=== PATIENT | male | born 1955 | race Caucasian/White ===

== ENCOUNTER 2017-06-10 16:13 | Inpatient (IN) | payer MEDICARE, SELFPAY ==
[2017-06-10] VITALS (28 sets, daily range): BP systolic 83–162; BP diastolic 38–72; PULSE 86–143; RESP 16–32; TEMP 35.8–37; O2SAT 92–99; BMI 42.7; BMI 39.2
--- NOTE | 2017-06-10 16:15 | EKG12_ITS ---
Test Reason : FULL ARREST Blood Pressure : / mmHG Vent. Rate : 099 BPM Atrial Rate : 099 BPM P-R Int : 192 ms QRS Dur : 162 ms QT Int : 460 ms P-R-T Axes : 084 089 031 degrees QTc Int : 590 ms Normal sinus rhythm Right bundle branch block , possible lateral ischemia Abnormal ECG No previous ECGs available Confirmed by STEFANO GIANG ([id number]), video news editor ROXANNE DOVER ([id number]) on 06/13/2017 1:18:34 PM Referred By: DARRYL Confirmed By:STEFANO GIANG
--- NOTE | 2017-06-10 16:15 | RAD_ITS ---
STUDY: X-RAY CHEST REASON FOR EXAM: Male, 61 years old. Cardiac arrest TECHNIQUE: Single x3 AP portable view of the chest. COMPARISON: None. FINDINGS: There is an endotracheal tube present the tip is approximately 4 cm above the nikole. An NG tube is present the tip is in the stomach. There is a pattern of increased interstitial markings throughout the lungs. There is a faintly visualized nodule in the left lower lobe measuring 1 cm which may represent a nipple shadow versus pulmonary nodule. There is mild cardiac enlargement. Normal mediastinum and christelle. Normal visualized pulmonary arteries. Normal visualized aortic arch and descending thoracic aorta. There are diffuse degenerative changes of the visualized thoracic spine. Normal visualized ribs, clavicles, and shoulders. There is no demonstrated abnormality of the visualized soft tissue structures of the upper abdomen. RAD/Chest 1 View (Portable) IMPRESSION: Mild to moderate cardiomegaly. Interstitial edema. Lines as detailed above. Endotracheal tube is slightly high could be advanced 1 to 2 cm. Question left lower lobe pulmonary nodule versus summation of shadows. Possible nipple shadow. Recommend dedicated single chest x-ray when appropriate. Electronically Signed: Matilda Nguyen MD at 16:51 EST Tel , Service support ,
[2017-06-10 16:31] LABS: Partial Thromboplast Time 53.6 Seconds (24.1-36.2)
--- NOTE | 2017-06-10 16:31 | NURSING ---
NO OLD EKGS
--- NOTE | 2017-06-10 16:31 | NURSING ---
CODE BLUE CALLED [id number]
[2017-06-10 16:34] LABS: International Normalized Ratio 1.5; Prothrombin Time (Protime)PT. 17.5 SECONDS (11.7-14.9)
[2017-06-10 16:39] LABS: Absolute Lymphocyte Count 5.03 X10^3/ul (0.83-4.51); Absolute Neutrophil Count 2.8 X10^3/uL (2.0-7.7); Basophil# 0.01 X10^3/uL; Basophil% 0.1 % (0-1); Eosinophil# 0.01 X10^3/uL; Eosinophils% 0.1 % (0-5); Hematocrit 42.1 % (40-54); Hemoglobin 13.3 g/dl (13.0-16.5); Lymphocyte # 5.03 X10^3/ul (4.0); Lymphocyte % 61.1 % (19-41); Mean Corp Hgb Conc 31.6 g/gl (32-36); Mean Corpuscular Hgb 29.4 pg (27.0-32.0); Mean Corpuscular Volume 93.1 fL (80-94); Mean Platelet Vol. 11.7 fl (6.2-12.0); Monocyte# 0.27 X10^3/uL; Monocyte% 3.3 % (0-10); Neutrophil # 2.79 X10^3/uL (2.7-7.7); Neutrophil % 33.9 % (47-70); Platelet Count 177 K/mm3 (150-450); RBC Distribution Width CV 14.4 % (11.6-14.6); RBC Distribution Width SD 48.6 fl (35.1-43.9); Red Blood Count 4.52 M/mm3 (4.6-6.2); White Blood Count 8.2 K/mm3 (4.4-11.0)
[2017-06-10 16:41] LABS: Differential Indicated SCAN CRITERIA MET; POSITIVE COUNT NO; POSITIVE DIFFERENTIAL YES; POSITIVE MORPHOLOGY NO
[2017-06-10 16:46] LABS: Allen Test POS; Base Excess -26 mmol/L (-2 to +2); Bicarbonate 9.4 mmol/L (22-26); Blood Gas Specimen Type ART; FI02 100; Mode A-C; O2 Delivery Device Vent; PEEP 5; PO2 330 mmHG (75-100); RR 14; SITE R Radial; SO2 99 % (95-99); Time Given 1641; Total Carbon Dioxide 12 mmol/L; Vt 650; pCO2 71.6 mmHg (35-45); pH 6.73 (7.35-7.45)
[2017-06-10 16:48] LABS: AST(SGOT) 46 U/L (15-37); Alanine Aminotransfer ALT/SGPT 38 U/L (16-61); Albumin, Serum 3.3 g/dL (3.2-5.0); Alkaline Phosphatase 138 U/L (45-117); Anion Gap 23 (5-15); BUN 80 mg/dL (7-18); BUN/Creat Ratio 14.4 RATIO (10-20); Bilirubin, Direct 0.11 mg/dL (0.00-0.30); Calcium,Total 8.2 mg/dL (8.5-10.1); Chloride 102 mmol/L (98-107); Creatinine, Serum 5.56 mg/dL (0.70-1.30); EST Glomerular Filtration Rate 11 mL/min (>60); Est Glom Filt Rate - Afr Amer 14 mL/min (>60); Estimated Creatinine Clearance 15.24 ml/min; Globulin 4.3 g/dL (2.2-4.2); Glucose 172 mg/dL (74-106); Potassium 4.9 mmol/L (3.5-5.1); Protein, Total 7.6 g/dL (6.4-8.2); Sodium Level 140 mmol/L (136-145)
[2017-06-10 16:59] LABS: Anisocytosis RARE; Platelet Estimate A (ADEQ); Platelet Morphology LARGE
[2017-06-10] MEDS: Sodium Bicarbonate 8.4% 50 ML Syringe 50 MEQ IV ×2 (16:59→17:59)
[2017-06-10 17:00] LABS: Macrocytosis RARE; Ovalocyte RARE
[2017-06-10 17:20] LABS: Lactic Acid 14.1 mmol/L (0.4-2.0)
--- NOTE | 2017-06-10 17:37 | ED.VISSUMM ---
- ER Visit Summary Date of Service: 06/10/17 Chief Complaint: Respiratory distress History of Present Illness: The patient is a 61 M who has not been feeling well for 1 week. According to he was seen in urgent care and placed on an antibiotic for respiratory infection. She states 2-3 days ago he was not acting appropriate. Examples that she gave were: 1.) He was sitting at the edge of the bed and when asked why he replied I am not sitting at the edge of the bed . 2.) states he was at the doorway and thought he lit a cigarette and thought he smoked it then threw away the cigarette. She gave other examples to illustrate that he is not been acting appropriately for the last 2-3 days. She stated prior to calling the squad he had shaking chills. He is a smoker 1-2 packs per day. He is on oxygen. He also has obstructive sleep apnea and she states he is compliant with his CPAP machine. She does report cough she is uncertain whether was productive or not. Her verbal report since the written report is not available he had a cardiac arrest as well. Monitor revealed asystole. He was bagged and appropriate algorithm for asystole was followed. When he arrived he had palpable pulse. Physical Examination: Initial vital signs 133/39 with a heart rate of 92 respiratory rate of 20 by bag valve mask and saturation of 92% on 15 L. Core temperature 96.5. Pupils were 3 mm and nonreactive. There is no evidence of trauma to the face or head. There is no hemotympanum. There is no CSF otorrhea rhinorrhea. Posterior pharynx was unremarkable with midline uvula. Trachea is midline. Breath sounds were noted when he was bagged. He had palpable carotid, femoral and radial pulses. There was evidence of acrocyanosis. Rhonchi were noted bilaterally after intubation. Abdomen is soft. Test Results: EKG reveals proper position of the endotracheal tube and OG tube. There is a left lower lobe infiltrate and increased interstitial markings on the right side compared to left. EKG sinus rhythm rate of 99 with right bundle branch block. White count is normal with 34 segs no bands 61 lymphs. Electrolyte panel is remarkable for an elevated BUN/creatinine. Creatinine is 5.54. He does have an anion gap acidosis and his lactate is 14.1. Troponins less than 0.02. There is evidence of coagulopathy with INR 1.5 and PTT of 53.6. ABG after ventilation reveals pH to be 6.7, P CO2 71.6, PaO2 333 and bicarb of 9.4 with a base excess of -26 on the following vent settings AC 14, tidal volume 650, PEEP 5 and FiO2 1.0. This indicates a metabolic and respiratory acidosis with an increased AA gradient. Her graft in light of the blood gas results and the fact that this is after successful intubation and on the vent for 1 hour he was administered 2 A of bicarb IV push. Because his blood pressure deteriorated he received 30 cc/kg bolus. He remained hypotensive a Levophed drip was ordered and a right subclavian line was placed by me. Emergency Department Course and Treatment: Rocephin and Zithromax for community acquired pneumonia, septic shock pathway with fluid bolus and Levophed. The right subclavian area was cleansed and patient was draped per hospital protocol. All participants in room or a mask and cap. First attempt resulted in cannulation of the artery on the way end. The needle was removed. Second attempt resulted in successful cannulation of the subclavian vein. Using Seldinger technique a 7.5 Maltese triple-lumen was placed. Blood was aspirated from all 3 ports. All 3 ports were flushed. A chest x-ray to confirm placement was obtained and to rule out pneumothorax. Procedures: 1. Right subclavian line placed per ED physician 2. Placement temperature probe catheter by nursing staff 3. Placement of OG per nursing staff 4. Critical care time 42 minutes 5. Oral tracheal intubation by ED physician Treatment Plan: Admit to intensive care unit Disposition: ICU Impression: 1. Cardiopulmonary arrest 2. Septic shock 3. Left lower lobe infiltrate 4. Acute kidney injury 5. Respiratory failure with hypercapnia and hypoxia and metabolic acidosis 6. History of diabetes 7. History of hypertension 8. History of O2 dependent COPD patient 9. History of coronary disease per 10. Tobacco use, 2 packs per day This note was generated with [employer] software. It may contain incorrect words, spelling, and punctuation that were not noted in review of the chart prior to signing ED Disposition - Plan for ED Patient: Chief Complaint: Unresponsive Referrals: Marlene Herrera MD [Primary Care Provider] -
--- NOTE | 2017-06-10 17:41 | NURSING ---
DR PICKARD IN ER
--- NOTE | 2017-06-10 17:49 | NURSING ---
ICU RESP ARREST, CARDIAC ARREST, SEPTIC SHOCK ASHELFAH
[2017-06-10] MEDS: Ceftriaxone 1 GM/50 ML BAG IV (17:59)
--- NOTE | 2017-06-10 18:05 | RAD_ITS ---
STUDY: X-RAY CHEST REASON FOR EXAM: Male, 61 years old. Central line placement TECHNIQUE: Frontal views of the chest were obtained. COMPARISON: Chest radiographs from the same day FINDINGS: The endotracheal tube terminates about 6.8 cm above the nikole. The gastric tube extends adequately into the upper abdomen. A right subclavian central line is present. The lungs are adequately aerated. There are no focal airspace opacities. There is minimal air in the right pleural margin in the periphery of the right lung base. There is mild enlargement of the cardiac silhouette. The mediastinum and hilar regions are unremarkable. The central vessels are prominent. There is atherosclerotic calcification of the thoracic aorta. There are diffuse degenerative changes of the visualized spine. There are degenerative changes in both shoulders. There is cortical disruption in the anterolateral aspects of the right fifth and sixth ribs. There is no demonstrated abnormality of the visualized upper abdomen. RAD/CXR for Line Placement IMPRESSION: There is a small pneumothorax along the periphery of the right lung base. This is likely due to minimally displaced rib fractures in the anterolateral aspects of the right fifth and sixth ribs rather than from central line placement. Follow-up films can be obtained. The tip of the right subclavian line is in the expected location of the mid to distal SVC. There is mild enlargement of the cardiac silhouette with mild edema. There is no obvious pleural effusion. N.B. : The above information has been verbally conveyed by Ana Laura Brown MD to Papo Taylor, Referring Physician, on 06/10/2017 19:21:19 (ET). Electronically Signed: Ana Laura Brown MD at 19:22 EST Tel Direct: [phone], Service support , N.B. : The above information has been verbally conveyed by Ana Laura Brown MD to Papo Taylor, Referring Physician, on 06/10/2017 19:21:19 (ET).
--- NOTE | 2017-06-10 18:09 | HP.PCM_ITS ---
Problem List (1) Community acquired pneumonia Status: Suspected (2) Acute renal failure Status: Acute (3) Septic shock Status: Acute (4) Lactic acidosis Status: Acute (5) Cardiopulmonary arrest Status: Acute (6) Coronary artery disease Status: Chronic (7) Hyperlipidemia Status: Chronic (8) Depression Status: Chronic (9) Hypertension Status: Chronic (10) Type 2 diabetes mellitus Status: Chronic (11) COPD (chronic obstructive pulmonary disease) Status: Chronic (12) Chronic respiratory failure Status: Chronic History of Present Illness Date of Admission: 06/10/17 Chief Complaint: Respiratory arrest followed by cardiac arrest. The patient is a 61 year old M with past medical history as mentioned above brought to the emergency room by squad because of respiratory arrest and in route to the hospital, he had asystole/cardiac arrest and CPR was initiated. At this time, patient is comatosed, not responsive and he is not sedated. I took the information from his who was sitting in the front of the patient' s room. According to the patient's , the patient has been not feeling well for the past week. He went to urgent care for upper respiratory symptoms and he was given antibiotics for respiratory infection. Couple of days ago, she mentioned that he has not been acting normally, confused at times. 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 Before that, patient had significant shaking chills. She called the squad because he was unresponsive. He had a history of COPD/chronic respiratory failure and he has been on oxygen at 2 L at home. He had a history of type 2 diabetes mellitus, has been on metformin and glipizide and his mentioned that he is not compliant and does not take his medication appropriately. He has a history of CAD in the past without history of cardiac interventions and he does not follow up with either his PCP or cardiology. He has a history of depression and anxiety and his mentioned that takes couple of antidepressants. In route to the hospital, monitor revealed asystole and CPR initiated. Upon arrival to ER, patient was afebrile, blood pressure was 123/39, pulse ox is 97% with intubation and on Ambu bag. Patient was started on mechanical ventilation. Shortly after, his blood pressure dropped. He received 3 L of IV fluid bolus and at this time, he is receiving the fourth liter of fluids. When I examined the patient, his systolic blood pressure was in the 60s. He is unresponsive and he is not on sedation. His CBC was unremarkable. BMP revealed serum bicarb of 15, BUN of 80, creatinine of 5.56. Lactic acid was 14.1. Troponin was negative. EKG revealed normal sinus rhythm with right bundle branch block, no acute ischemic changes. His pro time was 17.5 and his INR was 1.5. ABG revealed pH of 6.73, PCO2 of 71 and PO2 of 330. Chest x-ray which is of poor quality revealed cardiomegaly, diffuse haziness on the right side with fluid in the fissure on the right side, questionable left base consolidation or nodule. He is being admitted for cardiopulmonary arrest, septic shock, lactic acidosis, suspected pneumonia, acute kidney failure. Past Medical History Past Medical History (Chronic Problems): Chronic Problems Coronary artery disease (Chronic) Hyperlipidemia (Chronic) Depression (Chronic) Hypertension (Chronic) Type 2 diabetes mellitus (Chronic) COPD (chronic obstructive pulmonary disease) (Chronic) Chronic respiratory failure (Chronic) Allergies No Known Allergies Allergy (Verified 06/10/17 16:28) Home Medications: Ambulatory Orders Medication Instructions Recorded Albuterol IH (ProAir) [Proair Hfa 1 puff INHALATION Q4H PRN PRN 06/10/17 (SP)Vent Pts] Aspirin [Aspirin, Baby] 81 mg PO DAILY 06/10/17 Bupropion HCl [Wellbutrin Xl] 300 mg PO DAILY 06/10/17 Citalopram Hydrobromide [Celexa] 20 mg PO DAILY 06/10/17 Eszopiclone [Lunesta] 2 mg PO QHS PRN PRN 06/10/17 Fenofibrate 200 mg PO DAILY 06/10/17 Ferrous Sulfate 325 mg PO DAILY@0800 06/10/17 Furosemide [Lasix] 40 mg PO DAILY 06/10/17 GlipiZIDE [Glucotrol] 10 mg PO BID 06/10/17 Lisinopril [Zestril] 40 mg PO DAILY 06/10/17 Magnesium Oxide [Mag-Ox 400] 400 mg PO DAILY 06/10/17 Metformin HCl 1,000 mg PO BID 06/10/17 Nitroglycerin [Nitrostat] 0.4 mg SL PRN PRN 06/10/17 Omeprazole [Prilosec] 20 mg PO DAILY 06/10/17 Simvastatin 20 mg PO QHS 06/10/17 Tamsulosin HCl [Flomax] 0.4 mg PO DAILY 06/10/17 Tizanidine HCl 4 mg PO QHS 06/10/17 Surgical History: - - Back surgery. Psychiatric History: Anxiety, Depression Lives: Spouse/ Significant Other Smoking Status: Current every day smoker Alcohol: None Drugs: None - *Family History Maternal History Items: No pertinent history Paternal History Items: No pertinent history Review of Systems Constitutional: Reports: - - Unobtainable, patient is comatosed. Eyes: Reports: - - Unobtainable, patient is comatosed. HEENT: Reports: - - Unobtainable, patient is comatosed. Cardiovascular: Reports: - - Unobtainable, patient is comatosed. Respiratory: Reports: - - Unobtainable, patient is comatosed. Gastrointestinal: Reports: - - Unobtainable, patient is comatosed. Genitourinary: Reports: - - Unobtainable, patient is comatosed. Musculoskeletal: Reports: - - Unobtainable, patient is comatosed. Neurological: Reports: - - Unobtainable, patient is comatosed. Endocrine: Reports: - - Unobtainable, patient is comatosed. VTE Information - Inpt Only VTE Present on Admission: No VTE Mechan Device Prophylaxis: SCD's VTE Pharm Prophylaxis ordered?: No Patient Problems: Active and Suspected Problems Community acquired pneumonia (Suspected) Acute renal failure (Acute) Septic shock (Acute) Lactic acidosis (Acute) Cardiopulmonary arrest (Acute) - Physical Exam General: - - Patient is intubated, comatosed, [place] Coma Scale of 0. HEENT: Atraumatic, EOMI, Normocephalic Oral: Moist Mucosa, No Gingival or Mucosal Lesions/ Ulcerations Neck: Supple, No JVD, Negative Carotid Bruits, Trachea Midline, Thyroid Normal Size and Texture Lungs: Clear to auscultation, No wheeze, No rales, Diminished, Rhonchi, Short of Breath Cardiovascular: Regular rate, Regular Rhythm, Normal S1, Normal S2, No murmurs, PMI Normal, Tachycardic Abdomen: Bowel Sounds Present, Soft, Non Tender, Non-Distended, No Hepato- splenomegaly, Obese Extremities: No clubbing, No cyanosis, No edema Skin: No rashes, No breakdown Lymphatic: No Cervical, Supraclavicular, or Inguinal Adenopathy Neurological: - - Unable to examine, patient is comatosed. Vital Signs Temp Pulse Resp BP Pulse Ox 98.6 F 98 25 H 89/44 L 96 06/10/17 16:58 06/10/17 16:58 06/10/17 16:58 06/10/17 16:58 06/10/17 16:58 Oxygen Flow Rate 15 Oxygen Delivery Method Mechanical Ventilator Weight: 306 lb 7.08 oz Body Mass Index (BMI) 42.7 Finger Stick Blood Glucose 179 Laboratory Tests Past 24 Hrs 06/10/17 06/10/17 06/10/17 16:14 16:14 16:14 WBC 8.2 RBC 4.52 L Hgb 13.3 Hct 42.1 MCV 93.1 MCH 29.4 MCHC 31.6 L RDW 14.4 RDW Differential 48.6 H Plt Count 177 MPV 11.7 Immature Gran % (Auto) 1.500 H Neut % (Auto) 33.9 L Lymph % (Auto) 61.1 H [place] % (Auto) 3.3 Eos % (Auto) 0.1 Baso % (Auto) 0.1 Absolute Neuts (auto) 2.8 Absolute Lymphs (auto) 5.03 H Total Counted Not Reportable Diff Path Review May foll Platelet Estimate A Plt Morphology Comment LARGE Anisocytosis RARE Macrocytosis RARE Ovalocytes RARE PT 17.5 H INR 1.5 APTT 53.6 H Specimen Type Sample Site pH Bicarbonate Actual POC Total CO2 Base Excess O2 Saturation O2 % ABG pCO2 ABG pO2 Gagan Test Respiration Rate O2 Delivery Device Minute Volume Vent Mode Tidal Volume POC PEEP Blood Gas Notified Whom Blood Gas Notified Time Sodium 140 Potassium 4.9 Chloride 102 Carbon Dioxide 15.0 L Anion Gap 23 H BUN 80 H Creatinine 5.56 H Estim Creat Clear Calc 15.24 Est GFR (MDRD) Af Amer 14 L Est GFR (MDRD) Non-Af 11 L BUN/Creatinine Ratio 14.4 Glucose 172 H Lactic Acid Calcium 8.2 L Total Bilirubin 0.40 Direct Bilirubin 0.11 AST 46 H ALT 38 Alkaline Phosphatase 138 H Troponin I < 0.02 Total Protein 7.6 Albumin 3.3 Globulin 4.3 H 06/10/17 06/10/17 16:28 16:42 WBC RBC Hgb Hct MCV MCH MCHC RDW RDW Differential Plt Count MPV Immature Gran % (Auto) Neut % (Auto) Lymph % (Auto) [place] % (Auto) Eos % (Auto) Baso % (Auto) Absolute Neuts (auto) Absolute Lymphs (auto) Total Counted Diff Path Review Platelet Estimate Plt Morphology Comment Anisocytosis Macrocytosis Ovalocytes PT INR APTT Specimen Type ART Sample Site R Radial pH 6.73 L* Bicarbonate Actual 9.4 L POC Total CO2 12 Base Excess -26 L O2 Saturation 99 O2 % 100 ABG pCO2 71.6 H* ABG pO2 330 H* Gagan Test POS Respiration Rate 14 O2 Delivery Device Vent Minute Volume 12.00 Vent Mode A-C Tidal Volume 650 POC PEEP 5 Blood Gas Notified Whom ED Blood Gas Notified Time 1641 Sodium Potassium Chloride Carbon Dioxide Anion Gap BUN Creatinine Estim Creat Clear Calc Est GFR (MDRD) Af Amer Est GFR (MDRD) Non-Af BUN/Creatinine Ratio Glucose Lactic Acid 14.1 H* Calcium Total Bilirubin Direct Bilirubin AST ALT Alkaline Phosphatase Troponin I Total Protein Albumin Globulin Clinical Impression(s) from Imaging Studies Chest X-Ray 06/10/17 16:15 IMPRESSION: Mild to moderate cardiomegaly. Interstitial edema. Lines as detailed above. Endotracheal tube is slightly high could be advanced 1 to 2 cm. Question left lower lobe pulmonary nodule versus summation of shadows. Possible nipple shadow. Recommend dedicated single chest x-ray when appropriate. Electronically Signed: Matilda Nguyen MD at 16:51 EST Tel , Service support , Assessment/Plan Active and Suspected Problems Community acquired pneumonia (Suspected) Acute renal failure (Acute) Septic shock (Acute) Lactic acidosis (Acute) Cardiopulmonary arrest (Acute) This is a 61 years old male patient brought to the emergency department because of respiratory distress and while in the route to the hospital, he went into acute respiratory failure followed by cardiac arrest, status post CPR, found to have septic shock, lactic acidosis, acute hypercapnic respiratory failure secondary to possible pneumonia as well as acute renal failure. #1 status post cardiopulmonary arrest: Initially, patient had respiratory arrest followed by asystole. Status post CPR. At this time, he has palpable pulse, blood pressure is very low. He received 3 L of bolus IV fluid and he is on the fourth liter. He will be started on IV Levophed drip soon. EKG reviewed , revealed sinus tachycardia with right bundle branch block, no previous EKG to compare. Chest x-ray reviewed as above. Patient received 1 dose of IV Rocephin and Zithromax as well as sodium bicarbonate ?3. Plan: Admit to intensive care unit, critical care monitoring, complete bedrest, nothing by mouth, blood culture, urine culture, start IV vancomycin and Levaquin as patient had a history of recent upper respiratory infection which raised the concern of staphylococcal pneumonia, critical care consult, continue vent settings, ABG in 2 hours, suction of the ETT per protocol, cardiac enzymes, repeat EKG tomorrow morning. #2 acute hypercapnic respiratory failure/respiratory acidosis: Secondary to above in addition to possible pneumonia. Patient has history of COPD as well, has been on oxygen as well as sleep apnea. ABG reviewed pH of 6.73, PCO2 71 and PO2 of 330. Plan to continue mechanical ventilation, repeat ABG in 2 hours , critical care consult. #3 lactic acidosis/septic shock: Secondary to cardiac pulmonary arrest in addition to pneumonia. Lactic acid slightly elevated. Received bolus IV fluids as per protocol. Blood pressure has been low. He will be started on IV Levophed drip. Plan as above, franklin cultures, IV antibiotics, IV fluids, repeat lactic acid in 3 hours. #4 acute renal failure: With unknown baseline kidney function. This is probably acute, admission creatinine is 5.56, BUN is 80. Plan IV fluids, input output chart, repeat BMP tomorrow morning. #5 probable community-acquired pneumonia: Chest x-ray reviewed as above. Plan: IV vancomycin, Levaquin, cultures, continue mechanical ventilation, critical care consult. #6 type 2 diabetes mellitus: Keep on nothing by mouth, IV fluids, Accu-Cheks every 6 hours, insulin sliding scale. #7 hypertension: At this time, blood pressure is low, hold all antihypertensive medications. #8 CAD: Without prior cardiac interventions. EKG reviewed, revealed no acute ischemic changes, revealed RBBB. Plan: Cardiac enzymes, repeat EKG tomorrow morning. #9 COPD/chronic respiratory failure: On mechanical ventilation, plan as above. At home, has been on oxygen at 2 L according to his . #11 DVT prophylaxis: INR is 1.5, SCDs. #12 CODE STATUS: I spoke with the patient's in details about the critical condition of her and she mentioned that he expressed that he does not want to be on the life sustaining measures such as breathing machines but he does not have a DNR status. She mentioned that she cannot take this at this time. I explained to her that at this time, if he went into cardiac arrest again we will try to bring him back with CPR and then we can discuss the CODE STATUS again if things changes. She agreed to keep him full CODE STATUS at this time and will follow. Other chronic medical problems: #1 hyperlipidemia. #2 depression. #3 anxiety. #4 obstructive sleep apnea: Has been on CPAP at home. This note was generated with [employer] dictation software. It may contain incorrect words, spelling, and punctuation that were not noted in checking the note before signing. Code Visit Inpatient E&M: 96605 Init Hosp L3
[2017-06-10 19:11] LABS: Allen Test POS; Base Excess -13 mmol/L (-2 to +2); Bicarbonate 15.1 mmol/L (22-26); Blood Gas Specimen Type ART; FI02 40; Mode A-C; O2 Delivery Device Vent; PEEP 5; PO2 82 mmHG (75-100); RR 16; SITE R Radial; SO2 93 % (95-99); Time Given 655; Total Carbon Dioxide 16 mmol/L; Vt 650; pCO2 38.4 mmHg (35-45)
--- NOTE | 2017-06-10 20:08 | RAD_ITS ---
STUDY: X-RAY CHEST REASON FOR EXAM: Male, 61 years old. Follow-up pneumothorax TECHNIQUE: Frontal views of the chest were obtained. COMPARISON: Chest radiographs from the same day FINDINGS: The endotracheal tube terminates about 5.4 cm above the nikole. The gastric tube extends adequately into the upper abdomen. The right subclavian central line terminates in the expected location of the mid SVC. The lungs are underaerated. There are no focal airspace opacities. Minimal air is again seen in the periphery of the right lung base. There is mild enlargement of the cardiac silhouette. The mediastinum and hilar regions are unremarkable. The central vessels are indistinct. There is atherosclerotic calcification of the thoracic aorta. There are diffuse degenerative changes of the visualized spine. There are degenerative changes in both shoulders. The right rib fractures are not well seen on the current study. A fracture is now seen along the anterolateral left sixth rib, and there may be cortical disruption in the lateral left fifth rib. There is air in the lateral soft tissues of the right lower chest. RAD/Chest 1 View (Portable) IMPRESSION: There is a stable appearance of the small pneumothorax in the periphery of the right lower chest. Adjacent subcutaneous emphysema has increased. There is mild enlargement of the cardiac silhouette with vascular congestion. There is no evidence of pleural effusion. The previously seen right rib fractures are not well seen on the current study. However fractures are now seen in the anterolateral left sixth rib and possibly lateral left fifth rib. Electronically Signed: Ana Laura Brown MD at 21:23 EST Tel Direct: [phone], Service support ,
[2017-06-10 20:28] LABS: Reflex Lactate? Y
[2017-06-10] MEDS: Propofol 10MG/Ml 1,000 MG/100 ML Bottle 4.17 MG CONT INF (20:39)
--- NOTE | 2017-06-10 20:56 | RAD_ITS ---
STUDY: X-RAY CHEST REASON FOR EXAM: Male, 61 years old. Chest tube placement TECHNIQUE: A single frontal view of the chest was obtained. COMPARISON: Chest radiographs from the same day FINDINGS: A chest tube is now present in the right hemithorax. The endotracheal tube terminates about 5.7 cm above the nikole. The gastric tube and right subclavian line are stable. The lungs are underaerated. There are no focal airspace opacities. There is no demonstrated pleural abnormality. There is mild enlargement of the cardiac silhouette. The mediastinum and hilar regions are unremarkable. The central vessels are indistinct. There is atherosclerotic calcification of the thoracic aorta. There are diffuse degenerative changes of the visualized spine. There are degenerative changes in both shoulders. Subcutaneous emphysema is again seen in the lateral lower right chest. RAD/Chest 1 View (Portable) IMPRESSION: There has been resolution of the right pneumothorax after chest tube placement. There are no acute cardiopulmonary changes. Electronically Signed: Ana Laura Brown MD at 22:13 EST Tel Direct: [phone], Service support ,
--- NOTE | 2017-06-10 21:21 | OP.PCM_ITS ---
Problem List (1) Pneumothorax, right Status: Acute Report of Operation Date of Procedure: 06/10/17 Pre-Operative Diagnosis: 1. Right pneumothorax. 2. Need for arterial line Post-Operative Diagnosis: Same Surgery/Procedure Performed:: 1. Placement of 28 [place] right chest tube. 2. Placement of right wrist arterial line with ultrasound guidance Description of Procedure: I was consulted to see the patient after he had chest compressions and was intubated and brought to the ICU and a chest x-ray showed right pneumothorax with subcutaneous emphysema. I discussed the risks of placing a chest tube and arterial line with the patient's . I discussed the risks of bleeding, infection, lung injury. The patient's agreed to proceed. The patient's right chest was prepped and draped in the usual sterile fashion. Next an incision was made lateral to the inframammary crease and lidocaine was injected into the incision. Next Fadumo clamps were used to dissect down to the rib and just over the rib they were inserted into the pleural space and a haji of air was encountered. Next the finger sweep was performed to ensure that there were no adhesions to the lung. Next a 28 [place]ian chest tube was placed into the opening and directed superiorly and anteriorly. Next the tube was anchored to the skin with 0 Nurolon suture. The skin incision was then closed with a vertical mattress 2-0 Mersilene suture. Next the tube was connected to suction. There was about 100 cc of serosanguineous fluid returned with minimal air leak. Next the right radial artery was identified under ultrasound. The right wrist was then prepped and draped in the usual sterile fashion. Under ultrasound guidance the right radial artery was cannulated with an arterial line and then sutured into place with a 3-0 nylon suture. Bandages were then applied and the arterial line was flushed.
[2017-06-10 21:27] LABS: Magnesium 1.5 mg/dL (1.6-2.6)
[2017-06-10 21:27] LABS: Base Excess -15 mmol/L (-2 to +2); Bicarbonate 13.8 mmol/L (22-26); Blood Gas Specimen Type ALINE; FI02 40; Mode A-C; O2 Delivery Device Vent; PEEP 5; PO2 102 mmHG (75-100); RR 16; SITE OTHER; SO2 96 % (95-99); Total Carbon Dioxide 15 mmol/L; Vt 550; pCO2 39.6 mmHg (35-45); pH 7.15 (7.35-7.45)
--- NOTE | 2017-06-10 21:30 | NURSING ---
Patient arrived in ICU-1 at 1930 and ER nurse present. ER charge nurse, Lexii Lyons RN stated he received a call that the patient had a tension pneumothorax on his CXR. Dr. Hogan on the floor and notified. CXR reviewed by Dr. Hogan who stated it was not a tension pneumothorax but wanted a repeat CXR. Repeat CXR showed a pneumothorax on the right side and crepitus present at the level of the right nipple. Dr. Hogan notified of such at 2009. in waiting room and Dr. Hogan updated her on the patient's condition. Consent obtained to place a right sided chest tube and right wrist arterial line. Time out completed at 2035 and CLIENT CARE COORDINATOR and WELL DRILL OPERATOR assisted with placement of chest tube at 2041. Chest tube connected to low continuous wall suction. Right wrist arterial line placed at 2058. Repeat CXR obtained and Dr. Hogan perosnally reviewed it. updated on patient condition and had a brief visit with the patient. Dr. Cotton made aware of chest tube and arterial line placement
[2017-06-10 21:57] LABS: International Normalized Ratio 1.3; Prothrombin Time (Protime)PT. 15.4 SECONDS (11.7-14.9)
[2017-06-10 22:12] LABS: Lactic Acid 1.3 mmol/L (0.4-2.0)
[2017-06-10] MEDS: Chlorhexidine 15 ML PO (22:36)
[2017-06-10 22:51] LABS: Bacteria 0 SEEN /hpf (None Seen); Mucous, Urine 0 SEEN /hpf (<or=2+); Squamous Epithelial Cells - UA 0 SEEN /hpf (0-5); White Blood Cells 0 SEEN /hpf (0-5)
[2017-06-10 23:18] LABS: Color, Urine Yellow (Yellow); Glucose, Dipstick Normal (Normal); Ketone-Dipstick Negative (Negative); Leukocyte Esterase-Dipstick Negative /ul (Negative); Nitrite-Dipstick Negative (Negative); Occult Blood-Urine 25 /ul (Negative); Protein-Dipstick 30 mg/dl (Negative); Specific Gravity, Urine 1.025 (1.002-1.030); Urine Clarity Sl. Cloudy (Clear); Urine Urobilinogen Normal (Normal)
[2017-06-10 23:28] LABS: Urine Bilirubin Dipstick 1 mg/dL (Negative)
[2017-06-10 23:29] LABS: Amorphous Sediment 1+; Red Blood Cells-Urine 0-5 SEEN /hpf (0-5)
[2017-06-10 23:34] LABS: M R Staph aureus DNA By PCR Negative (Negative); Probe Check PASS; Specimen Processing Control PASS; Staph aureus DNA By PCR NEGATIVE (Negative)
[2017-06-10 23:41] LABS: Bedside Glucose 274 mg/dL (70-110)
[2017-06-11] VITALS (44 sets, daily range): BP systolic 124–193; BP diastolic 53–101; PULSE 87–111; RESP 16–32; TEMP 36.2–37.7; O2SAT 94–105
[2017-06-11 00:36] LABS: Bedside Glucose 274 mg/dL (70-110)
[2017-06-11 01:30] LABS: Mucous, Urine 0 SEEN /hpf (<or=2+)
[2017-06-11 01:35] LABS: Color, Urine Yellow (Yellow); Glucose, Dipstick 50 mg/dl (Normal); Ketone-Dipstick 5 mg/dl (Negative); Leukocyte Esterase-Dipstick 25 /ul (Negative); Nitrite-Dipstick Negative (Negative); Occult Blood-Urine 150 /ul (Negative); Protein-Dipstick 100 mg/dl (Negative); Urine Clarity Sl. Cloudy (Clear); Urine Urobilinogen Normal (Normal)
[2017-06-11] MEDS: CHLORHEXIDINE GLUC 2% CLOTH 1 EACH TOWELETTE TOPICAL (01:40)
[2017-06-11] MEDS: 0.9% Normal Saline 1,000 ML 125 ML IV (01:40)
[2017-06-11 01:58] LABS: Urine Bilirubin Dipstick 1 mg/dL (Negative)
[2017-06-11 01:59] LABS: Coarse Granular Cast 0-5 SEEN /lpf (0-5 /lpf)
[2017-06-11 02:00] LABS: Bacteria 2+ /hpf (None Seen); Red Blood Cells-Urine 25-50 SEEN /hpf (0-5); Squamous Epithelial Cells - UA 10-25 SEEN /hpf (0-5); White Blood Cells 25-50 SEEN /hpf (0-5)
[2017-06-11] MEDS: Propofol 10MG/Ml 1,000 MG/100 ML Bottle 4.17 MG CONT INF ×4 (02:32→22:22)
[2017-06-11 03:11] LABS: Base Excess -14 mmol/L (-2 to +2); Bicarbonate 13.4 mmol/L (22-26); Blood Gas Specimen Type ALINE; FI02 40; Mode A-C; O2 Delivery Device Vent; PEEP 5; PO2 86 mmHG (75-100); RR 16; SITE OTHER; SO2 94 % (95-99); Total Carbon Dioxide 14 mmol/L; Vt 550; pCO2 33.2 mmHg (35-45); pH 7.21 (7.35-7.45)
[2017-06-11 05:01] LABS: Absolute Lymphocyte Count 1.09 X10^3/ul (0.83-4.51); Absolute Neutrophil Count 16.7 X10^3/uL (2.0-7.7); Hematocrit 32.9 % (40-54); Hemoglobin 10.8 g/dl (13.0-16.5); Lymphocyte # 1.09 X10^3/ul (4.0); Lymphocyte % 5.9 % (19-41); Mean Corp Hgb Conc 32.8 g/gl (32-36); Mean Corpuscular Hgb 28.6 pg (27.0-32.0); Mean Corpuscular Volume 87.3 fL (80-94); Mean Platelet Vol. 10.9 fl (6.2-12.0); Monocyte# 0.52 X10^3/uL; Monocyte% 2.8 % (0-10); Neutrophil # 16.67 X10^3/uL (2.7-7.7); Neutrophil % 90.9 % (47-70); Platelet Count 139 K/mm3 (150-450); RBC Distribution Width CV 14.4 % (11.6-14.6); RBC Distribution Width SD 45.3 fl (35.1-43.9); Red Blood Count 3.77 M/mm3 (4.6-6.2); White Blood Count 18.4 K/mm3 (4.4-11.0)
[2017-06-11 05:04] LABS: Differential Indicated SCAN CRITERIA MET; POSITIVE COUNT NO; POSITIVE DIFFERENTIAL NO; POSITIVE MORPHOLOGY YES
[2017-06-11 05:58] LABS: ALB/GLOB Ratio 0.7 RATIO (0.9-2.4); AST(SGOT) 109 U/L (15-37); Alanine Aminotransfer ALT/SGPT 52 U/L (16-61); Albumin, Serum 2.6 g/dL (3.2-5.0); Alkaline Phosphatase 86 U/L (45-117); Anion Gap 18 (5-15); BUN 84 mg/dL (7-18); BUN/Creat Ratio 16.5 RATIO (10-20); Calcium,Total 6.1 mg/dL (8.5-10.1); Chloride 108 mmol/L (98-107); Creatinine, Serum 5.08 mg/dL (0.70-1.30); EST Glomerular Filtration Rate 12 mL/min (>60); Est Glom Filt Rate - Afr Amer 15 mL/min (>60); Estimated Creatinine Clearance 16.17 ml/min; Globulin 3.5 g/dL (2.2-4.2); Glucose 257 mg/dL (74-106); Potassium 5.4 mmol/L (3.5-5.1); Protein, Total 6.1 g/dL (6.4-8.2); Sodium Level 142 mmol/L (136-145)
--- NOTE | 2017-06-11 06:25 | RAD_ITS ---
STUDY: X-RAY CHEST REASON FOR EXAM: Male, 61 years old. Shortness of breath TECHNIQUE: Single AP portable view of the chest. COMPARISON: 04/08/2017 9:32 PM FINDINGS: There is an endotracheal tube present above the clavicles 5.7 cm above the nikole. An NG tube is present tip is in the stomach. The right-sided chest tube with the tip overlying the right side perihilar region. There is a right-sided subclavian line in place tip is in the superior vena cava. Lungs are underexpanded interstitial markings are diffusely prominent. There is subcutaneous gas within the right chest. A pneumothorax is not visualized. The external pacer seen overlying the right chest and prior study is no longer visualized. There is mild cardiac enlargement. There is a prominent appearance of the mediastinum. Normal visualized pulmonary arteries. There is atherosclerotic calcification of the aortic arch with tortuosity. Normal visualized thoracic spine. Normal visualized ribs, clavicles, and shoulders. There is no demonstrated abnormality of the visualized soft tissue structures of the upper abdomen. RAD/Chest 1 View (Portable) IMPRESSION: Right-sided chest tube, subcutaneous gas, no definitive visualized pneumothorax. The heart is enlarged. There is a widened appearance of the mediastinum which is likely due to positioning and aortic tortuosity. However, Recommend CT scan of the chest when appropriate to clarify. Lines as detailed above. The endotracheal tube is high 5.7 cm above the nikole and should be advanced 2 to 3 cm. Electronically Signed: Matilda Nguyen MD at 9:15 EST Tel , Service support ,
[2017-06-11 06:31] LABS: Bedside Glucose 238 mg/dL (70-110)
[2017-06-11 06:31] LABS: Base Excess -13 mmol/L (-2 to +2); Bicarbonate 14.5 mmol/L (22-26); Blood Gas Specimen Type ALINE; FI02 40; Mode A-C; O2 Delivery Device Vent; PEEP 5; PO2 86 mmHG (75-100); RR 16; SITE OTHER; SO2 95 % (95-99); Total Carbon Dioxide 15 mmol/L; Vt 550; pCO2 33.7 mmHg (35-45); pH 7.24 (7.35-7.45)
[2017-06-11] MEDS: Sodium Polystyrene Sulfonate 15 GM/60 ML UDC 30 GM PO (07:18)
--- NOTE | 2017-06-11 07:55 | CON.PCM_ITS ---
Problem List (1) Pneumothorax, right Status: Acute (2) Community acquired pneumonia Status: Suspected Qualifiers: Laterality: unspecified laterality Qualified Code(s): J18.9 - Pneumonia, unspecified organism (3) Acute renal failure Status: Acute Qualifiers: Acute renal failure type: with acute tubular necrosis Qualified Code(s): N17.0 - Acute kidney failure with tubular necrosis (4) Septic shock Status: Acute (5) Lactic acidosis Status: Acute (6) Cardiopulmonary arrest Status: Acute (7) Coronary artery disease Status: Chronic (8) Hyperlipidemia Status: Chronic (9) Depression Status: Chronic (10) Hypertension Status: Chronic (11) Type 2 diabetes mellitus Status: Chronic (12) COPD (chronic obstructive pulmonary disease) Status: Chronic (13) Chronic respiratory failure Status: Chronic Reason for Consult Date of Consultation: 06/11/17 Reason for Consultation: Respiratory arrest History of Present Illness: The patient is a 61 year old M, with past medical history listed below, who presented to [facility] on 06/10/2017 secondary to cardiopulmonary arrest. Patient reportedly had not been feeling well for the past week. Patient gone to an urgent care with symptoms of upper respiratory tract infection was given antibiotics. Patient did not comply with antibiotics and reportedly was acting confused for the past couple of days. On the day of presentation, patient was reportedly trying to drive his truck and then fell to the floor. Patient had had shaking chills. On arrival, the squad reported that the patient was unresponsive. Patient does carry a diagnosis of COPD and is on 2 L nasal cannula at home. Patient also has type 2 diabetes mellitus and reportedly is noncompliant with therapy. In route to the hospital, patient developed asystole and CPR was initiated. On arrival to the ER, patient was noted to be 97% on BVM. Patient was placed on mechanical ventilation. Systolic blood pressures were falling and patient was placed on Levophed therapy. Patient did have a right subclavian triple- lumen catheter placed by the ER. Laboratory values showed acute renal failure with a creatinine of 5.56 and a lactate of 14. EKG showed a right bundle branch block with elevated INR 1.5. ABG showed a pH of 6.7 with a PCO2 of 71 and PO2 of 330. Chest x-ray was remarkable for rib fractures, subcutaneous emphysema and basilar pneumothorax. Patient was admitted to the intensive care unit. Subcutaneous emphysema did progress, so general surgery to place a right-sided chest tube. Patient was initiated on a fentanyl drip with some improvements. I was called overnight and tidal volumes were decreased from 650 mL to 550 mL's. Nursing reports improved urine output overnight, but not following commands. Patient was placed on a spontaneous awakening trial this morning, but failed secondary to tachypnea. Past Medical History Past Medical History (Chronic Problems): Chronic Problems Coronary artery disease (Chronic) Hyperlipidemia (Chronic) Depression (Chronic) Hypertension (Chronic) Type 2 diabetes mellitus (Chronic) COPD (chronic obstructive pulmonary disease) (Chronic) Chronic respiratory failure (Chronic) Allergies No Known Allergies Allergy (Verified 06/10/17 16:28) Home Medications: Ambulatory Orders Medication Instructions Recorded Albuterol IH (ProAir) [Proair Hfa 1 puff INHALATION Q4H PRN PRN 06/10/17 (SP)Vent Pts] Aspirin [Aspirin, Baby] 81 mg PO DAILY 06/10/17 Bupropion HCl [Wellbutrin Xl] 300 mg PO DAILY 06/10/17 Citalopram Hydrobromide [Celexa] 20 mg PO DAILY 06/10/17 Eszopiclone [Lunesta] 2 mg PO QHS PRN PRN 06/10/17 Fenofibrate 200 mg PO DAILY 06/10/17 Ferrous Sulfate 325 mg PO DAILY@0800 06/10/17 Furosemide [Lasix] 40 mg PO DAILY 06/10/17 GlipiZIDE [Glucotrol] 10 mg PO BID 06/10/17 Hydrocodone/Acetaminophen 1 each PO Q6H 06/10/17 [Hydrocodon-Acetaminophn 10-325] Ketoconazole [Extina] 50 gm TP DAILY 06/10/17 Lisinopril [Zestril] 40 mg PO DAILY 06/10/17 Magnesium Oxide [Mag-Ox 400] 400 mg PO DAILY 06/10/17 Metformin HCl 1,000 mg PO BID 06/10/17 Morphine Sulfate [Ms Contin] 60 mg PO Q12H 06/10/17 Nitroglycerin [Nitrostat] 0.4 mg SL PRN PRN 06/10/17 Omeprazole [Prilosec] 20 mg PO DAILY 06/10/17 Simvastatin 20 mg PO QHS 06/10/17 Tamsulosin HCl [Flomax] 0.4 mg PO DAILY 06/10/17 Tizanidine HCl 4 mg PO QHS 06/10/17 Triamcinolone 0.1% Cream [Kenalog] 1 applic TOPICAL TID 06/10/17 Surgical History: - - Back surgery. Psychiatric History: Anxiety, Depression Lives: Spouse/ Significant Other Smoking Status: Current every day smoker Alcohol: None Drugs: None - *Family History Maternal History Items: No pertinent history Paternal History Items: No pertinent history Review of Systems Unable to obtain accurate/complete ROS d/t: Intubated and sedated. Patient Problems: Active and Suspected Problems Pneumothorax, right (Acute) Community acquired pneumonia (Suspected) Acute renal failure (Acute) Septic shock (Acute) Lactic acidosis (Acute) Cardiopulmonary arrest (Acute) Objective: All imaging was personally reviewed. Multiple chest x-rays reviewed showing subcutaneous emphysema and proper placement of support devices. No CT head has been obtained. - Physical Exam General: - - Intubated and sedated. Fair vent synchrony noted. Morbidly obese. Appears older than stated age. HEENT: Atraumatic, PERRLA, EOMI, Normocephalic, - - Pleural injection without icterus. Oral: Moist Mucosa, No Gingival or Mucosal Lesions/ Ulcerations Neck: Supple, No JVD, No Nodes, Trachea Midline Lungs: No rales, Diminished, Rhonchi, Wheezes, - - Symmetric expansion. No dullness to percussion. Air leak noted on chest tube. Cardiovascular: Regular rate, Regular Rhythm, Normal S1, Normal S2, No murmurs, No rub noted, No Gallop, - - Crepitus noted over the right chest Abdomen: Bowel Sounds Present, Soft, Non Tender, Distended, Obese Extremities: No clubbing, No cyanosis, Capillary Refill Less than 3 Seconds, Edema - Trace Skin: - - Multiple scars noted of bilateral upper extremities. No sternotomy scar noted. Venous stasis changes of the lower extremities. Musculoskeletal: No Tenderness to Palpation of Joints or Extremities, No Muscle Wasting Lymphatic: No Cervical, Supraclavicular, or Inguinal Adenopathy Neurological: Cranial nerves II-XII grossly intact, Neuro grossly intact, - - Very little spontaneous movement. Patient does have a gag, cough and pupillary reflex. Responds to stimulus peripherally. Psych/Mental Status: Flat Affect Vital Signs Temp Pulse Resp BP Pulse Ox 37.2 C 96 21 H 136/59 H 96 06/11/17 06:00 06/11/17 06:00 06/11/17 06:00 06/11/17 06:00 06/11/17 06:00 Oxygen Delivery Method Mechanical Ventilator Weight: 126 kg Body Mass Index (BMI) 39.2 Intake and Output for Last 24 Hours 06/09/17 06/10/17 06/11/17 23:59 23:59 23:59 Intake Total 1889.3 / 1889.3 1328.4 / 1328.4 Output Total 330 / 330 440 / 440 Balance 1559.3 / 1559.3 888.4 / 888.4 Microbiology Past 72 Hours 06/10/17 20:00 C. difficile DNA Amplification - Final Stool Laboratory Tests Past 24 Hrs 06/10/17 06/10/17 06/10/17 19:01 20:00 20:00 WBC RBC Hgb Hct MCV MCH MCHC RDW RDW Differential Plt Count MPV Immature Gran % (Auto) Neut % (Auto) Lymph % (Auto) [place] % (Auto) Eos % (Auto) Baso % (Auto) Absolute Neuts (auto) Absolute Lymphs (auto) Total Counted Differential Comment PT INR Specimen Type ART Sample Site R Radial pH 7.20 L Bicarbonate Actual 15.1 L POC Total CO2 16 Base Excess -13 L O2 Saturation 93 L O2 % 40 ABG pCO2 38.4 ABG pO2 82 Gagan Test POS Respiration Rate 16 O2 Delivery Device Vent Vent Mode A-C Tidal Volume 650 POC PEEP 5 Blood Gas Notified Whom ICU MD Blood Gas Notified Time 655 Sodium Potassium Chloride Carbon Dioxide Anion Gap BUN Creatinine Estim Creat Clear Calc Est GFR (MDRD) Af Amer Est GFR (MDRD) Non-Af BUN/Creatinine Ratio Glucose Lactic Acid 1.3 Calcium Total Bilirubin AST ALT Alkaline Phosphatase Troponin I Total Protein Albumin Globulin Albumin/Globulin Ratio Urine Color Urine Clarity Urine pH Ur Specific [place] Urine Protein Urine Glucose (UA) Urine Ketones Urine Occult Blood Urine Nitrite Urine Bilirubin Urine Urobilinogen Ur Leukocyte Esterase Urine RBC Urine WBC Ur Squamous Epith Cells Urine Bacteria Coarse Granular Casts Urine Mucus S.aureus Protein A PCR NEGATIVE MRSA (PCR) Negative 06/10/17 06/10/17 06/10/17 21:15 21:15 21:17 WBC RBC Hgb Hct MCV MCH MCHC RDW RDW Differential Plt Count MPV Immature Gran % (Auto) Neut % (Auto) Lymph % (Auto) [place] % (Auto) Eos % (Auto) Baso % (Auto) Absolute Neuts (auto) Absolute Lymphs (auto) Total Counted Differential Comment PT 15.4 H INR 1.3 Specimen Type [place] Sample Site OTHER pH 7.15 L* Bicarbonate Actual 13.8 L POC Total CO2 15 Base Excess -15 L O2 Saturation 96 O2 % 40 ABG pCO2 39.6 ABG pO2 102 H Gagan Test Respiration Rate 16 O2 Delivery Device Vent Vent Mode A-C Tidal Volume 550 POC PEEP 5 Blood Gas Notified Whom ICU Blood Gas Notified Time Sodium Potassium Chloride Carbon Dioxide Anion Gap BUN Creatinine Estim Creat Clear Calc Est GFR (MDRD) Af Amer Est GFR (MDRD) Non-Af BUN/Creatinine Ratio Glucose Lactic Acid Calcium Total Bilirubin AST ALT Alkaline Phosphatase Troponin I 0.22 H Total Protein Albumin Globulin Albumin/Globulin Ratio Urine Color Urine Clarity Urine pH Ur Specific [place] Urine Protein Urine Glucose (UA) Urine Ketones Urine Occult Blood Urine Nitrite Urine Bilirubin Urine Urobilinogen Ur Leukocyte Esterase Urine RBC Urine WBC Ur Squamous Epith Cells Urine Bacteria Coarse Granular Casts Urine Mucus S.aureus Protein A PCR MRSA (PCR) 06/10/17 06/11/17 06/11/17 23:20 01:15 03:05 WBC RBC Hgb Hct MCV MCH MCHC RDW RDW Differential Plt Count MPV Immature Gran % (Auto) Neut % (Auto) Lymph % (Auto) [place] % (Auto) Eos % (Auto) Baso % (Auto) Absolute Neuts (auto) Absolute Lymphs (auto) Total Counted Differential Comment PT INR Specimen Type [place] Sample Site OTHER pH 7.21 L Bicarbonate Actual 13.4 L POC Total CO2 14 Base Excess -14 L O2 Saturation 94 L O2 % 40 ABG pCO2 33.2 L ABG pO2 86 Gagan Test Respiration Rate 16 O2 Delivery Device Vent Vent Mode A-C Tidal Volume 550 POC PEEP 5 Blood Gas Notified Whom HOSP Blood Gas Notified Time Sodium Potassium Chloride Carbon Dioxide Anion Gap BUN Creatinine Estim Creat Clear Calc Est GFR (MDRD) Af Amer Est GFR (MDRD) Non-Af BUN/Creatinine Ratio Glucose Lactic Acid Calcium Total Bilirubin AST ALT Alkaline Phosphatase Troponin I 0.30 H Total Protein Albumin Globulin Albumin/Globulin Ratio Urine Color Yellow Urine Clarity Sl. Cloudy Urine pH 5.0 Ur Specific [place] 1.030 Urine Protein 100 H Urine Glucose (UA) 50 H Urine Ketones 5 H Urine Occult Blood 150 H Urine Nitrite Negative Urine Bilirubin 1 H Urine Urobilinogen Normal Ur Leukocyte Esterase 25 H Urine RBC 25-50 SEEN Urine WBC 25-50 SEEN Ur Squamous Epith Cells 10-25 SEEN Urine Bacteria 2+ Coarse Granular Casts 0-5 SEEN Urine Mucus 0 SEEN S.aureus Protein A PCR MRSA (PCR) 06/11/17 06/11/17 06/11/17 04:40 04:40 06:24 WBC 18.4 H RBC 3.77 L Hgb 10.8 L Hct 32.9 L MCV 87.3 MCH 28.6 MCHC 32.8 RDW 14.4 RDW Differential 45.3 H Plt Count 139 L MPV 10.9 Immature Gran % (Auto) 0.400 Neut % (Auto) 90.9 H Lymph % (Auto) 5.9 L [place] % (Auto) 2.8 Eos % (Auto) 0.0 Baso % (Auto) 0.0 Absolute Neuts (auto) 16.7 H Absolute Lymphs (auto) 1.09 Total Counted Not Reportable Differential Comment PT INR Specimen Type [place] Sample Site OTHER pH 7.24 L Bicarbonate Actual 14.5 L POC Total CO2 15 Base Excess -13 L O2 Saturation 95 O2 % 40 ABG pCO2 33.7 L ABG pO2 86 Gagan Test Respiration Rate 16 O2 Delivery Device Vent Vent Mode A-C Tidal Volume 550 POC PEEP 5 Blood Gas Notified Whom ICU Blood Gas Notified Time Sodium 142 Potassium 5.4 H Chloride 108 H Carbon Dioxide 16.0 L Anion Gap 18 H BUN 84 H Creatinine 5.08 H Estim Creat Clear Calc 16.17 Est GFR (MDRD) Af Amer 15 L Est GFR (MDRD) Non-Af 12 L BUN/Creatinine Ratio 16.5 Glucose 257 H Lactic Acid Calcium 6.1 L* Total Bilirubin 0.30 AST 109 H ALT 52 Alkaline Phosphatase 86 Troponin I Total Protein 6.1 L Albumin 2.6 L Globulin 3.5 Albumin/Globulin Ratio 0.7 L Urine Color Urine Clarity Urine pH Ur Specific [place] Urine Protein Urine Glucose (UA) Urine Ketones Urine Occult Blood Urine Nitrite Urine Bilirubin Urine Urobilinogen Ur Leukocyte Esterase Urine RBC Urine WBC Ur Squamous Epith Cells Urine Bacteria Coarse Granular Casts Urine Mucus S.aureus Protein A PCR MRSA (PCR) 06/11/17 06:25 WBC RBC Hgb Hct MCV MCH MCHC RDW RDW Differential Plt Count MPV Immature Gran % (Auto) Neut % (Auto) Lymph % (Auto) [place] % (Auto) Eos % (Auto) Baso % (Auto) Absolute Neuts (auto) Absolute Lymphs (auto) Total Counted Differential Comment PT INR Specimen Type Sample Site pH Bicarbonate Actual POC Total CO2 Base Excess O2 Saturation O2 % ABG pCO2 ABG pO2 Gagan Test Respiration Rate O2 Delivery Device Vent Mode Tidal Volume POC PEEP Blood Gas Notified Whom Blood Gas Notified Time Sodium Potassium Chloride Carbon Dioxide Anion Gap BUN Creatinine Estim Creat Clear Calc Est GFR (MDRD) Af Amer Est GFR (MDRD) Non-Af BUN/Creatinine Ratio Glucose Lactic Acid Calcium Total Bilirubin AST ALT Alkaline Phosphatase Troponin I 0.34 H Total Protein Albumin Globulin Albumin/Globulin Ratio Urine Color Urine Clarity Urine pH Ur Specific [place] Urine Protein Urine Glucose (UA) Urine Ketones Urine Occult Blood Urine Nitrite Urine Bilirubin Urine Urobilinogen Ur Leukocyte Esterase Urine RBC Urine WBC Ur Squamous Epith Cells Urine Bacteria Coarse Granular Casts Urine Mucus S.aureus Protein A PCR MRSA (PCR) POC Glucose 06/11/17 06/10/17 06/10/17 06:21 23:41 21:32 POC Glucose 238 H 274 H 274 H Clinical Impression(s) from Imaging Studies Chest X-Ray 06/10/17 16:15 IMPRESSION: Mild to moderate cardiomegaly. Interstitial edema. Lines as detailed above. Endotracheal tube is slightly high could be advanced 1 to 2 cm. Question left lower lobe pulmonary nodule versus summation of shadows. Possible nipple shadow. Recommend dedicated single chest x-ray when appropriate. Electronically Signed: Matilda Nguyen MD at 16:51 EST Tel , Service support , Chest X-Ray 06/10/17 18:05 IMPRESSION: There is a small pneumothorax along the periphery of the right lung base. This is likely due to minimally displaced rib fractures in the anterolateral aspects of the right fifth and sixth ribs rather than from central line placement. Follow-up films can be obtained. The tip of the right subclavian line is in the expected location of the mid to distal SVC. There is mild enlargement of the cardiac silhouette with mild edema. There is no obvious pleural effusion. N.B. : The above information has been verbally conveyed by Ana Laura Brown MD to Papo Taylor, Referring Physician, on 06/10/2017 19:21:19 (ET). Electronically Signed: Ana Laura Brown MD at 19:22 EST Tel Direct: [phone], Service support , N.B. : The above information has been verbally conveyed by Ana Laura Brown MD to Papo Taylor, Referring Physician, on 06/10/2017 19:21:19 (ET). Chest X-Ray 06/10/17 20:08 IMPRESSION: There is a stable appearance of the small pneumothorax in the periphery of the right lower chest. Adjacent subcutaneous emphysema has increased. There is mild enlargement of the cardiac silhouette with vascular congestion. There is no evidence of pleural effusion. The previously seen right rib fractures are not well seen on the current study. However fractures are now seen in the anterolateral left sixth rib and possibly lateral left fifth rib. Electronically Signed: Ana Laura Brown MD at 21:23 EST Tel Direct: [phone], Service support , Chest X-Ray 06/10/17 20:56 IMPRESSION: There has been resolution of the right pneumothorax after chest tube placement. There are no acute cardiopulmonary changes. Electronically Signed: Ana Laura Brown MD at 22:13 EST Tel Direct: [phone], Service support , Assessment/Plan Active and Suspected Problems Pneumothorax, right (Acute) Community acquired pneumonia (Suspected) Acute renal failure (Acute) Septic shock (Acute) Lactic acidosis (Acute) Cardiopulmonary arrest (Acute) RECOMMENDATIONS: 1. Administer calcium and aspirin 2. Start bicarbonate drip, give Kayexalate 3. Chest tube management per surgery 4. Wean oxygen as tolerated 5. Obtain CT scan of the head without contrast 6. Initiate Solu-Medrol therapy IMPRESSIONS: 1. Respiratory arrest secondary to probable COPD exacerbation Patient with reported protracted course at home. Patient was noncompliant with therapy. Unclear if patient has an initial viral insult such as influenza. Respiratory panel is currently pending. Patient's lactate is much improved after support of respirations. Continue with spontaneous breathing and awakening trials as tolerated. Patient is on a fentanyl drip to help with splinting issues. Continue with sedation. Chest tube is in place. Will initiate patient on Solu-Medrol therapy for presumed COPD. Patient has received Levaquin and vancomycin. Given renal function, repeat dosing of vancomycin is likely not indicated. Unclear downtime. Patient will have to be evaluated for possible anoxic encephalopathy in the future. Patient does require a CT scan of the head to evaluate for possible intracranial pathology. 2. Traumatic right pneumothorax status post chest tube postop day #1 Right chest tube appears to be in place. Some bloody secretions have been noted and patient did have an air leak today. Subcutaneous emphysema appears to be stable at this time. We will continue to monitor closely. Did discuss with cardiology. We will not initiate a heparin drip or Plavix therapy at this time given risk for bleeding complications. Patient can be given an aspirin. Patient does have multiple rib fractures noted on x-ray. Clinical suspicion for rib fracture secondary to CPR 3. Acute on chronic combined respiratory failure Clinical suspicion for community-acquired pneumonia. May have influenza as an initial trigger. Patient reportedly has a history of 2 L nasal cannula at baseline. Patient's initial tidal volumes were elevated, so this has been decreased. Continue with permissive hypercapnia. Patient does have significant metabolic non-anion gap acidosis from renal failure, which is increasing respiratory demand. Spontaneous breathing and awakening trials per protocol. 4. Possible septic shock secondary to pneumonia Patient initially on Levophed therapy. Patient has improved at this time. Unclear if this is secondary to septic shock versus severe acidosis with distributive shock. Lactic acidosis is normalized at this time. Patient is on appropriate antibiotics. No further dosing of vancomycin would be required given current renal failure 5. Acute renal failure Very little previous history is available for review. Patient did present with a creatinine of 5.56 indicating probable progressive renal failure over the past week. Patient does have casts on urinalysis indicating probable ATN. Patient will be initiated on bicarbonate drip and Kayexalate has been given. Cannot exclude the need for renal replacement therapy in the next 24-48 hours. Patient does have urine output at this time. 6. Type 2 diabetes mellitus Likely initiate tube feeds today. Will need to follow blood sugars closely. High clinical suspicion that basal insulin will be required. Sliding scale insulin for now. 7. Coronary artery disease/hypertension Cardiology is currently following. Hold baseline antihypertensive medications. May treat with as needed short acting medications as patient is likely to have a highly variable course. Renal failure is noted. Will hold on any anticoagulation with Plavix or heparin given high risk for bleeding complications otherwise. Troponins have not been very impressive to this point. Continue to monitor with telemetry. 8. Morbid obesity/anxiety/depression/[place]/history of noncompliance Complicates care, management, recovery and prognosis. Likely initiate tube feeds today. Patient will likely require extubation to BiPAP therapy. TIME: 90 minutes of critical care time has been spent addressing respiratory arrest , pneumothorax, respiratory failure, acute renal failure, review of all data and collaboration with care team (6 AM to 8:15 AM) Code Visit Procedures: 17732 Critial Care Addl 30 Min 9xxxx: [id number] Critical care first hour
--- NOTE | 2017-06-11 07:58 | PN.SURG_ITS ---
Patient Problems: Active and Suspected Problems Pneumothorax, right (Acute) Community acquired pneumonia (Suspected) Acute renal failure (Acute) Septic shock (Acute) Lactic acidosis (Acute) Cardiopulmonary arrest (Acute) - Physical Exam General: - - Intubated and sedated Neck: Supple Lungs: - - Intubated. Right chest tube is in place with about 100 cc of bloody output overnight with no air leak. Cardiovascular: Regular rate, Regular Rhythm Abdomen: Soft, Non Tender, Non-Distended, Obese Vital Signs Temp Pulse Resp BP Pulse Ox 98.9 F 95 20 H 130/67 H 95 06/11/17 06:00 06/11/17 07:00 06/11/17 07:00 06/11/17 07:00 06/11/17 07:00 Oxygen Delivery Method Mechanical Ventilator Weight: 277 lb 12.519 oz Body Mass Index (BMI) 39.2 Intake and Output for Last 24 Hours 06/09/17 06/10/17 06/11/17 23:59 23:59 23:59 Intake Total 1889.3 / 1889.3 1328.4 / 1328.4 Output Total 330 / 330 440 / 440 Balance 1559.3 / 1559.3 888.4 / 888.4 Microbiology Past 72 Hours 06/10/17 20:00 C. difficile DNA Amplification - Final Stool Laboratory Tests Past 24 Hrs 06/10/17 06/10/17 06/10/17 19:01 20:00 20:00 WBC RBC Hgb Hct MCV MCH MCHC RDW RDW Differential Plt Count MPV Immature Gran % (Auto) Neut % (Auto) Lymph % (Auto) [place] % (Auto) Eos % (Auto) Baso % (Auto) Absolute Neuts (auto) Absolute Lymphs (auto) Total Counted Differential Comment PT INR Specimen Type ART Sample Site R Radial pH 7.20 L Bicarbonate Actual 15.1 L POC Total CO2 16 Base Excess -13 L O2 Saturation 93 L O2 % 40 ABG pCO2 38.4 ABG pO2 82 Gagan Test POS Respiration Rate 16 O2 Delivery Device Vent Vent Mode A-C Tidal Volume 650 POC PEEP 5 Blood Gas Notified Whom ICU Blood Gas Notified Time 655 Sodium Potassium Chloride Carbon Dioxide Anion Gap BUN Creatinine Estim Creat Clear Calc Est GFR (MDRD) Af Amer Est GFR (MDRD) Non-Af BUN/Creatinine Ratio Glucose Lactic Acid 1.3 Calcium Total Bilirubin AST ALT Alkaline Phosphatase Troponin I Total Protein Albumin Globulin Albumin/Globulin Ratio Urine Color Urine Clarity Urine pH Ur Specific [place] Urine Protein Urine Glucose (UA) Urine Ketones Urine Occult Blood Urine Nitrite Urine Bilirubin Urine Urobilinogen Ur Leukocyte Esterase Urine RBC Urine WBC Ur Squamous Epith Cells Urine Bacteria Coarse Granular Casts Urine Mucus S.aureus Protein A PCR NEGATIVE MRSA (PCR) Negative 06/10/17 06/10/17 06/10/17 21:15 21:15 21:17 WBC RBC Hgb Hct MCV MCH MCHC RDW RDW Differential Plt Count MPV Immature Gran % (Auto) Neut % (Auto) Lymph % (Auto) [place] % (Auto) Eos % (Auto) Baso % (Auto) Absolute Neuts (auto) Absolute Lymphs (auto) Total Counted Differential Comment PT 15.4 H INR 1.3 Specimen Type AMADEO Sample Site OTHER pH 7.15 L* Bicarbonate Actual 13.8 L POC Total CO2 15 Base Excess -15 L O2 Saturation 96 O2 % 40 ABG pCO2 39.6 ABG pO2 102 H Gagan Test Respiration Rate 16 O2 Delivery Device Vent Vent Mode A-C Tidal Volume 550 POC PEEP 5 Blood Gas Notified Whom ICU MD Blood Gas Notified Time Sodium Potassium Chloride Carbon Dioxide Anion Gap BUN Creatinine Estim Creat Clear Calc Est GFR (MDRD) Af Amer Est GFR (MDRD) Non-Af BUN/Creatinine Ratio Glucose Lactic Acid Calcium Total Bilirubin AST ALT Alkaline Phosphatase Troponin I 0.22 H Total Protein Albumin Globulin Albumin/Globulin Ratio Urine Color Urine Clarity Urine pH Ur Specific [place] Urine Protein Urine Glucose (UA) Urine Ketones Urine Occult Blood Urine Nitrite Urine Bilirubin Urine Urobilinogen Ur Leukocyte Esterase Urine RBC Urine WBC Ur Squamous Epith Cells Urine Bacteria Coarse Granular Casts Urine Mucus S.aureus Protein A PCR MRSA (PCR) 06/10/17 06/11/17 06/11/17 23:20 01:15 03:05 WBC RBC Hgb Hct MCV MCH MCHC RDW RDW Differential Plt Count MPV Immature Gran % (Auto) Neut % (Auto) Lymph % (Auto) [place] % (Auto) Eos % (Auto) Baso % (Auto) Absolute Neuts (auto) Absolute Lymphs (auto) Total Counted Differential Comment PT INR Specimen Type AMADEO Sample Site OTHER pH 7.21 L Bicarbonate Actual 13.4 L POC Total CO2 14 Base Excess -14 L O2 Saturation 94 L O2 % 40 ABG pCO2 33.2 L ABG pO2 86 Gagan Test Respiration Rate 16 O2 Delivery Device Vent Vent Mode A-C Tidal Volume 550 POC PEEP 5 Blood Gas Notified Whom HOSP Blood Gas Notified Time Sodium Potassium Chloride Carbon Dioxide Anion Gap BUN Creatinine Estim Creat Clear Calc Est GFR (MDRD) Af Amer Est GFR (MDRD) Non-Af BUN/Creatinine Ratio Glucose Lactic Acid Calcium Total Bilirubin AST ALT Alkaline Phosphatase Troponin I 0.30 H Total Protein Albumin Globulin Albumin/Globulin Ratio Urine Color Yellow Urine Clarity Sl. Cloudy Urine pH 5.0 Ur Specific [place] 1.030 Urine Protein 100 H Urine Glucose (UA) 50 H Urine Ketones 5 H Urine Occult Blood 150 H Urine Nitrite Negative Urine Bilirubin 1 H Urine Urobilinogen Normal Ur Leukocyte Esterase 25 H Urine RBC 25-50 SEEN Urine WBC 25-50 SEEN Ur Squamous Epith Cells 10-25 SEEN Urine Bacteria 2+ Coarse Granular Casts 0-5 SEEN Urine Mucus 0 SEEN S.aureus Protein A PCR MRSA (PCR) 06/11/17 06/11/17 06/11/17 04:40 04:40 06:24 WBC 18.4 H RBC 3.77 L Hgb 10.8 L Hct 32.9 L MCV 87.3 MCH 28.6 MCHC 32.8 RDW 14.4 RDW Differential 45.3 H Plt Count 139 L MPV 10.9 Immature Gran % (Auto) 0.400 Neut % (Auto) 90.9 H Lymph % (Auto) 5.9 L [place] % (Auto) 2.8 Eos % (Auto) 0.0 Baso % (Auto) 0.0 Absolute Neuts (auto) 16.7 H Absolute Lymphs (auto) 1.09 Total Counted Not Reportable Differential Comment PT INR Specimen Type AMADEO Sample Site OTHER pH 7.24 L Bicarbonate Actual 14.5 L POC Total CO2 15 Base Excess -13 L O2 Saturation 95 O2 % 40 ABG pCO2 33.7 L ABG pO2 86 Gagan Test Respiration Rate 16 O2 Delivery Device Vent Vent Mode A-C Tidal Volume 550 POC PEEP 5 Blood Gas Notified Whom ICU Blood Gas Notified Time Sodium 142 Potassium 5.4 H Chloride 108 H Carbon Dioxide 16.0 L Anion Gap 18 H BUN 84 H Creatinine 5.08 H Estim Creat Clear Calc 16.17 Est GFR (MDRD) Af Amer 15 L Est GFR (MDRD) Non-Af 12 L BUN/Creatinine Ratio 16.5 Glucose 257 H Lactic Acid Calcium 6.1 L* Total Bilirubin 0.30 AST 109 H ALT 52 Alkaline Phosphatase 86 Troponin I Total Protein 6.1 L Albumin 2.6 L Globulin 3.5 Albumin/Globulin Ratio 0.7 L Urine Color Urine Clarity Urine pH Ur Specific [place] Urine Protein Urine Glucose (UA) Urine Ketones Urine Occult Blood Urine Nitrite Urine Bilirubin Urine Urobilinogen Ur Leukocyte Esterase Urine RBC Urine WBC Ur Squamous Epith Cells Urine Bacteria Coarse Granular Casts Urine Mucus S.aureus Protein A PCR MRSA (PCR) 06/11/17 06:25 WBC RBC Hgb Hct MCV MCH MCHC RDW RDW Differential Plt Count MPV Immature Gran % (Auto) Neut % (Auto) Lymph % (Auto) [place] % (Auto) Eos % (Auto) Baso % (Auto) Absolute Neuts (auto) Absolute Lymphs (auto) Total Counted Differential Comment PT INR Specimen Type Sample Site pH Bicarbonate Actual POC Total CO2 Base Excess O2 Saturation O2 % ABG pCO2 ABG pO2 Gagan Test Respiration Rate O2 Delivery Device Vent Mode Tidal Volume POC PEEP Blood Gas Notified Whom Blood Gas Notified Time Sodium Potassium Chloride Carbon Dioxide Anion Gap BUN Creatinine Estim Creat Clear Calc Est GFR (MDRD) Af Amer Est GFR (MDRD) Non-Af BUN/Creatinine Ratio Glucose Lactic Acid Calcium Total Bilirubin AST ALT Alkaline Phosphatase Troponin I 0.34 H Total Protein Albumin Globulin Albumin/Globulin Ratio Urine Color Urine Clarity Urine pH Ur Specific [place] Urine Protein Urine Glucose (UA) Urine Ketones Urine Occult Blood Urine Nitrite Urine Bilirubin Urine Urobilinogen Ur Leukocyte Esterase Urine RBC Urine WBC Ur Squamous Epith Cells Urine Bacteria Coarse Granular Casts Urine Mucus S.aureus Protein A PCR MRSA (PCR) POC Glucose 06/11/17 06/10/17 06/10/17 06:21 23:41 21:32 POC Glucose 238 H 274 H 274 H Assessment/Plan Active and Suspected Problems Pneumothorax, right (Acute) Community acquired pneumonia (Suspected) Acute renal failure (Acute) Septic shock (Acute) Lactic acidosis (Acute) Cardiopulmonary arrest (Acute) 61-year-old male right pneumothorax 1. The patient had a right pneumothorax after chest compressions. Chest tube was placed last night. There was about 160 cc of bloody output upon initial insertion. There has been another 100 cc overnight. There is no air leak this morning. He does have some subcutaneous crepitus but it seems stable as yesterday. Chest x-ray shows no pneumothorax this morning and no fluid. Continue chest tube to suction. If crepitus continues to worsen I will replace with a larger tube. Vladimir Hogan MD Pager: [facility] [address], [address] [place] [address] Office:
[2017-06-11] MEDS: Aspirin 81 MG TAB.CHEW GT (08:14)
--- NOTE | 2017-06-11 08:48 | PCM.PROGNOTE ---
Patient Problems: Active and Suspected Problems Pneumothorax, right (Acute) Community acquired pneumonia (Suspected) Acute renal failure (Acute) Septic shock (Acute) Lactic acidosis (Acute) Cardiopulmonary arrest (Acute) Subjective: Chief complaint: Follow-up after admission for cardiopulmonary arrest, septic shock secondary to possible pneumonia, acute renal failure, traumatic right pneumothorax. Patient seen and examined. Last night after admission, patient had chest x-ray that revealed small right pneumothorax. Chest tube inserted. This morning, patient remained on mechanical ventilation, sedated. He is off vasopressors. Blood pressure improved. He is on propofol and fentanyl for sedation. ABG from today reviewed, revealed pH of 7.24, PCO2 of 33 and PO2 of 86. He is afebrile, heart rate stable. - Physical Exam General: - - Intubated, sedated. HEENT: Atraumatic, PERRLA Oral: Moist Mucosa, No Gingival or Mucosal Lesions/ Ulcerations Neck: Supple, No JVD, Negative Carotid Bruits, Trachea Midline, Thyroid Normal Size and Texture Lungs: No rales, Diminished, Rhonchi, Wheezes, - - Diminished breath sounds bilateral, bilateral rhonchi, occasional wheezes. Cardiovascular: Regular rate, Regular Rhythm, Normal S1, Normal S2, No murmurs, PMI Normal, Tachycardic Abdomen: Bowel Sounds Present, Soft, Non Tender, Non-Distended, No Hepato-splenomegaly, Obese Extremities: No clubbing, No cyanosis, No edema Skin: No rashes, No breakdown Lymphatic: No Cervical, Supraclavicular, or Inguinal Adenopathy Neurological: - - Unable to assess, patient is sedated. Vital Signs Temp Pulse Resp BP Pulse Ox 98.9 F 97 20 H 151/65 H 95 06/11/17 08:00 06/11/17 08:00 06/11/17 08:00 06/11/17 08:00 06/11/17 08:00 Oxygen Delivery Method Mechanical Ventilator Weight: 277 lb 12.519 oz Body Mass Index (BMI) 39.2 Intake and Output for Last 24 Hours 06/09/17 06/10/17 06/11/17 23:59 23:59 23:59 Intake Total 1889.3 / 1889.3 1328.4 / 1328.4 Output Total 330 / 330 440 / 440 Balance 1559.3 / 1559.3 888.4 / 888.4 Microbiology Past 72 Hours 06/10/17 20:00 C. difficile DNA Amplification - Final Stool Laboratory Tests Past 24 Hrs 06/10/17 06/10/17 06/10/17 19:01 20:00 20:00 WBC RBC Hgb Hct MCV MCH MCHC RDW RDW Differential Plt Count MPV Immature Gran % (Auto) Neut % (Auto) Lymph % (Auto) [place] % (Auto) Eos % (Auto) Baso % (Auto) Absolute Neuts (auto) Absolute Lymphs (auto) Total Counted Differential Comment PT INR Specimen Type ART Sample Site R Radial pH 7.20 L Bicarbonate Actual 15.1 L POC Total CO2 16 Base Excess -13 L O2 Saturation 93 L O2 % 40 ABG pCO2 38.4 ABG pO2 82 Gagan Test POS Respiration Rate 16 O2 Delivery Device Vent Vent Mode A-C Tidal Volume 650 POC PEEP 5 Blood Gas Notified Whom ICU MD Blood Gas Notified Time 655 Sodium Potassium Chloride Carbon Dioxide Anion Gap BUN Creatinine Estim Creat Clear Calc Est GFR (MDRD) Af Amer Est GFR (MDRD) Non-Af BUN/Creatinine Ratio Glucose Lactic Acid 1.3 Calcium Total Bilirubin AST ALT Alkaline Phosphatase Troponin I Total Protein Albumin Globulin Albumin/Globulin Ratio Urine Color Urine Clarity Urine pH Ur Specific [place] Urine Protein Urine Glucose (UA) Urine Ketones Urine Occult Blood Urine Nitrite Urine Bilirubin Urine Urobilinogen Ur Leukocyte Esterase Urine RBC Urine WBC Ur Squamous Epith Cells Urine Bacteria Coarse Granular Casts Urine Mucus S.aureus Protein A PCR NEGATIVE MRSA (PCR) Negative 06/10/17 06/10/17 06/10/17 21:15 21:15 21:17 WBC RBC Hgb Hct MCV MCH MCHC RDW RDW Differential Plt Count MPV Immature Gran % (Auto) Neut % (Auto) Lymph % (Auto) [place] % (Auto) Eos % (Auto) Baso % (Auto) Absolute Neuts (auto) Absolute Lymphs (auto) Total Counted Differential Comment PT 15.4 H INR 1.3 Specimen Type AMADEO Sample Site OTHER pH 7.15 L* Bicarbonate Actual 13.8 L POC Total CO2 15 Base Excess -15 L O2 Saturation 96 O2 % 40 ABG pCO2 39.6 ABG pO2 102 H Gagan Test Respiration Rate 16 O2 Delivery Device Vent Vent Mode A-C Tidal Volume 550 POC PEEP 5 Blood Gas Notified Whom ICU MD Blood Gas Notified Time Sodium Potassium Chloride Carbon Dioxide Anion Gap BUN Creatinine Estim Creat Clear Calc Est GFR (MDRD) Af Amer Est GFR (MDRD) Non-Af BUN/Creatinine Ratio Glucose Lactic Acid Calcium Total Bilirubin AST ALT Alkaline Phosphatase Troponin I 0.22 H Total Protein Albumin Globulin Albumin/Globulin Ratio Urine Color Urine Clarity Urine pH Ur Specific [place] Urine Protein Urine Glucose (UA) Urine Ketones Urine Occult Blood Urine Nitrite Urine Bilirubin Urine Urobilinogen Ur Leukocyte Esterase Urine RBC Urine WBC Ur Squamous Epith Cells Urine Bacteria Coarse Granular Casts Urine Mucus S.aureus Protein A PCR MRSA (PCR) 06/10/17 06/11/17 06/11/17 23:20 01:15 03:05 WBC RBC Hgb Hct MCV MCH MCHC RDW RDW Differential Plt Count MPV Immature Gran % (Auto) Neut % (Auto) Lymph % (Auto) [place] % (Auto) Eos % (Auto) Baso % (Auto) Absolute Neuts (auto) Absolute Lymphs (auto) Total Counted Differential Comment PT INR Specimen Type AMADEO Sample Site OTHER pH 7.21 L Bicarbonate Actual 13.4 L POC Total CO2 14 Base Excess -14 L O2 Saturation 94 L O2 % 40 ABG pCO2 33.2 L ABG pO2 86 Gagan Test Respiration Rate 16 O2 Delivery Device Vent Vent Mode A-C Tidal Volume 550 POC PEEP 5 Blood Gas Notified Whom [facility] Blood Gas Notified Time Sodium Potassium Chloride Carbon Dioxide Anion Gap BUN Creatinine Estim Creat Clear Calc Est GFR (MDRD) Af Amer Est GFR (MDRD) Non-Af BUN/Creatinine Ratio Glucose Lactic Acid Calcium Total Bilirubin AST ALT Alkaline Phosphatase Troponin I 0.30 H Total Protein Albumin Globulin Albumin/Globulin Ratio Urine Color Yellow Urine Clarity Sl. Cloudy Urine pH 5.0 Ur Specific [place] 1.030 Urine Protein 100 H Urine Glucose (UA) 50 H Urine Ketones 5 H Urine Occult Blood 150 H Urine Nitrite Negative Urine Bilirubin 1 H Urine Urobilinogen Normal Ur Leukocyte Esterase 25 H Urine RBC 25-50 SEEN Urine WBC 25-50 SEEN Ur Squamous Epith Cells 10-25 SEEN Urine Bacteria 2+ Coarse Granular Casts 0-5 SEEN Urine Mucus 0 SEEN S.aureus Protein A PCR MRSA (PCR) 06/11/17 06/11/17 06/11/17 04:40 04:40 06:24 WBC 18.4 H RBC 3.77 L Hgb 10.8 L Hct 32.9 L MCV 87.3 MCH 28.6 MCHC 32.8 RDW 14.4 RDW Differential 45.3 H Plt Count 139 L MPV 10.9 Immature Gran % (Auto) 0.400 Neut % (Auto) 90.9 H Lymph % (Auto) 5.9 L [place] % (Auto) 2.8 Eos % (Auto) 0.0 Baso % (Auto) 0.0 Absolute Neuts (auto) 16.7 H Absolute Lymphs (auto) 1.09 Total Counted Not Reportable Differential Comment PT INR Specimen Type AMADEO Sample Site OTHER pH 7.24 L Bicarbonate Actual 14.5 L POC Total CO2 15 Base Excess -13 L O2 Saturation 95 O2 % 40 ABG pCO2 33.7 L ABG pO2 86 Gagan Test Respiration Rate 16 O2 Delivery Device Vent Vent Mode A-C Tidal Volume 550 POC PEEP 5 Blood Gas Notified Whom ICU MD Blood Gas Notified Time Sodium 142 Potassium 5.4 H Chloride 108 H Carbon Dioxide 16.0 L Anion Gap 18 H BUN 84 H Creatinine 5.08 H Estim Creat Clear Calc 16.17 Est GFR (MDRD) Af Amer 15 L Est GFR (MDRD) Non-Af 12 L BUN/Creatinine Ratio 16.5 Glucose 257 H Lactic Acid Calcium 6.1 L* Total Bilirubin 0.30 AST 109 H ALT 52 Alkaline Phosphatase 86 Troponin I Total Protein 6.1 L Albumin 2.6 L Globulin 3.5 Albumin/Globulin Ratio 0.7 L Urine Color Urine Clarity Urine pH Ur Specific [place] Urine Protein Urine Glucose (UA) Urine Ketones Urine Occult Blood Urine Nitrite Urine Bilirubin Urine Urobilinogen Ur Leukocyte Esterase Urine RBC Urine WBC Ur Squamous Epith Cells Urine Bacteria Coarse Granular Casts Urine Mucus S.aureus Protein A PCR MRSA (PCR) 06/11/17 06:25 WBC RBC Hgb Hct MCV MCH MCHC RDW RDW Differential Plt Count MPV Immature Gran % (Auto) Neut % (Auto) Lymph % (Auto) [place] % (Auto) Eos % (Auto) Baso % (Auto) Absolute Neuts (auto) Absolute Lymphs (auto) Total Counted Differential Comment PT INR Specimen Type Sample Site pH Bicarbonate Actual POC Total CO2 Base Excess O2 Saturation O2 % ABG pCO2 ABG pO2 Gagan Test Respiration Rate O2 Delivery Device Vent Mode Tidal Volume POC PEEP Blood Gas Notified Whom Blood Gas Notified Time Sodium Potassium Chloride Carbon Dioxide Anion Gap BUN Creatinine Estim Creat Clear Calc Est GFR (MDRD) Af Amer Est GFR (MDRD) Non-Af BUN/Creatinine Ratio Glucose Lactic Acid Calcium Total Bilirubin AST ALT Alkaline Phosphatase Troponin I 0.34 H Total Protein Albumin Globulin Albumin/Globulin Ratio Urine Color Urine Clarity Urine pH Ur Specific [place] Urine Protein Urine Glucose (UA) Urine Ketones Urine Occult Blood Urine Nitrite Urine Bilirubin Urine Urobilinogen Ur Leukocyte Esterase Urine RBC Urine WBC Ur Squamous Epith Cells Urine Bacteria Coarse Granular Casts Urine Mucus S.aureus Protein A PCR MRSA (PCR) POC Glucose 06/11/17 06/10/17 06/10/17 06:21 23:41 21:32 POC Glucose 238 H 274 H 274 H Clinical Impression(s) from Imaging Studies Chest X-Ray 06/10/17 20:08 IMPRESSION: There is a stable appearance of the small pneumothorax in the periphery of the right lower chest. Adjacent subcutaneous emphysema has increased. There is mild enlargement of the cardiac silhouette with vascular congestion. There is no evidence of pleural effusion. The previously seen right rib fractures are not well seen on the current study. However fractures are now seen in the anterolateral left sixth rib and possibly lateral left fifth rib. Electronically Signed: Ana Laura Brown MD at 21:23 EST Tel Direct: [phone], Service support , Chest X-Ray 06/10/17 20:56 IMPRESSION: There has been resolution of the right pneumothorax after chest tube placement. There are no acute cardiopulmonary changes. Electronically Signed: Ana Laura Brown MD at 22:13 EST Tel Direct: [phone], Service support , Assessment/Plan Active and Suspected Problems Pneumothorax, right (Acute) Community acquired pneumonia (Suspected) Acute renal failure (Acute) Septic shock (Acute) Lactic acidosis (Acute) Cardiopulmonary arrest (Acute) This is a 61 years old male patient brought to the emergency department because of respiratory distress and while in the route to the hospital, he went into acute respiratory failure followed by cardiac arrest, status post CPR, found to have septic shock, lactic acidosis, acute hypercapnic respiratory failure secondary to possible pneumonia as well as acute renal failure. Hospital course complicated by traumatic right-sided pneumothorax status post chest tube insertion. #1 status post cardiopulmonary arrest: Status post CPR, remained on mechanical ventilation. He is off vasopressors. Blood pressure stabilized, heart rate has been in 100s. Troponin are elevated, trending up. EKG from today reviewed. Cardiology and critical care on the case. He is on IV antibiotics and IV steroids. The initiating event of the initial respiratory distress/arrest is unclear, could be COPD exacerbation versus possible pneumonia. Plan: Continue same treatment. #2 acute hypercapnic respiratory failure/respiratory acidosis: Secondary to above in addition to possible pneumonia versus acute COPD exacerbation. Patient has history of COPD as well, has been on oxygen as well as sleep apnea. He is on mechanical ventilation as above. ABG from today reviewed, plan as above. #3 lactic acidosis/septic shock: Secondary to cardiac pulmonary arrest in addition to pneumonia. Patient received bolus of IV fluid in the ER yesterday, lactic acid is back to normal. Blood, urine and sputum cultures are pending. Stool for C. difficile was negative. Plan to continue IV antibiotics, vent support. #4 indeterminate troponin: Likely because of demand ischemia secondary to septic shock and cardiopulmonary arrest. EKG revealed no acute ischemic changes. Cardiology consulted. 2D echocardiogram ordered. #5 traumatic right-sided pneumothorax: Status post chest tube insertion, it is secondary to displaced fractures of the right fifth and sixth ribs. Also, patient had subclavian central line inserted. Chest x-ray after the chest tube revealed full expansion of the right lung. Neurosurgery on the case. #6 acute renal failure: With unknown baseline kidney function. This is probably acute, admission creatinine is 5.56, BUN is 80. He is on IV fluids, BUN remained the same, creatinine slightly improved down to 5.08. Plan to continue IV fluids, repeat BMP tomorrow morning. #7 probable community-acquired pneumonia: He is on IV Levaquin. Blood pressure stabilized, off vasopressors. Cultures are pending. He has been afebrile, white blood count is trending up. #8 hyperkalemia: Secondary to acute renal failure. Admission potassium was normal but the potassium went up to 5.4. Patient received 1 dose of Kayexalate, plan to repeat BMP tomorrow morning. #9 hypocalcemia/hypomagnesemia: He is on replacement with IV calcium gluconate and magnesium sulfate. Corrected calcium for albumin is 7.2 mg/dL. #10 type 2 diabetes mellitus: He is on Accu-Cheks every 6 hours, insulin sliding scale. #11 hypertension: Blood pressure improved, he is off vasopressors. #12 CAD: Without prior cardiac interventions. EKG reviewed, revealed no acute ischemic changes, revealed RBBB. Plan as above. #13 COPD/chronic respiratory failure: On mechanical ventilation, plan as above. At home, has been on oxygen at 2 L according to his . #14 DVT prophylaxis: INR is 1.3, SCDs. #15 CODE STATUS: I spoke with the patient's in details about the critical condition of her and she mentioned that he expressed that he does not want to be on the life sustaining measures such as breathing machines but he does not have a DNR status. She mentioned that she cannot take this at this time. I explained to her that at this time, if he went into cardiac arrest again we will try to bring him back with CPR and then we can discuss the CODE STATUS again if things changes. She agreed to keep him full CODE STATUS at this time and will follow. Other chronic medical problems: #1 hyperlipidemia. #2 depression. #3 anxiety. #4 obstructive sleep apnea: Has been on CPAP at home. This note was generated with [employer] dictation software. It may contain incorrect words, spelling, and punctuation that were not noted in checking the note before signing. Code Visit Inpatient E&M: 70430 Subs Hosp L3
--- NOTE | 2017-06-11 08:52 | ECHOCS_ITS ---
Reason For Study: CAD Procedure This was a 2D Doppler, Color Flow transthoracic echocardiogram. The exam was of poor technical quality due to poor acoustic windows.. Difficult imaging due to pt on ventilator. Exam performed portable in ICU/CCU. Left Ventricle Normal size and thickness. The estimated ejection fraction is 65 %. No regional wall motion abnormalities noted. Right Ventricle Moderately dilated right ventricle. Mild to moderate global right ventricular systolic dysfunction. Atria The left atrium is mildly enlarged. The right atrium is mildly enlarged. Normal atrial septum. Mitral Valve Mild diffuse mitral valve thickening. Mild mitral annular calcification extending into the posterior leaflet. Trivial mitral valve insufficiency. Tricuspid Valve Normal tricuspid valve. Mild (1+) tricuspid valve insufficiency. Right ventricular systolic pressure estimated to be 72 mmHg. Severe pulmonary hypertension. Aortic Valve Trisinus/trileaflet aortic valve. Mild diffuse aortic valve thickening. Pulmonic Valve The pulmonic valve is not well visualized. Great Vessels Normal aortic root. Normal arch. Pericardium/Pleural No pericardial effusion. Medication Definity deferrred due to elevated PAP. MMode/2D Measurements & Calculations LVIDd: 4.8 cm IVSd: 1.0 cm Ao root diam: 3.4 cm LVIDs: 3.4 cm LVPWd: 1.2 cm LA dimension: 4.4 cm RVDd: 4.9 cm FS: 28.3 % LAV(MOD-bp): 61.1 ml LVAd ap4: 34.8 cm2 SV(MOD-sp4): 68.8 ml LAV(MOD-bp) Indexed: 25.2 ml/m2 EDV(MOD-sp4): 129.1 ml LAV(MOD-sp2): 63.3 ml EDV(sp4-el): 131.0 ml LAV(MOD-sp4): 59.8 ml LVAs ap4: 21.0 cm2 ESV(MOD-sp4): 60.4 ml ESV(sp4-el): 58.0 ml EF(MOD-sp4): 53.3 % EF(sp4-el): 55.7 % SV(sp4-el): 73.0 ml LA A4 area: 21.0 cm2 RA A4 area: 22.0 cm2 Doppler Measurements & Calculations MV E max shai: 127.9 cm/sec Ao V2 max: 155.5 cm/sec LV V1 max: 112.5 cm/sec MV A max shai: 140.0 cm/sec Ao max P.7 mmHg LV V1 max P.1 mmHg MV E/A: 0.91 PA V2 max: 115.1 cm/sec TR max shai: 406.0 cm/sec TR max P.0 mmHg Interpretation Summary The estimated ejection fraction is 65 %. Moderately dilated right ventricle. Mild (1+) tricuspid valve insufficiency. Right ventricular systolic pressure estimated to be 72 mmHg. Severe pulmonary hypertension. The study was technically difficult. There is no comparison study available. Ordering Physician: Elias Lovell Referring Physician: CESIA POST Performed By: Zonia Flores, NATASHA, RVT
--- NOTE | 2017-06-11 09:04 | CON.PCM_ITS ---
Problem List (1) Non-STEMI (non-ST elevated myocardial infarction) Status: Acute (2) Cardiopulmonary arrest Status: Acute (3) Coronary artery disease Status: Chronic (4) Hyperlipidemia Status: Chronic (5) Type 2 diabetes mellitus Status: Chronic Reason for Consult Date of Consultation: 06/11/17 Reason for Consultation: Cardiopulmonary arrest, non-STEMI, hypertension, diabetes, hypercholesterolemia History of Present Illness: The patient is a 61 year old M, currently intubated and sedated, all the history is per the chart and per the patient's who is at the bedside. Apparently has a long history of heavy smoking, currently smokes, uncontrolled diabetes type 2, hypertension, hypercholesterolemia, previous CVA approximately 2 years ago when he was brought to [facility]. At that time she was told that he had a stroke, he has had weakness in his legs ever since. She reportedly said he had a heart attack at that time but the patient apparently has never had a heart catheterization or an echocardiogram that I can see from the old chart or the computer. He sees Dr. Herrera as his primary care physician. Apparently last evening the patient had duration of his respiratory status requiring EMS to be activated. Apparently while he was in route to the hospital he developed cardiopulmonary arrest and asystole requiring mechanical CPR which apparently induced rib fractures on the right side. Patient was emergently intubated, and emergent subclavian line was placed on the right side. Patient was found to have a pneumothorax possibly as a result of rib fractures and CPR and underwent emergent chest tube placement by Dr. Marcos last evening. Patient has had bloody succus in the Pleur-evac container but this appears to be improved. His initial EKG showed normal sinus rhythm with right bundle branch block, subtle lateral ST segment changes. His initial troponin was negative and then increase to 0 0.22, and now is 0.34. IV heparin drip was not started due to his blood and his chest tube Pleur-evac. Baby aspirin was initiated. The patient is currently intubated, sedated on propofol and fentanyl, and is being treated for pneumonia. In addition he was found to have acute on chronic renal failure with a creatinine of 5.5. Bicarbonate drip has been initiated. Patient seen and apically stable at this time. In addition the patient's states the patient's had significant amount of diarrhea over the last couple of days as well as fevers and chills. Past Medical History Allergies/Adverse Reactions: Allergies No Known Allergies Allergy (Verified 06/10/17 16:28) Home Medications: Ambulatory Orders Medication Instructions Recorded Albuterol IH (ProAir) [Proair Hfa 1 puff INHALATION Q4H PRN PRN 06/10/17 (SP)Vent Pts] Aspirin [Aspirin, Baby] 81 mg PO DAILY 06/10/17 Bupropion HCl [Wellbutrin Xl] 300 mg PO DAILY 06/10/17 Citalopram Hydrobromide [Celexa] 20 mg PO DAILY 06/10/17 Eszopiclone [Lunesta] 2 mg PO QHS PRN PRN 06/10/17 Fenofibrate 200 mg PO DAILY 06/10/17 Ferrous Sulfate 325 mg PO DAILY@0800 06/10/17 Furosemide [Lasix] 40 mg PO DAILY 06/10/17 GlipiZIDE [Glucotrol] 10 mg PO BID 06/10/17 Hydrocodone/Acetaminophen 1 each PO Q6H 06/10/17 [Hydrocodon-Acetaminophn 10-325] Ketoconazole [Extina] 50 gm TP DAILY 06/10/17 Lisinopril [Zestril] 40 mg PO DAILY 06/10/17 Magnesium Oxide [Mag-Ox 400] 400 mg PO DAILY 06/10/17 Metformin HCl 1,000 mg PO BID 06/10/17 Morphine Sulfate [Ms Contin] 60 mg PO Q12H 06/10/17 Nitroglycerin [Nitrostat] 0.4 mg SL PRN PRN 06/10/17 Omeprazole [Prilosec] 20 mg PO DAILY 06/10/17 Simvastatin 20 mg PO QHS 06/10/17 Tamsulosin HCl [Flomax] 0.4 mg PO DAILY 06/10/17 Tizanidine HCl 4 mg PO QHS 06/10/17 Triamcinolone 0.1% Cream [Kenalog] 1 applic TOPICAL TID 06/10/17 Past Medical History (Chronic Problems): Chronic Problems Coronary artery disease (Chronic) Hyperlipidemia (Chronic) Depression (Chronic) Hypertension (Chronic) Type 2 diabetes mellitus (Chronic) COPD (chronic obstructive pulmonary disease) (Chronic) Chronic respiratory failure (Chronic) Surgical History: - - Back surgery. Psychiatric History: Anxiety, Depression - *Family History Maternal History Items: No pertinent history Paternal History Items: No pertinent history Lives: Spouse/ Significant Other Smoking Status: Current every day smoker Alcohol: None Drugs: None Review of Systems - Review of Systems General: Denies: Fever, Night Sweats, Fatigue Cardiovascular: Reports: Shortness of Breath, Shortness of Breath at Rest. Denies: Chest Discomfort, Orthopnea, PND, Peripheral Edema, Palpitations, Lightheadedness, Dizziness, Near Syncope, Syncope Respiratory: Denies: Cough, Sputum Production, Hemoptysis Gastrointestinal: Denies: Hematemesis, Hematochezia, Melena Genitourinary: Denies: Dysuria, Hematuria Skin: Denies: Rash Subjectve: Patient intubated and sedated, right subclavian line is clean/dry/intact, there is mild crepitance over his right upper chest area. Chest tube appears to be well sealed, and draining serosanguineous fluid. There is urine in the Nino bag however it appears to be cloudy and somewhat dark, nonbloody. Heme and apically stable. Objective: Vital Signs Temp Pulse Resp BP Pulse Ox 98.9 F 97 20 H 151/65 H 95 06/11/17 08:00 06/11/17 08:00 06/11/17 08:00 06/11/17 08:00 06/11/17 08:00 Oxygen Delivery Method Mechanical Ventilator Weight: 277 lb 12.519 oz Body Mass Index (BMI) 39.2 Intake and Output for Last 24 Hours 06/09/17 06/10/17 06/11/17 23:59 23:59 23:59 Intake Total 1889.3 / 1889.3 1328.4 / 1328.4 Output Total 330 / 330 440 / 440 Balance 1559.3 / 1559.3 888.4 / 888.4 General: Awake, Alert, Oriented x 3 HEENT: PERRL, EOMI, Sclera Non Icteric Neck: Supple, Good ROM, No Lymph Node Enlargement Lungs: Clear to auscultation, Diminished Right Base, Rales - Right Base Cardiovascular: Regular Rhythm, Normal S1, Normal S2, No Murmurs, No Rubs, No Gallops Vascular: No Carotid Bruits, Normal Femoral Pulses, Normal Radial Pulses, Normal Dorsalis Pedal Pulse, Normal Posterior Tibial Pulses Abdomen: Bowel Sounds Present, Soft, Non Tender, No HSM, No Organomegaly Extremities: No Cyanosis, No Clubbing, No edema Neurological: No Focal Motor or Sensory Deficit 06/10/17 19:01: pH 7.20 L, Bicarbonate Actual 15.1 L, POC Total CO2 16, Base Excess -13 L, O2 Saturation 93 L, ABG pCO2 38.4, ABG pO2 82, Gagan Test POS 06/10/17 20:00: Lactic Acid 1.3 06/10/17 21:15: PT 15.4 H, INR 1.3 06/10/17 21:15: Troponin I 0.22 H 06/10/17 21:17: pH 7.15 L*, Bicarbonate Actual 13.8 L, POC Total CO2 15, Base Excess -15 L, O2 Saturation 96, ABG pCO2 39.6, ABG pO2 102 H 06/10/17 23:20: Urine Color Yellow, Urine Clarity Sl. Cloudy, Urine pH 5.0, Ur Specific [place] 1.030, Urine Protein 100 H, Urine Glucose (UA) 50 H, Urine Ketones 5 H, Urine Occult Blood 150 H, Urine Nitrite Negative, Urine Bilirubin 1 H, Urine Urobilinogen Normal, Ur Leukocyte Esterase 25 H, Urine RBC 25-50 SEEN , Urine WBC 25-50 SEEN 06/11/17 01:15: Troponin I 0.30 H 06/11/17 03:05: pH 7.21 L, Bicarbonate Actual 13.4 L, POC Total CO2 14, Base Excess -14 L, O2 Saturation 94 L, ABG pCO2 33.2 L, ABG pO2 86 06/11/17 04:40: WBC 18.4 H, RBC 3.77 L, Hgb 10.8 L, Hct 32.9 L, MCV 87.3, MCH 28.6, MCHC 32.8, RDW 14.4, RDW Differential 45.3 H, Plt Count 139 L, MPV 10.9, Immature Gran % (Auto) 0.400, Neut % (Auto) 90.9 H, Lymph % (Auto) 5.9 L, [place] % (Auto) 2.8, Eos % (Auto) 0.0, Baso % (Auto) 0.0, Absolute Neuts (auto) 16.7 H , Total Counted Not Reportable 06/11/17 04:40: Sodium 142, Potassium 5.4 H, Chloride 108 H, Carbon Dioxide 16.0 L, Anion Gap 18 H, BUN 84 H, Creatinine 5.08 H, Est GFR (MDRD) Af Amer 15 L , Est GFR (MDRD) Non-Af 12 L, BUN/Creatinine Ratio 16.5, Glucose 257 H, Calcium 6.1 L*, Total Bilirubin 0.30 06/11/17 06:24: pH 7.24 L, Bicarbonate Actual 14.5 L, POC Total CO2 15, Base Excess -13 L, O2 Saturation 95, ABG pCO2 33.7 L, ABG pO2 86 06/11/17 06:25: Troponin I 0.34 H Rhythm: EKG: As above ECHO: Pending Stress Test: Cardiac Cath: PCI: CT Surgery: Holter monitor: EPS: PPM: CXR: Chest CT Scan: Assessment/Plan 1. Cardiopulmonary arrest: It appears the patient had more of a respiratory arrest which segued into a cardiac arrest requiring mechanical chest compressions with the chest compression machine device, possibly inducing rib fractures which then gave way to a right-sided pneumothorax. Patient had an emergent chest tube placed, and his EKG shows normal sinus rhythm with right bundle branch block. I have no old EKGs for comparison. His peak troponin thus far 0.34, and he appears to be heme and apically stable. According to his he has been told he had a small heart attack about 2 years ago at which time he had a stroke but no catheterization was performed. 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 Herrera every 3 months. He is also a longtime smoker, diabetic, with hypertension hypercholesterolemia and most likely has concomitant coronary artery disease. Given the patient's pneumothorax and need for chest tube as well as the blood in the Pleur-evac, very hesitant to place the patient on IV heparin at this time. In addition he is got significant mental status changes even before being placed on propofol and fentanyl. I recommended to Dr. Cotton that we proceed with a head CT scan without contrast to determine if he had an acute stroke or some kind of bleed to explain his mental status changes. Would recommend baby aspirin 81 mg p.o. daily. And at some point the patient will most likely require a left her catheterization prior to discharge. I have also very hesitant to proceed with this until the patient's renal function has declared itself. Patient may require a temporary hemodialysis catheter for either temporary or permanent dialysis, and would recommend placing this either in the left IJ, or in the left femoral vein. This way we can have access to the right femoral artery should he require catheterization. Recommend holding on beta-lizet therapy until after he is recovered from this event. He has had no ectopy at this time. Recommend keeping his potassium above 4.0 and his magnesium of 2.0. Once the patient's chest tube is been removed and his pneumothorax has resolved , and once he has been dialyzed, we may then proceed with left heart catheterization in a controlled manner. 2. Hyperlipidemia: Recommend obtaining a fasting lipid profile. Once the patient's condition is improved he will require lifelong antilipid therapy. 3. Tobacco cessation: I had a long and thorough discussion with the patient's regarding his tobacco use and highly recommended cessation of all tobacco products. Patient's has voiced understanding. 4. Discussed with Dr. Cotton and Dr. Hogan, thank you very much for the opportunity to put dissipate in the cardiac care of your patient. Consultation time took place between 730 and 830 AM. Code Visit Inpatient E&M: 29055 Init Hosp L3
--- NOTE | 2017-06-11 09:04 | PN_ITS ---
Patient Problems: Active and Suspected Problems Pneumothorax, right (Acute) Community acquired pneumonia (Suspected) Acute renal failure (Acute) Septic shock (Acute) Lactic acidosis (Acute) Cardiopulmonary arrest (Acute) Subjective: Chief complaint: Follow-up after admission for cardiopulmonary arrest, septic shock secondary to possible pneumonia, acute renal failure, traumatic right pneumothorax. Patient seen and examined. Last night after admission, patient had chest x-ray that revealed small right pneumothorax. Chest tube inserted. This morning, patient remained on mechanical ventilation, sedated. He is off vasopressors. Blood pressure improved. He is on propofol and fentanyl for sedation. ABG from today reviewed, revealed pH of 7.24, PCO2 of 33 and PO2 of 86. He is afebrile, heart rate stable. - Physical Exam General: - - Intubated, sedated. HEENT: Atraumatic, PERRLA Oral: Moist Mucosa, No Gingival or Mucosal Lesions/ Ulcerations Neck: Supple, No JVD, Negative Carotid Bruits, Trachea Midline, Thyroid Normal Size and Texture Lungs: No rales, Diminished, Rhonchi, Wheezes, - - Diminished breath sounds bilateral, bilateral rhonchi, occasional wheezes. Cardiovascular: Regular rate, Regular Rhythm, Normal S1, Normal S2, No murmurs, PMI Normal, Tachycardic Abdomen: Bowel Sounds Present, Soft, Non Tender, Non-Distended, No Hepato- splenomegaly, Obese Extremities: No clubbing, No cyanosis, No edema Skin: No rashes, No breakdown Lymphatic: No Cervical, Supraclavicular, or Inguinal Adenopathy Neurological: - - Unable to assess, patient is sedated. Vital Signs Temp Pulse Resp BP Pulse Ox 98.9 F 97 20 H 151/65 H 95 06/11/17 08:00 06/11/17 08:00 06/11/17 08:00 06/11/17 08:00 06/11/17 08:00 Oxygen Delivery Method Mechanical Ventilator Weight: 277 lb 12.519 oz Body Mass Index (BMI) 39.2 Intake and Output for Last 24 Hours 06/09/17 06/10/17 06/11/17 23:59 23:59 23:59 Intake Total 1889.3 / 1889.3 1328.4 / 1328.4 Output Total 330 / 330 440 / 440 Balance 1559.3 / 1559.3 888.4 / 888.4 Microbiology Past 72 Hours 06/10/17 20:00 C. difficile DNA Amplification - Final Stool Laboratory Tests Past 24 Hrs 06/10/17 06/10/17 06/10/17 19:01 20:00 20:00 WBC RBC Hgb Hct MCV MCH MCHC RDW RDW Differential Plt Count MPV Immature Gran % (Auto) Neut % (Auto) Lymph % (Auto) Garfield % (Auto) Eos % (Auto) Baso % (Auto) Absolute Neuts (auto) Absolute Lymphs (auto) Total Counted Differential Comment PT INR Specimen Type ART Sample Site R Radial pH 7.20 L Bicarbonate Actual 15.1 L POC Total CO2 16 Base Excess -13 L O2 Saturation 93 L O2 % 40 ABG pCO2 38.4 ABG pO2 82 Gagan Test POS Respiration Rate 16 O2 Delivery Device Vent Vent Mode A-C Tidal Volume 650 POC PEEP 5 Blood Gas Notified Whom ICU MD Blood Gas Notified Time 655 Sodium Potassium Chloride Carbon Dioxide Anion Gap BUN Creatinine Estim Creat Clear Calc Est GFR (MDRD) Af Amer Est GFR (MDRD) Non-Af BUN/Creatinine Ratio Glucose Lactic Acid 1.3 Calcium Total Bilirubin AST ALT Alkaline Phosphatase Troponin I Total Protein Albumin Globulin Albumin/Globulin Ratio Urine Color Urine Clarity Urine pH Ur Specific Mcdermitt Urine Protein Urine Glucose (UA) Urine Ketones Urine Occult Blood Urine Nitrite Urine Bilirubin Urine Urobilinogen Ur Leukocyte Esterase Urine RBC Urine WBC Ur Squamous Epith Cells Urine Bacteria Coarse Granular Casts Urine Mucus S.aureus Protein A PCR NEGATIVE MRSA (PCR) Negative 06/10/17 06/10/17 06/10/17 21:15 21:15 21:17 WBC RBC Hgb Hct MCV MCH MCHC RDW RDW Differential Plt Count MPV Immature Gran % (Auto) Neut % (Auto) Lymph % (Auto) Garfield % (Auto) Eos % (Auto) Baso % (Auto) Absolute Neuts (auto) Absolute Lymphs (auto) Total Counted Differential Comment PT 15.4 H INR 1.3 Specimen Type AMADEO Sample Site OTHER pH 7.15 L* Bicarbonate Actual 13.8 L POC Total CO2 15 Base Excess -15 L O2 Saturation 96 O2 % 40 ABG pCO2 39.6 ABG pO2 102 H Gagan Test Respiration Rate 16 O2 Delivery Device Vent Vent Mode A-C Tidal Volume 550 POC PEEP 5 Blood Gas Notified Whom ICU MD Blood Gas Notified Time Sodium Potassium Chloride Carbon Dioxide Anion Gap BUN Creatinine Estim Creat Clear Calc Est GFR (MDRD) Af Amer Est GFR (MDRD) Non-Af BUN/Creatinine Ratio Glucose Lactic Acid Calcium Total Bilirubin AST ALT Alkaline Phosphatase Troponin I 0.22 H Total Protein Albumin Globulin Albumin/Globulin Ratio Urine Color Urine Clarity Urine pH Ur Specific Mcdermitt Urine Protein Urine Glucose (UA) Urine Ketones Urine Occult Blood Urine Nitrite Urine Bilirubin Urine Urobilinogen Ur Leukocyte Esterase Urine RBC Urine WBC Ur Squamous Epith Cells Urine Bacteria Coarse Granular Casts Urine Mucus S.aureus Protein A PCR MRSA (PCR) 06/10/17 06/11/17 06/11/17 23:20 01:15 03:05 WBC RBC Hgb Hct MCV MCH MCHC RDW RDW Differential Plt Count MPV Immature Gran % (Auto) Neut % (Auto) Lymph % (Auto) Garfield % (Auto) Eos % (Auto) Baso % (Auto) Absolute Neuts (auto) Absolute Lymphs (auto) Total Counted Differential Comment PT INR Specimen Type AMADEO Sample Site OTHER pH 7.21 L Bicarbonate Actual 13.4 L POC Total CO2 14 Base Excess -14 L O2 Saturation 94 L O2 % 40 ABG pCO2 33.2 L ABG pO2 86 Gagan Test Respiration Rate 16 O2 Delivery Device Vent Vent Mode A-C Tidal Volume 550 POC PEEP 5 Blood Gas Notified Whom [facility] Blood Gas Notified Time Sodium Potassium Chloride Carbon Dioxide Anion Gap BUN Creatinine Estim Creat Clear Calc Est GFR (MDRD) Af Amer Est GFR (MDRD) Non-Af BUN/Creatinine Ratio Glucose Lactic Acid Calcium Total Bilirubin AST ALT Alkaline Phosphatase Troponin I 0.30 H Total Protein Albumin Globulin Albumin/Globulin Ratio Urine Color Yellow Urine Clarity Sl. Cloudy Urine pH 5.0 Ur Specific Mcdermitt 1.030 Urine Protein 100 H Urine Glucose (UA) 50 H Urine Ketones 5 H Urine Occult Blood 150 H Urine Nitrite Negative Urine Bilirubin 1 H Urine Urobilinogen Normal Ur Leukocyte Esterase 25 H Urine RBC 25-50 SEEN Urine WBC 25-50 SEEN Ur Squamous Epith Cells 10-25 SEEN Urine Bacteria 2+ Coarse Granular Casts 0-5 SEEN Urine Mucus 0 SEEN S.aureus Protein A PCR MRSA (PCR) 06/11/17 06/11/17 06/11/17 04:40 04:40 06:24 WBC 18.4 H RBC 3.77 L Hgb 10.8 L Hct 32.9 L MCV 87.3 MCH 28.6 MCHC 32.8 RDW 14.4 RDW Differential 45.3 H Plt Count 139 L MPV 10.9 Immature Gran % (Auto) 0.400 Neut % (Auto) 90.9 H Lymph % (Auto) 5.9 L Garfield % (Auto) 2.8 Eos % (Auto) 0.0 Baso % (Auto) 0.0 Absolute Neuts (auto) 16.7 H Absolute Lymphs (auto) 1.09 Total Counted Not Reportable Differential Comment PT INR Specimen Type AMADEO Sample Site OTHER pH 7.24 L Bicarbonate Actual 14.5 L POC Total CO2 15 Base Excess -13 L O2 Saturation 95 O2 % 40 ABG pCO2 33.7 L ABG pO2 86 Gagan Test Respiration Rate 16 O2 Delivery Device Vent Vent Mode A-C Tidal Volume 550 POC PEEP 5 Blood Gas Notified Whom ICU MD Blood Gas Notified Time Sodium 142 Potassium 5.4 H Chloride 108 H Carbon Dioxide 16.0 L Anion Gap 18 H BUN 84 H Creatinine 5.08 H Estim Creat Clear Calc 16.17 Est GFR (MDRD) Af Amer 15 L Est GFR (MDRD) Non-Af 12 L BUN/Creatinine Ratio 16.5 Glucose 257 H Lactic Acid Calcium 6.1 L* Total Bilirubin 0.30 AST 109 H ALT 52 Alkaline Phosphatase 86 Troponin I Total Protein 6.1 L Albumin 2.6 L Globulin 3.5 Albumin/Globulin Ratio 0.7 L Urine Color Urine Clarity Urine pH Ur Specific Mcdermitt Urine Protein Urine Glucose (UA) Urine Ketones Urine Occult Blood Urine Nitrite Urine Bilirubin Urine Urobilinogen Ur Leukocyte Esterase Urine RBC Urine WBC Ur Squamous Epith Cells Urine Bacteria Coarse Granular Casts Urine Mucus S.aureus Protein A PCR MRSA (PCR) 06/11/17 06:25 WBC RBC Hgb Hct MCV MCH MCHC RDW RDW Differential Plt Count MPV Immature Gran % (Auto) Neut % (Auto) Lymph % (Auto) Garfield % (Auto) Eos % (Auto) Baso % (Auto) Absolute Neuts (auto) Absolute Lymphs (auto) Total Counted Differential Comment PT INR Specimen Type Sample Site pH Bicarbonate Actual POC Total CO2 Base Excess O2 Saturation O2 % ABG pCO2 ABG pO2 Gagan Test Respiration Rate O2 Delivery Device Vent Mode Tidal Volume POC PEEP Blood Gas Notified Whom Blood Gas Notified Time Sodium Potassium Chloride Carbon Dioxide Anion Gap BUN Creatinine Estim Creat Clear Calc Est GFR (MDRD) Af Amer Est GFR (MDRD) Non-Af BUN/Creatinine Ratio Glucose Lactic Acid Calcium Total Bilirubin AST ALT Alkaline Phosphatase Troponin I 0.34 H Total Protein Albumin Globulin Albumin/Globulin Ratio Urine Color Urine Clarity Urine pH Ur Specific Mcdermitt Urine Protein Urine Glucose (UA) Urine Ketones Urine Occult Blood Urine Nitrite Urine Bilirubin Urine Urobilinogen Ur Leukocyte Esterase Urine RBC Urine WBC Ur Squamous Epith Cells Urine Bacteria Coarse Granular Casts Urine Mucus S.aureus Protein A PCR MRSA (PCR) POC Glucose 06/11/17 06/10/17 06/10/17 06:21 23:41 21:32 POC Glucose 238 H 274 H 274 H Clinical Impression(s) from Imaging Studies Chest X-Ray 06/10/17 20:08 IMPRESSION: There is a stable appearance of the small pneumothorax in the periphery of the right lower chest. Adjacent subcutaneous emphysema has increased. There is mild enlargement of the cardiac silhouette with vascular congestion. There is no evidence of pleural effusion. The previously seen right rib fractures are not well seen on the current study. However fractures are now seen in the anterolateral left sixth rib and possibly lateral left fifth rib. Electronically Signed: Ana Laura Brown MD at 21:23 EST Tel Direct: [phone], Service support , Chest X-Ray 06/10/17 20:56 IMPRESSION: There has been resolution of the right pneumothorax after chest tube placement. There are no acute cardiopulmonary changes. Electronically Signed: Ana Laura Brown MD at 22:13 EST Tel Direct: [phone], Service support , Assessment/Plan Active and Suspected Problems Pneumothorax, right (Acute) Community acquired pneumonia (Suspected) Acute renal failure (Acute) Septic shock (Acute) Lactic acidosis (Acute) Cardiopulmonary arrest (Acute) This is a 61 years old male patient brought to the emergency department because of respiratory distress and while in the route to the hospital, he went into acute respiratory failure followed by cardiac arrest, status post CPR, found to have septic shock, lactic acidosis, acute hypercapnic respiratory failure secondary to possible pneumonia as well as acute renal failure. Hospital course complicated by traumatic right-sided pneumothorax status post chest tube insertion. #1 status post cardiopulmonary arrest: Status post CPR, remained on mechanical ventilation. He is off vasopressors. Blood pressure stabilized, heart rate has been in 100s. Troponin are elevated, trending up. EKG from today reviewed. Cardiology and critical care on the case. He is on IV antibiotics and IV steroids. The initiating event of the initial respiratory distress/ arrest is unclear, could be COPD exacerbation versus possible pneumonia. Plan: Continue same treatment. #2 acute hypercapnic respiratory failure/respiratory acidosis: Secondary to above in addition to possible pneumonia versus acute COPD exacerbation. Patient has history of COPD as well, has been on oxygen as well as sleep apnea. He is on mechanical ventilation as above. ABG from today reviewed, plan as above. #3 lactic acidosis/septic shock: Secondary to cardiac pulmonary arrest in addition to pneumonia. Patient received bolus of IV fluid in the ER yesterday, lactic acid is back to normal. Blood, urine and sputum cultures are pending. Stool for C. difficile was negative. Plan to continue IV antibiotics, vent support. #4 indeterminate troponin: Likely because of demand ischemia secondary to septic shock and cardiopulmonary arrest. EKG revealed no acute ischemic changes. Cardiology consulted. 2D echocardiogram ordered. #5 traumatic right-sided pneumothorax: Status post chest tube insertion, it is secondary to displaced fractures of the right fifth and sixth ribs. Also, patient had subclavian central line inserted. Chest x-ray after the chest tube revealed full expansion of the right lung. Neurosurgery on the case. #6 acute renal failure: With unknown baseline kidney function. This is probably acute, admission creatinine is 5.56, BUN is 80. He is on IV fluids, BUN remained the same, creatinine slightly improved down to 5.08. Plan to continue IV fluids, repeat BMP tomorrow morning. #7 probable community-acquired pneumonia: He is on IV Levaquin. Blood pressure stabilized, off vasopressors. Cultures are pending. He has been afebrile, white blood count is trending up. #8 hyperkalemia: Secondary to acute renal failure. Admission potassium was normal but the potassium went up to 5.4. Patient received 1 dose of Kayexalate , plan to repeat BMP tomorrow morning. #9 hypocalcemia/hypomagnesemia: He is on replacement with IV calcium gluconate and magnesium sulfate. Corrected calcium for albumin is 7.2 mg/dL. #10 type 2 diabetes mellitus: He is on Accu-Cheks every 6 hours, insulin sliding scale. #11 hypertension: Blood pressure improved, he is off vasopressors. #12 CAD: Without prior cardiac interventions. EKG reviewed, revealed no acute ischemic changes, revealed RBBB. Plan as above. #13 COPD/chronic respiratory failure: On mechanical ventilation, plan as above. At home, has been on oxygen at 2 L according to his . #14 DVT prophylaxis: INR is 1.3, SCDs. #15 CODE STATUS: I spoke with the patient's in details about the critical condition of her and she mentioned that he expressed that he does not want to be on the life sustaining measures such as breathing machines but he does not have a DNR status. She mentioned that she cannot take this at this time. I explained to her that at this time, if he went into cardiac arrest again we will try to bring him back with CPR and then we can discuss the CODE STATUS again if things changes. She agreed to keep him full CODE STATUS at this time and will follow. Other chronic medical problems: #1 hyperlipidemia. #2 depression. #3 anxiety. #4 obstructive sleep apnea: Has been on CPAP at home. This note was generated with [employer] dictation software. It may contain incorrect words, spelling, and punctuation that were not noted in checking the note before signing. Code Visit Inpatient E&M: 63679 Subs Hosp L3
[2017-06-11] MEDS: Chlorhexidine 15 ML PO ×2 (09:33→23:48)
[2017-06-11 11:27] LABS: Bedside Glucose 172 mg/dL (70-110)
--- NOTE | 2017-06-11 12:11 | RAD_ITS ---
STUDY: X-RAY CHEST REASON FOR EXAM: Male, 61 years old. Dyspnea and shortness of breath. TECHNIQUE: Single AP portable view of the chest. COMPARISON: 06/11/2017, 6:31 AM. FINDINGS: The endotracheal tube is somewhat high in position about the level of the clavicles and is approximately 6 cm proximal to the nikole. There is a nasogastric tube with its tip below the level of diaphragm. A right chest tube is in stable position. Is a right-sided rib and central venous catheter with distal tip in the superior vena cava. There are increased markings likely exaggerated by motion and patient's positioning. Early infiltrate is less likely.. There is no demonstrated pleural abnormality. Can't excluded with remains enlarged. Normal mediastinum and christelle. Normal visualized pulmonary arteries. There is atherosclerotic calcification of the aortic arch with tortuosity. Stable bone structures. There is no demonstrated abnormality of the visualized soft tissue structures of the upper abdomen. RAD/Chest 1 View (Portable) IMPRESSION: Somewhat limited examination due to motion. Slightly prominent markings right lower lung probably exaggerated by motion patient's positioning. Early infiltrate is less likely. Overall no substantial change since previous examination. Electronically Signed: Ifeanyi Fajardo MD at 13:19 EST Tel , Service support ,
[2017-06-11] MEDS: 0.9% NaCl Peripheral Flush Adult/Peds IV ×4 (13:43→23:52)
[2017-06-11] MEDS: Labetalol 100 MG/20 ML Vial 10 MG IV ×2 (13:43→20:49)
[2017-06-11] MEDS: Vital AF 1.2 Cal Liquid 1,000 ML 70 ML GT (14:53)
[2017-06-11 17:32] LABS: Bedside Glucose 222 mg/dL (70-110)
--- NOTE | 2017-06-11 20:00 | NURSING ---
Pt with no spontaneous or purposeful movements and not responsive to pain. B/L wrist restraints removed.
--- NOTE | 2017-06-11 20:33 | CT_ITS ---
STUDY: CT BRAIN WITHOUT CONTRAST REASON FOR EXAM: Male, 61 years old. Alteration of awareness RADIATION DOSAGE (If Supplied By Facility): CTDIvol = ( 44.99 ) mGy, DLP = ( 796.11 ) mGycm TECHNIQUE: Transaxial CT imaging of the brain was performed without administration of intravenous contrast material. Individualized dose optimization techniques were used for this CT. COMPARISON: None. FINDINGS: The soft tissues are unremarkable. The osseous structures are unremarkable. Normal size ventricles and extra-axial spaces for the patient's age. The white matter tracts are unremarkable. The basal ganglia and thalami are unremarkable. No abnormalities are seen in the brainstem. The cerebellum is unremarkable. There is no intracranial hemorrhage. There are no findings of acute ischemia. The visualized sinuses are unremarkable. CT/Brain/Head without Contrast IMPRESSION: No acute intracranial abnormalities. Electronically Signed: Ana Laura Brown MD at 21:52 EST Tel Direct: [phone], Service support ,
--- NOTE | 2017-06-11 21:10 | NURSING ---
Pt leaving unit with this RN and RT Helena and RT Narayan for head CT.
--- NOTE | 2017-06-11 21:35 | NURSING ---
Pt returning to unit from head CT.
[2017-06-12] VITALS (55 sets, daily range): BP systolic 127–209; BP diastolic 47–98; PULSE 92–136; RESP 18–42; TEMP 37.4–38.7; O2SAT 90–99
[2017-06-12 00:06] LABS: Bedside Glucose 268 mg/dL (70-110)
[2017-06-12] MEDS: 0.9% NaCl Peripheral Flush Adult/Peds IV ×6 (00:35→23:57)
[2017-06-12] MEDS: Labetalol 100 MG/20 ML Vial 10 MG IV ×5 (00:35→23:57)
--- NOTE | 2017-06-12 01:08 | NURSING ---
Ventilator alarming, Art line reading 199/100, No movement observed. When opening B/L eye lids eye are deviated downward to the left and seen occasionally twitching towards to right. This event lasting 2 minutes and Art line pressures now 161/71.
[2017-06-12 04:19] LABS: Absolute Lymphocyte Count 0.69 X10^3/ul (0.83-4.51); Absolute Neutrophil Count 8.6 X10^3/uL (2.0-7.7); Hematocrit 29.3 % (40-54); Hemoglobin 9.9 g/dl (13.0-16.5); Lymphocyte # 0.69 X10^3/ul (4.0); Lymphocyte % 7.2 % (19-41); Mean Corp Hgb Conc 33.8 g/gl (32-36); Mean Corpuscular Hgb 29.2 pg (27.0-32.0); Mean Corpuscular Volume 86.4 fL (80-94); Mean Platelet Vol. 11.4 fl (6.2-12.0); Monocyte# 0.29 X10^3/uL; Neutrophil % 89.6 % (47-70); Platelet Count 108 K/mm3 (150-450); RBC Distribution Width CV 14.5 % (11.6-14.6); RBC Distribution Width SD 43.7 fl (35.1-43.9); Red Blood Count 3.39 M/mm3 (4.6-6.2); White Blood Count 9.6 K/mm3 (4.4-11.0)
[2017-06-12 04:22] LABS: POSITIVE COUNT NO; POSITIVE DIFFERENTIAL NO; POSITIVE MORPHOLOGY NO
[2017-06-12 04:28] LABS: International Normalized Ratio 1.3; Prothrombin Time (Protime)PT. 15.2 SECONDS (11.7-14.9)
[2017-06-12 04:29] LABS: Partial Thromboplast Time 33.7 Seconds (24.1-36.2)
[2017-06-12 04:47] LABS: ALB/GLOB Ratio 0.7 RATIO (0.9-2.4); AST(SGOT) 74 U/L (15-37); Alanine Aminotransfer ALT/SGPT 43 U/L (16-61); Albumin, Serum 2.6 g/dL (3.2-5.0); Alkaline Phosphatase 74 U/L (45-117); Anion Gap 15 (5-15); BUN 94 mg/dL (7-18); BUN/Creat Ratio 18.4 RATIO (10-20); Calcium,Total 6.5 mg/dL (8.5-10.1); Chloride 106 mmol/L (98-107); Creatinine, Serum 5.12 mg/dL (0.70-1.30); EST Glomerular Filtration Rate 12 mL/min (>60); Est Glom Filt Rate - Afr Amer 15 mL/min (>60); Estimated Creatinine Clearance 16.04 ml/min; Globulin 3.5 g/dL (2.2-4.2); Glucose 335 mg/dL (74-106); Magnesium 1.9 mg/dL (1.6-2.6); Phosphorus 7.1 mg/dL (2.5-4.9); Protein, Total 6.1 g/dL (6.4-8.2); Sodium Level 142 mmol/L (136-145)
[2017-06-12 05:16] LABS: Base Excess -6 mmol/L (-2 to +2); Blood Gas Specimen Type ALINE; FI02 40; Mode VC+; O2 Delivery Device Vent; PEEP 5; PO2 92 mmHG (75-100); RR 16; SO2 97 % (95-99); Total Carbon Dioxide 21 mmol/L; Vt 550; pCO2 38.8 mmHg (35-45); pH 7.32 (7.35-7.45)
[2017-06-12] MEDS: CHLORHEXIDINE GLUC 2% CLOTH 1 EACH TOWELETTE TOPICAL (05:21)
[2017-06-12 05:26] LABS: Bedside Glucose 322 mg/dL (70-110)
--- NOTE | 2017-06-12 05:55 | RAD_ITS ---
STUDY: X-RAY CHEST REASON FOR EXAM: Male, 61 years old. Dyspnea and shortness of breath. TECHNIQUE: Single AP portable view of the chest. COMPARISON: Comparison is made with prior examination dated June 11, 2017. FINDINGS: An endotracheal tube is in situ. The tip is at 5.9 cm proximal to the nikole. An orogastric tube is seen with the tip below the left hemidiaphragm. A right-sided chest tube is in situ. The tip is in the medial portion of the right upper lobe. A right-sided subclavian catheter is seen with the tip in the proximal portion of the superior vena cava. Small amount of right subcutaneous emphysema overlying the right chest wall. Improved aeration of both lungs as compared to prior study. Residual changes persist. There is no demonstrated pleural abnormality. There is moderate cardiac enlargement. Normal mediastinum and christelle. Normal visualized pulmonary arteries. There is atherosclerotic calcification of the aortic arch with tortuosity. There are diffuse degenerative changes of the visualized thoracic spine. Normal visualized ribs, clavicles, and shoulders. There is no demonstrated abnormality of the visualized soft tissue structures of the upper abdomen. RAD/Chest 1 View (Portable) IMPRESSION: Improved aeration of both lungs. All the support tubes are unchanged. Electronically Signed: Matheus Vasquez MD at 11:48 EST Tel [phone], Service support ,
--- NOTE | 2017-06-12 06:31 | PCM.PN.INT ---
Subjective: The patient was seen and examined at the bedside this morning. Events from the last 24 hours have been reviewed. The patient currently has a low-grade fever and has been hypertensive. The patient failed his spontaneous awakening trial this morning, as nursing staff noted that the patient became exceedingly hypertensive when his sedation was placed on hold. The patient did develop neurologic changes overnight, which prompted the overnight care team to obtain a CT head. That imaging study demonstrated no acute intracranial abnormalities. Creatinine remains elevated, but the patient continues to make urine. Objective: The patient's most recent lab work, culture data and imaging studies have all been personally reviewed. Respiratory viral panel was negative. Enteric bacteria and C. difficile were both negative. Blood and urine cultures are currently pending. General: - - Intubated, sedated and mechanically ventilated. Currently tolerating ACVC+ HEENT: Atraumatic, Normocephalic, Sluggish Pupils Oral: Moist Mucosa, - - Endotracheal and OG tubes in place Neck: Supple, No Nodes, Trachea Midline, - - Right-sided central venous catheter in place Lungs: No wheeze, No rales, Diminished, Rhonchi, - - Right sided large bore chest tube in place. Insertion site is intact. Cardiovascular: Normal S1, Normal S2, No murmurs, No rub noted, No Gallop, Tachycardic Abdomen: Bowel Sounds Present, Soft, Non Tender, Obese Extremities: No clubbing, No cyanosis, Edema Skin: No rashes, No breakdown Musculoskeletal: No Tenderness to Palpation of Joints or Extremities Lymphatic: No Cervical, Supraclavicular, or Inguinal Adenopathy Neurological: - - Will briefly open eyes to name. No significant response to noxious stimuli. Does not follow commands. Vital Signs Temp Pulse Resp BP Pulse Ox 99.4 F H 101 H 21 H 173/71 H 97 06/12/17 06:00 06/12/17 06:00 06/12/17 06:00 06/12/17 06:00 06/12/17 06:00 Oxygen Delivery Method Mechanical Ventilator Weight: 277 lb 12.519 oz Body Mass Index (BMI) 39.2 Intake and Output for Last 24 Hours 06/10/17 06/11/17 06/12/17 23:59 23:59 23:59 Intake Total 1889.3 / 1889.3 4558.4 / 4558.4 778 / 778 Output Total 330 / 330 1525 / 1525 450 / 450 Balance 1559.3 / 1559.3 3033.4 / 3033.4 328 / 328 Labs (Last 48 Hours) 06/10/17 06/10/17 06/10/17 19:01 20:00 20:00 WBC RBC Hgb Hct MCV MCH MCHC RDW RDW Differential Plt Count MPV Immature Gran % (Auto) Neut % (Auto) Lymph % (Auto) [place] % (Auto) Eos % (Auto) Baso % (Auto) Absolute Neuts (auto) Absolute Lymphs (auto) Total Counted Differential Comment PT INR APTT Specimen Type ART Sample Site R Radial pH 7.20 L Bicarbonate Actual 15.1 L POC Total CO2 16 Base Excess -13 L O2 Saturation 93 L O2 % 40 ABG pCO2 38.4 ABG pO2 82 Gagan Test POS Respiration Rate 16 O2 Delivery Device Vent Vent Mode A-C Tidal Volume 650 POC PEEP 5 Blood Gas Notified Whom ICU Blood Gas Notified Time 655 Sodium Potassium Chloride Carbon Dioxide Anion Gap BUN Creatinine Estim Creat Clear Calc Est GFR (MDRD) Af Amer Est GFR (MDRD) Non-Af BUN/Creatinine Ratio Glucose Lactic Acid 1.3 Calcium Phosphorus Magnesium Total Bilirubin AST ALT Alkaline Phosphatase Troponin I Total Protein Albumin Globulin Albumin/Globulin Ratio Urine Color Urine Clarity Urine pH Ur Specific [place] Urine Protein Urine Glucose (UA) Urine Ketones Urine Occult Blood Urine Nitrite Urine Bilirubin Urine Urobilinogen Ur Leukocyte Esterase Urine RBC Urine WBC Ur Squamous Epith Cells Urine Bacteria Coarse Granular Casts Urine Mucus S.aureus Protein A PCR NEGATIVE MRSA (PCR) Negative POC Glucose 06/10/17 06/10/17 06/10/17 21:15 21:15 21:17 WBC RBC Hgb Hct MCV MCH MCHC RDW RDW Differential Plt Count MPV Immature Gran % (Auto) Neut % (Auto) Lymph % (Auto) [place] % (Auto) Eos % (Auto) Baso % (Auto) Absolute Neuts (auto) Absolute Lymphs (auto) Total Counted Differential Comment PT 15.4 H INR 1.3 APTT Specimen Type [place] Sample Site OTHER pH 7.15 L* Bicarbonate Actual 13.8 L POC Total CO2 15 Base Excess -15 L O2 Saturation 96 O2 % 40 ABG pCO2 39.6 ABG pO2 102 H Gagan Test Respiration Rate 16 O2 Delivery Device Vent Vent Mode A-C Tidal Volume 550 POC PEEP 5 Blood Gas Notified Whom ICU MD Blood Gas Notified Time Sodium Potassium Chloride Carbon Dioxide Anion Gap BUN Creatinine Estim Creat Clear Calc Est GFR (MDRD) Af Amer Est GFR (MDRD) Non-Af BUN/Creatinine Ratio Glucose Lactic Acid Calcium Phosphorus Magnesium Total Bilirubin AST ALT Alkaline Phosphatase Troponin I 0.22 H Total Protein Albumin Globulin Albumin/Globulin Ratio Urine Color Urine Clarity Urine pH Ur Specific [place] Urine Protein Urine Glucose (UA) Urine Ketones Urine Occult Blood Urine Nitrite Urine Bilirubin Urine Urobilinogen Ur Leukocyte Esterase Urine RBC Urine WBC Ur Squamous Epith Cells Urine Bacteria Coarse Granular Casts Urine Mucus S.aureus Protein A PCR MRSA (PCR) POC Glucose 06/10/17 06/10/17 06/10/17 21:32 23:20 23:41 WBC RBC Hgb Hct MCV MCH MCHC RDW RDW Differential Plt Count MPV Immature Gran % (Auto) Neut % (Auto) Lymph % (Auto) [place] % (Auto) Eos % (Auto) Baso % (Auto) Absolute Neuts (auto) Absolute Lymphs (auto) Total Counted Differential Comment PT INR APTT Specimen Type Sample Site pH Bicarbonate Actual POC Total CO2 Base Excess O2 Saturation O2 % ABG pCO2 ABG pO2 Gagan Test Respiration Rate O2 Delivery Device Vent Mode Tidal Volume POC PEEP Blood Gas Notified Whom Blood Gas Notified Time Sodium Potassium Chloride Carbon Dioxide Anion Gap BUN Creatinine Estim Creat Clear Calc Est GFR (MDRD) Af Amer Est GFR (MDRD) Non-Af BUN/Creatinine Ratio Glucose Lactic Acid Calcium Phosphorus Magnesium Total Bilirubin AST ALT Alkaline Phosphatase Troponin I Total Protein Albumin Globulin Albumin/Globulin Ratio Urine Color Yellow Urine Clarity Sl. Cloudy Urine pH 5.0 Ur Specific [place] 1.030 Urine Protein 100 H Urine Glucose (UA) 50 H Urine Ketones 5 H Urine Occult Blood 150 H Urine Nitrite Negative Urine Bilirubin 1 H Urine Urobilinogen Normal Ur Leukocyte Esterase 25 H Urine RBC 25-50 SEEN Urine WBC 25-50 SEEN Ur Squamous Epith Cells 10-25 SEEN Urine Bacteria 2+ Coarse Granular Casts 0-5 SEEN Urine Mucus 0 SEEN S.aureus Protein A PCR MRSA (PCR) POC Glucose 274 H 274 H 06/11/17 06/11/17 06/11/17 01:15 03:05 04:40 WBC 18.4 H RBC 3.77 L Hgb 10.8 L Hct 32.9 L MCV 87.3 MCH 28.6 MCHC 32.8 RDW 14.4 RDW Differential 45.3 H Plt Count 139 L MPV 10.9 Immature Gran % (Auto) 0.400 Neut % (Auto) 90.9 H Lymph % (Auto) 5.9 L [place] % (Auto) 2.8 Eos % (Auto) 0.0 Baso % (Auto) 0.0 Absolute Neuts (auto) 16.7 H Absolute Lymphs (auto) 1.09 Total Counted Not Reportable Differential Comment PT INR APTT Specimen Type [place] Sample Site OTHER pH 7.21 L Bicarbonate Actual 13.4 L POC Total CO2 14 Base Excess -14 L O2 Saturation 94 L O2 % 40 ABG pCO2 33.2 L ABG pO2 86 Gagan Test Respiration Rate 16 O2 Delivery Device Vent Vent Mode A-C Tidal Volume 550 POC PEEP 5 Blood Gas Notified Whom HOSP Blood Gas Notified Time Sodium Potassium Chloride Carbon Dioxide Anion Gap BUN Creatinine Estim Creat Clear Calc Est GFR (MDRD) Af Amer Est GFR (MDRD) Non-Af BUN/Creatinine Ratio Glucose Lactic Acid Calcium Phosphorus Magnesium Total Bilirubin AST ALT Alkaline Phosphatase Troponin I 0.30 H Total Protein Albumin Globulin Albumin/Globulin Ratio Urine Color Urine Clarity Urine pH Ur Specific [place] Urine Protein Urine Glucose (UA) Urine Ketones Urine Occult Blood Urine Nitrite Urine Bilirubin Urine Urobilinogen Ur Leukocyte Esterase Urine RBC Urine WBC Ur Squamous Epith Cells Urine Bacteria Coarse Granular Casts Urine Mucus S.aureus Protein A PCR MRSA (PCR) POC Glucose 06/11/17 06/11/17 06/11/17 04:40 06:21 06:24 WBC RBC Hgb Hct MCV MCH MCHC RDW RDW Differential Plt Count MPV Immature Gran % (Auto) Neut % (Auto) Lymph % (Auto) [place] % (Auto) Eos % (Auto) Baso % (Auto) Absolute Neuts (auto) Absolute Lymphs (auto) Total Counted Differential Comment PT INR APTT Specimen Type [place] Sample Site OTHER pH 7.24 L Bicarbonate Actual 14.5 L POC Total CO2 15 Base Excess -13 L O2 Saturation 95 O2 % 40 ABG pCO2 33.7 L ABG pO2 86 Gagan Test Respiration Rate 16 O2 Delivery Device Vent Vent Mode A-C Tidal Volume 550 POC PEEP 5 Blood Gas Notified Whom ICU MD Blood Gas Notified Time Sodium 142 Potassium 5.4 H Chloride 108 H Carbon Dioxide 16.0 L Anion Gap 18 H BUN 84 H Creatinine 5.08 H Estim Creat Clear Calc 16.17 Est GFR (MDRD) Af Amer 15 L Est GFR (MDRD) Non-Af 12 L BUN/Creatinine Ratio 16.5 Glucose 257 H Lactic Acid Calcium 6.1 L* Phosphorus Magnesium Total Bilirubin 0.30 AST 109 H ALT 52 Alkaline Phosphatase 86 Troponin I Total Protein 6.1 L Albumin 2.6 L Globulin 3.5 Albumin/Globulin Ratio 0.7 L Urine Color Urine Clarity Urine pH Ur Specific [place] Urine Protein Urine Glucose (UA) Urine Ketones Urine Occult Blood Urine Nitrite Urine Bilirubin Urine Urobilinogen Ur Leukocyte Esterase Urine RBC Urine WBC Ur Squamous Epith Cells Urine Bacteria Coarse Granular Casts Urine Mucus S.aureus Protein A PCR MRSA (PCR) POC Glucose 238 H 06/11/17 06/11/17 06/11/17 06:25 11:21 17:28 WBC RBC Hgb Hct MCV MCH MCHC RDW RDW Differential Plt Count MPV Immature Gran % (Auto) Neut % (Auto) Lymph % (Auto) [place] % (Auto) Eos % (Auto) Baso % (Auto) Absolute Neuts (auto) Absolute Lymphs (auto) Total Counted Differential Comment PT INR APTT Specimen Type Sample Site pH Bicarbonate Actual POC Total CO2 Base Excess O2 Saturation O2 % ABG pCO2 ABG pO2 Gagan Test Respiration Rate O2 Delivery Device Vent Mode Tidal Volume POC PEEP Blood Gas Notified Whom Blood Gas Notified Time Sodium Potassium Chloride Carbon Dioxide Anion Gap BUN Creatinine Estim Creat Clear Calc Est GFR (MDRD) Af Amer Est GFR (MDRD) Non-Af BUN/Creatinine Ratio Glucose Lactic Acid Calcium Phosphorus Magnesium Total Bilirubin AST ALT Alkaline Phosphatase Troponin I 0.34 H Total Protein Albumin Globulin Albumin/Globulin Ratio Urine Color Urine Clarity Urine pH Ur Specific [place] Urine Protein Urine Glucose (UA) Urine Ketones Urine Occult Blood Urine Nitrite Urine Bilirubin Urine Urobilinogen Ur Leukocyte Esterase Urine RBC Urine WBC Ur Squamous Epith Cells Urine Bacteria Coarse Granular Casts Urine Mucus S.aureus Protein A PCR MRSA (PCR) POC Glucose 172 H 222 H 06/11/17 06/12/17 06/12/17 23:51 04:05 04:05 WBC 9.6 RBC 3.39 L Hgb 9.9 L Hct 29.3 L MCV 86.4 MCH 29.2 MCHC 33.8 RDW 14.5 RDW Differential 43.7 Plt Count 108 L MPV 11.4 Immature Gran % (Auto) 0.200 Neut % (Auto) 89.6 H Lymph % (Auto) 7.2 L [place] % (Auto) 3.0 Eos % (Auto) 0.0 Baso % (Auto) 0.0 Absolute Neuts (auto) 8.6 H Absolute Lymphs (auto) 0.69 L Total Counted Not Reportable Differential Comment PT 15.2 H INR 1.3 APTT 33.7 Specimen Type Sample Site pH Bicarbonate Actual POC Total CO2 Base Excess O2 Saturation O2 % ABG pCO2 ABG pO2 Gagan Test Respiration Rate O2 Delivery Device Vent Mode Tidal Volume POC PEEP Blood Gas Notified Whom Blood Gas Notified Time Sodium Potassium Chloride Carbon Dioxide Anion Gap BUN Creatinine Estim Creat Clear Calc Est GFR (MDRD) Af Amer Est GFR (MDRD) Non-Af BUN/Creatinine Ratio Glucose Lactic Acid Calcium Phosphorus Magnesium Total Bilirubin AST ALT Alkaline Phosphatase Troponin I Total Protein Albumin Globulin Albumin/Globulin Ratio Urine Color Urine Clarity Urine pH Ur Specific [place] Urine Protein Urine Glucose (UA) Urine Ketones Urine Occult Blood Urine Nitrite Urine Bilirubin Urine Urobilinogen Ur Leukocyte Esterase Urine RBC Urine WBC Ur Squamous Epith Cells Urine Bacteria Coarse Granular Casts Urine Mucus S.aureus Protein A PCR MRSA (PCR) POC Glucose 268 H 06/12/17 06/12/17 06/12/17 04:05 05:09 05:12 WBC RBC Hgb Hct MCV MCH MCHC RDW RDW Differential Plt Count MPV Immature Gran % (Auto) Neut % (Auto) Lymph % (Auto) [place] % (Auto) Eos % (Auto) Baso % (Auto) Absolute Neuts (auto) Absolute Lymphs (auto) Total Counted Differential Comment PT INR APTT Specimen Type [place] Sample Site pH 7.32 L Bicarbonate Actual 20.0 L POC Total CO2 21 Base Excess -6 L O2 Saturation 97 O2 % 40 ABG pCO2 38.8 ABG pO2 92 Ggaan Test Respiration Rate 16 O2 Delivery Device Vent Vent Mode VC+ Tidal Volume 550 POC PEEP 5 Blood Gas Notified Whom ICU MD Blood Gas Notified Time Sodium 142 Potassium 4.0 Chloride 106 Carbon Dioxide 21.0 Anion Gap 15 BUN 94 H Creatinine 5.12 H Estim Creat Clear Calc 16.04 Est GFR (MDRD) Af Amer 15 L Est GFR (MDRD) Non-Af 12 L BUN/Creatinine Ratio 18.4 Glucose 335 H Lactic Acid Calcium 6.5 L* Phosphorus 7.1 H Magnesium 1.9 Total Bilirubin 0.40 AST 74 H ALT 43 Alkaline Phosphatase 74 Troponin I Total Protein 6.1 L Albumin 2.6 L Globulin 3.5 Albumin/Globulin Ratio 0.7 L Urine Color Urine Clarity Urine pH Ur Specific [place] Urine Protein Urine Glucose (UA) Urine Ketones Urine Occult Blood Urine Nitrite Urine Bilirubin Urine Urobilinogen Ur Leukocyte Esterase Urine RBC Urine WBC Ur Squamous Epith Cells Urine Bacteria Coarse Granular Casts Urine Mucus S.aureus Protein A PCR MRSA (PCR) POC Glucose 322 H Microbiology 06/11/17 08:05 Mucosa - Nasopharyngeal Respiratory Panel (PCR) - Final 06/10/17 20:00 Stool Enteric Bacteriology - Final 06/10/17 20:00 Stool C. difficile DNA Amplification - Final Clinical Impression(s) from Imaging Studies Chest X-Ray 06/10/17 16:15 IMPRESSION: Mild to moderate cardiomegaly. Interstitial edema. Lines as detailed above. Endotracheal tube is slightly high could be advanced 1 to 2 cm. Question left lower lobe pulmonary nodule versus summation of shadows. Possible nipple shadow. Recommend dedicated single chest x-ray when appropriate. Electronically Signed: Matilda Nguyen MD at 16:51 EST Tel , Service support , Chest X-Ray 06/10/17 18:05 IMPRESSION: There is a small pneumothorax along the periphery of the right lung base. This is likely due to minimally displaced rib fractures in the anterolateral aspects of the right fifth and sixth ribs rather than from central line placement. Follow-up films can be obtained. The tip of the right subclavian line is in the expected location of the mid to distal SVC. There is mild enlargement of the cardiac silhouette with mild edema. There is no obvious pleural effusion. N.B. : The above information has been verbally conveyed by Ana Laura Brown MD to Papo Taylor, Referring Physician, on 06/10/2017 19:21:19 (ET). Electronically Signed: Ana Laura Brown MD at 19:22 EST Tel Direct: [phone], Service support , N.B. : The above information has been verbally conveyed by Ana Laura Brown MD to Papo Taylor, Referring Physician, on 06/10/2017 19:21:19 (ET). Chest X-Ray 06/10/17 20:08 IMPRESSION: There is a stable appearance of the small pneumothorax in the periphery of the right lower chest. Adjacent subcutaneous emphysema has increased. There is mild enlargement of the cardiac silhouette with vascular congestion. There is no evidence of pleural effusion. The previously seen right rib fractures are not well seen on the current study. However fractures are now seen in the anterolateral left sixth rib and possibly lateral left fifth rib. Electronically Signed: Ana Laura Brown MD at 21:23 EST Tel Direct: [phone], Service support , Chest X-Ray 06/10/17 20:56 IMPRESSION: There has been resolution of the right pneumothorax after chest tube placement. There are no acute cardiopulmonary changes. Electronically Signed: Ana Laura Brown MD at 22:13 EST Tel Direct: [phone], Service support , Chest X-Ray 06/11/17 06:25 IMPRESSION: Right-sided chest tube, subcutaneous gas, no definitive visualized pneumothorax. The heart is enlarged. There is a widened appearance of the mediastinum which is likely due to positioning and aortic tortuosity. However, Recommend CT scan of the chest when appropriate to clarify. Lines as detailed above. The endotracheal tube is high 5.7 cm above the nikole and should be advanced 2 to 3 cm. Electronically Signed: Matilda Nguyen MD at 9:15 EST Tel , Service support , Chest X-Ray 06/11/17 12:11 IMPRESSION: Somewhat limited examination due to motion. Slightly prominent markings right lower lung probably exaggerated by motion patient's positioning. Early infiltrate is less likely. Overall no substantial change since previous examination. Electronically Signed: Ifeanyi Fajardo MD at 13:19 EST Tel , Service support , Brain CT 06/11/17 20:33 IMPRESSION: No acute intracranial abnormalities. Electronically Signed: Ana Laura Brown MD at 21:52 EST Tel Direct: [phone], Service support , Assessment/Plan Active and Suspected Problems Pneumothorax, right (Acute) Non-STEMI (non-ST elevated myocardial infarction) (Acute) Encephalopathy (Acute) Community acquired pneumonia (Suspected) Acute renal failure (Acute) Septic shock (Acute) Lactic acidosis (Acute) Cardiopulmonary arrest (Acute) RECOMMENDATIONS: 1. Continue current antimicrobial coverage. Transition to ceftriaxone, given renal function. 2. Start nicardipine due to persistently elevated blood pressure parameters 3. Continue tube feeds 4. Once blood pressure is brought under control, hold sedatives to assess underlying neurologic function 5. Continue chest tube management per surgery recommendations 6. Wean FiO2 to maintain oxygen saturations at or above 90% 7. Obtain neurology consultation. Consider MRI head versus EEG. IMPRESSIONS: 1. Respiratory arrest secondary to probable COPD exacerbation Patient with reported protracted course at home. Patient was noncompliant with therapy. Continue with spontaneous breathing and awakening trials as tolerated. Attempts will be made this morning to hold the patient's sedation in hopes of assessing his baseline mentation. Chest tube remains in place and is being managed by surgery. Aerosol treatments will be initiated. We will continue empiric antibiotics and steroids for now. 2. Traumatic right pneumothorax status post chest tube postop day #2 Right chest tube is stable. Subcutaneous emphysema appears to be stable at this time. We will continue to monitor closely. We will not initiate a heparin drip or Plavix therapy at this time given risk for bleeding complications. Patient does have multiple rib fractures noted on x-ray. Clinical suspicion for rib fracture secondary to CPR 3. Acute on chronic combined respiratory failure Clinical suspicion for community-acquired pneumonia. Patient reportedly has a history of 2 L nasal cannula at baseline. 4. Septic shock secondary to CAP Patient initially on Levophed therapy. Patient has improved at this time. Hemodynamics are stable off of vasopressor support. Lactate has normalized at this time. Continue antibiotics, pending infectious workup. 5. Encephalopathy Plan to hold the patient's sedation today in hopes of better assessing his underlying mentation. Concern for underlying metabolic etiology, given the patient's renal insufficiency and worsening uremia. CT head was unrevealing. Neurology will be consulted. However, would consider MRI versus EEG for further workup. I have asked that the nursing staff hold all sedating medications for now. 6. Non-ST elevation PA Continue current medical management. Cardiology is following accordingly. 7. Acute renal failure Very little previous history is available for review. Patient did present with a creatinine of 5.56 indicating probable progressive renal failure over the past week. Patient does have casts on urinalysis indicating probable ATN. The patient was initially maintained on a bicarbonate drip. This can be discontinued at this time. Continue to monitor creatinine and urine output accordingly. Cannot exclude the need for renal replacement therapy in the next 24-48 hours. 8. Type 2 diabetes mellitus Continue tube feeds as ordered. Given ongoing hyperglycemia, sliding scale insulin regimen can be increased and Levemir can also be started. 9. Coronary artery disease/hypertension/morbid obesity/anxiety/depression/[place]/history of noncompliance Complicates care, management, recovery and prognosis. Nicardipine had to be initiated this morning due to persistently elevated blood pressure parameters. ADDENDUM: Received call from Dr. Lovell of cardiology regarding the patient's echocardiogram results. Although his surface echocardiogram revealed intact systolic function with an ejection fraction of 65%, the patient did have evidence of a moderately dilated RV with mild to moderate global RV systolic dysfunction and a right ventricular systolic pressure estimated to be 72 mmHg. This of course would raise a concern for potential pulmonary embolism. However, given the patient's renal insufficiency, will be unable to obtain CTA chest. Nephrology has been consulted in the interim. He is not an ideal candidate for empiric anticoagulation. Therefore, we will first proceed with obtaining bilateral lower extremity Doppler studies to evaluate for the presence of DVTs. TIME: 55 minutes of critical care time, independent of procedures, was spent addressing the patient's acute cardiopulmonary arrest, traumatic right pneumothorax, acute on chronic combined respiratory failure, septic shock secondary to probable CAP, encephalopathy, NSTEMI, acute renal failure, review of all data and collaboration with the care team. ([id number]) Code Visit [id number]: [id number] Critical care first hour
--- NOTE | 2017-06-12 06:34 | PCM.PN.HOSP ---
Patient Problems: Active and Suspected Problems Pneumothorax, right (Acute) Non-STEMI (non-ST elevated myocardial infarction) (Acute) Community acquired pneumonia (Suspected) Acute renal failure (Acute) Septic shock (Acute) Lactic acidosis (Acute) Cardiopulmonary arrest (Acute) Subjective: Overnight with low-grade temperature as well as elevated blood pressure starting the day prior, continued. Patient initiated on Cardene drip this morning per ICU. Overnight also neurological changes with reduced activity, no longer withdrawing to stimuli and also had transient L sided gaze deviation but not currently with CT head without acute findings. Patient otherwise without evidence of chills, nausea, emesis, abdominal pain, chest pain or dyspnea but again poorly interactive, worsened. Objective: Physical Examination: General: Does not awaken to stimuli, not alert, not oriented, sedated, intubated, NAD. Skin: normal color, turgor, no icterus, cyanosis. HEENT: AT/NC, EOM unable to be tested, pupils not markedly responsive, intubated, sedated, currently gaze forward, noted overnight L sided per RNs. Lungs: Diminished bases, mildly coarse, no wheezing currently, symmetric rise, intubated, sedated, R sided CT in place. Heart: Mildly tachycardic with regular rhythm; no gallop, rub audible. Abdomen: soft, obese, NTTP, ND, mildly hypoactive BS. Extremities: no cyanosis, clubbing, BL LE foot-ankle edema, mild. Neurological: Does not awaken to stimuli, not alert, not oriented, sedated, intubated, NAD; cognitive function NOT baseline intact; pupils equally not markedly reactive to light and accomodation; cranial nerves II-XII unable to be assessed, strength unable to be assessed, lacking reflex, negative babinski. Psychiatric: affect appears flat, no acute evidence of depressive or anxiety feelings. Vitals/I&O's: Vital Signs Temp Pulse Resp BP Pulse Ox 99.4 F H 101 H 21 H 173/71 H 97 06/12/17 06:00 06/12/17 06:00 06/12/17 06:00 06/12/17 06:00 06/12/17 06:00 Oxygen Delivery Method Mechanical Ventilator Weight: 277 lb 12.519 oz Body Mass Index (BMI) 39.2 Intake and Output for Last 24 Hours 06/10/17 06/11/17 06/12/17 23:59 23:59 23:59 Intake Total 1889.3 / 1889.3 4558.4 / 4558.4 778 / 778 Output Total 330 / 330 1525 / 1525 450 / 450 Balance 1559.3 / 1559.3 3033.4 / 3033.4 328 / 328 Microbiology Past 72 Hours 06/11/17 08:05 Mucosa - Nasopharyngeal Respiratory Panel (PCR) - Final 06/10/17 20:00 Stool Enteric Bacteriology - Final 06/10/17 20:00 Stool C. difficile DNA Amplification - Final Laboratory Results 06/11/17 06:25: Troponin I 0.34 H 06/11/17 11:21: POC Glucose 172 H 06/11/17 17:28: POC Glucose 222 H 06/11/17 23:51: POC Glucose 268 H 06/12/17 04:05: WBC 9.6, RBC 3.39 L, Hgb 9.9 L, Hct 29.3 L, MCV 86.4, MCH 29.2, MCHC 33.8, RDW 14.5, RDW Differential 43.7, Plt Count 108 L, MPV 11.4, Immature Gran % (Auto) 0.200, Neut % (Auto) 89.6 H, Lymph % (Auto) 7.2 L, Atlantic % (Auto) 3.0, Eos % (Auto) 0.0, Baso % (Auto) 0.0, Absolute Neuts (auto) 8.6 H, Absolute Lymphs (auto) 0.69 L, Total Counted Not Reportable 06/12/17 04:05: PT 15.2 H, INR 1.3, APTT 33.7 06/12/17 04:05: Sodium 142, Potassium 4.0, Chloride 106, Carbon Dioxide 21.0, Anion Gap 15, BUN 94 H, Creatinine 5.12 H, Estim Creat Clear Calc 16.04, Est GFR (MDRD) Af Amer 15 L, Est GFR (MDRD) Non-Af 12 L, BUN/Creatinine Ratio 18.4, Glucose 335 H, Calcium 6.5 L*, Phosphorus 7.1 H, Magnesium 1.9, Total Bilirubin 0.40, AST 74 H, ALT 43, Alkaline Phosphatase 74, Total Protein 6.1 L, Albumin 2.6 L, Globulin 3.5, Albumin/Globulin Ratio 0.7 L 06/12/17 05:09: POC Glucose 322 H 06/12/17 05:12: Specimen Type AMADEO, pH 7.32 L, Bicarbonate Actual 20.0 L, POC Total CO2 21, Base Excess -6 L, O2 Saturation 97, O2 % 40, ABG pCO2 38.8, ABG pO2 92, Respiration Rate 16, O2 Delivery Device Vent, Vent Mode VC+, Tidal Volume 550, POC PEEP 5, Blood Gas Notified Whom ICU MD Current Medications Aspirin (Aspirin, Baby) 81 mg GT DAILY@0800 [facility] Last Admin: 06/11/17 08:14 Dose: 81 mg Chlorhexidine Gluconate () 15 ml PO BID [facility] Last Admin: 06/11/17 23:48 Dose: 15 ml Chlorhexidine Gluconate () 1 each TOPICAL DAILY [facility] Last Admin: 06/12/17 05:21 Dose: 1 each Dextrose (D50w Syringe) 0 gm IV X1 PRN; Protocol PRN Reason: Hypoglycemia Glucagon () 1 mg IM .X1 PRN PRN Reason: Hypoglycemia Hydralazine HCl (Apresoline) 10 mg IV Q4H PRN PRN PRN Reason: BLOOD PRESSURE Last Admin: 06/12/17 04:33 Dose: 10 mg Norepinephrine Bitartrate 16 (mg/ Dextrose) 266 mls @ 4.98 mls/hr IV .[id number] FARA PRN Reason: 5 MCG/MIN Last Admin: 06/10/17 18:00 Dose: 4.98 mls/hr Famotidine 20 mg/ Sodium (Chloride) 10 mls @ 300 mls/hr IV Q12 [facility] Last Admin: 06/11/17 22:23 Dose: 300 mls/hr Propofol (Diprivan) 1,000 mg in 100 mls @ 4.17 mls/hr CONT INF .Q12H [facility]; 5 MCG/KG/MIN PRN Reason: Protocol Last Admin: 06/11/17 22:22 Dose: 4.17 mls/hr Levofloxacin (Levaquin) 250 mg in 50 mls @ 50 mls/hr IV Q48 FARA Fentanyl () 100 mls @ 5 mls/hr IV .Q20H [facility] Last Admin: 06/12/17 03:34 Dose: 5 mls/hr Sodium Bicarbonate 150 meq/ (Dextrose) 1,000 mls @ 75 mls/hr IV .[id number] [facility] Last Admin: 06/11/17 20:21 Dose: 75 mls/hr Enteral Nutritional Formula (Vital Af 1.2 Christopher Liquid) 1,000 mls @ 70 mls/hr GT .[id number] [facility] Last Admin: 06/12/17 05:10 Dose: Not Given Sodium Chloride () 250 mls @ 15 mls/hr IV .[id number] PRN PRN Reason: SALINE FLUSH Sodium Chloride () 1,000 mls @ 1 mls/hr IV .Q48H PRN PRN Reason: SALINE FLUSH Insulin Aspart (Novolog Flexpen (Bkc)) 0 units SC Q6 FARA PRN Reason: Protocol Last Admin: 06/12/17 05:10 Dose: 3 u Labetalol HCl (Trandate) 10 mg IV Q6 [facility] Last Admin: 06/12/17 05:04 Dose: 10 mg Methylprednisolone (Solu-Medrol) 40 mg IV Q6 [facility] Last Admin: 06/12/17 05:04 Dose: 40 mg Sodium Chloride () 5 - 30 ml IV UD PRN PRN Reason: SALINE FLUSH Last Admin: 06/12/17 05:09 Dose: 10 ml Sodium Chloride () 10 - 40 ml IV UD PRN PRN Reason: MULTILUMEN/HICMAN CATH FLUSH Assessment/Plan Active and Suspected Problems Pneumothorax, right (Acute) Non-STEMI (non-ST elevated myocardial infarction) (Acute) Community acquired pneumonia (Suspected) Acute renal failure (Acute) Septic shock (Acute) Lactic acidosis (Acute) Cardiopulmonary arrest (Acute) The patient is a 61 y/o M w/ PMHx: CAD, HTN, HLD, Depression, Hx CVA, Diabetes mellitus type II, Obesity, Chronic COPD, Chronic Hypoxic Respiratory Failure, Tobacco use who presents to the [facility] ED on 06/10/17 with respiratory and cardiac arrest, suspected primarily respiratory as initiating factor. (1) Cardiopulmonary Arrest: Suspected initial etiology was pulmonary, s/p CPR as noted, initially placed on pressors, off pressors now, BP improved, cardiac enzymes elevated, EKGs obtained serially, NSTEMI Dx, deferred chemoprophylaxis secondary to possibility of bleeding given notable fx injuries s/p CPR, maintained on IV abx and IV steroids for concurrent possible PNA and COPD exacerbation. ECHO ordered, pending. Overnight, possible mental status decrease, unclear level, prior hx CVA, will plan consult to Neurology and EEG. PT, OT, CM consulted following. ICU physician consulted, following. (2) Lactic acidosis/septic shock: Secondary to CPA, PNA, IVFs in the ED, pressors initially, LA normalized. Bld, UCx, Sputum Cx obtained. C-diff negative. Continued IV abx therapy, ICU physician following. (3) Acute NSTEMI: In the setting of acute cardiopulmonary arrest, EKG in ED w/ RBBB, CXR w/ fx ribs, displaced and ? R sided PNA, trop trend <0.02-->0.22-->0.30-->0.34. Will maintain on a monitored bed, deferred heparin drip secondary to concern for possible bleeding w/ recent rib fx. Continue medical management w/ asa, BB, not on statin. Cardiology consulted, following. (4) Acute on Chronic Hypoxic and Hypercarbic Respiratory Failure on Chronic Hypoxic Respiratory Failure secondary to Possible R Sided CAP PNA, Aspiration w/ Acute on Chronic COPD Exacerbation: CXR w/ with iatrogenic displaced R 5th-6th rib fx, CT placement, chronic COPD changes, R sided PNA, intubated, sedated, ATC duonebs, PRN albuterol, IV methylprednisolone, HOB, IS parameters, IV Levaquin with pending sputum cultures, respiratory panel negative. (5) Acute kidney injury: Secondary to hypoperfusion, cardiopulmonary arrest, likely ATN thus would expect very slow improvement of function. Initiated upon admission on bicarbonate and also given kayexelate secondary to hyperkalemia which has resolved. 06/02/17 d/c bicarbonate drip. UA w/ casts. Admission BUN/Cr 80/5.56, prior baseline creatinine unclear but denied CKD. Hydrated, pressors initially, trending function, 06/12/17 BUN/Cr 94/5.12. Monitor UOP, ongoing at this time. (6) Suspected Iatrogenic R sided PTX: Possibly secondary to CPR w/ R sided rib fractures but also R sided SC placed in the field. Films w displaced fractures of the right fifth and sixth ribs. Emergent chest tubed placement performed. Surgery following, management per Surgery. (7) Hypertension, Uncontrolled: Patient with now onset hypertension, uncontrolled, 06/12/17 AM initiated on cardene drip per ICU, will continue to monitor given also on concurrent IV labetalolol. (8) CAD: Will continue home regimen asa, IV BB. Holding statin given status. (9) Diabetes mellitus type II: Hold oral home regimen, NPO status, TFs, accu checks w/ ISS. (10) Hx CVA Prior: Noted BL LE weakness, unclear extent per , maintain on asa, IV BB as noted, not on statin. Neurology consulted, pending. (11) GERD: IV Famotidine. (12) Obesity: If appropriate status, will encourage weight loss and lifestyle changes, nutrition consulted. (13) Tobacco Abuse: Encourage cessation, inpatient consultation per RT once appropriate if able, NR if desired. (14) TRAVON: On CPAP q HS outpatient. (15) DVT Prophylaxis: SCDs, deferred chemoprophylaxis secondary to concern for bleeding. Code Visit Inpatient E&M: 71221 Subs Hosp L3
--- NOTE | 2017-06-12 06:37 | PN_ITS ---
Subjective: The patient was seen and examined at the bedside this morning. Events from the last 24 hours have been reviewed. The patient currently has a low-grade fever and has been hypertensive. The patient failed his spontaneous awakening trial this morning, as nursing staff noted that the patient became exceedingly hypertensive when his sedation was placed on hold. The patient did develop neurologic changes overnight, which prompted the overnight care team to obtain a CT head. That imaging study demonstrated no acute intracranial abnormalities. Creatinine remains elevated, but the patient continues to make urine. Objective: The patient's most recent lab work, culture data and imaging studies have all been personally reviewed. Respiratory viral panel was negative. Enteric bacteria and C. difficile were both negative. Blood and urine cultures are currently pending. General: - - Intubated, sedated and mechanically ventilated. Currently tolerating ACVC+ HEENT: Atraumatic, Normocephalic, Sluggish Pupils Oral: Moist Mucosa, - - Endotracheal and OG tubes in place Neck: Supple, No Nodes, Trachea Midline, - - Right-sided central venous catheter in place Lungs: No wheeze, No rales, Diminished, Rhonchi, - - Right sided large bore chest tube in place. Insertion site is intact. Cardiovascular: Normal S1, Normal S2, No murmurs, No rub noted, No Gallop, Tachycardic Abdomen: Bowel Sounds Present, Soft, Non Tender, Obese Extremities: No clubbing, No cyanosis, Edema Skin: No rashes, No breakdown Musculoskeletal: No Tenderness to Palpation of Joints or Extremities Lymphatic: No Cervical, Supraclavicular, or Inguinal Adenopathy Neurological: - - Will briefly open eyes to name. No significant response to noxious stimuli. Does not follow commands. Vital Signs Temp Pulse Resp BP Pulse Ox 99.4 F H 101 H 21 H 173/71 H 97 06/12/17 06:00 06/12/17 06:00 06/12/17 06:00 06/12/17 06:00 06/12/17 06:00 Oxygen Delivery Method Mechanical Ventilator Weight: 277 lb 12.519 oz Body Mass Index (BMI) 39.2 Intake and Output for Last 24 Hours 06/10/17 06/11/17 06/12/17 23:59 23:59 23:59 Intake Total 1889.3 / 1889.3 4558.4 / 4558.4 778 / 778 Output Total 330 / 330 1525 / 1525 450 / 450 Balance 1559.3 / 1559.3 3033.4 / 3033.4 328 / 328 Labs (Last 48 Hours) 06/10/17 06/10/17 06/10/17 19:01 20:00 20:00 WBC RBC Hgb Hct MCV MCH MCHC RDW RDW Differential Plt Count MPV Immature Gran % (Auto) Neut % (Auto) Lymph % (Auto) [place] % (Auto) Eos % (Auto) Baso % (Auto) Absolute Neuts (auto) Absolute Lymphs (auto) Total Counted Differential Comment PT INR APTT Specimen Type ART Sample Site R Radial pH 7.20 L Bicarbonate Actual 15.1 L POC Total CO2 16 Base Excess -13 L O2 Saturation 93 L O2 % 40 ABG pCO2 38.4 ABG pO2 82 Gagan Test POS Respiration Rate 16 O2 Delivery Device Vent Vent Mode A-C Tidal Volume 650 POC PEEP 5 Blood Gas Notified Whom ICU Blood Gas Notified Time 655 Sodium Potassium Chloride Carbon Dioxide Anion Gap BUN Creatinine Estim Creat Clear Calc Est GFR (MDRD) Af Amer Est GFR (MDRD) Non-Af BUN/Creatinine Ratio Glucose Lactic Acid 1.3 Calcium Phosphorus Magnesium Total Bilirubin AST ALT Alkaline Phosphatase Troponin I Total Protein Albumin Globulin Albumin/Globulin Ratio Urine Color Urine Clarity Urine pH Ur Specific [place] Urine Protein Urine Glucose (UA) Urine Ketones Urine Occult Blood Urine Nitrite Urine Bilirubin Urine Urobilinogen Ur Leukocyte Esterase Urine RBC Urine WBC Ur Squamous Epith Cells Urine Bacteria Coarse Granular Casts Urine Mucus S.aureus Protein A PCR NEGATIVE MRSA (PCR) Negative POC Glucose 06/10/17 06/10/17 06/10/17 21:15 21:15 21:17 WBC RBC Hgb Hct MCV MCH MCHC RDW RDW Differential Plt Count MPV Immature Gran % (Auto) Neut % (Auto) Lymph % (Auto) [place] % (Auto) Eos % (Auto) Baso % (Auto) Absolute Neuts (auto) Absolute Lymphs (auto) Total Counted Differential Comment PT 15.4 H INR 1.3 APTT Specimen Type AMADEO Sample Site OTHER pH 7.15 L* Bicarbonate Actual 13.8 L POC Total CO2 15 Base Excess -15 L O2 Saturation 96 O2 % 40 ABG pCO2 39.6 ABG pO2 102 H Gagan Test Respiration Rate 16 O2 Delivery Device Vent Vent Mode A-C Tidal Volume 550 POC PEEP 5 Blood Gas Notified Whom ICU MD Blood Gas Notified Time Sodium Potassium Chloride Carbon Dioxide Anion Gap BUN Creatinine Estim Creat Clear Calc Est GFR (MDRD) Af Amer Est GFR (MDRD) Non-Af BUN/Creatinine Ratio Glucose Lactic Acid Calcium Phosphorus Magnesium Total Bilirubin AST ALT Alkaline Phosphatase Troponin I 0.22 H Total Protein Albumin Globulin Albumin/Globulin Ratio Urine Color Urine Clarity Urine pH Ur Specific [place] Urine Protein Urine Glucose (UA) Urine Ketones Urine Occult Blood Urine Nitrite Urine Bilirubin Urine Urobilinogen Ur Leukocyte Esterase Urine RBC Urine WBC Ur Squamous Epith Cells Urine Bacteria Coarse Granular Casts Urine Mucus S.aureus Protein A PCR MRSA (PCR) POC Glucose 06/10/17 06/10/17 06/10/17 21:32 23:20 23:41 WBC RBC Hgb Hct MCV MCH MCHC RDW RDW Differential Plt Count MPV Immature Gran % (Auto) Neut % (Auto) Lymph % (Auto) [place] % (Auto) Eos % (Auto) Baso % (Auto) Absolute Neuts (auto) Absolute Lymphs (auto) Total Counted Differential Comment PT INR APTT Specimen Type Sample Site pH Bicarbonate Actual POC Total CO2 Base Excess O2 Saturation O2 % ABG pCO2 ABG pO2 Gagan Test Respiration Rate O2 Delivery Device Vent Mode Tidal Volume POC PEEP Blood Gas Notified Whom Blood Gas Notified Time Sodium Potassium Chloride Carbon Dioxide Anion Gap BUN Creatinine Estim Creat Clear Calc Est GFR (MDRD) Af Amer Est GFR (MDRD) Non-Af BUN/Creatinine Ratio Glucose Lactic Acid Calcium Phosphorus Magnesium Total Bilirubin AST ALT Alkaline Phosphatase Troponin I Total Protein Albumin Globulin Albumin/Globulin Ratio Urine Color Yellow Urine Clarity Sl. Cloudy Urine pH 5.0 Ur Specific [place] 1.030 Urine Protein 100 H Urine Glucose (UA) 50 H Urine Ketones 5 H Urine Occult Blood 150 H Urine Nitrite Negative Urine Bilirubin 1 H Urine Urobilinogen Normal Ur Leukocyte Esterase 25 H Urine RBC 25-50 SEEN Urine WBC 25-50 SEEN Ur Squamous Epith Cells 10-25 SEEN Urine Bacteria 2+ Coarse Granular Casts 0-5 SEEN Urine Mucus 0 SEEN S.aureus Protein A PCR MRSA (PCR) POC Glucose 274 H 274 H 06/11/17 06/11/17 06/11/17 01:15 03:05 04:40 WBC 18.4 H RBC 3.77 L Hgb 10.8 L Hct 32.9 L MCV 87.3 MCH 28.6 MCHC 32.8 RDW 14.4 RDW Differential 45.3 H Plt Count 139 L MPV 10.9 Immature Gran % (Auto) 0.400 Neut % (Auto) 90.9 H Lymph % (Auto) 5.9 L [place] % (Auto) 2.8 Eos % (Auto) 0.0 Baso % (Auto) 0.0 Absolute Neuts (auto) 16.7 H Absolute Lymphs (auto) 1.09 Total Counted Not Reportable Differential Comment PT INR APTT Specimen Type [place] Sample Site OTHER pH 7.21 L Bicarbonate Actual 13.4 L POC Total CO2 14 Base Excess -14 L O2 Saturation 94 L O2 % 40 ABG pCO2 33.2 L ABG pO2 86 Gagan Test Respiration Rate 16 O2 Delivery Device Vent Vent Mode A-C Tidal Volume 550 POC PEEP 5 Blood Gas Notified Whom HOSP Blood Gas Notified Time Sodium Potassium Chloride Carbon Dioxide Anion Gap BUN Creatinine Estim Creat Clear Calc Est GFR (MDRD) Af Amer Est GFR (MDRD) Non-Af BUN/Creatinine Ratio Glucose Lactic Acid Calcium Phosphorus Magnesium Total Bilirubin AST ALT Alkaline Phosphatase Troponin I 0.30 H Total Protein Albumin Globulin Albumin/Globulin Ratio Urine Color Urine Clarity Urine pH Ur Specific [place] Urine Protein Urine Glucose (UA) Urine Ketones Urine Occult Blood Urine Nitrite Urine Bilirubin Urine Urobilinogen Ur Leukocyte Esterase Urine RBC Urine WBC Ur Squamous Epith Cells Urine Bacteria Coarse Granular Casts Urine Mucus S.aureus Protein A PCR MRSA (PCR) POC Glucose 06/11/17 06/11/17 06/11/17 04:40 06:21 06:24 WBC RBC Hgb Hct MCV MCH MCHC RDW RDW Differential Plt Count MPV Immature Gran % (Auto) Neut % (Auto) Lymph % (Auto) [place] % (Auto) Eos % (Auto) Baso % (Auto) Absolute Neuts (auto) Absolute Lymphs (auto) Total Counted Differential Comment PT INR APTT Specimen Type [place] Sample Site OTHER pH 7.24 L Bicarbonate Actual 14.5 L POC Total CO2 15 Base Excess -13 L O2 Saturation 95 O2 % 40 ABG pCO2 33.7 L ABG pO2 86 Gagan Test Respiration Rate 16 O2 Delivery Device Vent Vent Mode A-C Tidal Volume 550 POC PEEP 5 Blood Gas Notified Whom ICU MD Blood Gas Notified Time Sodium 142 Potassium 5.4 H Chloride 108 H Carbon Dioxide 16.0 L Anion Gap 18 H BUN 84 H Creatinine 5.08 H Estim Creat Clear Calc 16.17 Est GFR (MDRD) Af Amer 15 L Est GFR (MDRD) Non-Af 12 L BUN/Creatinine Ratio 16.5 Glucose 257 H Lactic Acid Calcium 6.1 L* Phosphorus Magnesium Total Bilirubin 0.30 AST 109 H ALT 52 Alkaline Phosphatase 86 Troponin I Total Protein 6.1 L Albumin 2.6 L Globulin 3.5 Albumin/Globulin Ratio 0.7 L Urine Color Urine Clarity Urine pH Ur Specific [place] Urine Protein Urine Glucose (UA) Urine Ketones Urine Occult Blood Urine Nitrite Urine Bilirubin Urine Urobilinogen Ur Leukocyte Esterase Urine RBC Urine WBC Ur Squamous Epith Cells Urine Bacteria Coarse Granular Casts Urine Mucus S.aureus Protein A PCR MRSA (PCR) POC Glucose 238 H 06/11/17 06/11/17 06/11/17 06:25 11:21 17:28 WBC RBC Hgb Hct MCV MCH MCHC RDW RDW Differential Plt Count MPV Immature Gran % (Auto) Neut % (Auto) Lymph % (Auto) [place] % (Auto) Eos % (Auto) Baso % (Auto) Absolute Neuts (auto) Absolute Lymphs (auto) Total Counted Differential Comment PT INR APTT Specimen Type Sample Site pH Bicarbonate Actual POC Total CO2 Base Excess O2 Saturation O2 % ABG pCO2 ABG pO2 Gagan Test Respiration Rate O2 Delivery Device Vent Mode Tidal Volume POC PEEP Blood Gas Notified Whom Blood Gas Notified Time Sodium Potassium Chloride Carbon Dioxide Anion Gap BUN Creatinine Estim Creat Clear Calc Est GFR (MDRD) Af Amer Est GFR (MDRD) Non-Af BUN/Creatinine Ratio Glucose Lactic Acid Calcium Phosphorus Magnesium Total Bilirubin AST ALT Alkaline Phosphatase Troponin I 0.34 H Total Protein Albumin Globulin Albumin/Globulin Ratio Urine Color Urine Clarity Urine pH Ur Specific [place] Urine Protein Urine Glucose (UA) Urine Ketones Urine Occult Blood Urine Nitrite Urine Bilirubin Urine Urobilinogen Ur Leukocyte Esterase Urine RBC Urine WBC Ur Squamous Epith Cells Urine Bacteria Coarse Granular Casts Urine Mucus S.aureus Protein A PCR MRSA (PCR) POC Glucose 172 H 222 H 06/11/17 06/12/17 06/12/17 23:51 04:05 04:05 WBC 9.6 RBC 3.39 L Hgb 9.9 L Hct 29.3 L MCV 86.4 MCH 29.2 MCHC 33.8 RDW 14.5 RDW Differential 43.7 Plt Count 108 L MPV 11.4 Immature Gran % (Auto) 0.200 Neut % (Auto) 89.6 H Lymph % (Auto) 7.2 L [place] % (Auto) 3.0 Eos % (Auto) 0.0 Baso % (Auto) 0.0 Absolute Neuts (auto) 8.6 H Absolute Lymphs (auto) 0.69 L Total Counted Not Reportable Differential Comment PT 15.2 H INR 1.3 APTT 33.7 Specimen Type Sample Site pH Bicarbonate Actual POC Total CO2 Base Excess O2 Saturation O2 % ABG pCO2 ABG pO2 Gagan Test Respiration Rate O2 Delivery Device Vent Mode Tidal Volume POC PEEP Blood Gas Notified Whom Blood Gas Notified Time Sodium Potassium Chloride Carbon Dioxide Anion Gap BUN Creatinine Estim Creat Clear Calc Est GFR (MDRD) Af Amer Est GFR (MDRD) Non-Af BUN/Creatinine Ratio Glucose Lactic Acid Calcium Phosphorus Magnesium Total Bilirubin AST ALT Alkaline Phosphatase Troponin I Total Protein Albumin Globulin Albumin/Globulin Ratio Urine Color Urine Clarity Urine pH Ur Specific [place] Urine Protein Urine Glucose (UA) Urine Ketones Urine Occult Blood Urine Nitrite Urine Bilirubin Urine Urobilinogen Ur Leukocyte Esterase Urine RBC Urine WBC Ur Squamous Epith Cells Urine Bacteria Coarse Granular Casts Urine Mucus S.aureus Protein A PCR MRSA (PCR) POC Glucose 268 H 06/12/17 06/12/17 06/12/17 04:05 05:09 05:12 WBC RBC Hgb Hct MCV MCH MCHC RDW RDW Differential Plt Count MPV Immature Gran % (Auto) Neut % (Auto) Lymph % (Auto) [place] % (Auto) Eos % (Auto) Baso % (Auto) Absolute Neuts (auto) Absolute Lymphs (auto) Total Counted Differential Comment PT INR APTT Specimen Type [place] Sample Site pH 7.32 L Bicarbonate Actual 20.0 L POC Total CO2 21 Base Excess -6 L O2 Saturation 97 O2 % 40 ABG pCO2 38.8 ABG pO2 92 Gagan Test Respiration Rate 16 O2 Delivery Device Vent Vent Mode VC+ Tidal Volume 550 POC PEEP 5 Blood Gas Notified Whom ICU MD Blood Gas Notified Time Sodium 142 Potassium 4.0 Chloride 106 Carbon Dioxide 21.0 Anion Gap 15 BUN 94 H Creatinine 5.12 H Estim Creat Clear Calc 16.04 Est GFR (MDRD) Af Amer 15 L Est GFR (MDRD) Non-Af 12 L BUN/Creatinine Ratio 18.4 Glucose 335 H Lactic Acid Calcium 6.5 L* Phosphorus 7.1 H Magnesium 1.9 Total Bilirubin 0.40 AST 74 H ALT 43 Alkaline Phosphatase 74 Troponin I Total Protein 6.1 L Albumin 2.6 L Globulin 3.5 Albumin/Globulin Ratio 0.7 L Urine Color Urine Clarity Urine pH Ur Specific [place] Urine Protein Urine Glucose (UA) Urine Ketones Urine Occult Blood Urine Nitrite Urine Bilirubin Urine Urobilinogen Ur Leukocyte Esterase Urine RBC Urine WBC Ur Squamous Epith Cells Urine Bacteria Coarse Granular Casts Urine Mucus S.aureus Protein A PCR MRSA (PCR) POC Glucose 322 H Microbiology 06/11/17 08:05 Mucosa - Nasopharyngeal Respiratory Panel (PCR) - Final 06/10/17 20:00 Stool Enteric Bacteriology - Final 06/10/17 20:00 Stool C. difficile DNA Amplification - Final Clinical Impression(s) from Imaging Studies Chest X-Ray 06/10/17 16:15 IMPRESSION: Mild to moderate cardiomegaly. Interstitial edema. Lines as detailed above. Endotracheal tube is slightly high could be advanced 1 to 2 cm. Question left lower lobe pulmonary nodule versus summation of shadows. Possible nipple shadow. Recommend dedicated single chest x-ray when appropriate. Electronically Signed: Matilda Nguyen MD at 16:51 EST Tel , Service support , Chest X-Ray 06/10/17 18:05 IMPRESSION: There is a small pneumothorax along the periphery of the right lung base. This is likely due to minimally displaced rib fractures in the anterolateral aspects of the right fifth and sixth ribs rather than from central line placement. Follow-up films can be obtained. The tip of the right subclavian line is in the expected location of the mid to distal SVC. There is mild enlargement of the cardiac silhouette with mild edema. There is no obvious pleural effusion. N.B. : The above information has been verbally conveyed by Ana Laura Brown MD to Papo Taylor, Referring Physician, on 06/10/2017 19:21:19 (ET). Electronically Signed: Ana Laura Brown MD at 19:22 EST Tel Direct: [phone], Service support , N.B. : The above information has been verbally conveyed by Ana Laura Brown MD to Papo Taylor, Referring Physician, on 06/10/2017 19:21:19 (ET). Chest X-Ray 06/10/17 20:08 IMPRESSION: There is a stable appearance of the small pneumothorax in the periphery of the right lower chest. Adjacent subcutaneous emphysema has increased. There is mild enlargement of the cardiac silhouette with vascular congestion. There is no evidence of pleural effusion. The previously seen right rib fractures are not well seen on the current study. However fractures are now seen in the anterolateral left sixth rib and possibly lateral left fifth rib. Electronically Signed: Ana Laura Brown MD at 21:23 EST Tel Direct: [phone], Service support , Chest X-Ray 06/10/17 20:56 IMPRESSION: There has been resolution of the right pneumothorax after chest tube placement. There are no acute cardiopulmonary changes. Electronically Signed: Ana Laura Brown MD at 22:13 EST Tel Direct: [phone], Service support , Chest X-Ray 06/11/17 06:25 IMPRESSION: Right-sided chest tube, subcutaneous gas, no definitive visualized pneumothorax. The heart is enlarged. There is a widened appearance of the mediastinum which is likely due to positioning and aortic tortuosity. However, Recommend CT scan of the chest when appropriate to clarify. Lines as detailed above. The endotracheal tube is high 5.7 cm above the nikole and should be advanced 2 to 3 cm. Electronically Signed: Matilda Nguyen MD at 9:15 EST Tel , Service support , Chest X-Ray 06/11/17 12:11 IMPRESSION: Somewhat limited examination due to motion. Slightly prominent markings right lower lung probably exaggerated by motion patient's positioning. Early infiltrate is less likely. Overall no substantial change since previous examination. Electronically Signed: Ifeanyi Fajardo MD at 13:19 EST Tel , Service support , Brain CT 06/11/17 20:33 IMPRESSION: No acute intracranial abnormalities. Electronically Signed: Ana Laura Brown MD at 21:52 EST Tel Direct: [phone], Service support , Assessment/Plan Active and Suspected Problems Pneumothorax, right (Acute) Non-STEMI (non-ST elevated myocardial infarction) (Acute) Encephalopathy (Acute) Community acquired pneumonia (Suspected) Acute renal failure (Acute) Septic shock (Acute) Lactic acidosis (Acute) Cardiopulmonary arrest (Acute) RECOMMENDATIONS: 1. Continue current antimicrobial coverage. Transition to ceftriaxone, given renal function. 2. Start nicardipine due to persistently elevated blood pressure parameters 3. Continue tube feeds 4. Once blood pressure is brought under control, hold sedatives to assess underlying neurologic function 5. Continue chest tube management per surgery recommendations 6. Wean FiO2 to maintain oxygen saturations at or above 90% 7. Obtain neurology consultation. Consider MRI head versus EEG. IMPRESSIONS: 1. Respiratory arrest secondary to probable COPD exacerbation Patient with reported protracted course at home. Patient was noncompliant with therapy. Continue with spontaneous breathing and awakening trials as tolerated. Attempts will be made this morning to hold the patient's sedation in hopes of assessing his baseline mentation. Chest tube remains in place and is being managed by surgery. Aerosol treatments will be initiated. We will continue empiric antibiotics and steroids for now. 2. Traumatic right pneumothorax status post chest tube postop day #2 Right chest tube is stable. Subcutaneous emphysema appears to be stable at this time. We will continue to monitor closely. We will not initiate a heparin drip or Plavix therapy at this time given risk for bleeding complications. Patient does have multiple rib fractures noted on x-ray. Clinical suspicion for rib fracture secondary to CPR 3. Acute on chronic combined respiratory failure Clinical suspicion for community-acquired pneumonia. Patient reportedly has a history of 2 L nasal cannula at baseline. 4. Septic shock secondary to CAP Patient initially on Levophed therapy. Patient has improved at this time. Hemodynamics are stable off of vasopressor support. Lactate has normalized at this time. Continue antibiotics, pending infectious workup. 5. Encephalopathy Plan to hold the patient's sedation today in hopes of better assessing his underlying mentation. Concern for underlying metabolic etiology, given the patient's renal insufficiency and worsening uremia. CT head was unrevealing. Neurology will be consulted. However, would consider MRI versus EEG for further workup. I have asked that the nursing staff hold all sedating medications for now. 6. Non-ST elevation MA Continue current medical management. Cardiology is following accordingly. 7. Acute renal failure Very little previous history is available for review. Patient did present with a creatinine of 5.56 indicating probable progressive renal failure over the past week. Patient does have casts on urinalysis indicating probable ATN. The patient was initially maintained on a bicarbonate drip. This can be discontinued at this time. Continue to monitor creatinine and urine output accordingly. Cannot exclude the need for renal replacement therapy in the next 24-48 hours. 8. Type 2 diabetes mellitus Continue tube feeds as ordered. Given ongoing hyperglycemia, sliding scale insulin regimen can be increased and Levemir can also be started. 9. Coronary artery disease/hypertension/morbid obesity/anxiety/depression/TRAVON/ history of noncompliance Complicates care, management, recovery and prognosis. Nicardipine had to be initiated this morning due to persistently elevated blood pressure parameters. ADDENDUM: Received call from Dr. Lovell of cardiology regarding the patient's echocardiogram results. Although his surface echocardiogram revealed intact systolic function with an ejection fraction of 65%, the patient did have evidence of a moderately dilated RV with mild to moderate global RV systolic dysfunction and a right ventricular systolic pressure estimated to be 72 mmHg. This of course would raise a concern for potential pulmonary embolism. However , given the patient's renal insufficiency, will be unable to obtain CTA chest. Nephrology has been consulted in the interim. He is not an ideal candidate for empiric anticoagulation. Therefore, we will first proceed with obtaining bilateral lower extremity Doppler studies to evaluate for the presence of DVTs. TIME: 55 minutes of critical care time, independent of procedures, was spent addressing the patient's acute cardiopulmonary arrest, traumatic right pneumothorax, acute on chronic combined respiratory failure, septic shock secondary to probable CAP, encephalopathy, NSTEMI, acute renal failure, review of all data and collaboration with the care team. ([id number]) Code Visit [id number]: [id number] Critical care first hour
--- NOTE | 2017-06-12 07:17 | PCM.PN.SRG ---
Patient Problems: Active and Suspected Problems Pneumothorax, right (Acute) Non-STEMI (non-ST elevated myocardial infarction) (Acute) Community acquired pneumonia (Suspected) Acute renal failure (Acute) Septic shock (Acute) Lactic acidosis (Acute) Cardiopulmonary arrest (Acute) Subjective: No acute changes overnight - Physical Exam General: - - Intubated and sedated Neck: No JVD Lungs: - - Intubated. Right chest tube with no air leak. Abdomen: Soft, Non Tender, Non-Distended Vital Signs Temp Pulse Resp BP Pulse Ox 99.4 F H 101 H 21 H 173/71 H 97 06/12/17 06:00 06/12/17 06:00 06/12/17 06:00 06/12/17 06:00 06/12/17 06:00 Oxygen Delivery Method Mechanical Ventilator Weight: 284 lb 6.341 oz Body Mass Index (BMI) 39.2 Intake and Output for Last 24 Hours 06/10/17 06/11/17 06/12/17 23:59 23:59 23:59 Intake Total 1889.3 / 1889.3 4558.4 / 4558.4 778 / 778 Output Total 330 / 330 1525 / 1525 450 / 450 Balance 1559.3 / 1559.3 3033.4 / 3033.4 328 / 328 Microbiology Past 72 Hours 06/11/17 08:05 Respiratory Panel (PCR) - Final Mucosa - Nasopharyngeal 06/10/17 20:00 Enteric Bacteriology - Final Stool 06/10/17 20:00 C. difficile DNA Amplification - Final Stool Laboratory Tests Past 24 Hrs 06/12/17 06/12/17 06/12/17 04:05 04:05 04:05 WBC 9.6 RBC 3.39 L Hgb 9.9 L Hct 29.3 L MCV 86.4 MCH 29.2 MCHC 33.8 RDW 14.5 RDW Differential 43.7 Plt Count 108 L MPV 11.4 Immature Gran % (Auto) 0.200 Neut % (Auto) 89.6 H Lymph % (Auto) 7.2 L [place] % (Auto) 3.0 Eos % (Auto) 0.0 Baso % (Auto) 0.0 Absolute Neuts (auto) 8.6 H Absolute Lymphs (auto) 0.69 L Total Counted Not Reportable PT 15.2 H INR 1.3 APTT 33.7 Specimen Type pH Bicarbonate Actual POC Total CO2 Base Excess O2 Saturation O2 % ABG pCO2 ABG pO2 Respiration Rate O2 Delivery Device Vent Mode Tidal Volume POC PEEP Blood Gas Notified Whom Sodium 142 Potassium 4.0 Chloride 106 Carbon Dioxide 21.0 Anion Gap 15 BUN 94 H Creatinine 5.12 H Estim Creat Clear Calc 16.04 Est GFR (MDRD) Af Amer 15 L Est GFR (MDRD) Non-Af 12 L BUN/Creatinine Ratio 18.4 Glucose 335 H Calcium 6.5 L* Phosphorus 7.1 H Magnesium 1.9 Total Bilirubin 0.40 AST 74 H ALT 43 Alkaline Phosphatase 74 Total Protein 6.1 L Albumin 2.6 L Globulin 3.5 Albumin/Globulin Ratio 0.7 L 06/12/17 05:12 WBC RBC Hgb Hct MCV MCH MCHC RDW RDW Differential Plt Count MPV Immature Gran % (Auto) Neut % (Auto) Lymph % (Auto) [place] % (Auto) Eos % (Auto) Baso % (Auto) Absolute Neuts (auto) Absolute Lymphs (auto) Total Counted PT INR APTT Specimen Type AMADEO pH 7.32 L Bicarbonate Actual 20.0 L POC Total CO2 21 Base Excess -6 L O2 Saturation 97 O2 % 40 ABG pCO2 38.8 ABG pO2 92 Respiration Rate 16 O2 Delivery Device Vent Vent Mode VC+ Tidal Volume 550 POC PEEP 5 Blood Gas Notified Whom ICU MD Sodium Potassium Chloride Carbon Dioxide Anion Gap BUN Creatinine Estim Creat Clear Calc Est GFR (MDRD) Af Amer Est GFR (MDRD) Non-Af BUN/Creatinine Ratio Glucose Calcium Phosphorus Magnesium Total Bilirubin AST ALT Alkaline Phosphatase Total Protein Albumin Globulin Albumin/Globulin Ratio POC Glucose 06/12/17 06/11/17 06/11/17 05:09 23:51 17:28 POC Glucose 322 H 268 H 222 H 06/11/17 11:21 POC Glucose 172 H Clinical Impression(s) from Imaging Studies Chest X-Ray 06/11/17 06:25 IMPRESSION: Right-sided chest tube, subcutaneous gas, no definitive visualized pneumothorax. The heart is enlarged. There is a widened appearance of the mediastinum which is likely due to positioning and aortic tortuosity. However, Recommend CT scan of the chest when appropriate to clarify. Lines as detailed above. The endotracheal tube is high 5.7 cm above the nikole and should be advanced 2 to 3 cm. Electronically Signed: Matilda Nguyen MD at 9:15 EST Tel , Service support , Chest X-Ray 06/11/17 12:11 IMPRESSION: Somewhat limited examination due to motion. Slightly prominent markings right lower lung probably exaggerated by motion patient's positioning. Early infiltrate is less likely. Overall no substantial change since previous examination. Electronically Signed: Ifeanyi Fajardo MD at 13:19 EST Tel , Service support , Brain CT 06/11/17 20:33 IMPRESSION: No acute intracranial abnormalities. Electronically Signed: Ana Laura Brown MD at 21:52 EST Tel Direct: [phone], Service support , Assessment/Plan Active and Suspected Problems Pneumothorax, right (Acute) Non-STEMI (non-ST elevated myocardial infarction) (Acute) Community acquired pneumonia (Suspected) Acute renal failure (Acute) Septic shock (Acute) Lactic acidosis (Acute) Cardiopulmonary arrest (Acute) 61-year-old male with right hemopneumothorax from chest compressions 1. Chest tube put out about 150 cc of bloody fluid since this time yesterday. The output is decreasing. He has no air leak. Chest x-ray appears stable with no pneumothorax. I do not see a large pleural effusion. 2. If output continues to decrease I will placed to waterseal tomorrow. Continue vent management. Vladimir Hogan MD Pager: [facility] [address], [facility] [address] [phone] Office:
--- NOTE | 2017-06-12 07:20 | PN.SURG_ITS ---
Patient Problems: Active and Suspected Problems Pneumothorax, right (Acute) Non-STEMI (non-ST elevated myocardial infarction) (Acute) Community acquired pneumonia (Suspected) Acute renal failure (Acute) Septic shock (Acute) Lactic acidosis (Acute) Cardiopulmonary arrest (Acute) Subjective: No acute changes overnight - Physical Exam General: - - Intubated and sedated Neck: No JVD Lungs: - - Intubated. Right chest tube with no air leak. Abdomen: Soft, Non Tender, Non-Distended Vital Signs Temp Pulse Resp BP Pulse Ox 99.4 F H 101 H 21 H 173/71 H 97 06/12/17 06:00 06/12/17 06:00 06/12/17 06:00 06/12/17 06:00 06/12/17 06:00 Oxygen Delivery Method Mechanical Ventilator Weight: 284 lb 6.341 oz Body Mass Index (BMI) 39.2 Intake and Output for Last 24 Hours 06/10/17 06/11/17 06/12/17 23:59 23:59 23:59 Intake Total 1889.3 / 1889.3 4558.4 / 4558.4 778 / 778 Output Total 330 / 330 1525 / 1525 450 / 450 Balance 1559.3 / 1559.3 3033.4 / 3033.4 328 / 328 Microbiology Past 72 Hours 06/11/17 08:05 Respiratory Panel (PCR) - Final Mucosa - Nasopharyngeal 06/10/17 20:00 Enteric Bacteriology - Final Stool 06/10/17 20:00 C. difficile DNA Amplification - Final Stool Laboratory Tests Past 24 Hrs 06/12/17 06/12/17 06/12/17 04:05 04:05 04:05 WBC 9.6 RBC 3.39 L Hgb 9.9 L Hct 29.3 L MCV 86.4 MCH 29.2 MCHC 33.8 RDW 14.5 RDW Differential 43.7 Plt Count 108 L MPV 11.4 Immature Gran % (Auto) 0.200 Neut % (Auto) 89.6 H Lymph % (Auto) 7.2 L [place] % (Auto) 3.0 Eos % (Auto) 0.0 Baso % (Auto) 0.0 Absolute Neuts (auto) 8.6 H Absolute Lymphs (auto) 0.69 L Total Counted Not Reportable PT 15.2 H INR 1.3 APTT 33.7 Specimen Type pH Bicarbonate Actual POC Total CO2 Base Excess O2 Saturation O2 % ABG pCO2 ABG pO2 Respiration Rate O2 Delivery Device Vent Mode Tidal Volume POC PEEP Blood Gas Notified Whom Sodium 142 Potassium 4.0 Chloride 106 Carbon Dioxide 21.0 Anion Gap 15 BUN 94 H Creatinine 5.12 H Estim Creat Clear Calc 16.04 Est GFR (MDRD) Af Amer 15 L Est GFR (MDRD) Non-Af 12 L BUN/Creatinine Ratio 18.4 Glucose 335 H Calcium 6.5 L* Phosphorus 7.1 H Magnesium 1.9 Total Bilirubin 0.40 AST 74 H ALT 43 Alkaline Phosphatase 74 Total Protein 6.1 L Albumin 2.6 L Globulin 3.5 Albumin/Globulin Ratio 0.7 L 06/12/17 05:12 WBC RBC Hgb Hct MCV MCH MCHC RDW RDW Differential Plt Count MPV Immature Gran % (Auto) Neut % (Auto) Lymph % (Auto) [place] % (Auto) Eos % (Auto) Baso % (Auto) Absolute Neuts (auto) Absolute Lymphs (auto) Total Counted PT INR APTT Specimen Type AMADEO pH 7.32 L Bicarbonate Actual 20.0 L POC Total CO2 21 Base Excess -6 L O2 Saturation 97 O2 % 40 ABG pCO2 38.8 ABG pO2 92 Respiration Rate 16 O2 Delivery Device Vent Vent Mode VC+ Tidal Volume 550 POC PEEP 5 Blood Gas Notified Whom ICU MD Sodium Potassium Chloride Carbon Dioxide Anion Gap BUN Creatinine Estim Creat Clear Calc Est GFR (MDRD) Af Amer Est GFR (MDRD) Non-Af BUN/Creatinine Ratio Glucose Calcium Phosphorus Magnesium Total Bilirubin AST ALT Alkaline Phosphatase Total Protein Albumin Globulin Albumin/Globulin Ratio POC Glucose 06/12/17 06/11/17 06/11/17 05:09 23:51 17:28 POC Glucose 322 H 268 H 222 H 06/11/17 11:21 POC Glucose 172 H Clinical Impression(s) from Imaging Studies Chest X-Ray 06/11/17 06:25 IMPRESSION: Right-sided chest tube, subcutaneous gas, no definitive visualized pneumothorax. The heart is enlarged. There is a widened appearance of the mediastinum which is likely due to positioning and aortic tortuosity. However, Recommend CT scan of the chest when appropriate to clarify. Lines as detailed above. The endotracheal tube is high 5.7 cm above the nikole and should be advanced 2 to 3 cm. Electronically Signed: Matilda Nguyen MD at 9:15 EST Tel , Service support , Chest X-Ray 06/11/17 12:11 IMPRESSION: Somewhat limited examination due to motion. Slightly prominent markings right lower lung probably exaggerated by motion patient's positioning. Early infiltrate is less likely. Overall no substantial change since previous examination. Electronically Signed: Ifeanyi Fajardo MD at 13:19 EST Tel , Service support , Brain CT 06/11/17 20:33 IMPRESSION: No acute intracranial abnormalities. Electronically Signed: Ana Laura Brown MD at 21:52 EST Tel Direct: [phone], Service support , Assessment/Plan Active and Suspected Problems Pneumothorax, right (Acute) Non-STEMI (non-ST elevated myocardial infarction) (Acute) Community acquired pneumonia (Suspected) Acute renal failure (Acute) Septic shock (Acute) Lactic acidosis (Acute) Cardiopulmonary arrest (Acute) 61-year-old male with right hemopneumothorax from chest compressions 1. Chest tube put out about 150 cc of bloody fluid since this time yesterday. The output is decreasing. He has no air leak. Chest x-ray appears stable with no pneumothorax. I do not see a large pleural effusion. 2. If output continues to decrease I will placed to waterseal tomorrow. Continue vent management. Vladimir Hogan MD Pager: [facility] [address], [facility] [address] [place] [phone] Office:
[2017-06-12] MEDS: Aspirin 81 MG TAB.CHEW GT (08:01)
[2017-06-12 09:46] LABS: Bedside Glucose 179 mg/dL (70-110)
[2017-06-12] MEDS: Famotidine 20 MG Tablet GT (09:57)
[2017-06-12] MEDS: Chlorhexidine 15 ML PO ×2 (09:59→21:06)
--- NOTE | 2017-06-12 10:22 | CASEMGMT ---
See RN CM assessment. -Per pt is noncompliant with diet, physician f/u. -Pt does not have oxygen portability at home. If continuous oxygen will be needed, will need new prescription and portable tanks. -Will continue to follow, review PT/OT evaluations when able and assess for dc needs.
[2017-06-12 11:41] LABS: Bedside Glucose 329 mg/dL (70-110)
--- NOTE | 2017-06-12 12:19 | PCM.PN.CARD ---
Subjectve: Patient remains intubated, was sedated but off sedation has no purposeful movements. CT scan of the brain is negative. Echocardiogram this morning showed intact LV function with an EF of 65%, moderate RV enlargement, RVSP of at least 72 mmHg consistent with severe pulmonary hypertension, difficult study due to body habitus. Unable to use Definity due to severe pulmonary hypertension. Creatinine 5.12. Nicardipine drip started last evening for hypertension and tachycardia. Objective: Vital Signs Temp Pulse Resp BP Pulse Ox 100.7 F H 111 H 28 H 156/69 H 92 06/12/17 12:00 06/12/17 12:00 06/12/17 12:00 06/12/17 12:00 06/12/17 12:00 Oxygen Delivery Method Mechanical Ventilator Weight: 284 lb 6.341 oz Body Mass Index (BMI) 39.2 Intake and Output for Last 24 Hours 06/10/17 06/11/17 06/12/17 23:59 23:59 23:59 Intake Total 1889.3 / 1889.3 4558.4 / 4558.4 838 / 838 Output Total 330 / 330 1525 / 1525 450 / 450 Balance 1559.3 / 1559.3 3033.4 / 3033.4 388 / 388 General: Awake, Alert, Oriented x 3 HEENT: PERRL, EOMI, Sclera Non Icteric Neck: Supple, Good ROM, No Lymph Node Enlargement Lungs: Clear to auscultation Cardiovascular: Regular Rhythm, Normal S1, Normal S2, No Murmurs, No Rubs, No Gallops Vascular: No Carotid Bruits, Normal Femoral Pulses, Normal Radial Pulses, Normal Dorsalis Pedal Pulse, Normal Posterior Tibial Pulses Abdomen: Bowel Sounds Present, Soft, Non Tender, No HSM, No Organomegaly Extremities: No Cyanosis, No Clubbing, No edema Neurological: No Focal Motor or Sensory Deficit 06/12/17 04:05: WBC 9.6, RBC 3.39 L, Hgb 9.9 L, Hct 29.3 L, MCV 86.4, MCH 29.2, MCHC 33.8, RDW 14.5, RDW Differential 43.7, Plt Count 108 L, MPV 11.4, Immature Gran % (Auto) 0.200, Neut % (Auto) 89.6 H, Lymph % (Auto) 7.2 L, [place] % (Auto) 3.0, Eos % (Auto) 0.0, Baso % (Auto) 0.0, Absolute Neuts (auto) 8.6 H, Total Counted Not Reportable 06/12/17 04:05: PT 15.2 H, INR 1.3, APTT 33.7 06/12/17 04:05: Sodium 142, Potassium 4.0, Chloride 106, Carbon Dioxide 21.0, Anion Gap 15, BUN 94 H, Creatinine 5.12 H, Est GFR (MDRD) Af Amer 15 L, Est GFR (MDRD) Non-Af 12 L, BUN/Creatinine Ratio 18.4, Glucose 335 H, Calcium 6.5 L*, Phosphorus 7.1 H, Magnesium 1.9, Total Bilirubin 0.40 06/12/17 05:12: pH 7.32 L, Bicarbonate Actual 20.0 L, POC Total CO2 21, Base Excess -6 L, O2 Saturation 97, ABG pCO2 38.8, ABG pO2 92 Rhythm: EKG: ECHO: LVEF of 65%, moderate RV enlargement, severe pulmonary hypertension with RVSP of 72 mmHg. Stress Test: Cardiac Cath: PCI: CT Surgery: Holter monitor: EPS: PPM: CXR: Chest CT Scan: Assessment/Plan 1. Cardiopulmonary arrest: It appears the patient had more of a respiratory arrest which segued into a cardiac arrest requiring mechanical chest compressions with the chest compression machine device, possibly inducing rib fractures which then gave way to a right-sided pneumothorax. Patient had an emergent chest tube placed, and his EKG shows normal sinus rhythm with right bundle branch block. I have no old EKGs for comparison. His peak troponin thus far 0.34, and he appears to be hemodynamically stable. In fact his blood pressure increased yesterday requiring copious amounts of IV labetalol, transitioning into a IV nicardipine drip. According to his he has been told he had a small heart attack about 2 years ago at which time he had a stroke but no catheterization was performed. 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 Herrera every 3 months. He is also a longtime smoker, diabetic, with hypertension hypercholesterolemia and most likely has concomitant coronary artery disease. Given the patient's pneumothorax and need for chest tube as well as the blood in the Pleur-evac, very hesitant to place the patient on IV heparin at this time. In addition he is got significant mental status changes even before being placed on propofol and fentanyl. His propofol and fentanyl have been discontinued and his mental status has not improved. CT scan of his head is negative for acute bleed. EEG currently being set up and in progress. Would recommend baby aspirin 81 mg p.o. daily. Given his severe pulmonary hypertension, I believe the possibility of pulmonary embolism should be entertained, and the patient may require either empiric heparin therapy given his creatinine of 5.12, assuming that his chest tube is stable. I am in agreement with nicardipine drip to maintain appropriate blood pressure control., He has had no ectopy at this time. Recommend keeping his potassium above 4.0 and his magnesium of 2.0. Once the patient's chest tube is been removed and his pneumothorax has resolved, and once he has been dialyzed, we may then proceed with left heart catheterization in a controlled manner, assuming his mental status has improved and he has not suffered significant anoxic brain injury. I am uncertain how accurate the EEG will be given the patient's acute on chronic renal insufficiency and creatinine above 5. Hemodialysis may be necessary in order to determine if the patient has improved mental status after hemodialysis. 2. Hyperlipidemia: Recommend obtaining a fasting lipid profile. Once the patient's condition is improved he will require lifelong antilipid therapy. 3. Tobacco cessation: I had a long and thorough discussion with the patient's regarding his tobacco use and highly recommended cessation of all tobacco products. Patient's has voiced understanding. 4. Thank you very much for the opportunity to participate in the cardiac care of your patient. Patient has a guarded prognosis. We will discuss echo results with Dr. Arnold. 4. Code Visit Inpatient E&M: 03191 Subs Hosp L3
--- NOTE | 2017-06-12 12:25 | PN.CARD_ITS ---
Subjectve: Patient remains intubated, was sedated but off sedation has no purposeful movements. CT scan of the brain is negative. Echocardiogram this morning showed intact LV function with an EF of 65%, moderate RV enlargement, RVSP of at least 72 mmHg consistent with severe pulmonary hypertension, difficult study due to body habitus. Unable to use Definity due to severe pulmonary hypertension. Creatinine 5.12. Nicardipine drip started last evening for hypertension and tachycardia. Objective: Vital Signs Temp Pulse Resp BP Pulse Ox 100.7 F H 111 H 28 H 156/69 H 92 06/12/17 12:00 06/12/17 12:00 06/12/17 12:00 06/12/17 12:00 06/12/17 12:00 Oxygen Delivery Method Mechanical Ventilator Weight: 284 lb 6.341 oz Body Mass Index (BMI) 39.2 Intake and Output for Last 24 Hours 06/10/17 06/11/17 06/12/17 23:59 23:59 23:59 Intake Total 1889.3 / 1889.3 4558.4 / 4558.4 838 / 838 Output Total 330 / 330 1525 / 1525 450 / 450 Balance 1559.3 / 1559.3 3033.4 / 3033.4 388 / 388 General: Awake, Alert, Oriented x 3 HEENT: PERRL, EOMI, Sclera Non Icteric Neck: Supple, Good ROM, No Lymph Node Enlargement Lungs: Clear to auscultation Cardiovascular: Regular Rhythm, Normal S1, Normal S2, No Murmurs, No Rubs, No Gallops Vascular: No Carotid Bruits, Normal Femoral Pulses, Normal Radial Pulses, Normal Dorsalis Pedal Pulse, Normal Posterior Tibial Pulses Abdomen: Bowel Sounds Present, Soft, Non Tender, No HSM, No Organomegaly Extremities: No Cyanosis, No Clubbing, No edema Neurological: No Focal Motor or Sensory Deficit 06/12/17 04:05: WBC 9.6, RBC 3.39 L, Hgb 9.9 L, Hct 29.3 L, MCV 86.4, MCH 29.2, MCHC 33.8, RDW 14.5, RDW Differential 43.7, Plt Count 108 L, MPV 11.4, Immature Gran % (Auto) 0.200, Neut % (Auto) 89.6 H, Lymph % (Auto) 7.2 L, [place] % (Auto) 3.0, Eos % (Auto) 0.0, Baso % (Auto) 0.0, Absolute Neuts (auto) 8.6 H, Total Counted Not Reportable 06/12/17 04:05: PT 15.2 H, INR 1.3, APTT 33.7 06/12/17 04:05: Sodium 142, Potassium 4.0, Chloride 106, Carbon Dioxide 21.0, Anion Gap 15, BUN 94 H, Creatinine 5.12 H, Est GFR (MDRD) Af Amer 15 L, Est GFR (MDRD) Non-Af 12 L, BUN/Creatinine Ratio 18.4, Glucose 335 H, Calcium 6.5 L*, Phosphorus 7.1 H, Magnesium 1.9, Total Bilirubin 0.40 06/12/17 05:12: pH 7.32 L, Bicarbonate Actual 20.0 L, POC Total CO2 21, Base Excess -6 L, O2 Saturation 97, ABG pCO2 38.8, ABG pO2 92 Rhythm: EKG: ECHO: LVEF of 65%, moderate RV enlargement, severe pulmonary hypertension with RVSP of 72 mmHg. Stress Test: Cardiac Cath: PCI: CT Surgery: Holter monitor: EPS: PPM: CXR: Chest CT Scan: Assessment/Plan 1. Cardiopulmonary arrest: It appears the patient had more of a respiratory arrest which segued into a cardiac arrest requiring mechanical chest compressions with the chest compression machine device, possibly inducing rib fractures which then gave way to a right-sided pneumothorax. Patient had an emergent chest tube placed, and his EKG shows normal sinus rhythm with right bundle branch block. I have no old EKGs for comparison. His peak troponin thus far 0.34, and he appears to be hemodynamically stable. In fact his blood pressure increased yesterday requiring copious amounts of IV labetalol, transitioning into a IV nicardipine drip. According to his he has been told he had a small heart attack about 2 years ago at which time he had a stroke but no catheterization was performed. He does not have a senior lead java developer and does not like to follow-up with physicians although he does see Dr. Herrera every 3 months. He is also a longtime smoker, diabetic, with hypertension hypercholesterolemia and most likely has concomitant coronary artery disease. Given the patient's pneumothorax and need for chest tube as well as the blood in the Pleur-evac, very hesitant to place the patient on IV heparin at this time. In addition he is got significant mental status changes even before being placed on propofol and fentanyl. His propofol and fentanyl have been discontinued and his mental status has not improved. CT scan of his head is negative for acute bleed. EEG currently being set up and in progress. Would recommend baby aspirin 81 mg p.o. daily. Given his severe pulmonary hypertension, I believe the possibility of pulmonary embolism should be entertained, and the patient may require either empiric heparin therapy given his creatinine of 5.12, assuming that his chest tube is stable. I am in agreement with nicardipine drip to maintain appropriate blood pressure control. , He has had no ectopy at this time. Recommend keeping his potassium above 4.0 and his magnesium of 2.0. Once the patient's chest tube is been removed and his pneumothorax has resolved , and once he has been dialyzed, we may then proceed with left heart catheterization in a controlled manner, assuming his mental status has improved and he has not suffered significant anoxic brain injury. I am uncertain how accurate the EEG will be given the patient's acute on chronic renal insufficiency and creatinine above 5. Hemodialysis may be necessary in order to determine if the patient has improved mental status after hemodialysis. 2. Hyperlipidemia: Recommend obtaining a fasting lipid profile. Once the patient's condition is improved he will require lifelong antilipid therapy. 3. Tobacco cessation: I had a long and thorough discussion with the patient's regarding his tobacco use and highly recommended cessation of all tobacco products. Patient's has voiced understanding. 4. Thank you very much for the opportunity to participate in the cardiac care of your patient. Patient has a guarded prognosis. We will discuss echo results with Dr. Arnold. 4. Code Visit Inpatient E&M: 94677 Subs Hosp L3
[2017-06-12] MEDS: Vital AF 1.2 Cal Liquid 1,000 ML 60 ML GT (13:18)
--- NOTE | 2017-06-12 14:02 | VDLE_ITS ---
Reason For Study: SHORTNESS OF BREATH RIGHT LEFT GSV is normal. GSV is normal. CFV is compressible, spontaneous, phasic, CFV is compressible, spontaneous, phasic, competent and demonstrates normal competent, and demonstrates normal augmentation. augmentation. FV is compressible, spontaneous, phasic, FV is compressible, spontaneous, phasic, competent and demonstrates normal competent and demonstrates normal augmentation. augmentation. POP V is compressible, spontaneous, phasic, POP V is compressible, spontaneous, phasic, competent and demonstrates normal competent and demonstrates normal augmentation. augmentation. T/P Trunk is compressible. T/P Trunk is compressible. PTV is compressible. PTV is compressible. RT PerV is compressible. LT PerV is compressible. Procedure Exam performed portable in ICU/CCU. A preliminary report was called and/or faxed to ICU nurse. Interpretation Summary Deep veins of the lower extremities are bilaterally patent and compressible segmentally. There is no evidence of deep vein thrombosis on either side. Valvular competence appears intact within the proximal deep venous systems bilaterally. The greater saphenous veins appear bilaterally patent and compressible segmentally. Ordering Physician: Marlon Arnold D.O. Referring Physician: Marlene Herrera M.D. Performed By: Maddie Hoover RVT
--- NOTE | 2017-06-12 14:10 | CON.PCM_ITS ---
Problem List (1) Encephalopathy Status: Acute Reason for Consult Date of Consultation: 06/12/17 Reason for Consultation: Encephalopathy History of Present Illness: The patient is a 61 year old CM with PMH HTN, HLD, DM, CAD, COPD, chronic respiratory failure, morbid obesity, anxiety/depression admitted with respiratory/cardiac arrest s/p CPR and intubation. History obtained from medical records and documentation. Per documentation his hospital course has been complicated by septic shock, JULIO CESAR, traumatic pneumothorax. Per nurse taking care of the patient he has been off of sedation (propofol and fentanyl) since this morning around 9 am but still patient continues to be unresponsive, per nurse yesterday (06/11/17) overnight there was some concern for left eye deviation for which CT head was done which did not show anything acute. At present patient has some spontaneous eye blinks, pupils BE sluggish reacting to light, corneal/conjunctival and gag reflex present, patient does not have any spontaneous or purposeful movements. Labs: Creatinine 5.12, AT-74, plt-108, UA- cloudy, LE +nt, bacteria +2 [] Past Medical History Past Medical History (Chronic Problems): Chronic Problems Coronary artery disease (Chronic) Hyperlipidemia (Chronic) Depression (Chronic) Hypertension (Chronic) Type 2 diabetes mellitus (Chronic) COPD (chronic obstructive pulmonary disease) (Chronic) Chronic respiratory failure (Chronic) Allergies No Known Allergies Allergy (Verified 06/10/17 16:28) Home Medications: Ambulatory Orders Medication Instructions Recorded Albuterol IH (ProAir) [Proair Hfa 1 puff INHALATION Q4H PRN PRN 06/10/17 (SP)Vent Pts] Aspirin [Aspirin, Baby] 81 mg PO DAILY 06/10/17 Bupropion HCl [Wellbutrin Xl] 300 mg PO DAILY 06/10/17 Citalopram Hydrobromide [Celexa] 20 mg PO DAILY 06/10/17 Eszopiclone [Lunesta] 2 mg PO QHS PRN PRN 06/10/17 Fenofibrate 200 mg PO DAILY 06/10/17 Ferrous Sulfate 325 mg PO DAILY@0800 06/10/17 Furosemide [Lasix] 40 mg PO DAILY 06/10/17 GlipiZIDE [Glucotrol] 10 mg PO BID 06/10/17 Hydrocodone/Acetaminophen 1 each PO Q6H 06/10/17 [Hydrocodon-Acetaminophn 10-325] Ketoconazole [Extina] 50 gm TP DAILY 06/10/17 Lisinopril [Zestril] 40 mg PO DAILY 06/10/17 Magnesium Oxide [Mag-Ox 400] 400 mg PO DAILY 06/10/17 Metformin HCl 1,000 mg PO BID 06/10/17 Morphine Sulfate [Ms Contin] 60 mg PO Q12H 06/10/17 Nitroglycerin [Nitrostat] 0.4 mg SL PRN PRN 06/10/17 Omeprazole [Prilosec] 20 mg PO DAILY 06/10/17 Simvastatin 20 mg PO QHS 06/10/17 Tamsulosin HCl [Flomax] 0.4 mg PO DAILY 06/10/17 Tizanidine HCl 4 mg PO QHS 06/10/17 Triamcinolone 0.1% Cream [Kenalog] 1 applic TOPICAL TID 06/10/17 Surgical History: - - Back surgery. Psychiatric History: Anxiety, Depression Lives: Spouse/ Significant Other Smoking Status: Current every day smoker Alcohol: None Drugs: None - *Family History Maternal History Items: No pertinent history Paternal History Items: No pertinent history Review of Systems Constitutional: Reports: - - could not be obtained since patient is comatose Patient Problems: Active and Suspected Problems Pneumothorax, right (Acute) Non-STEMI (non-ST elevated myocardial infarction) (Acute) Encephalopathy (Acute) JULIO CESAR (acute kidney injury) (Acute) Community acquired pneumonia (Suspected) Acute renal failure (Acute) Septic shock (Acute) Lactic acidosis (Acute) Cardiopulmonary arrest (Acute) - Physical Exam General: - - comatose, not response to DPS HEENT: Normocephalic Neck: Supple Lungs: Diminished Cardiovascular: Regular rate Abdomen: Bowel Sounds Present, Soft Extremities: No clubbing Musculoskeletal: No Tenderness to Palpation of Joints or Extremities Neurological: - - comatose, no response to DPS, pupils- BE sluggish reacting to light, gag, corneal and conjuctival reflex +nt, plantars B/L mute, sensory/ cerebellar/gait cannot be assessed, limited neurology examination, Reflexes + B/ L B/S/T/K/A Vital Signs Temp Pulse Resp BP Pulse Ox 100.7 F H 124 H 37 H 172/70 H 92 06/12/17 12:00 06/12/17 13:30 06/12/17 13:30 06/12/17 13:30 06/12/17 13:30 Oxygen Delivery Method Mechanical Ventilator Weight: 129 kg Body Mass Index (BMI) 39.2 Intake and Output for Last 24 Hours 06/10/17 06/11/17 06/12/17 23:59 23:59 23:59 Intake Total 1889.3 / 1889.3 4558.4 / 4558.4 2012 Output Total 330 / 330 1525 / 1525 1120 / 1120 Balance 1559.3 / 1559.3 3033.4 / 3033.4 893 / 893 Microbiology Past 72 Hours 06/10/17 23:20 Urine Culture - Preliminary Urine Catheter - Nino Culture exhibits no growth. 06/11/17 08:05 Respiratory Panel (PCR) - Final Mucosa - Nasopharyngeal 06/10/17 20:00 Enteric Bacteriology - Final Stool 06/10/17 20:00 C. difficile DNA Amplification - Final Stool Laboratory Tests Past 24 Hrs 06/12/17 06/12/17 06/12/17 04:05 04:05 04:05 WBC 9.6 RBC 3.39 L Hgb 9.9 L Hct 29.3 L MCV 86.4 MCH 29.2 MCHC 33.8 RDW 14.5 RDW Differential 43.7 Plt Count 108 L MPV 11.4 Immature Gran % (Auto) 0.200 Neut % (Auto) 89.6 H Lymph % (Auto) 7.2 L [place] % (Auto) 3.0 Eos % (Auto) 0.0 Baso % (Auto) 0.0 Absolute Neuts (auto) 8.6 H Absolute Lymphs (auto) 0.69 L Total Counted Not Reportable PT 15.2 H INR 1.3 APTT 33.7 Specimen Type pH Bicarbonate Actual POC Total CO2 Base Excess O2 Saturation O2 % ABG pCO2 ABG pO2 Respiration Rate O2 Delivery Device Vent Mode Tidal Volume POC PEEP Blood Gas Notified Whom Sodium 142 Potassium 4.0 Chloride 106 Carbon Dioxide 21.0 Anion Gap 15 BUN 94 H Creatinine 5.12 H Estim Creat Clear Calc 16.04 Est GFR (MDRD) Af Amer 15 L Est GFR (MDRD) Non-Af 12 L BUN/Creatinine Ratio 18.4 Glucose 335 H Calcium 6.5 L* Phosphorus 7.1 H Magnesium 1.9 Total Bilirubin 0.40 AST 74 H ALT 43 Alkaline Phosphatase 74 Total Protein 6.1 L Albumin 2.6 L Globulin 3.5 Albumin/Globulin Ratio 0.7 L 06/12/17 05:12 WBC RBC Hgb Hct MCV MCH MCHC RDW RDW Differential Plt Count MPV Immature Gran % (Auto) Neut % (Auto) Lymph % (Auto) [place] % (Auto) Eos % (Auto) Baso % (Auto) Absolute Neuts (auto) Absolute Lymphs (auto) Total Counted PT INR APTT Specimen Type AMADEO pH 7.32 L Bicarbonate Actual 20.0 L POC Total CO2 21 Base Excess -6 L O2 Saturation 97 O2 % 40 ABG pCO2 38.8 ABG pO2 92 Respiration Rate 16 O2 Delivery Device Vent Vent Mode VC+ Tidal Volume 550 POC PEEP 5 Blood Gas Notified Whom ICU Sodium Potassium Chloride Carbon Dioxide Anion Gap BUN Creatinine Estim Creat Clear Calc Est GFR (MDRD) Af Amer Est GFR (MDRD) Non-Af BUN/Creatinine Ratio Glucose Calcium Phosphorus Magnesium Total Bilirubin AST ALT Alkaline Phosphatase Total Protein Albumin Globulin Albumin/Globulin Ratio POC Glucose 06/12/17 06/12/17 06/11/17 11:00 05:09 23:51 POC Glucose 329 H 322 H 268 H 06/11/17 17:28 POC Glucose 222 H Assessment/Plan Active and Suspected Problems Pneumothorax, right (Acute) Non-STEMI (non-ST elevated myocardial infarction) (Acute) Encephalopathy (Acute) JULIO CESAR (acute kidney injury) (Acute) Community acquired pneumonia (Suspected) Acute renal failure (Acute) Septic shock (Acute) Lactic acidosis (Acute) Cardiopulmonary arrest (Acute) The patient is a 61 year old CM with PMH HTN, HLD, DM, CAD, COPD, chronic respiratory failure, morbid obesity, anxiety/depression admitted with respiratory/cardiac arrest s/p CPR and intubation. History obtained from medical records and documentation. Per documentation his hospital course has been complicated by septic shock, JULIO CESAR, traumatic pneumothorax. Per nurse taking care of the patient he has been off of sedation (propofol and fentanyl) since this morning around 9 am but still patient continues to be unresponsive, per nurse yesterday (06/11/17) overnight there was some concern for left eye deviation for which CT head was done which did not show anything acute. No witnessed seizures. At present patient has some spontaneous eye blinks, pupils BE sluggish reacting to light, corneal/conjunctival and gag reflex present, patient does not have any spontaneous or purposeful movements. Labs: Creatinine 5.12, AT-74, plt-108, UA-cloudy, LE +nt, bacteria +2 Impression Possible Metabolic encephalopathy S/P Cardiac arrest-possible HIE Plan -Recommend MRI brain w/o contrast -Await EEG -CT head reviewed-nothing acute -Further medical management per ICU team, Cardiology and nephrology -Recommend Nephrology consult -GI/DVT prophylaxis -Prognosis guarded -Please call with questions if any -Thank you for allowing us to participate in patient's care and management I spent 60 minutes of critical care time taking history, doing physical examination, reviewing medical records, coordinating care and counseling. Code Visit Inpatient E&M: [id number] Init Hosp L3
--- NOTE | 2017-06-12 14:19 | MRI_ITS ---
STUDY: MRI BRAIN WITHOUT CONTRAST REASON FOR EXAM: Male, 61 years old. Encephalopathy TECHNIQUE: Standardized multiplanar fat and water weighted pulse sequences were obtained. COMPARISON: CT of the brain on June 11, 2017. FINDINGS: Mild atrophy and periventricular white matter ischemic changes without mass effect or restricted diffusion.. Normal bilateral basal ganglia. Normal thalami. There is no extra-axial fluid accumulation. Normal flow voids within the major intracranial circulation suggesting patency by spin echo criteria. Normal sella turcica, pituitary gland, infundibular stalk, optic chiasm and hypothalamus. Normal tectal plate and pineal gland. Normal midbrain, varghese and medulla. Normal cerebellum. Normal basal cisterns. Normal bilateral temporal bones. Normal bilateral internal auditory canals. High signal intensity seen within the mastoids bilaterally which may be consistent with inflammatory changes. No demonstrated orbital abnormality, within the constraints of a routine brain study. Minor mucosal thickening of the maxillary and ethmoid sinuses. Normal calvarium and skull base. Normal visualized soft tissue structures. Normal visualized upper cervical spine. MRI/Brain without Contrast IMPRESSION: Mild atrophy and periventricular white matter ischemic changes without evidence for acute infarct. Electronically Signed: Simone Briones MD at 23:19 EST , Service support ,
--- NOTE | 2017-06-12 15:45 | EEG ---
- Electroencephalogram Date of Service: 06/12/17 History EEG is being done in this 61 yr M to rule out seizures in patient with respiratory/cardiac arrest EEG Description: This is an 18 channel EEG with 10-20 lead placement system. Bipolar montages, Referential and Circumferential montages were reviewed. Photic stimulation was performed but Hyperventilation was not performed. The posterior dominant background rhythm was not present. Photo stimulation did not elicit normal driving response or any abnormal photoparoxysmal response, Hyperventilation was not performed. Sleep was not identified. There is generalized background slowing in the delta frequency range of about 2-3 Hz. There is presence of generalized epileptiform discharges through out the record. There was no electrographic seizures noted during this recording. EEG Interpretation This is an abnormal EEG due to the presence of generalized epileptiform discharges. In the setting of Cardiac arrest this portends poor prognosis. Clinical correlation is advised. There is no electrographic seizures noted during the record.
[2017-06-12 15:59] LABS: Pathologist Review Reviewed
[2017-06-12] MEDS: Ipratropium/Albuterol Sulfate 3 ML AMPUL.NEB INHALATION ×2 (16:20→19:35)
[2017-06-12 17:21] LABS: Bedside Glucose 325 mg/dL (70-110)
[2017-06-12] MEDS: Acetaminophen 650 MG/20 ML UDC NG ×2 (19:32→23:56)
--- NOTE | 2017-06-12 20:00 | NURSING ---
RASS -5, pt having no spontaneous or purposeful movements, no response to pain. B/L wrist restraints removed.
[2017-06-13] VITALS (56 sets, daily range): BP systolic 127–188; BP diastolic 48–107; PULSE 70–127; RESP 24–43; TEMP 37–38.8; O2SAT 27–98
[2017-06-13 00:20] LABS: Bedside Glucose 414 mg/dL (70-110)
[2017-06-13] MEDS: Ipratropium/Albuterol Sulfate 3 ML AMPUL.NEB INHALATION ×4 (00:20→18:47)
[2017-06-13] MEDS: CHLORHEXIDINE GLUC 2% CLOTH 1 EACH TOWELETTE TOPICAL (01:57)
[2017-06-13 04:30] LABS: Absolute Lymphocyte Count 0.95 X10^3/ul (0.83-4.51); Absolute Neutrophil Count 10.7 X10^3/uL (2.0-7.7); Hematocrit 31.4 % (40-54); Hemoglobin 10.7 g/dl (13.0-16.5); Lymphocyte # 0.95 X10^3/ul (4.0); Lymphocyte % 7.7 % (19-41); Mean Corp Hgb Conc 34.1 g/gl (32-36); Mean Corpuscular Hgb 29.4 pg (27.0-32.0); Mean Corpuscular Volume 86.3 fL (80-94); Monocyte# 0.58 X10^3/uL; Monocyte% 4.7 % (0-10); Neutrophil # 10.74 X10^3/uL (2.7-7.7); Neutrophil % 87.4 % (47-70); Platelet Count 168 K/mm3 (150-450); RBC Distribution Width SD 45.1 fl (35.1-43.9); Red Blood Count 3.64 M/mm3 (4.6-6.2); White Blood Count 12.3 K/mm3 (4.4-11.0)
[2017-06-13 04:49] LABS: POSITIVE COUNT NO; POSITIVE DIFFERENTIAL NO; POSITIVE MORPHOLOGY NO
--- NOTE | 2017-06-13 05:20 | CPS ---
UNABLE TO PERFORM NIF. PT DOES NOT FOLLOW COMMANDS.
[2017-06-13] MEDS: 0.9% NaCl Peripheral Flush Adult/Peds IV ×7 (05:33→23:33)
[2017-06-13] MEDS: Labetalol 100 MG/20 ML Vial 10 MG IV ×4 (05:54→23:32)
--- NOTE | 2017-06-13 05:55 | RAD_ITS ---
STUDY: X-RAY CHEST REASON FOR EXAM: Male, 61 years old. Intubation. Shortness of breath. TECHNIQUE: Single AP portable view of the chest. COMPARISON: Comparison is made with prior study dated June 12, 2017. FINDINGS: An endotracheal tube is in situ. The tip is at 6 sinus proximal to the nikole. An enterogastric tube is seen with tip below the right hemidiaphragm. A right-sided subclavian catheter is present with the tip in the proximal portion of the superior vena cava. Stable appearance of the right chest tube. Stable appearance of both lungs with atelectasis and/or infiltrates at the lung bases. There is no demonstrated pleural abnormality. There is mild cardiac enlargement. Normal mediastinum and christelle. Normal visualized pulmonary arteries. There is atherosclerotic calcification of the aortic arch with tortuosity. There are diffuse degenerative changes of the visualized thoracic spine. Normal visualized ribs, clavicles, and shoulders. There is no demonstrated abnormality of the visualized soft tissue structures of the upper abdomen. RAD/Chest 1 View (Portable) IMPRESSION: Stable examination. All the support tubes are in good position. Electronically Signed: Matheus Vasquez MD at 8:02 EST Tel [phone], Service support ,
[2017-06-13 06:11] LABS: Bedside Glucose 423 mg/dL (70-110)
--- NOTE | 2017-06-13 06:29 | PCM.PN.INT ---
Subjective: The patient was seen and examined at the bedside this morning. Events from the last 24 hours have been reviewed. The patient has been febrile with a T-max of 101.8?F. Blood pressures are under better control since being started on nicardipine. The patient remains tachypneic with an FiO2 requirement of 50%. Lower extremity Dopplers, MRI and EEG were all completed yesterday. The patient's white count has increased to 12,000 this morning. Blood sugars are elevated. No air leak noted in the chest tube atrium. The patient remains on wall suction. Although the patient's creatinine is improving and urine output remains appropriate, his BUN continues to climb. Potassium is also low this morning at 3.4. Objective: The patient's most recent lab work, culture data and imaging studies have all been personally reviewed. Sputum culture is currently pending. Urine and blood cultures have been unrevealing to date. Respiratory viral panel was negative. C. difficile and enteric bacteriology were negative. MRI brain revealed mild atrophy and periventricular white matter ischemic changes without evidence for acute infarction. EEG revealed the presence of generalized epileptiform discharges. Lower extremity Doppler studies were negative for the presence of a DVT. Surface echocardiogram revealed normal LV size and thickness with an ejection fraction of 65%. There was evidence of moderate RV dilation with mild to moderate global RV systolic dysfunction and a right ventricular systolic pressure estimated to be 72 mmHg. General: - - Remains intubated and mechanically ventilated. Does initiate breaths on spontaneous mode mechanical ventilation. HEENT: Atraumatic, Normocephalic, Sluggish Pupils Oral: No Gingival or Mucosal Lesions/ Ulcerations, - - Endotracheal and OG tubes in place Neck: Supple, No Nodes, Trachea Midline, - - Right subclavian central venous catheter in place Lungs: Diminished, Rales, Rhonchi, Tachypneic, - - Overbreathing ventilator set rate. Right thoracic chest tube remains in place. Cardiovascular: Regular rate, Regular Rhythm, Normal S1, Normal S2, No murmurs Abdomen: Bowel Sounds Present, Soft, Non Tender, Obese Extremities: No clubbing, No cyanosis, - - Trace pedal edema Skin: No rashes, No breakdown Musculoskeletal: No Muscle Wasting Lymphatic: No Cervical, Supraclavicular, or Inguinal Adenopathy Neurological: - - Will open eyes to name. Does not respond purposefully to verbal or noxious stimulation. The patient does have a gag reflex. Vital Signs Temp Pulse Resp BP Pulse Ox 99.3 F H 97 32 H 153/57 H 93 06/13/17 06:00 06/13/17 06:00 06/13/17 06:00 06/13/17 06:00 06/13/17 06:00 Oxygen Delivery Method Mechanical Ventilator Weight: 274 lb 11.135 oz Body Mass Index (BMI) 39.2 Intake and Output for Last 24 Hours 06/11/17 06/12/17 06/13/17 23:59 23:59 23:59 Intake Total 4558.4 / 4558.4 2882 / 2882 1776 / 1776 Output Total 1525 / 1525 2580 / 2580 1395 / 1395 Balance 3033.4 / 3033.4 302 / 302 381 / 381 Labs (Last 48 Hours) 06/11/17 06/11/17 06/11/17 04:40 06:21 06:24 WBC RBC Hgb Hct MCV MCH MCHC RDW RDW Differential Plt Count MPV Immature Gran % (Auto) Neut % (Auto) Lymph % (Auto) Mellette % (Auto) Eos % (Auto) Baso % (Auto) Absolute Neuts (auto) Absolute Lymphs (auto) Total Counted Not Reportable Differential Comment PT INR APTT Specimen Type AMADEO Sample Site OTHER pH 7.24 L Bicarbonate Actual 14.5 L POC Total CO2 15 Base Excess -13 L O2 Saturation 95 O2 % 40 ABG pCO2 33.7 L ABG pO2 86 Respiration Rate 16 O2 Delivery Device Vent Vent Mode A-C Tidal Volume 550 POC PEEP 5 Blood Gas Notified Whom ICU Sodium Potassium Chloride Carbon Dioxide Anion Gap BUN Creatinine Estim Creat Clear Calc Est GFR (MDRD) Af Amer Est GFR (MDRD) Non-Af BUN/Creatinine Ratio Glucose Calcium Phosphorus Magnesium Total Bilirubin AST ALT Alkaline Phosphatase Troponin I Total Protein Albumin Globulin Albumin/Globulin Ratio POC Glucose 238 H 06/11/17 06/11/17 06/11/17 06:25 11:21 17:28 WBC RBC Hgb Hct MCV MCH MCHC RDW RDW Differential Plt Count MPV Immature Gran % (Auto) Neut % (Auto) Lymph % (Auto) Mellette % (Auto) Eos % (Auto) Baso % (Auto) Absolute Neuts (auto) Absolute Lymphs (auto) Total Counted Differential Comment PT INR APTT Specimen Type Sample Site pH Bicarbonate Actual POC Total CO2 Base Excess O2 Saturation O2 % ABG pCO2 ABG pO2 Respiration Rate O2 Delivery Device Vent Mode Tidal Volume POC PEEP Blood Gas Notified Whom Sodium Potassium Chloride Carbon Dioxide Anion Gap BUN Creatinine Estim Creat Clear Calc Est GFR (MDRD) Af Amer Est GFR (MDRD) Non-Af BUN/Creatinine Ratio Glucose Calcium Phosphorus Magnesium Total Bilirubin AST ALT Alkaline Phosphatase Troponin I 0.34 H Total Protein Albumin Globulin Albumin/Globulin Ratio POC Glucose 172 H 222 H 06/11/17 06/12/17 06/12/17 23:51 04:05 04:05 WBC 9.6 RBC 3.39 L Hgb 9.9 L Hct 29.3 L MCV 86.4 MCH 29.2 MCHC 33.8 RDW 14.5 RDW Differential 43.7 Plt Count 108 L MPV 11.4 Immature Gran % (Auto) 0.200 Neut % (Auto) 89.6 H Lymph % (Auto) 7.2 L Mellette % (Auto) 3.0 Eos % (Auto) 0.0 Baso % (Auto) 0.0 Absolute Neuts (auto) 8.6 H Absolute Lymphs (auto) 0.69 L Total Counted Not Reportable Differential Comment PT 15.2 H INR 1.3 APTT 33.7 Specimen Type Sample Site pH Bicarbonate Actual POC Total CO2 Base Excess O2 Saturation O2 % ABG pCO2 ABG pO2 Respiration Rate O2 Delivery Device Vent Mode Tidal Volume POC PEEP Blood Gas Notified Whom Sodium Potassium Chloride Carbon Dioxide Anion Gap BUN Creatinine Estim Creat Clear Calc Est GFR (MDRD) Af Amer Est GFR (MDRD) Non-Af BUN/Creatinine Ratio Glucose Calcium Phosphorus Magnesium Total Bilirubin AST ALT Alkaline Phosphatase Troponin I Total Protein Albumin Globulin Albumin/Globulin Ratio POC Glucose 268 H 06/12/17 06/12/17 06/12/17 04:05 05:09 05:12 WBC RBC Hgb Hct MCV MCH MCHC RDW RDW Differential Plt Count MPV Immature Gran % (Auto) Neut % (Auto) Lymph % (Auto) Mellette % (Auto) Eos % (Auto) Baso % (Auto) Absolute Neuts (auto) Absolute Lymphs (auto) Total Counted Differential Comment PT INR APTT Specimen Type AMADEO Sample Site pH 7.32 L Bicarbonate Actual 20.0 L POC Total CO2 21 Base Excess -6 L O2 Saturation 97 O2 % 40 ABG pCO2 38.8 ABG pO2 92 Respiration Rate 16 O2 Delivery Device Vent Vent Mode VC+ Tidal Volume 550 POC PEEP 5 Blood Gas Notified Whom ICU Sodium 142 Potassium 4.0 Chloride 106 Carbon Dioxide 21.0 Anion Gap 15 BUN 94 H Creatinine 5.12 H Estim Creat Clear Calc 16.04 Est GFR (MDRD) Af Amer 15 L Est GFR (MDRD) Non-Af 12 L BUN/Creatinine Ratio 18.4 Glucose 335 H Calcium 6.5 L* Phosphorus 7.1 H Magnesium 1.9 Total Bilirubin 0.40 AST 74 H ALT 43 Alkaline Phosphatase 74 Troponin I Total Protein 6.1 L Albumin 2.6 L Globulin 3.5 Albumin/Globulin Ratio 0.7 L POC Glucose 322 H 06/12/17 06/12/17 06/12/17 11:00 17:15 23:55 WBC RBC Hgb Hct MCV MCH MCHC RDW RDW Differential Plt Count MPV Immature Gran % (Auto) Neut % (Auto) Lymph % (Auto) Mellette % (Auto) Eos % (Auto) Baso % (Auto) Absolute Neuts (auto) Absolute Lymphs (auto) Total Counted Differential Comment PT INR APTT Specimen Type Sample Site pH Bicarbonate Actual POC Total CO2 Base Excess O2 Saturation O2 % ABG pCO2 ABG pO2 Respiration Rate O2 Delivery Device Vent Mode Tidal Volume POC PEEP Blood Gas Notified Whom Sodium Potassium Chloride Carbon Dioxide Anion Gap BUN Creatinine Estim Creat Clear Calc Est GFR (MDRD) Af Amer Est GFR (MDRD) Non-Af BUN/Creatinine Ratio Glucose Calcium Phosphorus Magnesium Total Bilirubin AST ALT Alkaline Phosphatase Troponin I Total Protein Albumin Globulin Albumin/Globulin Ratio POC Glucose 329 H 325 H 414 H 06/13/17 06/13/17 06/13/17 04:07 04:07 05:24 WBC 12.3 H RBC 3.64 L Hgb 10.7 L Hct 31.4 L MCV 86.3 MCH 29.4 MCHC 34.1 RDW 15.0 H RDW Differential 45.1 H Plt Count 168 MPV 12.0 Immature Gran % (Auto) 0.200 Neut % (Auto) 87.4 H Lymph % (Auto) 7.7 L Mellette % (Auto) 4.7 Eos % (Auto) 0.0 Baso % (Auto) 0.0 Absolute Neuts (auto) 10.7 H Absolute Lymphs (auto) 0.95 Total Counted Not Reportable Differential Comment PT INR APTT Specimen Type Sample Site pH Bicarbonate Actual POC Total CO2 Base Excess O2 Saturation O2 % ABG pCO2 ABG pO2 Respiration Rate O2 Delivery Device Vent Mode Tidal Volume POC PEEP Blood Gas Notified Whom Sodium Pending Potassium Pending Chloride Pending Carbon Dioxide Pending Anion Gap Pending BUN Pending Creatinine Pending Estim Creat Clear Calc Est GFR (MDRD) Af Amer Pending Est GFR (MDRD) Non-Af Pending BUN/Creatinine Ratio Pending Glucose Pending Calcium Pending Phosphorus Pending Magnesium Pending Total Bilirubin Pending AST Pending ALT Pending Alkaline Phosphatase Pending Troponin I Total Protein Pending Albumin Pending Globulin Albumin/Globulin Ratio POC Glucose 423 H Microbiology 06/10/17 23:20 Urine Catheter - Nino Urine Culture - Preliminary Culture exhibits no growth. 06/11/17 08:05 Mucosa - Nasopharyngeal Respiratory Panel (PCR) - Final 06/10/17 20:00 Stool Enteric Bacteriology - Final Clinical Impression(s) from Imaging Studies Chest X-Ray 06/10/17 16:15 IMPRESSION: Mild to moderate cardiomegaly. Interstitial edema. Lines as detailed above. Endotracheal tube is slightly high could be advanced 1 to 2 cm. Question left lower lobe pulmonary nodule versus summation of shadows. Possible nipple shadow. Recommend dedicated single chest x-ray when appropriate. Electronically Signed: Matilda Nguyen MD at 16:51 EST Tel , Service support , Chest X-Ray 06/10/17 18:05 IMPRESSION: There is a small pneumothorax along the periphery of the right lung base. This is likely due to minimally displaced rib fractures in the anterolateral aspects of the right fifth and sixth ribs rather than from central line placement. Follow-up films can be obtained. The tip of the right subclavian line is in the expected location of the mid to distal SVC. There is mild enlargement of the cardiac silhouette with mild edema. There is no obvious pleural effusion. N.B. : The above information has been verbally conveyed by Ana Laura Brown MD to Papo Taylor, Referring Physician, on 06/10/2017 19:21:19 (ET). Electronically Signed: Ana Laura Brown MD at 19:22 EST Tel Direct: [phone], Service support , N.B. : The above information has been verbally conveyed by Ana Laura Brown MD to Papo Taylor, Referring Physician, on 06/10/2017 19:21:19 (ET). Chest X-Ray 06/10/17 20:08 IMPRESSION: There is a stable appearance of the small pneumothorax in the periphery of the right lower chest. Adjacent subcutaneous emphysema has increased. There is mild enlargement of the cardiac silhouette with vascular congestion. There is no evidence of pleural effusion. The previously seen right rib fractures are not well seen on the current study. However fractures are now seen in the anterolateral left sixth rib and possibly lateral left fifth rib. Electronically Signed: Ana Laura Brown MD at 21:23 EST Tel Direct: [phone], Service support , Chest X-Ray 06/10/17 20:56 IMPRESSION: There has been resolution of the right pneumothorax after chest tube placement. There are no acute cardiopulmonary changes. Electronically Signed: Ana Laura Brown MD at 22:13 EST Tel Direct: [phone], Service support , Chest X-Ray 06/11/17 06:25 IMPRESSION: Right-sided chest tube, subcutaneous gas, no definitive visualized pneumothorax. The heart is enlarged. There is a widened appearance of the mediastinum which is likely due to positioning and aortic tortuosity. However, Recommend CT scan of the chest when appropriate to clarify. Lines as detailed above. The endotracheal tube is high 5.7 cm above the nikole and should be advanced 2 to 3 cm. Electronically Signed: Matilda Nguyen MD at 9:15 EST Tel , Service support , Chest X-Ray 06/11/17 12:11 IMPRESSION: Somewhat limited examination due to motion. Slightly prominent markings right lower lung probably exaggerated by motion patient's positioning. Early infiltrate is less likely. Overall no substantial change since previous examination. Electronically Signed: Ifeanyi Fajardo MD at 13:19 EST Tel , Service support , Brain CT 06/11/17 20:33 IMPRESSION: No acute intracranial abnormalities. Electronically Signed: Ana Laura Brown MD at 21:52 EST Tel Direct: [phone], Service support , Chest X-Ray 06/12/17 05:55 IMPRESSION: Improved aeration of both lungs. All the support tubes are unchanged. Electronically Signed: Matheus Vasquez MD at 11:48 EST Tel [phone], Service support , Brain MRI 06/12/17 14:19 IMPRESSION: Mild atrophy and periventricular white matter ischemic changes without evidence for acute infarct. Electronically Signed: Simone Briones MD at 23:19 EST , Service support , Assessment/Plan Active and Suspected Problems Pneumothorax, right (Acute) Non-STEMI (non-ST elevated myocardial infarction) (Acute) Encephalopathy (Acute) JULIO CESAR (acute kidney injury) (Acute) Community acquired pneumonia (Suspected) Acute renal failure (Acute) Septic shock (Acute) Lactic acidosis (Acute) Cardiopulmonary arrest (Acute) RECOMMENDATIONS: 1. Will discuss with nephrology about the possibility of performing dialysis, given increasing BUN 2. Continue to hold all sedating medications 3. Continue antibiotics 4. Chest tube management per surgery 5. Increase Levemir and sliding scale insulin coverage 6. Consider starting Keppra given epileptiform discharges noted on EEG. Neurology is following. 7. Continue nicardipine for blood pressure control 8. Continue tube feeds 9. Continue subcu heparin and Pepcid for prophylaxis IMPRESSIONS: 1. Status post cardiopulmonary arrest with suspected primary pulmonary event Patient with reported protracted course at home. Patient was noncompliant with therapy. Continue with spontaneous breathing and awakening trials as tolerated. Continue to hold all sedating medications as tolerated. Chest tube remains in place and is being managed by surgery. Continue scheduled aerosol treatments. We will continue empiric antibiotics and steroids for now. 2. Traumatic right pneumothorax status post chest tube postop day #3 Right chest tube is stable. Subcutaneous emphysema appears to be stable at this time. We will continue to monitor closely. We will not initiate a heparin drip or Plavix therapy at this time given risk for bleeding complications. Patient does have multiple rib fractures noted on x-ray. Clinical suspicion for rib fracture secondary to CPR. 3. Acute on chronic combined respiratory failure Clinical suspicion for community-acquired pneumonia. Patient reportedly has a history of 2 L nasal cannula at baseline. Continue empiric antibiotics as noted above. 4. Septic shock secondary to CAP Patient initially on Levophed therapy transiently. Patient has improved at this time. Hemodynamics are stable off of vasopressor support. Lactate has normalized at this time. Continue antibiotics, pending infectious workup. 5. Encephalopathy Continue to hold all sedating medications at this time. Concern for underlying metabolic etiology, given the patient's renal insufficiency and worsening uremia. Nevertheless, EEG did reveal epileptiform discharges. MR head was unrevealing. Neurology is following. Consider initiating Keppra, given findings noted on EEG. We will also discuss worsening uremia with nephrology. Perhaps hemodialysis will help with the patient's current encephalopathic state. 6. Non-ST elevation MN Continue current medical management. Cardiology is following accordingly. 7. Acute renal failure Very little previous history is available for review. Patient did present with a creatinine of 5.56 indicating probable progressive renal failure over the past week. Patient does have casts on urinalysis indicating probable ATN. The patient was initially maintained on a bicarbonate drip. Although the patient's creatinine is improving and his urine output remains appropriate, he is becoming more uremic. Will discuss with nephrology about the possibility of dialysis. 8. Type 2 diabetes mellitus Continue tube feeds as ordered. Given ongoing hyperglycemia, will increase Levemir and sliding scale insulin regimen. 9. Coronary artery disease/hypertension/morbid obesity/anxiety/depression/TRAVON/history of noncompliance Complicates care, management, recovery and prognosis. Nicardipine had to be initiated this morning due to persistently elevated blood pressure parameters. TIME: 50 minutes of critical care time, independent of procedures, was spent addressing the patient's acute cardiopulmonary arrest, traumatic right pneumothorax, acute on chronic combined respiratory failure, septic shock secondary to probable CAP, encephalopathy, NSTEMI, acute renal failure, review of all data and collaboration with the care team. ([id number]) Code Visit 9xxxx: [id number] Critical care first hour
[2017-06-13 06:32] LABS: ALB/GLOB Ratio 0.7 RATIO (0.9-2.4); AST(SGOT) 51 U/L (15-37); Alanine Aminotransfer ALT/SGPT 40 U/L (16-61); Albumin, Serum 2.8 g/dL (3.2-5.0); Alkaline Phosphatase 101 U/L (45-117); Anion Gap 13 (5-15); BUN 108 mg/dL (7-18); BUN/Creat Ratio 25.8 RATIO (10-20); Calcium,Total 7.4 mg/dL (8.5-10.1); Chloride 111 mmol/L (98-107); Creatinine, Serum 4.18 mg/dL (0.70-1.30); EST Glomerular Filtration Rate 16 mL/min (>60); Est Glom Filt Rate - Afr Amer 19 mL/min (>60); Estimated Creatinine Clearance 19.65 ml/min; Globulin 3.9 g/dL (2.2-4.2); Glucose 435 mg/dL (74-106); Phosphorus 4.1 mg/dL (2.5-4.9); Potassium 3.4 mmol/L (3.5-5.1); Protein, Total 6.7 g/dL (6.4-8.2); Sodium Level 146 mmol/L (136-145)
--- NOTE | 2017-06-13 06:40 | PN_ITS ---
Patient Problems: Active and Suspected Problems Pneumothorax, right (Acute) Non-STEMI (non-ST elevated myocardial infarction) (Acute) Encephalopathy (Acute) JULIO CESAR (acute kidney injury) (Acute) Community acquired pneumonia (Suspected) Acute renal failure (Acute) Septic shock (Acute) Lactic acidosis (Acute) Cardiopulmonary arrest (Acute) Subjective: Patient overnight with elevated temperature, T-max 101.8, BP is remain improved following cardiac pain drip started the day prior but still intermittently elevated, since intubated, sedated. present at team meeting with discussion reviewing negative DVT study, MRI with no acute finding, EEG with unexpected epileptic findings. Started on Keppra pending Neurology re- evaluation given these findings. Given renal status although Cr improved and UOP stable, decision w/ Nephrology to start HD with planned access placement this afternoon. CT in place and remains to suction with surgery management. Elevated BS with alterations per ICU to increase levemir regimen. Objective: Physical Examination: General: Does not awaken to stimuli, not alert, not oriented, sedated, intubated , NAD, opens eyes today but not to request, random. Skin: normal color, turgor, no icterus, cyanosis. HEENT: AT/NC, EOM unable to be tested, pupils not markedly responsive, intubated , sedated, opens eyes for staff randomly today, no further gaze alterations, prior was to L, corneal reflex per Neurology intact. Lungs: Diminished bases, remains mildly coarse, no wheezing currently, symmetric rise, intubated, sedated, R sided CT in place. Heart: Mildly tachycardic with regular rhythm; no gallop, rub audible. Abdomen: soft, obese, NTTP, ND, mildly hypoactive BS. Extremities: no cyanosis, clubbing, BL LE foot-ankle edema, mild. Neurological: Does not awaken to stimuli, not alert, not oriented, sedated, intubated, NAD; cognitive function NOT baseline intact; pupils equally not markedly reactive to light and accomodation; cranial nerves II-XII unable to be assessed, strength unable to be assessed, corneal and gag reflex intact, negative babinski. Psychiatric: affect appears flat, sedate, no acute evidence of depressive or anxiety feelings. Vitals/I&O's: Vital Signs Temp Pulse Resp BP Pulse Ox 99.3 F H 97 32 H 153/57 H 93 06/13/17 06:00 06/13/17 06:00 06/13/17 06:00 06/13/17 06:00 06/13/17 06:00 Oxygen Delivery Method Mechanical Ventilator Weight: 274 lb 11.135 oz Body Mass Index (BMI) 39.2 Intake and Output for Last 24 Hours 06/11/17 06/12/17 06/13/17 23:59 23:59 23:59 Intake Total 4558.4 / 4558.4 2882 / 2882 1776 / 1776 Output Total 1525 / 1525 2580 / 2580 1395 / 1395 Balance 3033.4 / 3033.4 302 / 302 381 / 381 Microbiology Past 72 Hours 06/10/17 23:20 Urine Catheter - Nino Urine Culture - Preliminary Culture exhibits no growth. 06/11/17 08:05 Mucosa - Nasopharyngeal Respiratory Panel (PCR) - Final 06/10/17 20:00 Stool Enteric Bacteriology - Final 06/10/17 20:00 Stool C. difficile DNA Amplification - Final Laboratory Results 06/12/17 11:00: POC Glucose 329 H 06/12/17 17:15: POC Glucose 325 H 06/12/17 23:55: POC Glucose 414 H 06/13/17 04:07: WBC 12.3 H, RBC 3.64 L, Hgb 10.7 L, Hct 31.4 L, MCV 86.3, MCH 29.4, MCHC 34.1, RDW 15.0 H, RDW Differential 45.1 H, Plt Count 168, MPV 12.0, Immature Gran % (Auto) 0.200, Neut % (Auto) 87.4 H, Lymph % (Auto) 7.7 L, [place] % (Auto) 4.7, Eos % (Auto) 0.0, Baso % (Auto) 0.0, Absolute Neuts (auto) 10.7 H , Absolute Lymphs (auto) 0.95, Total Counted Not Reportable 06/13/17 04:07: Sodium 146 H, Potassium 3.4 L, Chloride 111 H, Carbon Dioxide 22.0, Anion Gap 13, BUN 108 H*, Creatinine 4.18 H, Estim Creat Clear Calc 19.65 , Est GFR (MDRD) Af Amer 19 L, Est GFR (MDRD) Non-Af 16 L, BUN/Creatinine Ratio 25.8 H, Glucose 435 H, Calcium 7.4 L, Phosphorus 4.1, Magnesium 2.0, Total Bilirubin 0.60, AST 51 H, ALT 40, Alkaline Phosphatase 101, Total Protein 6.7, Albumin 2.8 L, Globulin 3.9, Albumin/Globulin Ratio 0.7 L 06/13/17 05:24: POC Glucose 423 H Current Medications Acetaminophen (Tylenol Liquid) 650 mg NG Q4H PRN PRN PRN Reason: FEVER Last Admin: 06/12/17 23:56 Dose: 650 mg Albuterol/Ipratropium (Duoneb) 3 ml INHALATION Q6H.RT [facility] Last Admin: 06/13/17 00:20 Dose: 3 ml Aspirin (Aspirin, Baby) 81 mg GT DAILY@0800 [facility] Last Admin: 06/12/17 08:01 Dose: 81 mg Chlorhexidine Gluconate () 15 ml PO BID [facility] Last Admin: 06/12/17 21:06 Dose: 15 ml Chlorhexidine Gluconate () 1 each TOPICAL DAILY [facility] Last Admin: 06/13/17 01:57 Dose: 1 each Dextrose (D50w Syringe) 0 gm IV X1 PRN; Protocol PRN Reason: Hypoglycemia Famotidine (Pepcid) 20 mg GT DAILY [facility] Last Admin: 06/12/17 09:57 Dose: 20 mg Glucagon () 1 mg IM .X1 PRN PRN Reason: Hypoglycemia Hydralazine HCl (Apresoline) 10 mg IV Q4H PRN PRN PRN Reason: BLOOD PRESSURE Last Admin: 06/12/17 04:33 Dose: 10 mg Propofol (Diprivan) 1,000 mg in 100 mls @ 4.17 mls/hr CONT INF .Q12H FARA; 5 MCG /KG/MIN PRN Reason: Protocol Last Admin: 06/12/17 21:07 Dose: Not Given Fentanyl () 100 mls @ 5 mls/hr IV .Q20H [facility] Last Admin: 06/12/17 03:34 Dose: 5 mls/hr Sodium Chloride () 250 mls @ 15 mls/hr IV .[id number] PRN PRN Reason: SALINE FLUSH Sodium Chloride () 1,000 mls @ 1 mls/hr IV .Q48H PRN PRN Reason: SALINE FLUSH Last Admin: 06/13/17 05:32 Dose: 1 mls/hr Nicardipine HCl 25 mg/ Sodium (Chloride) 250 mls @ 50 mls/hr IV .Q5H FARA PRN Reason: 5 MG/HR Last Admin: 06/13/17 05:30 Dose: 50 mls/hr Ceftriaxone Sodium 2 gm/ (Sodium Chloride) 50 mls @ 100 mls/hr IV Q24 [facility] Last Admin: 06/12/17 10:16 Dose: 100 mls/hr Enteral Nutritional Formula (Vital Af 1.2 Christopher Liquid) 1,000 mls @ 60 mls/hr GT .[id number] [facility] Last Admin: 06/13/17 05:31 Dose: Not Given Insulin Aspart (Novolog Flexpen ([facility])) 0 units SC Q6 FARA PRN Reason: Protocol Last Admin: 06/13/17 05:32 Dose: 16 u Insulin Detemir (Levemir ([facility])) 10 units SC 0600 [facility] Last Admin: 06/13/17 05:32 Dose: 10 u Labetalol HCl (Trandate) 10 mg IV Q6 [facility] Last Admin: 06/13/17 05:54 Dose: 10 mg Methylprednisolone (Solu-Medrol) 40 mg IV Q6 [facility] Last Admin: 06/13/17 05:30 Dose: 40 mg Sodium Chloride () 5 - 30 ml IV UD PRN PRN Reason: SALINE FLUSH Last Admin: 06/13/17 05:55 Dose: 10 ml Sodium Chloride () 10 - 40 ml IV UD PRN PRN Reason: MULTILUMEN/HICMAN CATH FLUSH Assessment/Plan Active and Suspected Problems Pneumothorax, right (Acute) Non-STEMI (non-ST elevated myocardial infarction) (Acute) Encephalopathy (Acute) JULIO CESAR (acute kidney injury) (Acute) Community acquired pneumonia (Suspected) Acute renal failure (Acute) Septic shock (Acute) Lactic acidosis (Acute) Cardiopulmonary arrest (Acute) The patient is a 61 y/o M w/ PMHx: CAD, HTN, HLD, Depression, Hx CVA, Diabetes mellitus type II, Obesity, Chronic COPD, Chronic Hypoxic Respiratory Failure, Tobacco use who presents to the [facility] ED on 06/10/17 with respiratory and cardiac arrest, suspected primarily respiratory as initiating factor. (1) Cardiopulmonary Arrest W/ ? Post-Event Seizure Activity: Suspected initial etiology was pulmonary, s/p CPR as noted, initially placed on pressors, off pressors now, BP improved, cardiac enzymes elevated, EKGs obtained serially, NSTEMI Dx, deferred chemoprophylaxis secondary to possibility of bleeding given notable fx injuries s/p CPR, maintained on IV abx and IV steroids for concurrent possible PNA and COPD exacerbation. ECHO ordered, pending. 06/11/17 decreased mental status, unable to withdraw to stimuli now, suspect vegetative status. 06/11/17 MRI brain without acute evidence of infarct. 06/11/17 EEG which was abnormal with generalized epileptiform discharges which in the setting of recent cardiac arrest portends poor prognosis. DVT BL LE with no evidence DVT. ECHO 06/11/17 with EF 65%, moderately dilated RV, mild TVI, RVSP 72 mmHg, severe pulmonary HTN. Neurology consulted and following, still has minimal spontaneous eye movements, sluggish pupillary response, corneal/conjunctival and gag reflex present, but no spontaneous or purposeful movement. Discussed with ICU staff and will initiate on Keppra 500 mg BID and then 250 mg daily on HD days given planned HD start per Nephrology. (2) Lactic acidosis/septic shock: Secondary to CPA, PNA, IVFs in the ED, pressors initially, LA normalized. Bld, UCx, Sputum Cx obtained. C-diff negative. Continued IV abx therapy, ICU physician following. (3) Acute NSTEMI: In the setting of acute cardiopulmonary arrest, EKG in ED w/ RBBB, CXR w/ fx ribs, displaced and ? R sided PNA, trop trend <0.02-->0.22--> 0.30-->0.34. Will maintain on a monitored bed, deferred heparin drip secondary to concern for possible bleeding w/ recent rib fx. Continue medical management w / asa, BB, not on statin. Cardiology consulted, following. (4) Acute on Chronic Hypoxic and Hypercarbic Respiratory Failure on Chronic Hypoxic Respiratory Failure secondary to Possible R Sided CAP PNA, Aspiration w / Acute on Chronic COPD Exacerbation: CXR w/ with iatrogenic displaced R 5th- 6th rib fx, CT placement, chronic COPD changes, R sided PNA, intubated, sedated , ATC duonebs, PRN albuterol, IV methylprednisolone, HOB, IS parameters, IV Levaquin-->06/13/17 transitioned to Rocephin per ICU physician with pending sputum cultures, respiratory panel negative. (5) Acute kidney injury: Secondary to hypoperfusion, cardiopulmonary arrest, likely ATN thus would expect very slow improvement of function. Initiated upon admission on bicarbonate and also given kayexelate secondary to hyperkalemia which has resolved. 06/02/17 d/c bicarbonate drip. UA w/ casts. Admission BUN/Cr 80/5.56, prior baseline creatinine unclear but denied CKD. Hydrated, pressors initially, trending function, 06/12/17 BUN/Cr 94/5.12-->06/13/17 BUN/Cr 108/4.18. Monitor UOP, ongoing at this time. Given continued FULL CODE status, uremic status, Nephrology consulted, decision for initiation dialysis. (6) Suspected Iatrogenic R sided PTX: Possibly secondary to CPR w/ R sided rib fractures but also R sided SC placed in the field. Films w displaced fractures of the right fifth and sixth ribs. Emergent chest tubed placement performed. Surgery following, management per Surgery. (7) Hypertension, Uncontrolled: 06/12/17 onset notable hypertension, uncontrolled , 06/12/17 AM initiated on nicardipine drip per ICU, improved BP although intermittent increased pressures, maintained on drip. (8) CAD: Will continue home regimen asa, IV BB. Holding statin given status. (9) Diabetes mellitus type II w/ Hyperglycemia: Hold oral home regimen, NPO status, scheduled insulin with notable hyperglycemia still,increased regimen w/ HS also 06/13/17 per ICU, TFs, accu checks w/ ISS. (10) Hx CVA Prior: Noted BL LE weakness, unclear extent per , maintain on asa, IV BB as noted, not on statin. Neurology consulted, MRI, EEG as noted. (11) GERD: Famotidine. (12) Obesity: If appropriate status, will encourage weight loss and lifestyle changes, nutrition consulted. (13) Tobacco Abuse: If appropriate will encourage cessation, inpatient consultation per RT once appropriate if able, NR if desired. (14) TRAVON: On CPAP q HS outpatient. (15) DVT Prophylaxis: SCDs, deferred chemoprophylaxis secondary to concern for bleeding. Code Visit Inpatient E&M: 64084 Subs Hosp L3
--- NOTE | 2017-06-13 07:05 | PN.SURG_ITS ---
Patient Problems: Active and Suspected Problems Pneumothorax, right (Acute) Non-STEMI (non-ST elevated myocardial infarction) (Acute) Encephalopathy (Acute) Community acquired pneumonia (Suspected) Acute renal failure (Acute) Septic shock (Acute) Lactic acidosis (Acute) Cardiopulmonary arrest (Acute) Subjective: Patient had no changes overnight. - Physical Exam General: - - Intubated Lungs: Normal air movement, - - On ventilator. Right chest tube put out 100 cc of bloody fluid. No air leak. Cardiovascular: Regular rate, Regular Rhythm Abdomen: Soft, Non-Distended Vital Signs Temp Pulse Resp BP Pulse Ox 99.3 F H 97 32 H 153/57 H 93 06/13/17 06:00 06/13/17 06:00 06/13/17 06:00 06/13/17 06:00 06/13/17 06:00 Oxygen Delivery Method Mechanical Ventilator Weight: 274 lb 11.135 oz Body Mass Index (BMI) 39.2 Intake and Output for Last 24 Hours 06/11/17 06/12/17 06/13/17 23:59 23:59 23:59 Intake Total 4558.4 / 4558.4 2882 / 2882 1776 / 1776 Output Total 1525 / 1525 2580 / 2580 1395 / 1395 Balance 3033.4 / 3033.4 302 / 302 381 / 381 Microbiology Past 72 Hours 06/10/17 23:20 Urine Culture - Preliminary Urine Catheter - Nnio Culture exhibits no growth. 06/11/17 08:05 Respiratory Panel (PCR) - Final Mucosa - Nasopharyngeal 06/10/17 20:00 Enteric Bacteriology - Final Stool 06/10/17 20:00 C. difficile DNA Amplification - Final Stool Laboratory Tests Past 24 Hrs 06/13/17 06/13/17 04:07 04:07 WBC 12.3 H RBC 3.64 L Hgb 10.7 L Hct 31.4 L MCV 86.3 MCH 29.4 MCHC 34.1 RDW 15.0 H RDW Differential 45.1 H Plt Count 168 MPV 12.0 Immature Gran % (Auto) 0.200 Neut % (Auto) 87.4 H Lymph % (Auto) 7.7 L [place] % (Auto) 4.7 Eos % (Auto) 0.0 Baso % (Auto) 0.0 Absolute Neuts (auto) 10.7 H Absolute Lymphs (auto) 0.95 Total Counted Not Reportable Sodium 146 H Potassium 3.4 L Chloride 111 H Carbon Dioxide 22.0 Anion Gap 13 BUN 108 H* Creatinine 4.18 H Estim Creat Clear Calc 19.65 Est GFR (MDRD) Af Amer 19 L Est GFR (MDRD) Non-Af 16 L BUN/Creatinine Ratio 25.8 H Glucose 435 H Calcium 7.4 L Phosphorus 4.1 Magnesium 2.0 Total Bilirubin 0.60 AST 51 H ALT 40 Alkaline Phosphatase 101 Total Protein 6.7 Albumin 2.8 L Globulin 3.9 Albumin/Globulin Ratio 0.7 L POC Glucose 06/13/17 06/12/17 06/12/17 05:24 23:55 17:15 POC Glucose 423 H 414 H 325 H 06/12/17 11:00 POC Glucose 329 H Assessment/Plan Active and Suspected Problems Pneumothorax, right (Acute) Non-STEMI (non-ST elevated myocardial infarction) (Acute) Encephalopathy (Acute) Community acquired pneumonia (Suspected) Acute renal failure (Acute) Septic shock (Acute) Lactic acidosis (Acute) Cardiopulmonary arrest (Acute) 61-year-old male with right hemopneumothorax 1. Patient is being worked up as he is taken off sedation and still not waking up. At this point I would continue chest tube to suction as it did put out 100 cc of bloody fluid. If the output decreases I will place to waterseal tomorrow. Vladimir Hogan MD Pager: [facility] [address] [place] [address] Office:
[2017-06-13 07:11] LABS: Base Excess -4 mmol/L (-2 to +2); Bicarbonate 20.4 mmol/L (22-26); Blood Gas Specimen Type ALINE; FI02 50; Mode VC+; O2 Delivery Device Vent; PEEP 5; PO2 69 mmHG (75-100); RR 16; SITE OTHER; SO2 94 % (95-99); Time Given 703; Total Carbon Dioxide 21 mmol/L; Vt 550; pCO2 31.7 mmHg (35-45); pH 7.42 (7.35-7.45)
--- NOTE | 2017-06-13 07:51 | PCM.CONS.R ---
Consultation - Renal 06/13/17 PCP/ Referring MD: Requesting physician: Dr Arnold Primary care physician: Marlene Herrera Reason for Consultation:: JULIO CESAR - History of Present Illness History of Present Illness: The patient is a 61 year old M admitted here s/p cardiac arrest. is s/p CPR and ROSC. currently intubated. renal service consulted for JULIO CESAR No known prior kidney disease as per family. ongoing events include - respiratory failure s/p intubation poor mental status - ? related to cardiac arrest and HIE vs uremia vs sepsis related sepsis with fevers presumably lung origin JULIO CESAR - non oliguric NSTEMI - likely related to cardiac arrest chest tube placement required after chest trauma during CPR most of history is from charts - Allergies Allergies: Allergies No Known Allergies Allergy (Verified 06/10/17 16:28) - Current Medications Current Medications: Current Medications Acetaminophen (Tylenol Liquid) 650 mg NG Q4H PRN PRN PRN Reason: FEVER Last Admin: 06/12/17 23:56 Dose: 650 mg Albuterol/Ipratropium (Duoneb) 3 ml INHALATION Q6H.RT [facility] Last Admin: 06/13/17 06:48 Dose: 3 ml Aspirin (Aspirin, Baby) 81 mg GT DAILY@0800 [facility] Last Admin: 06/12/17 08:01 Dose: 81 mg Chlorhexidine Gluconate () 15 ml PO BID [facility] Last Admin: 06/12/17 21:06 Dose: 15 ml Chlorhexidine Gluconate () 1 each TOPICAL DAILY [facility] Last Admin: 06/13/17 01:57 Dose: 1 each Dextrose (D50w Syringe) 0 gm IV X1 PRN; Protocol PRN Reason: Hypoglycemia Famotidine (Pepcid) 20 mg GT DAILY [facility] Last Admin: 06/12/17 09:57 Dose: 20 mg Glucagon () 1 mg IM .X1 PRN PRN Reason: Hypoglycemia Hydralazine HCl (Apresoline) 10 mg IV Q4H PRN PRN PRN Reason: BLOOD PRESSURE Last Admin: 06/12/17 04:33 Dose: 10 mg Propofol (Diprivan) 1,000 mg in 100 mls @ 4.17 mls/hr CONT INF .Q12H FARA; 5 MCG/KG/MIN PRN Reason: Protocol Last Admin: 06/13/17 07:40 Dose: Not Given Fentanyl () 100 mls @ 5 mls/hr IV .Q20H [facility] Last Admin: 06/12/17 03:34 Dose: 5 mls/hr Sodium Chloride () 250 mls @ 15 mls/hr IV .[id number] PRN PRN Reason: SALINE FLUSH Sodium Chloride () 1,000 mls @ 1 mls/hr IV .Q48H PRN PRN Reason: SALINE FLUSH Last Admin: 06/13/17 05:32 Dose: 1 mls/hr Nicardipine HCl 25 mg/ Sodium (Chloride) 250 mls @ 50 mls/hr IV .Q5H [facility]ARA PRN Reason: 5 MG/HR Last Admin: 06/13/17 05:30 Dose: 50 mls/hr Ceftriaxone Sodium 2 gm/ (Sodium Chloride) 50 mls @ 100 mls/hr IV Q24 [facility] Last Admin: 06/12/17 10:16 Dose: 100 mls/hr Enteral Nutritional Formula (Vital Af 1.2 Christopher Liquid) 1,000 mls @ 60 mls/hr GT .[id number] [facility] Last Admin: 06/13/17 05:31 Dose: Not Given Potassium Chloride (Kcl 10meq/100ml) 10 meq in 100 mls @ 100 mls/hr IV BOLUS Q1H [facility] Stop: 06/13/17 11:29 Insulin Aspart (Novolog Flexpen ([facility])) 0 units SC Q6 [facility] PRN Reason: Protocol Last Admin: 06/13/17 05:32 Dose: 16 u Insulin Detemir (Levemir ([facility])) 20 units SC QHS [facility] Labetalol HCl (Trandate) 10 mg IV Q6 [facility] Last Admin: 06/13/17 05:54 Dose: 10 mg Methylprednisolone (Solu-Medrol) 40 mg IV Q6 [facility] Last Admin: 06/13/17 05:30 Dose: 40 mg Sodium Chloride () 5 - 30 ml IV UD PRN PRN Reason: SALINE FLUSH Last Admin: 06/13/17 05:55 Dose: 10 ml Sodium Chloride () 10 - 40 ml IV UD PRN PRN Reason: MULTILUMEN/HICMAN CATH FLUSH - Past Medical History Past Medical History (Chronic Problems): Chronic Problems Coronary artery disease (Chronic) Hyperlipidemia (Chronic) Depression (Chronic) Hypertension (Chronic) Type 2 diabetes mellitus (Chronic) COPD (chronic obstructive pulmonary disease) (Chronic) Chronic respiratory failure (Chronic) - Past Surgical History Surgical History: - - Back surgery. - Social History Smoking Status: Current every day smoker Alcohol: None Drugs: None - Family History Maternal History Items: No pertinent history Paternal History Items: No pertinent history Review of Systems Unable to obtain accurate/complete ROS d/t: due to mental status Patient Problems: Active and Suspected Problems Pneumothorax, right (Acute) Non-STEMI (non-ST elevated myocardial infarction) (Acute) Encephalopathy (Acute) JULIO CESAR (acute kidney injury) (Acute) Community acquired pneumonia (Suspected) Acute renal failure (Acute) Septic shock (Acute) Lactic acidosis (Acute) Cardiopulmonary arrest (Acute) - Physical Exam HEENT: Atraumatic, PERRLA, EOMI, Normocephalic Neck: Supple, No JVD, Negative Carotid Bruits Lungs: Clear to auscultation, Normal air movement Cardiovascular: Regular rate, No murmurs Abdomen: Bowel Sounds Present, Soft, Non Tender Extremities: No edema, Capillary Refill Less than 3 Seconds Skin: No rashes, No breakdown Musculoskeletal: No Tenderness to Palpation of Joints or Extremities Vital Signs Temp Pulse Resp BP Pulse Ox 99.4 F H 101 H 31 H 159/55 H 95 06/13/17 07:00 06/13/17 07:46 06/13/17 07:00 06/13/17 07:00 06/13/17 07:00 Oxygen Delivery Method Mechanical Ventilator Weight: 124.6 kg Body Mass Index (BMI) 39.2 Intake and Output for Last 24 Hours 06/11/17 06/12/17 06/13/17 23:59 23:59 23:59 Intake Total 4558.4 / 4558.4 2882 / 2882 1776 / 1776 Output Total 1525 / 1525 2580 / 2580 1395 / 1395 Balance 3033.4 / 3033.4 302 / 302 381 / 381 Microbiology Past 72 Hours 06/10/17 23:20 Urine Culture - Preliminary Urine Catheter - Nino Culture exhibits no growth. 06/11/17 08:05 Respiratory Panel (PCR) - Final Mucosa - Nasopharyngeal 06/10/17 20:00 Enteric Bacteriology - Final Stool 06/10/17 20:00 C. difficile DNA Amplification - Final Stool Laboratory Tests Past 24 Hrs 06/13/17 06/13/17 06/13/17 04:07 04:07 07:04 WBC 12.3 H RBC 3.64 L Hgb 10.7 L Hct 31.4 L MCV 86.3 MCH 29.4 MCHC 34.1 RDW 15.0 H RDW Differential 45.1 H Plt Count 168 MPV 12.0 Immature Gran % (Auto) 0.200 Neut % (Auto) 87.4 H Lymph % (Auto) 7.7 L Patrick % (Auto) 4.7 Eos % (Auto) 0.0 Baso % (Auto) 0.0 Absolute Neuts (auto) 10.7 H Absolute Lymphs (auto) 0.95 Total Counted Not Reportable Specimen Type AMADEO Sample Site OTHER pH 7.42 Bicarbonate Actual 20.4 L POC Total CO2 21 Base Excess -4 L O2 Saturation 94 L O2 % 50 ABG pCO2 31.7 L ABG pO2 69 L Respiration Rate 16 O2 Delivery Device Vent Minute Volume 19.00 Vent Mode VC+ Tidal Volume 550 POC PEEP 5 Blood Gas Notified Whom ICU Blood Gas Notified Time 703 Sodium 146 H Potassium 3.4 L Chloride 111 H Carbon Dioxide 22.0 Anion Gap 13 BUN 108 H* Creatinine 4.18 H Estim Creat Clear Calc 19.65 Est GFR (MDRD) Af Amer 19 L Est GFR (MDRD) Non-Af 16 L BUN/Creatinine Ratio 25.8 H Glucose 435 H Calcium 7.4 L Phosphorus 4.1 Magnesium 2.0 Total Bilirubin 0.60 AST 51 H ALT 40 Alkaline Phosphatase 101 Total Protein 6.7 Albumin 2.8 L Globulin 3.9 Albumin/Globulin Ratio 0.7 L POC Glucose 06/13/17 06/12/17 06/12/17 05:24 23:55 17:15 POC Glucose 423 H 414 H 325 H 06/12/17 11:00 POC Glucose 329 H Assessment/Plan Active and Suspected Problems Pneumothorax, right (Acute) Non-STEMI (non-ST elevated myocardial infarction) (Acute) Encephalopathy (Acute) JULIO CESAR (acute kidney injury) (Acute) Community acquired pneumonia (Suspected) Acute renal failure (Acute) Septic shock (Acute) Lactic acidosis (Acute) Cardiopulmonary arrest (Acute) JULIO CESAR. With no prior renal disease as per family members. Etiology could be ATN related to prolonged shock during cardiac arrest. non oliguric but severe azotemia. there is a concern that his mental status changes could be related to renal failure in addition to HIE and sepsis. to rule out renal failure related azotemia as the complicating factor, will plan for [employer] TECHNICIAN d/w gian over phone. explained rationale, procedure. she is agreeable to proceed d/w Dr Arnold notified dialysis staff instruction provided Hyperkalemia. better today Acidosis. due to JULIO CESAR, lactic acidosis. better. off bicarbonate drip. HD today HTN. on nicardipine drip as per ICU Thank you
--- NOTE | 2017-06-13 07:57 | CON.PCM_ITS ---
Consultation - Renal 06/13/17 PCP/ Referring MD: Requesting physician: Dr Arnold Primary care physician: Marlene Herrera Reason for Consultation:: JULIO CESAR - History of Present Illness History of Present Illness: The patient is a 61 year old M admitted here s/p cardiac arrest. is s/p CPR and ROSC. currently intubated. renal service consulted for JULIO CESAR No known prior kidney disease as per family. ongoing events include - respiratory failure s/p intubation poor mental status - ? related to cardiac arrest and HIE vs uremia vs sepsis related sepsis with fevers presumably lung origin JULIO CESAR - non oliguric NSTEMI - likely related to cardiac arrest chest tube placement required after chest trauma during CPR most of history is from charts - Allergies Allergies: Allergies No Known Allergies Allergy (Verified 06/10/17 16:28) - Current Medications Current Medications: Current Medications Acetaminophen (Tylenol Liquid) 650 mg NG Q4H PRN PRN PRN Reason: FEVER Last Admin: 06/12/17 23:56 Dose: 650 mg Albuterol/Ipratropium (Duoneb) 3 ml INHALATION Q6H.RT [facility] Last Admin: 06/13/17 06:48 Dose: 3 ml Aspirin (Aspirin, Baby) 81 mg GT DAILY@0800 [facility] Last Admin: 06/12/17 08:01 Dose: 81 mg Chlorhexidine Gluconate () 15 ml PO BID [facility] Last Admin: 06/12/17 21:06 Dose: 15 ml Chlorhexidine Gluconate () 1 each TOPICAL DAILY [facility] Last Admin: 06/13/17 01:57 Dose: 1 each Dextrose (D50w Syringe) 0 gm IV X1 PRN; Protocol PRN Reason: Hypoglycemia Famotidine (Pepcid) 20 mg GT DAILY [facility] Last Admin: 06/12/17 09:57 Dose: 20 mg Glucagon () 1 mg IM .X1 PRN PRN Reason: Hypoglycemia Hydralazine HCl (Apresoline) 10 mg IV Q4H PRN PRN PRN Reason: BLOOD PRESSURE Last Admin: 06/12/17 04:33 Dose: 10 mg Propofol (Diprivan) 1,000 mg in 100 mls @ 4.17 mls/hr CONT INF .Q12H [facility]ARA; 5 MCG /KG/MIN PRN Reason: Protocol Last Admin: 06/13/17 07:40 Dose: Not Given Fentanyl () 100 mls @ 5 mls/hr IV .Q20H [facility] Last Admin: 06/12/17 03:34 Dose: 5 mls/hr Sodium Chloride () 250 mls @ 15 mls/hr IV .[id number] PRN PRN Reason: SALINE FLUSH Sodium Chloride () 1,000 mls @ 1 mls/hr IV .Q48H PRN PRN Reason: SALINE FLUSH Last Admin: 06/13/17 05:32 Dose: 1 mls/hr Nicardipine HCl 25 mg/ Sodium (Chloride) 250 mls @ 50 mls/hr IV .Q5H [facility]ARA PRN Reason: 5 MG/HR Last Admin: 06/13/17 05:30 Dose: 50 mls/hr Ceftriaxone Sodium 2 gm/ (Sodium Chloride) 50 mls @ 100 mls/hr IV Q24 [facility] Last Admin: 06/12/17 10:16 Dose: 100 mls/hr Enteral Nutritional Formula (Vital Af 1.2 Christopher Liquid) 1,000 mls @ 60 mls/hr GT .[id number] [facility] Last Admin: 06/13/17 05:31 Dose: Not Given Potassium Chloride (Kcl 10meq/100ml) 10 meq in 100 mls @ 100 mls/hr IV BOLUS Q1H [facility] Stop: 06/13/17 11:29 Insulin Aspart (Novolog Flexpen (Bkc)) 0 units SC Q6 [facility] PRN Reason: Protocol Last Admin: 06/13/17 05:32 Dose: 16 u Insulin Detemir (Levemir (Bkc)) 20 units SC QHS [facility] Labetalol HCl (Trandate) 10 mg IV Q6 [facility] Last Admin: 06/13/17 05:54 Dose: 10 mg Methylprednisolone (Solu-Medrol) 40 mg IV Q6 [facility] Last Admin: 06/13/17 05:30 Dose: 40 mg Sodium Chloride () 5 - 30 ml IV UD PRN PRN Reason: SALINE FLUSH Last Admin: 06/13/17 05:55 Dose: 10 ml Sodium Chloride () 10 - 40 ml IV UD PRN PRN Reason: MULTILUMEN/HICMAN CATH FLUSH - Past Medical History Past Medical History (Chronic Problems): Chronic Problems Coronary artery disease (Chronic) Hyperlipidemia (Chronic) Depression (Chronic) Hypertension (Chronic) Type 2 diabetes mellitus (Chronic) COPD (chronic obstructive pulmonary disease) (Chronic) Chronic respiratory failure (Chronic) - Past Surgical History Surgical History: - - Back surgery. - Social History Smoking Status: Current every day smoker Alcohol: None Drugs: None - Family History Maternal History Items: No pertinent history Paternal History Items: No pertinent history Review of Systems Unable to obtain accurate/complete ROS d/t: due to mental status Patient Problems: Active and Suspected Problems Pneumothorax, right (Acute) Non-STEMI (non-ST elevated myocardial infarction) (Acute) Encephalopathy (Acute) JULIO CESAR (acute kidney injury) (Acute) Community acquired pneumonia (Suspected) Acute renal failure (Acute) Septic shock (Acute) Lactic acidosis (Acute) Cardiopulmonary arrest (Acute) - Physical Exam HEENT: Atraumatic, PERRLA, EOMI, Normocephalic Neck: Supple, No JVD, Negative Carotid Bruits Lungs: Clear to auscultation, Normal air movement Cardiovascular: Regular rate, No murmurs Abdomen: Bowel Sounds Present, Soft, Non Tender Extremities: No edema, Capillary Refill Less than 3 Seconds Skin: No rashes, No breakdown Musculoskeletal: No Tenderness to Palpation of Joints or Extremities Vital Signs Temp Pulse Resp BP Pulse Ox 99.4 F H 101 H 31 H 159/55 H 95 06/13/17 07:00 06/13/17 07:46 06/13/17 07:00 06/13/17 07:00 06/13/17 07:00 Oxygen Delivery Method Mechanical Ventilator Weight: 124.6 kg Body Mass Index (BMI) 39.2 Intake and Output for Last 24 Hours 06/11/17 06/12/17 06/13/17 23:59 23:59 23:59 Intake Total 4558.4 / 4558.4 2882 / 2882 1776 / 1776 Output Total 1525 / 1525 2580 / 2580 1395 / 1395 Balance 3033.4 / 3033.4 302 / 302 381 / 381 Microbiology Past 72 Hours 06/10/17 23:20 Urine Culture - Preliminary Urine Catheter - Nino Culture exhibits no growth. 06/11/17 08:05 Respiratory Panel (PCR) - Final Mucosa - Nasopharyngeal 06/10/17 20:00 Enteric Bacteriology - Final Stool 06/10/17 20:00 C. difficile DNA Amplification - Final Stool Laboratory Tests Past 24 Hrs 06/13/17 06/13/17 06/13/17 04:07 04:07 07:04 WBC 12.3 H RBC 3.64 L Hgb 10.7 L Hct 31.4 L MCV 86.3 MCH 29.4 MCHC 34.1 RDW 15.0 H RDW Differential 45.1 H Plt Count 168 MPV 12.0 Immature Gran % (Auto) 0.200 Neut % (Auto) 87.4 H Lymph % (Auto) 7.7 L [place] % (Auto) 4.7 Eos % (Auto) 0.0 Baso % (Auto) 0.0 Absolute Neuts (auto) 10.7 H Absolute Lymphs (auto) 0.95 Total Counted Not Reportable Specimen Type AMADEO Sample Site OTHER pH 7.42 Bicarbonate Actual 20.4 L POC Total CO2 21 Base Excess -4 L O2 Saturation 94 L O2 % 50 ABG pCO2 31.7 L ABG pO2 69 L Respiration Rate 16 O2 Delivery Device Vent Minute Volume 19.00 Vent Mode VC+ Tidal Volume 550 POC PEEP 5 Blood Gas Notified Whom ICU Blood Gas Notified Time 703 Sodium 146 H Potassium 3.4 L Chloride 111 H Carbon Dioxide 22.0 Anion Gap 13 BUN 108 H* Creatinine 4.18 H Estim Creat Clear Calc 19.65 Est GFR (MDRD) Af Amer 19 L Est GFR (MDRD) Non-Af 16 L BUN/Creatinine Ratio 25.8 H Glucose 435 H Calcium 7.4 L Phosphorus 4.1 Magnesium 2.0 Total Bilirubin 0.60 AST 51 H ALT 40 Alkaline Phosphatase 101 Total Protein 6.7 Albumin 2.8 L Globulin 3.9 Albumin/Globulin Ratio 0.7 L POC Glucose 06/13/17 06/12/17 06/12/17 05:24 23:55 17:15 POC Glucose 423 H 414 H 325 H 06/12/17 11:00 POC Glucose 329 H Assessment/Plan Active and Suspected Problems Pneumothorax, right (Acute) Non-STEMI (non-ST elevated myocardial infarction) (Acute) Encephalopathy (Acute) JULIO CESAR (acute kidney injury) (Acute) Community acquired pneumonia (Suspected) Acute renal failure (Acute) Septic shock (Acute) Lactic acidosis (Acute) Cardiopulmonary arrest (Acute) JULIO CESAR. With no prior renal disease as per family members. Etiology could be ATN related to prolonged shock during cardiac arrest. non oliguric but severe azotemia. there is a concern that his mental status changes could be related to renal failure in addition to HIE and sepsis. to rule out renal failure related azotemia as the complicating factor, will plan for SPEECH WRITER d/w gian over phone. explained rationale, procedure. she is agreeable to proceed d/w Dr Arnold notified dialysis staff instruction provided Hyperkalemia. better today Acidosis. due to JULIO CESAR, lactic acidosis. better. off bicarbonate drip. HD today HTN. on nicardipine drip as per ICU Thank you
[2017-06-13] MEDS: Famotidine 20 MG Tablet GT (08:17)
[2017-06-13] MEDS: Aspirin 81 MG TAB.CHEW GT (08:17)
[2017-06-13] MEDS: Chlorhexidine 15 ML PO ×2 (09:18→21:41)
[2017-06-13 11:11] LABS: Bedside Glucose 453 mg/dL (70-110)
[2017-06-13] MEDS: Vital AF 1.2 Cal Liquid 1,000 ML 60 ML GT (11:34)
--- NOTE | 2017-06-13 12:36 | RAD_ITS ---
STUDY: X-RAY CHEST REASON FOR EXAM: Male, 61 years old. Line placement. TECHNIQUE: Single AP portable view of the chest. COMPARISON: Comparison is made with prior examination of earlier today. FINDINGS: A right-sided internal jugular venous catheter as been placed. The tip is in the proximal portion of the superior vena cava. The remainder of the examination is unchanged. RAD/Chest 1 View (Portable) IMPRESSION: Status post placement of a right-sided internal jugular venous catheter. The tip is in the proximal portion of the superior vena cava. Electronically Signed: Matheus Vasquez MD at 13:19 EST Tel [phone], Service support ,
--- NOTE | 2017-06-13 12:55 | PCM.OP.BLANK ---
Problem List (1) Acute renal failure Status: Acute Qualifiers: Acute renal failure type: with acute tubular necrosis Qualified Code(s): N17.0 - Acute kidney failure with tubular necrosis Operative Report Date of Procedure: 06/13/17 - Dialysis catheter insertion Dialysis line placement procedure note Indication: Dialysis catheter insertion Procedure: A time-out was completed to verify correct patient, indication, medication allergies, procedure, coagulation studies, informed consent signed, and equipment needed. The patient was placed in the supine position for a central line placement to the rt IJ vein. The patients rt neck was prepped using chlorhexidine and a full body sterile drape was applied. 1% lidocaine was used to anesthetize the surrounding skin. A 12fr 16 cm temporary dialysis catheter introduced into the internal jugular vein using the modified Seldinger technique with the assistance of ultrasound. The site was dilated twice in a stepwise fashion. The catheter was threaded smoothly over the guidewire, the guidewire was removed easily, nonpulsatile blood returned. All ports were aspirated of air and flushed with sterile saline with 1.3 cc of U 1000 heparin in each port. The catheter was sutured in place and covered with an occlusive dressing impregnated with chlorhexidine. Post-procedure: The patient tolerated the procedure well. Vital signs remained stable. EBL 5cc. No complications. Chest X Ray ordered to confirm tip placement and the absence of pneumothorax.
--- NOTE | 2017-06-13 13:48 | PCM.PN.NEU ---
Patient Problems: Active and Suspected Problems Pneumothorax, right (Acute) Non-STEMI (non-ST elevated myocardial infarction) (Acute) Encephalopathy (Acute) JULIO CESAR (acute kidney injury) (Acute) Community acquired pneumonia (Suspected) Acute renal failure (Acute) Septic shock (Acute) Lactic acidosis (Acute) Cardiopulmonary arrest (Acute) Subjective: No Issues overnight. Continues to be intubated. Off sedation for 24 hrs. S/P respiratory/cardiac arrest on 06/10/17. EEG- shows GPEDs, CT head/MRI brain-reported nothing acute. Patient does breath over the vent, no response to DPS, corneal/conjunctival/gag reflex present, pupils BE sluggish reacting to light. Started on Dilantin. Getting Dialysis today. - Physical Exam General: - - comatose HEENT: Normocephalic Neck: Supple Lungs: Clear to auscultation Cardiovascular: Regular rate Abdomen: Bowel Sounds Present Extremities: No clubbing Neurological: - - comatose, no response to DPS, pupils- BE sluggish reacting to light, gag, corneal and conjuctival reflex +nt, plantars B/L mute, sensory/cerebellar/gait cannot be assessed, limited neurology examination, Reflexes + B/L B/S/T/K/A Psych/Mental Status: - - cannot be assessed Vital Signs Temp Pulse Resp BP Pulse Ox 99.6 F H 101 H 32 H 152/54 H 95 06/13/17 12:00 06/13/17 12:54 06/13/17 12:54 06/13/17 12:00 06/13/17 12:49 Oxygen Delivery Method Mechanical Ventilator Weight: 124.6 kg Body Mass Index (BMI) 39.2 Intake and Output for Last 24 Hours 06/11/17 06/12/17 06/13/17 23:59 23:59 23:59 Intake Total 4558.4 / 4558.4 2882 / 2882 3282 / 3282 Output Total 1525 / 1525 2580 / 2580 2805 / 2805 Balance 3033.4 / 3033.4 302 / 302 477 / 477 Microbiology Past 72 Hours 06/12/17 15:00 Gram Stain - Final Sputum, Induced/[place] Respiratory Culture - Preliminary Culture exhibits no growth. 06/10/17 23:20 Urine Culture - Final Urine Catheter - Nino Culture exhibits no growth. 06/11/17 08:05 Respiratory Panel (PCR) - Final Mucosa - Nasopharyngeal 06/10/17 20:00 Enteric Bacteriology - Final Stool 06/10/17 20:00 C. difficile DNA Amplification - Final Stool Laboratory Tests Past 24 Hrs 06/13/17 06/13/17 06/13/17 04:07 04:07 07:04 WBC 12.3 H RBC 3.64 L Hgb 10.7 L Hct 31.4 L MCV 86.3 MCH 29.4 MCHC 34.1 RDW 15.0 H RDW Differential 45.1 H Plt Count 168 MPV 12.0 Immature Gran % (Auto) 0.200 Neut % (Auto) 87.4 H Lymph % (Auto) 7.7 L [place] % (Auto) 4.7 Eos % (Auto) 0.0 Baso % (Auto) 0.0 Absolute Neuts (auto) 10.7 H Absolute Lymphs (auto) 0.95 Total Counted Not Reportable Specimen Type AMADEO Sample Site OTHER pH 7.42 Bicarbonate Actual 20.4 L POC Total CO2 21 Base Excess -4 L O2 Saturation 94 L O2 % 50 ABG pCO2 31.7 L ABG pO2 69 L Respiration Rate 16 O2 Delivery Device Vent Minute Volume 19.00 Vent Mode VC+ Tidal Volume 550 POC PEEP 5 Blood Gas Notified Whom ICU Blood Gas Notified Time 703 Sodium 146 H Potassium 3.4 L Chloride 111 H Carbon Dioxide 22.0 Anion Gap 13 BUN 108 H* Creatinine 4.18 H Estim Creat Clear Calc 19.65 Est GFR (MDRD) Af Amer 19 L Est GFR (MDRD) Non-Af 16 L BUN/Creatinine Ratio 25.8 H Glucose 435 H Calcium 7.4 L Phosphorus 4.1 Magnesium 2.0 Total Bilirubin 0.60 AST 51 H ALT 40 Alkaline Phosphatase 101 Total Protein 6.7 Albumin 2.8 L Globulin 3.9 Albumin/Globulin Ratio 0.7 L POC Glucose 06/13/17 06/13/17 06/12/17 11:04 05:24 23:55 POC Glucose 453 H* 423 H 414 H 06/12/17 17:15 POC Glucose 325 H Assessment/Plan Active and Suspected Problems Pneumothorax, right (Acute) Non-STEMI (non-ST elevated myocardial infarction) (Acute) Encephalopathy (Acute) JULIO CESAR (acute kidney injury) (Acute) Community acquired pneumonia (Suspected) Acute renal failure (Acute) Septic shock (Acute) Lactic acidosis (Acute) Cardiopulmonary arrest (Acute) The patient is a 61 year old CM with PMH HTN, HLD, DM, CAD, COPD, chronic respiratory failure, morbid obesity, anxiety/depression admitted with respiratory/cardiac arrest s/p CPR and intubation. History obtained from medical records and documentation. Per documentation his hospital course has been complicated by septic shock, JULIO CESAR, traumatic pneumothorax. Per nurse taking care of the patient he has been off of sedation (propofol and fentanyl) since this morning around 9 am but still patient continues to be unresponsive, per nurse yesterday (06/11/17) overnight there was some concern for left eye deviation for which CT head was done which did not show anything acute. No witnessed seizures. At present patient has some spontaneous eye blinks, pupils BE sluggish reacting to light, corneal/conjunctival and gag reflex present, patient does not have any spontaneous or purposeful movements. Labs: Creatinine 5.12, AT-74, plt-108, UA-cloudy, LE +nt, bacteria +2 Impression Possible Metabolic encephalopathy S/P Cardiac arrest-likely HIE GPEDs Plan -MRI brain reviewed-negative -EEG-GPEDs- suggests poor prognosis post cardiac arrest -CT head reviewed-nothing acute -Started on Dilantin 100 mg TID. Will load Dilantin 1 g once. -Follow up hepatic panel, ammonia level, Dilantin free and total levels in 24 hrs. -Repeat CT head and EEG in 48-72 hrs if no further improvement. -Getting HD today -Further medical management per ICU team, Cardiology and nephrology -GI/DVT prophylaxis -Prognosis guarded -Please call with questions if any -Thank you for allowing us to participate in patient's care and management I spent 30 minutes of critical care time taking history, doing physical examination, reviewing medical records, coordinating care and counseling.
[2017-06-13] MEDS: Phenytoin Na 100 MG/2 ML Vial IV ×2 (13:50→21:41)
--- NOTE | 2017-06-13 15:28 | CHAPLAIN ---
RN suggested on 06/12 that this patient and family may need support; during rounds made attempt to visit this patient on vent; no family available at this time; offer made to staff that this dry kiln burner is available as needed to patient and family;
[2017-06-13 17:31] LABS: Bedside Glucose 333 mg/dL (70-110)
--- NOTE | 2017-06-13 20:20 | NURSING ---
Unable to teach this pt at this time due to pt being comatose. No family is present at the bedside at this time either to educate.
[2017-06-13 22:01] LABS: Bedside Glucose 406 mg/dL (70-110)
[2017-06-13 23:52] LABS: Bedside Glucose 427 mg/dL (70-110)
[2017-06-14] VITALS (45 sets, daily range): BP systolic 112–168; BP diastolic 44–70; PULSE 96–123; RESP 24–37; TEMP 37.2–38.7; O2SAT 93–100
[2017-06-14] MEDS: Ipratropium/Albuterol Sulfate 3 ML AMPUL.NEB INHALATION ×4 (01:06→19:00)
[2017-06-14 04:04] LABS: Absolute Lymphocyte Count 0.97 X10^3/ul (0.83-4.51); Absolute Neutrophil Count 9.7 X10^3/uL (2.0-7.7); Hematocrit 31.6 % (40-54); Hemoglobin 10.4 g/dl (13.0-16.5); Lymphocyte # 0.97 X10^3/ul (4.0); Lymphocyte % 8.7 % (19-41); Mean Corp Hgb Conc 32.9 g/gl (32-36); Mean Corpuscular Hgb 28.6 pg (27.0-32.0); Mean Corpuscular Volume 86.8 fL (80-94); Monocyte# 0.49 X10^3/uL; Monocyte% 4.4 % (0-10); Neutrophil % 86.7 % (47-70); Platelet Count 155 K/mm3 (150-450); RBC Distribution Width CV 15.2 % (11.6-14.6); Red Blood Count 3.64 M/mm3 (4.6-6.2); White Blood Count 11.2 K/mm3 (4.4-11.0)
[2017-06-14 04:06] LABS: POSITIVE COUNT NO; POSITIVE DIFFERENTIAL NO; POSITIVE MORPHOLOGY NO
[2017-06-14 04:23] LABS: ALB/GLOB Ratio 0.7 RATIO (0.9-2.4); AST(SGOT) 38 U/L (15-37); Alanine Aminotransfer ALT/SGPT 32 U/L (16-61); Albumin, Serum 2.7 g/dL (3.2-5.0); Alkaline Phosphatase 132 U/L (45-117); Anion Gap 12 (5-15); BUN 90 mg/dL (7-18); BUN/Creat Ratio 31.9 RATIO (10-20); Calcium,Total 7.6 mg/dL (8.5-10.1); Chloride 113 mmol/L (98-107); Creatinine, Serum 2.82 mg/dL (0.70-1.30); EST Glomerular Filtration Rate 25 mL/min (>60); Est Glom Filt Rate - Afr Amer 30 mL/min (>60); Estimated Creatinine Clearance 29.12 ml/min; Globulin 3.7 g/dL (2.2-4.2); Glucose 496 mg/dL (74-106); Potassium 3.5 mmol/L (3.5-5.1); Protein, Total 6.4 g/dL (6.4-8.2); Sodium Level 149 mmol/L (136-145)
[2017-06-14 05:08] LABS: HEPATITIS B SURFACE AG Negative (Negative); Hepatitis B Core Ab Total Negative (Negative)
[2017-06-14] MEDS: 0.9% NaCl Peripheral Flush Adult/Peds IV ×2 (05:32→07:35)
[2017-06-14] MEDS: Labetalol 100 MG/20 ML Vial 10 MG IV (05:32)
[2017-06-14] MEDS: Acetaminophen 650 MG/20 ML UDC NG (05:32)
[2017-06-14] MEDS: Phenytoin Na 100 MG/2 ML Vial IV (05:32)
[2017-06-14] MEDS: Vital AF 1.2 Cal Liquid 1,000 ML 60 ML GT ×2 (05:38→22:18)
--- NOTE | 2017-06-14 05:55 | RAD_ITS ---
STUDY: X-RAY CHEST REASON FOR EXAM: Male, 61 years old. INTUBATED SOB TECHNIQUE: COMPARISON: None. FINDINGS: An endotracheal tube is seen its tip is at 6.5 cm superior to the nikole. An enterogastric tube is seen with tip is in the stomach. Right-sided subclavian catheter is present with the tip in the proximal portion of the superior vena cava. Stable appearance of the right chest tube. Right-sided internal jugular venous catheter tip is in the proximal portion of the superior vena cava. Ill-defined airspace opacities are seen in the right and left lung bases, more prominent in the left lung lower lobe are improved since the previous study may represent bilateral pneumonia. There is no demonstrated pleural abnormality. Normal size heart. Normal mediastinum and christelle. Normal visualized pulmonary arteries. Normal visualized aortic arch and descending thoracic aorta. Normal visualized thoracic spine. Normal visualized ribs, clavicles, and shoulders. There is no demonstrated abnormality of the visualized soft tissue structures of the upper abdomen. RAD/Chest 1 View (Portable) IMPRESSION: Ill-defined airspace opacities are seen in the right and left lung bases are improved since the previous study may represent bilateral pneumonia. Electronically Signed: Sam Art MD at 5:57 EST Tel , Service support ,
[2017-06-14 05:56] LABS: Bedside Glucose 468 mg/dL (70-110)
--- NOTE | 2017-06-14 06:20 | PN_ITS ---
Subjective: The patient was seen and examined at the bedside this morning. Events from the last 24 hours have been reviewed. The patient is currently febrile with a T- max of 101.7?F. He remains hemodynamically stable with an FiO2 requirement of 45%. Chest tube remains in place with 35 mL's of output overnight. The patient did undergo his first hemodialysis session yesterday. Glucose is elevated this morning to 496. Objective: The patient's most recent lab work, culture data and imaging studies have all been personally reviewed. Sputum culture is currently pending. Urine and blood cultures have been unrevealing to date. Respiratory viral panel was negative. C. difficile and enteric bacteriology were negative. MRI brain revealed mild atrophy and periventricular white matter ischemic changes without evidence for acute infarction. EEG revealed the presence of generalized epileptiform discharges. Lower extremity Doppler studies were negative for the presence of a DVT. Surface echocardiogram revealed normal LV size and thickness with an ejection fraction of 65%. There was evidence of moderate RV dilation with mild to moderate global RV systolic dysfunction and a right ventricular systolic pressure estimated to be 72 mmHg. General: - - Remains intubated and mechanically ventilated. HEENT: Atraumatic, Normocephalic, Sluggish Pupils Oral: No Gingival or Mucosal Lesions/ Ulcerations, - - Endotracheal and OG tubes remain in place Neck: Supple, No Nodes, Trachea Midline, - - Right subclavian CVC and temporary hemodialysis catheter in place Lungs: No wheeze, No rales, Diminished, Rhonchi Cardiovascular: Normal S1, Normal S2, No murmurs, No rub noted, No Gallop, Tachycardic Abdomen: Bowel Sounds Present, Soft, Non Tender, Obese Extremities: No clubbing, No cyanosis, Edema Skin: - - No significant change from previous. Musculoskeletal: No Muscle Wasting Lymphatic: No Cervical, Supraclavicular, or Inguinal Adenopathy Neurological: - - Neurologically unchanged from previous. Vital Signs Temp Pulse Resp BP Pulse Ox 101.4 F H 122 H 37 H 168/69 H 95 06/14/17 04:00 06/14/17 04:00 06/14/17 04:00 06/14/17 04:00 06/14/17 04:00 Oxygen Delivery Method Mechanical Ventilator Weight: 274 lb 11.135 oz Body Mass Index (BMI) 39.2 Intake and Output for Last 24 Hours 06/12/17 06/13/17 06/14/17 23:59 23:59 23:59 Intake Total 2882 / 2882 6015.6 / 6015.6 1026 / 1026 Output Total 2580 / 2580 4840 / 4840 1385 / 1385 Balance 302 / 302 1175.6 / 1175.6 -359 / -359 Labs (Last 48 Hours) 06/12/17 06/12/17 06/12/17 11:00 17:15 23:55 WBC RBC Hgb Hct MCV MCH MCHC RDW RDW Differential Plt Count MPV Immature Gran % (Auto) Neut % (Auto) Lymph % (Auto) Barnes % (Auto) Eos % (Auto) Baso % (Auto) Absolute Neuts (auto) Absolute Lymphs (auto) Total Counted Specimen Type Sample Site pH Bicarbonate Actual POC Total CO2 Base Excess O2 Saturation O2 % ABG pCO2 ABG pO2 Respiration Rate O2 Delivery Device Minute Volume Vent Mode Tidal Volume POC PEEP Blood Gas Notified Whom Blood Gas Notified Time Sodium Potassium Chloride Carbon Dioxide Anion Gap BUN Creatinine Estim Creat Clear Calc Est GFR (MDRD) Af Amer Est GFR (MDRD) Non-Af BUN/Creatinine Ratio Glucose Calcium Phosphorus Magnesium Total Bilirubin AST ALT Alkaline Phosphatase Total Protein Albumin Globulin Albumin/Globulin Ratio Hep Bs Antigen Hep B Core Total Ab Hep B Core IgM Ab POC Glucose 329 H 325 H 414 H 06/13/17 06/13/17 06/13/17 04:07 04:07 05:24 WBC 12.3 H RBC 3.64 L Hgb 10.7 L Hct 31.4 L MCV 86.3 MCH 29.4 MCHC 34.1 RDW 15.0 H RDW Differential 45.1 H Plt Count 168 MPV 12.0 Immature Gran % (Auto) 0.200 Neut % (Auto) 87.4 H Lymph % (Auto) 7.7 L Barnes % (Auto) 4.7 Eos % (Auto) 0.0 Baso % (Auto) 0.0 Absolute Neuts (auto) 10.7 H Absolute Lymphs (auto) 0.95 Total Counted Not Reportable Specimen Type Sample Site pH Bicarbonate Actual POC Total CO2 Base Excess O2 Saturation O2 % ABG pCO2 ABG pO2 Respiration Rate O2 Delivery Device Minute Volume Vent Mode Tidal Volume POC PEEP Blood Gas Notified Whom Blood Gas Notified Time Sodium 146 H Potassium 3.4 L Chloride 111 H Carbon Dioxide 22.0 Anion Gap 13 BUN 108 H* Creatinine 4.18 H Estim Creat Clear Calc 19.65 Est GFR (MDRD) Af Amer 19 L Est GFR (MDRD) Non-Af 16 L BUN/Creatinine Ratio 25.8 H Glucose 435 H Calcium 7.4 L Phosphorus 4.1 Magnesium 2.0 Total Bilirubin 0.60 AST 51 H ALT 40 Alkaline Phosphatase 101 Total Protein 6.7 Albumin 2.8 L Globulin 3.9 Albumin/Globulin Ratio 0.7 L Hep Bs Antigen Hep B Core Total Ab Hep B Core IgM Ab POC Glucose 423 H 06/13/17 06/13/17 06/13/17 07:04 11:04 14:00 WBC RBC Hgb Hct MCV MCH MCHC RDW RDW Differential Plt Count MPV Immature Gran % (Auto) Neut % (Auto) Lymph % (Auto) Barnes % (Auto) Eos % (Auto) Baso % (Auto) Absolute Neuts (auto) Absolute Lymphs (auto) Total Counted Specimen Type AMADEO Sample Site OTHER pH 7.42 Bicarbonate Actual 20.4 L POC Total CO2 21 Base Excess -4 L O2 Saturation 94 L O2 % 50 ABG pCO2 31.7 L ABG pO2 69 L Respiration Rate 16 O2 Delivery Device Vent Minute Volume 19.00 Vent Mode VC+ Tidal Volume 550 POC PEEP 5 Blood Gas Notified Whom ICU MD Blood Gas Notified Time 703 Sodium Potassium Chloride Carbon Dioxide Anion Gap BUN Creatinine Estim Creat Clear Calc Est GFR (MDRD) Af Amer Est GFR (MDRD) Non-Af BUN/Creatinine Ratio Glucose Calcium Phosphorus Magnesium Total Bilirubin AST ALT Alkaline Phosphatase Total Protein Albumin Globulin Albumin/Globulin Ratio Hep Bs Antigen Pending Hep B Core Total Ab Pending Hep B Core IgM Ab Pending POC Glucose 453 H* 06/13/17 06/13/17 06/13/17 17:18 21:51 23:29 WBC RBC Hgb Hct MCV MCH MCHC RDW RDW Differential Plt Count MPV Immature Gran % (Auto) Neut % (Auto) Lymph % (Auto) Barnes % (Auto) Eos % (Auto) Baso % (Auto) Absolute Neuts (auto) Absolute Lymphs (auto) Total Counted Specimen Type Sample Site pH Bicarbonate Actual POC Total CO2 Base Excess O2 Saturation O2 % ABG pCO2 ABG pO2 Respiration Rate O2 Delivery Device Minute Volume Vent Mode Tidal Volume POC PEEP Blood Gas Notified Whom Blood Gas Notified Time Sodium Potassium Chloride Carbon Dioxide Anion Gap BUN Creatinine Estim Creat Clear Calc Est GFR (MDRD) Af Amer Est GFR (MDRD) Non-Af BUN/Creatinine Ratio Glucose Calcium Phosphorus Magnesium Total Bilirubin AST ALT Alkaline Phosphatase Total Protein Albumin Globulin Albumin/Globulin Ratio Hep Bs Antigen Hep B Core Total Ab Hep B Core IgM Ab POC Glucose 333 H 406 H 427 H 06/14/17 06/14/17 06/14/17 03:45 03:45 05:51 WBC 11.2 H RBC 3.64 L Hgb 10.4 L Hct 31.6 L MCV 86.8 MCH 28.6 MCHC 32.9 RDW 15.2 H RDW Differential 48.0 H Plt Count 155 MPV 11.0 Immature Gran % (Auto) 0.200 Neut % (Auto) 86.7 H Lymph % (Auto) 8.7 L Barnes % (Auto) 4.4 Eos % (Auto) 0.0 Baso % (Auto) 0.0 Absolute Neuts (auto) 9.7 H Absolute Lymphs (auto) 0.97 Total Counted Not Reportable Specimen Type Sample Site pH Bicarbonate Actual POC Total CO2 Base Excess O2 Saturation O2 % ABG pCO2 ABG pO2 Respiration Rate O2 Delivery Device Minute Volume Vent Mode Tidal Volume POC PEEP Blood Gas Notified Whom Blood Gas Notified Time Sodium 149 H Potassium 3.5 Chloride 113 H Carbon Dioxide 24.0 Anion Gap 12 BUN 90 H Creatinine 2.82 H Estim Creat Clear Calc 29.12 Est GFR (MDRD) Af Amer 30 L Est GFR (MDRD) Non-Af 25 L BUN/Creatinine Ratio 31.9 H Glucose 496 H* Calcium 7.6 L Phosphorus Magnesium Total Bilirubin 0.50 AST 38 H ALT 32 Alkaline Phosphatase 132 H Total Protein 6.4 Albumin 2.7 L Globulin 3.7 Albumin/Globulin Ratio 0.7 L Hep Bs Antigen Hep B Core Total Ab Hep B Core IgM Ab POC Glucose 468 H* Microbiology 06/12/17 15:00 Sputum, Induced/Lukens Gram Stain - Final 06/12/17 15:00 Sputum, Induced/Lukens Respiratory Culture - Preliminary Culture exhibits no growth. 06/10/17 23:20 Urine Catheter - Nino Urine Culture - Final Culture exhibits no growth. Clinical Impression(s) from Imaging Studies Chest X-Ray 06/10/17 16:15 IMPRESSION: Mild to moderate cardiomegaly. Interstitial edema. Lines as detailed above. Endotracheal tube is slightly high could be advanced 1 to 2 cm. Question left lower lobe pulmonary nodule versus summation of shadows. Possible nipple shadow. Recommend dedicated single chest x-ray when appropriate. Electronically Signed: Matilda Nguyen MD at 16:51 EST Tel , Service support , Chest X-Ray 06/10/17 18:05 IMPRESSION: There is a small pneumothorax along the periphery of the right lung base. This is likely due to minimally displaced rib fractures in the anterolateral aspects of the right fifth and sixth ribs rather than from central line placement. Follow-up films can be obtained. The tip of the right subclavian line is in the expected location of the mid to distal SVC. There is mild enlargement of the cardiac silhouette with mild edema. There is no obvious pleural effusion. N.B. : The above information has been verbally conveyed by Ana Laura Brown MD to Papo Taylor, Referring Physician, on 06/10/2017 19:21:19 (ET). Electronically Signed: Ana Laura Brown MD at 19:22 EST Tel Direct: [phone], Service support , N.B. : The above information has been verbally conveyed by Ana Laura Brown MD to Papo Taylor, Referring Physician, on 06/10/2017 19:21:19 (ET). Chest X-Ray 06/10/17 20:08 IMPRESSION: There is a stable appearance of the small pneumothorax in the periphery of the right lower chest. Adjacent subcutaneous emphysema has increased. There is mild enlargement of the cardiac silhouette with vascular congestion. There is no evidence of pleural effusion. The previously seen right rib fractures are not well seen on the current study. However fractures are now seen in the anterolateral left sixth rib and possibly lateral left fifth rib. Electronically Signed: Ana Laura Brown MD at 21:23 EST Tel Direct: [phone], Service support , Chest X-Ray 06/10/17 20:56 IMPRESSION: There has been resolution of the right pneumothorax after chest tube placement. There are no acute cardiopulmonary changes. Electronically Signed: Ana Laura Brown MD at 22:13 EST Tel Direct: [phone], Service support , Chest X-Ray 06/11/17 06:25 IMPRESSION: Right-sided chest tube, subcutaneous gas, no definitive visualized pneumothorax. The heart is enlarged. There is a widened appearance of the mediastinum which is likely due to positioning and aortic tortuosity. However, Recommend CT scan of the chest when appropriate to clarify. Lines as detailed above. The endotracheal tube is high 5.7 cm above the nikole and should be advanced 2 to 3 cm. Electronically Signed: Matilda Nguyen MD at 9:15 EST Tel , Service support , Chest X-Ray 06/11/17 12:11 IMPRESSION: Somewhat limited examination due to motion. Slightly prominent markings right lower lung probably exaggerated by motion patient's positioning. Early infiltrate is less likely. Overall no substantial change since previous examination. Electronically Signed: Ifeanyi Fajardo MD at 13:19 EST Tel , Service support , Brain CT 06/11/17 20:33 IMPRESSION: No acute intracranial abnormalities. Electronically Signed: Ana Laura Brown MD at 21:52 EST Tel Direct: [phone], Service support , Chest X-Ray 06/12/17 05:55 IMPRESSION: Improved aeration of both lungs. All the support tubes are unchanged. Electronically Signed: Matheus Vasquez MD at 11:48 EST Tel [phone], Service support , Brain MRI 06/12/17 14:19 IMPRESSION: Mild atrophy and periventricular white matter ischemic changes without evidence for acute infarct. Electronically Signed: Simone Briones MD at 23:19 EST , Service support , Chest X-Ray 06/13/17 05:55 IMPRESSION: Stable examination. All the support tubes are in good position. Electronically Signed: Matheus Vasquez MD at 8:02 EST Tel [phone], Service support , Chest X-Ray 06/13/17 12:36 IMPRESSION: Status post placement of a right-sided internal jugular venous catheter. The tip is in the proximal portion of the superior vena cava. Electronically Signed: Matheus Vasquez MD at 13:19 EST Tel [phone], Service support , Chest X-Ray 06/14/17 05:55 IMPRESSION: Ill-defined airspace opacities are seen in the right and left lung bases are improved since the previous study may represent bilateral pneumonia. Electronically Signed: Sam Art MD at 5:57 EST Tel , Service support , Assessment/Plan Active and Suspected Problems Pneumothorax, right (Acute) Non-STEMI (non-ST elevated myocardial infarction) (Acute) Encephalopathy (Acute) JULIO CESAR (acute kidney injury) (Acute) Community acquired pneumonia (Suspected) Acute renal failure (Acute) Septic shock (Acute) Lactic acidosis (Acute) Cardiopulmonary arrest (Acute) RECOMMENDATIONS: 1. Ongoing hemodialysis per nephrology recommendations. 2. Advance endotracheal tube 2-3 cm 3. Change Levemir to 20 units twice daily. Continue high intensity sliding scale coverage. 4. Decrease steroids from IV Solu-Medrol to prednisone 40 mg daily via NG tube 5. Continue to hold all sedating medications 6. Broaden antibiotics, given increasing fever curve. Obtain and resend blood cultures. 7. Chest tube management per surgery 8. Continue Dilantin and check levels per neurology recommendations 9. Check TSH and ammonia levels 10. Continue nicardipine for blood pressure control 11. Continue tube feeds 12. Continue subcu heparin and Pepcid for prophylaxis IMPRESSIONS: 1. Status post cardiopulmonary arrest with suspected primary pulmonary event Patient with reported protracted course at home. Patient was noncompliant with therapy. Continue with spontaneous breathing and awakening trials as tolerated. Continue to hold all sedating medications as tolerated. Chest tube remains in place and is being managed by surgery. Continue scheduled aerosol treatments. Antibiotics will be broadened, given climbing fever curve. 2. Traumatic right pneumothorax status post chest tube postop day #4 Right chest tube is stable. Subcutaneous emphysema appears to be stable at this time. We will continue to monitor closely. We will not initiate a heparin drip or Plavix therapy at this time given risk for bleeding complications. Patient does have multiple rib fractures noted on x-ray. Clinical suspicion for rib fracture secondary to CPR. 3. Acute on chronic combined respiratory failure Clinical suspicion for community-acquired pneumonia. Patient reportedly has a history of 2 L nasal cannula at baseline. Continue empiric antibiotics as noted above. IV steroids will be transitioned to prednisone via NG tube. 4. Septic shock secondary to CAP Patient initially on Levophed therapy transiently. Patient has improved at this time. Hemodynamics are stable off of vasopressor support. Lactate has normalized at this time. Continue antibiotics. 5. Encephalopathy Continue to hold all sedating medications at this time. Concern for underlying metabolic etiology versus anoxic insult, given the patient's renal insufficiency and worsening uremia. Nevertheless, EEG did reveal epileptiform discharges. MR head was unrevealing. Neurology is following. Consider initiating Keppra, given findings noted on EEG. The patient will receive his second hemodialysis session today. There has been no change in his neurological status to date. 6. Non-ST elevation VT Continue current medical management. Cardiology is following accordingly. 7. Acute renal failure Very little previous history is available for review. Patient did present with a creatinine of 5.56 indicating probable progressive renal failure over the past week. Patient does have casts on urinalysis indicating probable ATN. The patient was initially maintained on a bicarbonate drip. Throughout his hospital stay, the patient did develop worsening uremia, which led to the eventual initiation of hemodialysis. 8. Type 2 diabetes mellitus/uncontrolled hyperglycemia Continue tube feeds as ordered. Given ongoing hyperglycemia, will increase Levemir dosing to 20 units twice daily. Continue high intensity sliding scale coverage. Will decrease corticosteroid dose to prednisone 40 mg daily in hopes of improving the patient's hyperglycemia. 9. Coronary artery disease/hypertension/morbid obesity/anxiety/depression/TRAVON/ history of noncompliance Complicates care, management, recovery and prognosis. Nicardipine had to be initiated this morning due to persistently elevated blood pressure parameters. TIME: 50 minutes of critical care time, independent of procedures, was spent addressing the patient's acute cardiopulmonary arrest, traumatic right pneumothorax, acute on chronic combined respiratory failure, septic shock secondary to probable CAP, encephalopathy, NSTEMI, acute renal failure, review of all data and collaboration with the care team. ([id number]) Code Visit 9xxxx: [id number] Critical care first hour
--- NOTE | 2017-06-14 06:46 | PCM.PN.HOSP ---
Patient Problems: Active and Suspected Problems Pneumothorax, right (Acute) Non-STEMI (non-ST elevated myocardial infarction) (Acute) Encephalopathy (Acute) JULIO CESAR (acute kidney injury) (Acute) Community acquired pneumonia (Suspected) Acute renal failure (Acute) Septic shock (Acute) Lactic acidosis (Acute) Cardiopulmonary arrest (Acute) Subjective: Patient s/p HD access placement and HD initiation 06/13/17. Patient overnight with continued elevated temperatures, antibiotic therapy broadened per ICU, blood cultures sent again and pending. Remains unresponsive to stimuli. Still notable > [address], continued to suction. Discussed patient with ICU staff and given current presentation and per recommendations of neurology would plan to repeat imaging of the brain as well as repeat EEG in 24-48 hours. Patient current appearance with poor prognosis despite improvement renal function w/ HD day prior. Objective: Physical Examination: General: Does not awaken to stimuli, not alert, not oriented, sedated, intubated, NAD, opens eyes randomly still. Skin: normal color, turgor, no icterus, cyanosis, abrasions to BL hands. HEENT: AT/NC, EOM unable to be tested, pupils responsive, still sluggish, intubated, sedated, random eye opening, does not blink to threat. Lungs: Diminished bases, remains coarse, no wheezing currently, symmetric rise, intubated, sedated, R sided CT in place still to suction (>150 cc output/24 hours). Heart: Mildly tachycardic with regular rhythm; no gallop, rub audible. Abdomen: soft, obese, NTTP, ND, mildly hypoactive BS. Extremities: no cyanosis, clubbing, BL LE foot-ankle edema, mild improved from day prior. Neurological: Does not awaken to stimuli, not alert, not oriented, sedated, intubated, NAD; cognitive function NOT baseline intact; pupils equally not markedly reactive to light and accomodation but sluggish; cranial nerves II-XII unable to be assessed, strength unable to be assessed, does not blink to threat, corneal and gag reflex remain intact. Psychiatric: affect appears flat, sedate, no acute evidence of depressive or anxiety feelings. Vitals/I&O's: Vital Signs Temp Pulse Resp BP Pulse Ox 101.6 F H 99 36 H 148/56 H 94 06/14/17 06:00 06/14/17 06:00 06/14/17 06:00 06/14/17 06:00 06/14/17 06:00 Oxygen Delivery Method Mechanical Ventilator Weight: 274 lb 11.135 oz Body Mass Index (BMI) 39.2 Intake and Output for Last 24 Hours 06/12/17 06/13/17 06/14/17 23:59 23:59 23:59 Intake Total 2882 / 2882 6015.6 / 6015.6 1026 / 1026 Output Total 2580 / 2580 4840 / 4840 1385 / 1385 Balance 302 / 302 1175.6 / 1175.6 -359 / -359 Microbiology Past 72 Hours 06/12/17 15:00 Sputum, Induced/Lukens Gram Stain - Final 06/12/17 15:00 Sputum, Induced/Lukens Respiratory Culture - Preliminary Culture exhibits no growth. 06/10/17 23:20 Urine Catheter - Nino Urine Culture - Final Culture exhibits no growth. 06/11/17 08:05 Mucosa - Nasopharyngeal Respiratory Panel (PCR) - Final 06/10/17 20:00 Stool Enteric Bacteriology - Final Laboratory Results 06/13/17 07:04: Specimen Type AMADEO, Sample Site OTHER, pH 7.42, Bicarbonate Actual 20.4 L, POC Total CO2 21, Base Excess -4 L, O2 Saturation 94 L, O2 % 50, ABG pCO2 31.7 L, ABG pO2 69 L, Respiration Rate 16, O2 Delivery Device Vent, Minute Volume 19.00, Vent Mode VC+, Tidal Volume 550, POC PEEP 5, Blood Gas Notified Whom ICU , Blood Gas Notified Time 703 06/13/17 11:04: POC Glucose 453 H* 06/13/17 14:00: Hep Bs Antigen Pending, Hep B Core Total Ab Pending, Hep B Core IgM Ab Pending 06/13/17 17:18: POC Glucose 333 H 06/13/17 21:51: POC Glucose 406 H 06/13/17 23:29: POC Glucose 427 H 06/14/17 03:45: WBC 11.2 H, RBC 3.64 L, Hgb 10.4 L, Hct 31.6 L, MCV 86.8, MCH 28.6, MCHC 32.9, RDW 15.2 H, RDW Differential 48.0 H, Plt Count 155, MPV 11.0, Immature Gran % (Auto) 0.200, Neut % (Auto) 86.7 H, Lymph % (Auto) 8.7 L, Charlton % (Auto) 4.4, Eos % (Auto) 0.0, Baso % (Auto) 0.0, Absolute Neuts (auto) 9.7 H, Absolute Lymphs (auto) 0.97, Total Counted Not Reportable 06/14/17 03:45: Sodium 149 H, Potassium 3.5, Chloride 113 H, Carbon Dioxide 24.0, Anion Gap 12, BUN 90 H, Creatinine 2.82 H, Estim Creat Clear Calc 29.12, Est GFR (MDRD) Af Amer 30 L, Est GFR (MDRD) Non-Af 25 L, BUN/Creatinine Ratio 31.9 H, Glucose 496 H*, Calcium 7.6 L, Total Bilirubin 0.50, AST 38 H, ALT 32, Alkaline Phosphatase 132 H, Total Protein 6.4, Albumin 2.7 L, Globulin 3.7, Albumin/Globulin Ratio 0.7 L 06/14/17 05:51: POC Glucose 468 H* Current Medications Acetaminophen (Tylenol Liquid) 650 mg NG Q4H PRN PRN PRN Reason: FEVER Last Admin: 06/14/17 05:32 Dose: 650 mg Albuterol/Ipratropium (Duoneb) 3 ml INHALATION Q6H.RT [facility] Last Admin: 06/14/17 06:45 Dose: 3 ml Aspirin (Aspirin, Baby) 81 mg GT DAILY@0800 [facility] Last Admin: 06/13/17 08:17 Dose: 81 mg Chlorhexidine Gluconate () 15 ml PO BID [facility] Last Admin: 06/13/17 21:41 Dose: 15 ml Chlorhexidine Gluconate () 1 each TOPICAL DAILY [facility] Last Admin: 06/13/17 01:57 Dose: 1 each Dextrose (D50w Syringe) 0 gm IV X1 PRN; Protocol PRN Reason: Hypoglycemia Famotidine (Pepcid) 20 mg GT DAILY [facility] Last Admin: 06/13/17 08:17 Dose: 20 mg Glucagon () 1 mg IM .X1 PRN PRN Reason: Hypoglycemia Heparin Sodium (Porcine) (Heparin Na) 5,000 unit SC Q8 [facility] Last Admin: 06/14/17 05:32 Dose: 5,000 u Sodium Chloride () 250 mls @ 15 mls/hr IV .[id number] PRN PRN Reason: SALINE FLUSH Sodium Chloride () 1,000 mls @ 1 mls/hr IV .Q48H PRN PRN Reason: SALINE FLUSH Last Admin: 06/13/17 05:32 Dose: 1 mls/hr Nicardipine HCl 25 mg/ Sodium (Chloride) 250 mls @ 50 mls/hr IV .Q5H [facility]ARA PRN Reason: 5 MG/HR Last Admin: 06/14/17 03:37 Dose: 50 mls/hr Ceftriaxone Sodium 2 gm/ (Sodium Chloride) 50 mls @ 100 mls/hr IV Q24 [facility] Last Admin: 06/13/17 09:09 Dose: 100 mls/hr Enteral Nutritional Formula (Vital Af 1.2 Christopher Liquid) 1,000 mls @ 60 mls/hr GT .[id number] [facility]ARA Last Admin: 06/14/17 05:38 Dose: 60 mls/hr Insulin Aspart (Novolog Flexpen (Bkc)) 0 units SC Q6 [facility]ARA PRN Reason: Protocol Insulin Detemir (Levemir (Bkc)) 30 units SC BID [facility] Phenytoin Sodium (Dilantin) 100 mg IV Q8 [facility] Last Admin: 06/14/17 05:32 Dose: 100 mg Prednisone (Prednisone) 40 mg GT DAILY@0800 [facility]ARA Sodium Chloride () 5 - 30 ml IV UD PRN PRN Reason: SALINE FLUSH Last Admin: 06/14/17 05:32 Dose: 30 ml Sodium Chloride () 10 - 40 ml IV UD PRN PRN Reason: MULTILUMEN/HICMAN CATH FLUSH Assessment/Plan Active and Suspected Problems Pneumothorax, right (Acute) Non-STEMI (non-ST elevated myocardial infarction) (Acute) Encephalopathy (Acute) JULIO CESAR (acute kidney injury) (Acute) Community acquired pneumonia (Suspected) Acute renal failure (Acute) Septic shock (Acute) Lactic acidosis (Acute) Cardiopulmonary arrest (Acute) The patient is a 61 y/o M w/ PMHx: CAD, HTN, HLD, Depression, Hx CVA, Diabetes mellitus type II, Obesity, Chronic COPD, Chronic Hypoxic Respiratory Failure, Tobacco use who presents to the [facility] ED on 06/10/17 with respiratory and cardiac arrest, suspected primarily respiratory as initiating factor. (1) Cardiopulmonary Arrest W/ ? Post-Event Seizure Activity: Suspected initial etiology was pulmonary, s/p CPR as noted, initially placed on pressors, off pressors now, BP improved, cardiac enzymes elevated, EKGs obtained serially, NSTEMI Dx, deferred chemoprophylaxis secondary to possibility of bleeding given notable fx injuries s/p CPR, maintained on IV abx and IV steroids for concurrent possible PNA and COPD exacerbation. ECHO ordered, pending. 06/11/17 decreased mental status, unable to withdraw to stimuli now, suspect vegetative status. 06/11/17 MRI brain without acute evidence of infarct. 06/11/17 EEG which was abnormal with generalized epileptiform discharges which in the setting of recent cardiac arrest portends poor prognosis. DVT BL LE with no evidence DVT. ECHO 06/11/17 with EF 65%, moderately dilated RV, mild TVI, RVSP 72 mmHg, severe pulmonary HTN. Neurology consulted and following, still has minimal spontaneous eye movements, sluggish pupillary response, corneal/conjunctival and gag reflex present, but no spontaneous or purposeful movement. 06/13/17 initiated initially keppra, but discussed with Neurology and transitioned to Dilantin 100 mg IV q 8 hours given planned HD start per Nephrology. Plan repeat brain imaging and EEG in 24-48 hours per Neurology recommendations. Once these have resulted will need to consider hospice/withdraw versus trach/peg and LTAC. (2) Lactic acidosis/septic shock w/ ongoing Fevers: Secondary to CPA, PNA, IVFs in the ED, pressors initially, LA normalized. Bld, UCx, Sputum Cx obtained. C-diff negative. Continued IV abx therapy rocephin per ICU with transition from initial levaquin, noted IV Vanc transiently, ongoing fevers suspected secondary to neurological etiology; however, cannot rule out additional infectious component, repeat Bld Cx pending per ICU physician direction. 06/10/17 Bld Cx NGTS, stool cultures unremarkable, Sputum Cx initial NG. (3) Acute NSTEMI: In the setting of acute cardiopulmonary arrest, EKG in ED w/ RBBB, CXR w/ fx ribs, displaced and ? R sided PNA, trop trend <0.02-->0.22-->0.30-->0.34. Will maintain on a monitored bed, deferred heparin drip secondary to concern for possible bleeding w/ recent rib fx. Continue medical management w/ asa, BB, not on statin. Cardiology consulted, following. (4) Acute on Chronic Hypoxic and Hypercarbic Respiratory Failure on Chronic Hypoxic Respiratory Failure secondary to Possible R Sided CAP PNA, Aspiration w/ Acute on Chronic COPD Exacerbation: CXR w/ with iatrogenic displaced R 5th-6th rib fx, CT placement, chronic COPD changes, R sided PNA, intubated, sedated, ATC duonebs, PRN albuterol, IV methylprednisolone-->prednisone, HOB, IS parameters, IV Levaquin-->06/13/17 transitioned to Rocephin given ongoing fevers, per ICU physician with unremarkable initial sputum cultures, respiratory panel negative. (5) Acute kidney injury: Secondary to hypoperfusion, cardiopulmonary arrest, likely ATN thus would expect very slow improvement of function. Initiated upon admission on bicarbonate and also given kayexelate secondary to hyperkalemia which has resolved. 06/02/17 d/c bicarbonate drip. UA w/ casts. Admission BUN/Cr 80/5.56, prior baseline creatinine unclear but denied CKD. Hydrated, pressors initially, trending function, 06/12/17 BUN/Cr 94/5.12-->06/13/17 BUN/Cr 108/4.18. Monitor UOP, ongoing at this time. Given continued FULL CODE status, uremic status, Nephrology consulted, decision for initiation dialysis with access placed 06/13/17 and session x 1, 06/14/17 BUN/Cr 90/2.82. (6) Suspected Iatrogenic R sided PTX: Possibly secondary to CPR w/ R sided rib fractures but also R sided SC placed in the field. Films w displaced fractures of the right fifth and sixth ribs. Emergent chest tubed placement performed. Surgery following, management per Surgery, continued to suction given continued 06/14/17 > 150 cc output. (7) Hypertension, Uncontrolled: 06/12/17 onset notable hypertension, uncontrolled, 06/12/17 AM initiated on nicardipine drip per ICU, improved BP although intermittent increased pressures, maintained on drip. (8) CAD: Will continue home regimen asa, IV BB. Holding statin given status. (9) Diabetes mellitus type II w/ Hyperglycemia: Hold oral home regimen, NPO status, scheduled insulin with notable hyperglycemia, increase levemir given ongoing 300-400, accu checks w/ ISS. (10) Hx CVA Prior: Noted BL LE weakness, unclear extent per , maintain on asa, IV BB as noted, not on statin. Neurology consulted, MRI, EEG as noted. (11) GERD: Famotidine. (12) Obesity: If appropriate status, will encourage weight loss and lifestyle changes, nutrition consulted. (13) Tobacco Abuse: If appropriate will encourage cessation, inpatient consultation per RT once appropriate if able, NR if desired. (14) TRAVON: On CPAP q HS outpatient. (15) DVT Prophylaxis: SCDs, heparin. Code Visit Inpatient E&M: 26501 Subs Hosp L3
--- NOTE | 2017-06-14 06:54 | PN_ITS ---
Patient Problems: Active and Suspected Problems Pneumothorax, right (Acute) Non-STEMI (non-ST elevated myocardial infarction) (Acute) Encephalopathy (Acute) JULIO CESAR (acute kidney injury) (Acute) Community acquired pneumonia (Suspected) Acute renal failure (Acute) Septic shock (Acute) Lactic acidosis (Acute) Cardiopulmonary arrest (Acute) Subjective: Patient s/p HD access placement and HD initiation 06/13/17. Patient overnight with continued elevated temperatures, antibiotic therapy broadened per ICU, blood cultures sent again and pending. Remains unresponsive to stimuli. Still notable > [address], continued to suction. Discussed patient with ICU staff and given current presentation and per recommendations of neurology would plan to repeat imaging of the brain as well as repeat EEG in 24-48 hours. Patient current appearance with poor prognosis despite improvement renal function w/ HD day prior. Objective: Physical Examination: General: Does not awaken to stimuli, not alert, not oriented, sedated, intubated , NAD, opens eyes randomly still. Skin: normal color, turgor, no icterus, cyanosis, abrasions to BL hands. HEENT: AT/NC, EOM unable to be tested, pupils responsive, still sluggish, intubated, sedated, random eye opening, does not blink to threat. Lungs: Diminished bases, remains coarse, no wheezing currently, symmetric rise, intubated, sedated, R sided CT in place still to suction (>150 cc output/24 hours). Heart: Mildly tachycardic with regular rhythm; no gallop, rub audible. Abdomen: soft, obese, NTTP, ND, mildly hypoactive BS. Extremities: no cyanosis, clubbing, BL LE foot-ankle edema, mild improved from day prior. Neurological: Does not awaken to stimuli, not alert, not oriented, sedated, intubated, NAD; cognitive function NOT baseline intact; pupils equally not markedly reactive to light and accomodation but sluggish; cranial nerves II-XII unable to be assessed, strength unable to be assessed, does not blink to threat , corneal and gag reflex remain intact. Psychiatric: affect appears flat, sedate, no acute evidence of depressive or anxiety feelings. Vitals/I&O's: Vital Signs Temp Pulse Resp BP Pulse Ox 101.6 F H 99 36 H 148/56 H 94 06/14/17 06:00 06/14/17 06:00 06/14/17 06:00 06/14/17 06:00 06/14/17 06:00 Oxygen Delivery Method Mechanical Ventilator Weight: 274 lb 11.135 oz Body Mass Index (BMI) 39.2 Intake and Output for Last 24 Hours 06/12/17 06/13/17 06/14/17 23:59 23:59 23:59 Intake Total 2882 / 2882 6015.6 / 6015.6 1026 / 1026 Output Total 2580 / 2580 4840 / 4840 1385 / 1385 Balance 302 / 302 1175.6 / 1175.6 -359 / -359 Microbiology Past 72 Hours 06/12/17 15:00 Sputum, Induced/Lukens Gram Stain - Final 06/12/17 15:00 Sputum, Induced/Lukens Respiratory Culture - Preliminary Culture exhibits no growth. 06/10/17 23:20 Urine Catheter - Nino Urine Culture - Final Culture exhibits no growth. 06/11/17 08:05 Mucosa - Nasopharyngeal Respiratory Panel (PCR) - Final 06/10/17 20:00 Stool Enteric Bacteriology - Final Laboratory Results 06/13/17 07:04: Specimen Type AMADEO, Sample Site OTHER, pH 7.42, Bicarbonate Actual 20.4 L, POC Total CO2 21, Base Excess -4 L, O2 Saturation 94 L, O2 % 50, ABG pCO2 31.7 L, ABG pO2 69 L, Respiration Rate 16, O2 Delivery Device Vent, Minute Volume 19.00, Vent Mode VC+, Tidal Volume 550, POC PEEP 5, Blood Gas Notified Whom ICU , Blood Gas Notified Time 703 06/13/17 11:04: POC Glucose 453 H* 06/13/17 14:00: Hep Bs Antigen Pending, Hep B Core Total Ab Pending, Hep B Core IgM Ab Pending 06/13/17 17:18: POC Glucose 333 H 06/13/17 21:51: POC Glucose 406 H 06/13/17 23:29: POC Glucose 427 H 06/14/17 03:45: WBC 11.2 H, RBC 3.64 L, Hgb 10.4 L, Hct 31.6 L, MCV 86.8, MCH 28.6, MCHC 32.9, RDW 15.2 H, RDW Differential 48.0 H, Plt Count 155, MPV 11.0, Immature Gran % (Auto) 0.200, Neut % (Auto) 86.7 H, Lymph % (Auto) 8.7 L, [place] % (Auto) 4.4, Eos % (Auto) 0.0, Baso % (Auto) 0.0, Absolute Neuts (auto) 9.7 H, Absolute Lymphs (auto) 0.97, Total Counted Not Reportable 06/14/17 03:45: Sodium 149 H, Potassium 3.5, Chloride 113 H, Carbon Dioxide 24.0 , Anion Gap 12, BUN 90 H, Creatinine 2.82 H, Estim Creat Clear Calc 29.12, Est GFR (MDRD) Af Amer 30 L, Est GFR (MDRD) Non-Af 25 L, BUN/Creatinine Ratio 31.9 H , Glucose 496 H*, Calcium 7.6 L, Total Bilirubin 0.50, AST 38 H, ALT 32, Alkaline Phosphatase 132 H, Total Protein 6.4, Albumin 2.7 L, Globulin 3.7, Albumin/Globulin Ratio 0.7 L 06/14/17 05:51: POC Glucose 468 H* Current Medications Acetaminophen (Tylenol Liquid) 650 mg NG Q4H PRN PRN PRN Reason: FEVER Last Admin: 06/14/17 05:32 Dose: 650 mg Albuterol/Ipratropium (Duoneb) 3 ml INHALATION Q6H.RT [facility] Last Admin: 06/14/17 06:45 Dose: 3 ml Aspirin (Aspirin, Baby) 81 mg GT DAILY@0800 [facility] Last Admin: 06/13/17 08:17 Dose: 81 mg Chlorhexidine Gluconate () 15 ml PO BID [facility] Last Admin: 06/13/17 21:41 Dose: 15 ml Chlorhexidine Gluconate () 1 each TOPICAL DAILY [facility] Last Admin: 06/13/17 01:57 Dose: 1 each Dextrose (D50w Syringe) 0 gm IV X1 PRN; Protocol PRN Reason: Hypoglycemia Famotidine (Pepcid) 20 mg GT DAILY [facility] Last Admin: 06/13/17 08:17 Dose: 20 mg Glucagon () 1 mg IM .X1 PRN PRN Reason: Hypoglycemia Heparin Sodium (Porcine) (Heparin Na) 5,000 unit SC Q8 [facility] Last Admin: 06/14/17 05:32 Dose: 5,000 u Sodium Chloride () 250 mls @ 15 mls/hr IV .[id number] PRN PRN Reason: SALINE FLUSH Sodium Chloride () 1,000 mls @ 1 mls/hr IV .Q48H PRN PRN Reason: SALINE FLUSH Last Admin: 06/13/17 05:32 Dose: 1 mls/hr Nicardipine HCl 25 mg/ Sodium (Chloride) 250 mls @ 50 mls/hr IV .Q5H [facility] PRN Reason: 5 MG/HR Last Admin: 06/14/17 03:37 Dose: 50 mls/hr Ceftriaxone Sodium 2 gm/ (Sodium Chloride) 50 mls @ 100 mls/hr IV Q24 [facility] Last Admin: 06/13/17 09:09 Dose: 100 mls/hr Enteral Nutritional Formula (Vital Af 1.2 Christopher Liquid) 1,000 mls @ 60 mls/hr GT .[id number] [facility] Last Admin: 06/14/17 05:38 Dose: 60 mls/hr Insulin Aspart (Novolog Flexpen (Bkc)) 0 units SC Q6 [facility] PRN Reason: Protocol Insulin Detemir (Levemir (Bkc)) 30 units SC BID [facility] Phenytoin Sodium (Dilantin) 100 mg IV Q8 [facility] Last Admin: 06/14/17 05:32 Dose: 100 mg Prednisone (Prednisone) 40 mg GT DAILY@0800 [facility] Sodium Chloride () 5 - 30 ml IV UD PRN PRN Reason: SALINE FLUSH Last Admin: 06/14/17 05:32 Dose: 30 ml Sodium Chloride () 10 - 40 ml IV UD PRN PRN Reason: MULTILUMEN/HICMAN CATH FLUSH Assessment/Plan Active and Suspected Problems Pneumothorax, right (Acute) Non-STEMI (non-ST elevated myocardial infarction) (Acute) Encephalopathy (Acute) JULIO CESAR (acute kidney injury) (Acute) Community acquired pneumonia (Suspected) Acute renal failure (Acute) Septic shock (Acute) Lactic acidosis (Acute) Cardiopulmonary arrest (Acute) The patient is a 61 y/o M w/ PMHx: CAD, HTN, HLD, Depression, Hx CVA, Diabetes mellitus type II, Obesity, Chronic COPD, Chronic Hypoxic Respiratory Failure, Tobacco use who presents to the [facility] ED on 06/10/17 with respiratory and cardiac arrest, suspected primarily respiratory as initiating factor. (1) Cardiopulmonary Arrest W/ ? Post-Event Seizure Activity: Suspected initial etiology was pulmonary, s/p CPR as noted, initially placed on pressors, off pressors now, BP improved, cardiac enzymes elevated, EKGs obtained serially, NSTEMI Dx, deferred chemoprophylaxis secondary to possibility of bleeding given notable fx injuries s/p CPR, maintained on IV abx and IV steroids for concurrent possible PNA and COPD exacerbation. ECHO ordered, pending. 06/11/17 decreased mental status, unable to withdraw to stimuli now, suspect vegetative status. 06/11/17 MRI brain without acute evidence of infarct. 06/11/17 EEG which was abnormal with generalized epileptiform discharges which in the setting of recent cardiac arrest portends poor prognosis. DVT BL LE with no evidence DVT. ECHO 06/11/17 with EF 65%, moderately dilated RV, mild TVI, RVSP 72 mmHg, severe pulmonary HTN. Neurology consulted and following, still has minimal spontaneous eye movements, sluggish pupillary response, corneal/conjunctival and gag reflex present, but no spontaneous or purposeful movement. 06/13/17 initiated initially keppra, but discussed with Neurology and transitioned to Dilantin 100 mg IV q 8 hours given planned HD start per Nephrology. Plan repeat brain imaging and EEG in 24-48 hours per Neurology recommendations. Once these have resulted will need to consider hospice/withdraw versus trach/peg and LTAC. (2) Lactic acidosis/septic shock w/ ongoing Fevers: Secondary to CPA, PNA, IVFs in the ED, pressors initially, LA normalized. Bld, UCx, Sputum Cx obtained. C- diff negative. Continued IV abx therapy rocephin per ICU with transition from initial levaquin, noted IV Vanc transiently, ongoing fevers suspected secondary to neurological etiology; however, cannot rule out additional infectious component, repeat Bld Cx pending per ICU physician direction. 06/10/17 Bld Cx NGTS, stool cultures unremarkable, Sputum Cx initial NG. (3) Acute NSTEMI: In the setting of acute cardiopulmonary arrest, EKG in ED w/ RBBB, CXR w/ fx ribs, displaced and ? R sided PNA, trop trend <0.02-->0.22--> 0.30-->0.34. Will maintain on a monitored bed, deferred heparin drip secondary to concern for possible bleeding w/ recent rib fx. Continue medical management w / asa, BB, not on statin. Cardiology consulted, following. (4) Acute on Chronic Hypoxic and Hypercarbic Respiratory Failure on Chronic Hypoxic Respiratory Failure secondary to Possible R Sided CAP PNA, Aspiration w / Acute on Chronic COPD Exacerbation: CXR w/ with iatrogenic displaced R 5th- 6th rib fx, CT placement, chronic COPD changes, R sided PNA, intubated, sedated , ATC duonebs, PRN albuterol, IV methylprednisolone-->prednisone, HOB, IS parameters, IV Levaquin-->06/13/17 transitioned to Rocephin given ongoing fevers , per ICU physician with unremarkable initial sputum cultures, respiratory panel negative. (5) Acute kidney injury: Secondary to hypoperfusion, cardiopulmonary arrest, likely ATN thus would expect very slow improvement of function. Initiated upon admission on bicarbonate and also given kayexelate secondary to hyperkalemia which has resolved. 06/02/17 d/c bicarbonate drip. UA w/ casts. Admission BUN/Cr 80/5.56, prior baseline creatinine unclear but denied CKD. Hydrated, pressors initially, trending function, 06/12/17 BUN/Cr 94/5.12-->06/13/17 BUN/Cr 108/4.18. Monitor UOP, ongoing at this time. Given continued FULL CODE status, uremic status, Nephrology consulted, decision for initiation dialysis with access placed 06/13/17 and session x 1, 06/14/17 BUN/Cr 90/2.82. (6) Suspected Iatrogenic R sided PTX: Possibly secondary to CPR w/ R sided rib fractures but also R sided SC placed in the field. Films w displaced fractures of the right fifth and sixth ribs. Emergent chest tubed placement performed. Surgery following, management per Surgery, continued to suction given continued 06/14/17 > 150 cc output. (7) Hypertension, Uncontrolled: 06/12/17 onset notable hypertension, uncontrolled , 06/12/17 AM initiated on nicardipine drip per ICU, improved BP although intermittent increased pressures, maintained on drip. (8) CAD: Will continue home regimen asa, IV BB. Holding statin given status. (9) Diabetes mellitus type II w/ Hyperglycemia: Hold oral home regimen, NPO status, scheduled insulin with notable hyperglycemia, increase levemir given ongoing 300-400, accu checks w/ ISS. (10) Hx CVA Prior: Noted BL LE weakness, unclear extent per , maintain on asa, IV BB as noted, not on statin. Neurology consulted, MRI, EEG as noted. (11) GERD: Famotidine. (12) Obesity: If appropriate status, will encourage weight loss and lifestyle changes, nutrition consulted. (13) Tobacco Abuse: If appropriate will encourage cessation, inpatient consultation per RT once appropriate if able, NR if desired. (14) TRAVON: On CPAP q HS outpatient. (15) DVT Prophylaxis: SCDs, heparin. Code Visit Inpatient E&M: 41336 Subs Hosp L3
[2017-06-14 07:32] LABS: Phenytoin (Dilantin) Level 7.8 mL (10.0-20.0)
[2017-06-14] MEDS: Aspirin 81 MG TAB.CHEW GT (07:49)
[2017-06-14] MEDS: Famotidine 20 MG Tablet GT (07:49)
--- NOTE | 2017-06-14 08:31 | PCM.PN.SRG ---
Patient Problems: Active and Suspected Problems Pneumothorax, right (Acute) Non-STEMI (non-ST elevated myocardial infarction) (Acute) Encephalopathy (Acute) JULIO CESAR (acute kidney injury) (Acute) Community acquired pneumonia (Suspected) Acute renal failure (Acute) Septic shock (Acute) Lactic acidosis (Acute) Cardiopulmonary arrest (Acute) Subjective: No changes overnight. - Physical Exam General: - - Intubated and unresponsive Lungs: - - Chest tube is serosanguineous drainage. No air leak. Vital Signs Temp Pulse Resp BP Pulse Ox 101.6 F H 108 H 32 H 151/60 H 94 06/14/17 06:00 06/14/17 08:00 06/14/17 06:47 06/14/17 08:00 06/14/17 06:47 Oxygen Delivery Method Mechanical Ventilator Weight: 274 lb 11.135 oz Body Mass Index (BMI) 39.2 Intake and Output for Last 24 Hours 06/12/17 06/13/17 06/14/17 23:59 23:59 23:59 Intake Total 2882 / 2882 6015.6 / 6015.6 1026 / 1026 Output Total 2580 / 2580 4840 / 4840 1385 / 1385 Balance 302 / 302 1175.6 / 1175.6 -359 / -359 Microbiology Past 72 Hours 06/12/17 15:00 Gram Stain - Final Sputum, Induced/Lukens Respiratory Culture - Preliminary Culture exhibits no growth. 06/10/17 23:20 Urine Culture - Final Urine Catheter - Nino Culture exhibits no growth. 06/11/17 08:05 Respiratory Panel (PCR) - Final Mucosa - Nasopharyngeal 06/10/17 20:00 Enteric Bacteriology - Final Stool Laboratory Tests Past 24 Hrs 06/13/17 06/14/17 06/14/17 14:00 03:45 03:45 WBC 11.2 H RBC 3.64 L Hgb 10.4 L Hct 31.6 L MCV 86.8 MCH 28.6 MCHC 32.9 RDW 15.2 H RDW Differential 48.0 H Plt Count 155 MPV 11.0 Immature Gran % (Auto) 0.200 Neut % (Auto) 86.7 H Lymph % (Auto) 8.7 L [place] % (Auto) 4.4 Eos % (Auto) 0.0 Baso % (Auto) 0.0 Absolute Neuts (auto) 9.7 H Absolute Lymphs (auto) 0.97 Total Counted Not Reportable Sodium 149 H Potassium 3.5 Chloride 113 H Carbon Dioxide 24.0 Anion Gap 12 BUN 90 H Creatinine 2.82 H Estim Creat Clear Calc 29.12 Est GFR (MDRD) Af Amer 30 L Est GFR (MDRD) Non-Af 25 L BUN/Creatinine Ratio 31.9 H Glucose 496 H* Calcium 7.6 L Total Bilirubin 0.50 AST 38 H ALT 32 Alkaline Phosphatase 132 H Ammonia Total Protein 6.4 Albumin 2.7 L Globulin 3.7 Albumin/Globulin Ratio 0.7 L TSH Phenytoin Free Phenytoin Hep Bs Antigen Pending Hep B Core Total Ab Pending Hep B Core IgM Ab Pending 06/14/17 06/14/17 06/14/17 06:50 06:50 06:50 WBC RBC Hgb Hct MCV MCH MCHC RDW RDW Differential Plt Count MPV Immature Gran % (Auto) Neut % (Auto) Lymph % (Auto) [place] % (Auto) Eos % (Auto) Baso % (Auto) Absolute Neuts (auto) Absolute Lymphs (auto) Total Counted Sodium Potassium Chloride Carbon Dioxide Anion Gap BUN Creatinine Estim Creat Clear Calc Est GFR (MDRD) Af Amer Est GFR (MDRD) Non-Af BUN/Creatinine Ratio Glucose Calcium Total Bilirubin AST ALT Alkaline Phosphatase Ammonia 60.0 H Total Protein Albumin Globulin Albumin/Globulin Ratio TSH 0.20 L Phenytoin 7.8 L Free Phenytoin Hep Bs Antigen Hep B Core Total Ab Hep B Core IgM Ab 06/14/17 06:50 WBC RBC Hgb Hct MCV MCH MCHC RDW RDW Differential Plt Count MPV Immature Gran % (Auto) Neut % (Auto) Lymph % (Auto) [place] % (Auto) Eos % (Auto) Baso % (Auto) Absolute Neuts (auto) Absolute Lymphs (auto) Total Counted Sodium Potassium Chloride Carbon Dioxide Anion Gap BUN Creatinine Estim Creat Clear Calc Est GFR (MDRD) Af Amer Est GFR (MDRD) Non-Af BUN/Creatinine Ratio Glucose Calcium Total Bilirubin AST ALT Alkaline Phosphatase Ammonia Total Protein Albumin Globulin Albumin/Globulin Ratio TSH Phenytoin Free Phenytoin Pending Hep Bs Antigen Hep B Core Total Ab Hep B Core IgM Ab POC Glucose 06/14/17 06/13/17 06/13/17 05:51 23:29 21:51 POC Glucose 468 H* 427 H 406 H 06/13/17 06/13/17 17:18 11:04 POC Glucose 333 H 453 H* Assessment/Plan Active and Suspected Problems Pneumothorax, right (Acute) Non-STEMI (non-ST elevated myocardial infarction) (Acute) Encephalopathy (Acute) JULIO CESAR (acute kidney injury) (Acute) Community acquired pneumonia (Suspected) Acute renal failure (Acute) Septic shock (Acute) Lactic acidosis (Acute) Cardiopulmonary arrest (Acute) 61-year-old male with hemopneumothorax. 1. Patient is not sedated and unresponsive. He is being worked up from a neurological standpoint but his condition is guarded. His chest x-ray showed possible bilateral pneumonia. His chest tube output was 168 cc overnight which is serosanguineous. There is no air leak. As his condition is guarded I will continue chest tube to suction at this time. If he can begins to improve and his output continues to decrease and his pneumonia is improved I will remove the chest tube. Vladimir Hogan MD Pager: [facility] [address], [facility] [address] [place] [address] Office:
[2017-06-14] MEDS: Chlorhexidine 15 ML PO ×2 (09:47→22:18)
[2017-06-14] MEDS: Piperacil/Tazobactam 3.375 GM/50 ML ML IV (09:48)
[2017-06-14] MEDS: 0.9% NaCl IVPB Med Flush (250 mL) 15 ML IV (09:48)
--- NOTE | 2017-06-14 10:27 | PCM.PN.BLA ---
Progress Note patient was seen on dialysis see orders and flowsheets Access is RIJ temporary dialysis line Qb 250 Q d 500 Mental status remains poor despite dialysis and being off sedation has some brain stem function but overall poor neuro prognosis as per neurology discussed with at bedside discussed with Dr Arnold neuro evaluation after HD today and if he remains in poor neuro status, will consider discussing about palliative care
[2017-06-14 11:45] LABS: Hepatitis B Core AB IgM Negative (Negative)
[2017-06-14 12:01] LABS: Bedside Glucose 440 mg/dL (70-110)
--- NOTE | 2017-06-14 12:46 | CASEMGMT ---
Telephone Triage Nurse in ICU asked SW to see pt's , she has expressed concern about withdrawing life support and family not agreeing w/the decision. SW went to ICU, had just left. SW called her on the phone. states she is exhausted, not feeling well, has not slept. SW asked her about making decisions. states doctor told her pt's brain activity is not right, and pt would have to be on machines the rest of his life. states pt would not want to live like this. SW asked about family. She states they have been 24 years, this is a second marriage. Pt has two children from his first marriage. She states the one daughter is slow. SW asked if it would be helpful to have the doctor talk w/the daughters. She states she does not think so, states it is ultimately her decision. SW offered support to her, supported her in making decisions based on knowing what he would want in this situation. will be here for rounds tomorrow, SW will follow up w/her when she is here tomorrow. KAELYN Rodriguez, DIRECTOR OF FUNDRAISING
[2017-06-14] MEDS: Heparin 10,000 UNITS/10 ML Vial IV (13:00)
--- NOTE | 2017-06-14 13:09 | CHAPLAIN ---
Type of Pastoral Visit _x__ Initial Visit ___ Follow-up Visit ___ On-call Visit ___ General Patient Visit ___ Spiritual Assessment ___ Family Conference ___ Bereavement ___ Rapid Response ___ Code Blue ___ Other (describe below) Pastoral Care Referral From ___ Patient ___ Family _x__ Nurse ___ Physician ___ Diaphragm Builder ___ Chemical Supervisor ___ Other (describe below) Sacrament/Intervention ___ Active listening ___ Anointing ___ Gnosticism ___ Bereavement ___ Communion ___ Keya exploration ___ ___ Life review ___ Prayer ___ Reconciliation ___ Sacrament of Sick _x__ Supportive presence ___ Wedding _x__ Other (describe below) Pastoral Comments after consulting with and RN about updates to condition of patient, this bdc manager met with the spouse of patient; patient continues to be unresponsive; spouse says she is waiting to hear about more test results to know how things stand medically; spouse repeats during the conversation that this is all in God's hands; spouse admits that I'm kind of numb and that this was unexpected but yet we had signs that he was not in good health recently; spouse says that she has a connection to a [employer] jew; spouse said that all she needed was some prayer; prayer offered for patient and spouse
--- NOTE | 2017-06-14 13:32 | DIALYSIS ---
Hemodialysis completed as ordered. Stable t/o. -1000ml UF. CVC closed with Heparin to each lumen fill volume. Report to Lexus PLUNKETT
[2017-06-14] MEDS: Phenytoin Na 100 MG/4 ML UDC GT ×2 (13:45→22:21)
[2017-06-14] MEDS: CHLORHEXIDINE GLUC 2% CLOTH 1 EACH TOWELETTE TOPICAL (13:45)
[2017-06-14 17:46] LABS: Bedside Glucose 423 mg/dL (70-110)
[2017-06-14] MEDS: Acetaminophen 650 MG/20 ML UDC GT (22:27)
[2017-06-15] VITALS (52 sets, daily range): BP systolic 124–188; BP diastolic 55–75; PULSE 32–125; RESP 21–114; TEMP 37.3–38.7; O2SAT 97–100
[2017-06-15] MEDS: Ipratropium/Albuterol Sulfate 3 ML AMPUL.NEB INHALATION ×4 (00:12→18:37)
[2017-06-15 01:36] LABS: Bedside Glucose 417 mg/dL (70-110)
[2017-06-15 04:39] LABS: ALB/GLOB Ratio 0.7 RATIO (0.9-2.4); AST(SGOT) 48 U/L (15-37); Alanine Aminotransfer ALT/SGPT 37 U/L (16-61); Albumin, Serum 2.5 g/dL (3.2-5.0); Alkaline Phosphatase 131 U/L (45-117); Anion Gap 11 (5-15); BUN 89 mg/dL (7-18); BUN/Creat Ratio 36.6 RATIO (10-20); Calcium,Total 7.7 mg/dL (8.5-10.1); Chloride 111 mmol/L (98-107); Creatinine, Serum 2.43 mg/dL (0.70-1.30); EST Glomerular Filtration Rate 29 mL/min (>60); Est Glom Filt Rate - Afr Amer 35 mL/min (>60); Globulin 3.4 g/dL (2.2-4.2); Glucose 418 mg/dL (74-106); Potassium 3.5 mmol/L (3.5-5.1); Protein, Total 5.9 g/dL (6.4-8.2); Sodium Level 149 mmol/L (136-145)
[2017-06-15 05:03] LABS: Absolute Neutrophil Count 9.5 X10^3/uL (2.0-7.7); Hematocrit 30.7 % (40-54); Mean Corp Hgb Conc 32.6 g/gl (32-36); Mean Platelet Vol. 12.5 fl (6.2-12.0); Monocyte# 1.12 X10^3/uL; Monocyte% 8.5 % (0-10); Neutrophil # 9.51 X10^3/uL (2.7-7.7); Neutrophil % 72.1 % (47-70); Platelet Count 144 K/mm3 (150-450); RBC Distribution Width CV 14.8 % (11.6-14.6); RBC Distribution Width SD 46.8 fl (35.1-43.9); Red Blood Count 3.45 M/mm3 (4.6-6.2); White Blood Count 13.2 K/mm3 (4.4-11.0)
[2017-06-15 05:08] LABS: POSITIVE COUNT NO; POSITIVE DIFFERENTIAL NO; POSITIVE MORPHOLOGY NO
--- NOTE | 2017-06-15 05:41 | CPS ---
PT FAILED SBT. PT NOT EASILY AROUSABLE/ALERT AND IS UNABLE TO PERFORM NIF. PT ALSO WITH A RR<30BPM.
[2017-06-15 05:46] LABS: Bedside Glucose 384 mg/dL (70-110)
[2017-06-15] MEDS: CHLORHEXIDINE GLUC 2% CLOTH 1 EACH TOWELETTE TOPICAL (05:48)
[2017-06-15] MEDS: Phenytoin Na 100 MG/4 ML UDC GT ×3 (05:48→22:06)
--- NOTE | 2017-06-15 05:55 | RAD_ITS ---
STUDY: X-RAY CHEST REASON FOR EXAM: Male, 61 years old. INTUBATED SOB TECHNIQUE: Single AP portable view of the chest. COMPARISON: None. FINDINGS: An endotracheal tube is seen its tip is at 6.5 cm superior to the nikole. An enterogastric tube is seen with tip is in the stomach. Right-sided subclavian catheter is present with the tip in the proximal portion of the superior vena cava. Stable appearance of the right chest tube. Ill-defined airspace opacities are seen in the right and left lung bases, more prominent in the left lung lower lobe are improved since the previous study may represent bilateral pneumonia or atelectasis. There is no demonstrated pleural abnormality. Normal size heart. Normal mediastinum and christelle. Normal visualized pulmonary arteries. Normal visualized aortic arch and descending thoracic aorta. Normal visualized thoracic spine. Normal visualized ribs, clavicles, and shoulders. There is no demonstrated abnormality of the visualized soft tissue structures of the upper abdomen. RAD/Chest 1 View (Portable) IMPRESSION: Ill-defined airspace opacities are seen in the right and left lung bases are improved since the previous study . Electronically Signed: Sam Art MD at 6:40 EST Tel , Service support ,
--- NOTE | 2017-06-15 06:16 | PCM.PN.HOSP ---
Patient Problems: Active and Suspected Problems Pneumothorax, right (Acute) Non-STEMI (non-ST elevated myocardial infarction) (Acute) Encephalopathy (Acute) JULIO CESAR (acute kidney injury) (Acute) Community acquired pneumonia (Suspected) Acute renal failure (Acute) Septic shock (Acute) Lactic acidosis (Acute) Cardiopulmonary arrest (Acute) Subjective: Patient overnight with continued elevated T, remains mildly tachycardic, changed from IV rocephin to IV zosyn per ICU staff, planned repeat imaging CT head and EEG possible today versus tomorrow. No marked change in status, poor prognosis remains. BPs stable, remains on nicardipine drip, decreased dosing. Per discussion with ICU staff, planned consideration withdrawal of care, not interested in trach/peg at this time. Objective: Physical Examination: General: Does not awaken to stimuli, not alert, not oriented, sedated, intubated, NAD, does not open eyes to stimuli. Skin: normal color, turgor, no icterus, cyanosis, abrasions to BL hands. HEENT: AT/NC, EOM unable to be tested, pupils responsive, intubated, sedated. Lungs: Improved, still diminished, increased RR, less coarse, symmetric rise, intubated, sedated, CT in place, minimal output. Heart: Mildly tachycardic with regular rhythm; no gallop, rub audible. Abdomen: soft, obese, NTTP, ND, mildly hypoactive BS. Extremities: no cyanosis, clubbing, BL LE foot-ankle edema improved. Neurological: Does not awaken to stimuli, not alert, not oriented, sedated, intubated, NAD; cognitive function NOT baseline intact; pupils equally not markedly reactive to light and accomodation; cranial nerves II-XII unable to be assessed, strength unable to be assessed, does not blink to threat, corneal and gag reflex remain intact. Psychiatric: affect appears flat, sedate, no acute evidence of depressive or anxiety feelings. Vitals/I&O's: Vital Signs Temp Pulse Resp BP Pulse Ox 100 F H 108 H 35 H 162/58 H 98 06/15/17 05:00 06/15/17 05:00 06/15/17 05:41 06/15/17 05:00 06/15/17 05:00 Oxygen Delivery Method Mechanical Ventilator Weight: 274 lb 11.135 oz Body Mass Index (BMI) 39.2 Intake and Output for Last 24 Hours 06/13/17 06/14/17 06/15/17 23:59 23:59 23:59 Intake Total 6015.6 / 6015.6 3519 / 3519 1425 / 1425 Output Total 4840 / 4840 4720 / 4720 1020 / 1020 Balance 1175.6 / 1175.6 -1201 / -1201 405 / 405 Microbiology Past 72 Hours 06/12/17 15:00 Sputum, Induced/Lukens Gram Stain - Final 06/12/17 15:00 Sputum, Induced/Lukens Respiratory Culture - Preliminary Culture exhibits no growth. 06/10/17 23:20 Urine Catheter - Nino Urine Culture - Final Culture exhibits no growth. Laboratory Results 06/13/17 14:00: Hep Bs Antigen Negative, Hep B Core Total Ab Negative, Hep B Core IgM Ab Negative 06/14/17 06:50: TSH 0.20 L 06/14/17 06:50: Ammonia 60.0 H 06/14/17 06:50: Phenytoin 7.8 L 06/14/17 06:50: Free Phenytoin Pending 06/14/17 11:45: POC Glucose 440 H 06/14/17 17:40: POC Glucose 423 H 06/15/17 01:29: POC Glucose 417 H 06/15/17 04:20: WBC 13.2 H, RBC 3.45 L, Hgb 10.0 L, Hct 30.7 L, MCV 89.0, MCH 29.0, MCHC 32.6, RDW 14.8 H, RDW Differential 46.8 H, Plt Count 144 L, MPV 12.5 H, Immature Gran % (Auto) 0.400, Neut % (Auto) 72.1 H, Lymph % (Auto) 19.0, [place] % (Auto) 8.5, Eos % (Auto) 0.0, Baso % (Auto) 0.0, Absolute Neuts (auto) 9.5 H, Absolute Lymphs (auto) 2.50, Total Counted Not Reportable 06/15/17 04:20: Sodium 149 H, Potassium 3.5, Chloride 111 H, Carbon Dioxide 27.0, Anion Gap 11, BUN 89 H, Creatinine 2.43 H, Estim Creat Clear Calc 33.80, Est GFR (MDRD) Af Amer 35 L, Est GFR (MDRD) Non-Af 29 L, BUN/Creatinine Ratio 36.6 H, Glucose 418 H, Calcium 7.7 L, Total Bilirubin 0.40, AST 48 H, ALT 37, Alkaline Phosphatase 131 H, Total Protein 5.9 L, Albumin 2.5 L, Globulin 3.4, Albumin/Globulin Ratio 0.7 L 06/15/17 05:42: POC Glucose 384 H Current Medications Acetaminophen (Tylenol Liquid) 650 mg GT Q4H PRN PRN PRN Reason: FEVER Last Admin: 06/14/17 22:27 Dose: 650 mg Albuterol/Ipratropium (Duoneb) 3 ml INHALATION Q6H.RT [facility] Last Admin: 06/15/17 00:12 Dose: 3 ml Aspirin (Aspirin, Baby) 81 mg GT DAILY@0800 [facility] Last Admin: 06/14/17 07:49 Dose: 81 mg Chlorhexidine Gluconate () 15 ml PO BID [facility] Last Admin: 06/14/17 22:18 Dose: 15 ml Chlorhexidine Gluconate () 1 each TOPICAL DAILY [facility] Last Admin: 06/15/17 05:48 Dose: 1 each Dextrose (D50w Syringe) 0 gm IV X1 PRN; Protocol PRN Reason: Hypoglycemia Famotidine (Pepcid) 20 mg GT DAILY [facility] Last Admin: 06/14/17 07:49 Dose: 20 mg Glucagon () 1 mg IM .X1 PRN PRN Reason: Hypoglycemia Heparin Sodium (Porcine) (Heparin Na) 5,000 unit SC Q8 [facility] Last Admin: 06/15/17 05:49 Dose: 1 ml Sodium Chloride () 250 mls @ 15 mls/hr IV .[id number] PRN PRN Reason: SALINE FLUSH Last Admin: 06/14/17 09:48 Dose: 15 mls/hr Sodium Chloride () 1,000 mls @ 1 mls/hr IV .Q48H PRN PRN Reason: SALINE FLUSH Last Admin: 06/13/17 05:32 Dose: 1 mls/hr Enteral Nutritional Formula (Vital Af 1.2 Christopher Liquid) 1,000 mls @ 60 mls/hr GT .[id number] [facility] Last Admin: 06/14/17 22:18 Dose: 60 mls/hr Piperacillin Sod/Tazobactam Sod (Zosyn) 3.375 gm in 50 mls @ 12.5 mls/hr IV Q8 FARA Last Admin: 06/15/17 05:48 Dose: 12.5 mls/hr Nicardipine HCl 50 mg/ Sodium (Chloride) 500 mls @ 75 mls/hr IV .[id number] FARA PRN Reason: 7.5 MG/HR Last Admin: 06/15/17 01:15 Dose: 75 mls/hr Insulin Aspart (Novolog Flexpen (Bkc)) 0 units SC Q6 FARA PRN Reason: Protocol Last Admin: 06/15/17 05:47 Dose: 14 u Insulin Detemir (Levemir (Bkc)) 30 units SC BID FARA Last Admin: 06/14/17 22:21 Dose: 30 u Phenytoin Sodium (Dilantin) 100 mg GT Q8 FARA Last Admin: 06/15/17 05:48 Dose: 100 mg Prednisone (Prednisone) 40 mg GT DAILY@0800 [facility] Last Admin: 06/14/17 07:51 Dose: 40 mg Sodium Chloride () 5 - 30 ml IV UD PRN PRN Reason: SALINE FLUSH Last Admin: 06/14/17 07:35 Dose: 20 ml Sodium Chloride () 10 - 40 ml IV UD PRN PRN Reason: MULTILUMEN/HICMAN CATH FLUSH Assessment/Plan Active and Suspected Problems Pneumothorax, right (Acute) Non-STEMI (non-ST elevated myocardial infarction) (Acute) Encephalopathy (Acute) JULIO CESAR (acute kidney injury) (Acute) Community acquired pneumonia (Suspected) Acute renal failure (Acute) Septic shock (Acute) Lactic acidosis (Acute) Cardiopulmonary arrest (Acute) The patient is a 61 y/o M w/ PMHx: CAD, HTN, HLD, Depression, Hx CVA, Diabetes mellitus type II, Obesity, Chronic COPD, Chronic Hypoxic Respiratory Failure, Tobacco use who presents to the [facility] ED on 06/10/17 with respiratory and cardiac arrest, suspected primarily respiratory as initiating factor. (1) Cardiopulmonary Arrest W/ ? Post-Event Seizure Activity: Suspected initial etiology was pulmonary, s/p CPR as noted, initially placed on pressors, off pressors now, BP improved, cardiac enzymes elevated, EKGs obtained serially, NSTEMI Dx, deferred chemoprophylaxis secondary to possibility of bleeding given notable fx injuries s/p CPR, maintained on IV abx and IV steroids for concurrent possible PNA and COPD exacerbation-->oral prednisone, IV levaquin-->IV rocephin-->IV zosyn. ECHO ordered, pending. 06/11/17 decreased mental status, unable to withdraw to stimuli now, suspect vegetative status. 06/11/17 MRI brain without acute evidence of infarct. 06/11/17 EEG which was abnormal with generalized epileptiform discharges which in the setting of recent cardiac arrest portends poor prognosis. DVT BL LE with no evidence DVT. ECHO 06/11/17 with EF 65%, moderately dilated RV, mild TVI, RVSP 72 mmHg, severe pulmonary HTN. Neurology consulted and following, still has minimal spontaneous eye movements, sluggish pupillary response, corneal/conjunctival and gag reflex present, but no spontaneous or purposeful movement. 06/13/17 initiated initially keppra, but discussed with Neurology and transitioned to Dilantin 100 mg IV q 8 hours given planned HD start per Nephrology. Will consider 06/15/[address] head and EEG today per Neurology recommendations pending repeat discussions with , poor prognosis, usually epileptiform spikes following cardiopulmonary arrest poor prognostic indictor. Will await results to further review with family for decision hospice/withdraw as not interested in trach/peg, likely withdraw care 06/16/17. (2) Lactic acidosis/septic shock w/ ongoing Fevers: Secondary to CPA, PNA, IVFs in the ED, pressors initially, LA normalized. Bld, UCx, Sputum Cx obtained. C-diff negative. Continued IV abx therapy rocephin per ICU with transition from initial levaquin, noted IV Vanc transiently-->06/14/17 IV Zosyn per ICU as ongoing elevated T, although suspected secondary to neurological etiology; however, cannot rule out additional infectious component, repeat Bld Cx pending per ICU physician direction. 06/10/17 Bld Cx NGTS, stool cultures unremarkable, Sputum Cx initial NG. (3) Acute NSTEMI: In the setting of acute cardiopulmonary arrest, EKG in ED w/ RBBB, CXR w/ fx ribs, displaced and ? R sided PNA, trop trend <0.02-->0.22-->0.30-->0.34. Will maintain on a monitored bed, deferred heparin drip secondary to concern for possible bleeding w/ recent rib fx. Continue medical management w/ asa, BB, not on statin. Cardiology consulted, following, no interventions at this time, poor prognosis. (4) Acute on Chronic Hypoxic and Hypercarbic Respiratory Failure on Chronic Hypoxic Respiratory Failure secondary to Possible R Sided CAP PNA, Aspiration w/ Acute on Chronic COPD Exacerbation: CXR w/ with iatrogenic displaced R 5th-6th rib fx, CT placement, chronic COPD changes, R sided PNA, intubated, sedated, ATC duonebs, PRN albuterol, IV methylprednisolone-->prednisone, HOB, IS parameters, IV Levaquin-->06/13/17 transitioned to Rocephin given ongoing fevers-->06/14/17 IV Zosyn per ICU. Unremarkable initial sputum cultures, respiratory panel negative. (5) Acute kidney injury: Secondary to hypoperfusion, cardiopulmonary arrest, likely ATN thus would expect very slow improvement of function. Initiated upon admission on bicarbonate and also given kayexelate secondary to hyperkalemia which has resolved. 06/02/17 d/c bicarbonate drip. UA w/ casts. Admission BUN/Cr 80/5.56, prior baseline creatinine unclear but denied CKD. Hydrated, pressors initially, trending function, 06/12/17 BUN/Cr 94/5.12-->06/13/17 BUN/Cr 108/4.18. Monitor UOP, ongoing at this time. Given continued FULL CODE status, uremic status, Nephrology consulted, decision for initiation dialysis with access placed 06/13/17 and session x 1 start, 06/14/17 BUN/Cr 90/2.82-->06/15/17 BUN/Cr 89/2.43. (6) Suspected Iatrogenic R sided PTX: Possibly secondary to CPR w/ R sided rib fractures but also R sided SC placed in the field. Films w displaced fractures of the right fifth and sixth ribs. Emergent chest tubed placement performed. Surgery following, management per Surgery, continued to suction given continued 06/14/17 > 150 cc output-->06/15/17 CT output minimal. Given poor prognosis may delay transition off suction. (7) Hypertension, Uncontrolled: 06/12/17 onset notable hypertension, uncontrolled, 06/12/17 AM initiated on nicardipine drip per ICU, improved BP although intermittent increased pressures, maintained on drip. (8) CAD: Will continue home regimen asa, off IV BB secondary to being on IV nicardipine. Holding statin given status. (9) Diabetes mellitus type II w/ Hyperglycemia: Hold oral home regimen, NPO status, scheduled insulin with notable hyperglycemia, 06/14/17 increased levemir given ongoing 300-400, BS starting to improve, may need to increase levemir further, accu checks w/ ISS. (10) Hx CVA Prior: Noted BL LE weakness, unclear extent per , maintain on asa, IV BB d/c, currently on IV nicardipine, not on statin. Neurology consulted, MRI, EEG as noted. Repeat CT head and EEG today if desires otherwise given no status change defer with planned withdrawal of care 06/16/17. (11) GERD: Famotidine. (12) Obesity: If appropriate status, will encourage weight loss and lifestyle changes, nutrition consulted. (13) Tobacco Abuse: If appropriate will encourage cessation. (14) TRAVON: On CPAP q HS outpatient. (15) DVT Prophylaxis: SCDs, heparin. Code Visit Inpatient E&M: 08391 Subs Hosp L3
--- NOTE | 2017-06-15 06:27 | PN_ITS ---
Patient Problems: Active and Suspected Problems Pneumothorax, right (Acute) Non-STEMI (non-ST elevated myocardial infarction) (Acute) Encephalopathy (Acute) JULIO CESAR (acute kidney injury) (Acute) Community acquired pneumonia (Suspected) Acute renal failure (Acute) Septic shock (Acute) Lactic acidosis (Acute) Cardiopulmonary arrest (Acute) Subjective: Patient overnight with continued elevated T, remains mildly tachycardic, changed from IV rocephin to IV zosyn per ICU staff, planned repeat imaging CT head and EEG possible today versus tomorrow. No marked change in status, poor prognosis remains. BPs stable, remains on nicardipine drip, decreased dosing. Per discussion with ICU staff, planned consideration withdrawal of care, not interested in trach/peg at this time. Objective: Physical Examination: General: Does not awaken to stimuli, not alert, not oriented, sedated, intubated , NAD, does not open eyes to stimuli. Skin: normal color, turgor, no icterus, cyanosis, abrasions to BL hands. HEENT: AT/NC, EOM unable to be tested, pupils responsive, intubated, sedated. Lungs: Improved, still diminished, increased RR, less coarse, symmetric rise, intubated, sedated, CT in place, minimal output. Heart: Mildly tachycardic with regular rhythm; no gallop, rub audible. Abdomen: soft, obese, NTTP, ND, mildly hypoactive BS. Extremities: no cyanosis, clubbing, BL LE foot-ankle edema improved. Neurological: Does not awaken to stimuli, not alert, not oriented, sedated, intubated, NAD; cognitive function NOT baseline intact; pupils equally not markedly reactive to light and accomodation; cranial nerves II-XII unable to be assessed, strength unable to be assessed, does not blink to threat, corneal and gag reflex remain intact. Psychiatric: affect appears flat, sedate, no acute evidence of depressive or anxiety feelings. Vitals/I&O's: Vital Signs Temp Pulse Resp BP Pulse Ox 100 F H 108 H 35 H 162/58 H 98 06/15/17 05:00 06/15/17 05:00 06/15/17 05:41 06/15/17 05:00 06/15/17 05:00 Oxygen Delivery Method Mechanical Ventilator Weight: 274 lb 11.135 oz Body Mass Index (BMI) 39.2 Intake and Output for Last 24 Hours 06/13/17 06/14/17 06/15/17 23:59 23:59 23:59 Intake Total 6015.6 / 6015.6 3519 / 3519 1425 / 1425 Output Total 4840 / 4840 4720 / 4720 1020 / 1020 Balance 1175.6 / 1175.6 -1201 / -1201 405 / 405 Microbiology Past 72 Hours 06/12/17 15:00 Sputum, Induced/Lukens Gram Stain - Final 06/12/17 15:00 Sputum, Induced/Lukens Respiratory Culture - Preliminary Culture exhibits no growth. 06/10/17 23:20 Urine Catheter - Nino Urine Culture - Final Culture exhibits no growth. Laboratory Results 06/13/17 14:00: Hep Bs Antigen Negative, Hep B Core Total Ab Negative, Hep B Core IgM Ab Negative 06/14/17 06:50: TSH 0.20 L 06/14/17 06:50: Ammonia 60.0 H 06/14/17 06:50: Phenytoin 7.8 L 06/14/17 06:50: Free Phenytoin Pending 06/14/17 11:45: POC Glucose 440 H 06/14/17 17:40: POC Glucose 423 H 06/15/17 01:29: POC Glucose 417 H 06/15/17 04:20: WBC 13.2 H, RBC 3.45 L, Hgb 10.0 L, Hct 30.7 L, MCV 89.0, MCH 29.0, MCHC 32.6, RDW 14.8 H, RDW Differential 46.8 H, Plt Count 144 L, MPV 12.5 H, Immature Gran % (Auto) 0.400, Neut % (Auto) 72.1 H, Lymph % (Auto) 19.0, Person % (Auto) 8.5, Eos % (Auto) 0.0, Baso % (Auto) 0.0, Absolute Neuts (auto) 9.5 H, Absolute Lymphs (auto) 2.50, Total Counted Not Reportable 06/15/17 04:20: Sodium 149 H, Potassium 3.5, Chloride 111 H, Carbon Dioxide 27.0 , Anion Gap 11, BUN 89 H, Creatinine 2.43 H, Estim Creat Clear Calc 33.80, Est GFR (MDRD) Af Amer 35 L, Est GFR (MDRD) Non-Af 29 L, BUN/Creatinine Ratio 36.6 H , Glucose 418 H, Calcium 7.7 L, Total Bilirubin 0.40, AST 48 H, ALT 37, Alkaline Phosphatase 131 H, Total Protein 5.9 L, Albumin 2.5 L, Globulin 3.4, Albumin/Globulin Ratio 0.7 L 06/15/17 05:42: POC Glucose 384 H Current Medications Acetaminophen (Tylenol Liquid) 650 mg GT Q4H PRN PRN PRN Reason: FEVER Last Admin: 06/14/17 22:27 Dose: 650 mg Albuterol/Ipratropium (Duoneb) 3 ml INHALATION Q6H.RT [facility] Last Admin: 06/15/17 00:12 Dose: 3 ml Aspirin (Aspirin, Baby) 81 mg GT DAILY@0800 [facility] Last Admin: 06/14/17 07:49 Dose: 81 mg Chlorhexidine Gluconate () 15 ml PO BID [facility] Last Admin: 06/14/17 22:18 Dose: 15 ml Chlorhexidine Gluconate () 1 each TOPICAL DAILY [facility] Last Admin: 06/15/17 05:48 Dose: 1 each Dextrose (D50w Syringe) 0 gm IV X1 PRN; Protocol PRN Reason: Hypoglycemia Famotidine (Pepcid) 20 mg GT DAILY [facility] Last Admin: 06/14/17 07:49 Dose: 20 mg Glucagon () 1 mg IM .X1 PRN PRN Reason: Hypoglycemia Heparin Sodium (Porcine) (Heparin Na) 5,000 unit SC Q8 [facility] Last Admin: 06/15/17 05:49 Dose: 1 ml Sodium Chloride () 250 mls @ 15 mls/hr IV .[id number] PRN PRN Reason: SALINE FLUSH Last Admin: 06/14/17 09:48 Dose: 15 mls/hr Sodium Chloride () 1,000 mls @ 1 mls/hr IV .Q48H PRN PRN Reason: SALINE FLUSH Last Admin: 06/13/17 05:32 Dose: 1 mls/hr Enteral Nutritional Formula (Vital Af 1.2 Christopher Liquid) 1,000 mls @ 60 mls/hr GT .[id number] [facility] Last Admin: 06/14/17 22:18 Dose: 60 mls/hr Piperacillin Sod/Tazobactam Sod (Zosyn) 3.375 gm in 50 mls @ 12.5 mls/hr IV Q8 [facility] Last Admin: 06/15/17 05:48 Dose: 12.5 mls/hr Nicardipine HCl 50 mg/ Sodium (Chloride) 500 mls @ 75 mls/hr IV .[id number] [facility] PRN Reason: 7.5 MG/HR Last Admin: 06/15/17 01:15 Dose: 75 mls/hr Insulin Aspart (Novolog Flexpen (Bkc)) 0 units SC Q6 [facility] PRN Reason: Protocol Last Admin: 06/15/17 05:47 Dose: 14 u Insulin Detemir (Levemir (Bkc)) 30 units SC BID [facility] Last Admin: 06/14/17 22:21 Dose: 30 u Phenytoin Sodium (Dilantin) 100 mg GT Q8 [facility] Last Admin: 06/15/17 05:48 Dose: 100 mg Prednisone (Prednisone) 40 mg GT DAILY@0800 [facility] Last Admin: 06/14/17 07:51 Dose: 40 mg Sodium Chloride () 5 - 30 ml IV UD PRN PRN Reason: SALINE FLUSH Last Admin: 06/14/17 07:35 Dose: 20 ml Sodium Chloride () 10 - 40 ml IV UD PRN PRN Reason: MULTILUMEN/HICMAN CATH FLUSH Assessment/Plan Active and Suspected Problems Pneumothorax, right (Acute) Non-STEMI (non-ST elevated myocardial infarction) (Acute) Encephalopathy (Acute) JULIO CESAR (acute kidney injury) (Acute) Community acquired pneumonia (Suspected) Acute renal failure (Acute) Septic shock (Acute) Lactic acidosis (Acute) Cardiopulmonary arrest (Acute) The patient is a 61 y/o M w/ PMHx: CAD, HTN, HLD, Depression, Hx CVA, Diabetes mellitus type II, Obesity, Chronic COPD, Chronic Hypoxic Respiratory Failure, Tobacco use who presents to the [facility] ED on 06/10/17 with respiratory and cardiac arrest, suspected primarily respiratory as initiating factor. (1) Cardiopulmonary Arrest W/ ? Post-Event Seizure Activity: Suspected initial etiology was pulmonary, s/p CPR as noted, initially placed on pressors, off pressors now, BP improved, cardiac enzymes elevated, EKGs obtained serially, NSTEMI Dx, deferred chemoprophylaxis secondary to possibility of bleeding given notable fx injuries s/p CPR, maintained on IV abx and IV steroids for concurrent possible PNA and COPD exacerbation-->oral prednisone, IV levaquin--> IV rocephin-->IV zosyn. ECHO ordered, pending. 06/11/17 decreased mental status, unable to withdraw to stimuli now, suspect vegetative status. 06/11/17 MRI brain without acute evidence of infarct. 06/11/17 EEG which was abnormal with generalized epileptiform discharges which in the setting of recent cardiac arrest portends poor prognosis. DVT BL LE with no evidence DVT. ECHO 06/11/17 with EF 65%, moderately dilated RV, mild TVI, RVSP 72 mmHg, severe pulmonary HTN. Neurology consulted and following, still has minimal spontaneous eye movements, sluggish pupillary response, corneal/conjunctival and gag reflex present, but no spontaneous or purposeful movement. 06/13/17 initiated initially keppra, but discussed with Neurology and transitioned to Dilantin 100 mg IV q 8 hours given planned HD start per Nephrology. Will consider 06/15/[address] head and EEG today per Neurology recommendations pending repeat discussions with , poor prognosis, usually epileptiform spikes following cardiopulmonary arrest poor prognostic indictor. Will await results to further review with family for decision hospice/withdraw as not interested in trach /peg, likely withdraw care 06/16/17. (2) Lactic acidosis/septic shock w/ ongoing Fevers: Secondary to CPA, PNA, IVFs in the ED, pressors initially, LA normalized. Bld, UCx, Sputum Cx obtained. C- diff negative. Continued IV abx therapy rocephin per ICU with transition from initial levaquin, noted IV Vanc transiently-->06/14/17 IV Zosyn per ICU as ongoing elevated T, although suspected secondary to neurological etiology; however, cannot rule out additional infectious component, repeat Bld Cx pending per ICU physician direction. 06/10/17 Bld Cx NGTS, stool cultures unremarkable, Sputum Cx initial NG. (3) Acute NSTEMI: In the setting of acute cardiopulmonary arrest, EKG in ED w/ RBBB, CXR w/ fx ribs, displaced and ? R sided PNA, trop trend <0.02-->0.22--> 0.30-->0.34. Will maintain on a monitored bed, deferred heparin drip secondary to concern for possible bleeding w/ recent rib fx. Continue medical management w / asa, BB, not on statin. Cardiology consulted, following, no interventions at this time, poor prognosis. (4) Acute on Chronic Hypoxic and Hypercarbic Respiratory Failure on Chronic Hypoxic Respiratory Failure secondary to Possible R Sided CAP PNA, Aspiration w / Acute on Chronic COPD Exacerbation: CXR w/ with iatrogenic displaced R 5th- 6th rib fx, CT placement, chronic COPD changes, R sided PNA, intubated, sedated , ATC duonebs, PRN albuterol, IV methylprednisolone-->prednisone, HOB, IS parameters, IV Levaquin-->06/13/17 transitioned to Rocephin given ongoing fevers- ->06/14/17 IV Zosyn per ICU. Unremarkable initial sputum cultures, respiratory panel negative. (5) Acute kidney injury: Secondary to hypoperfusion, cardiopulmonary arrest, likely ATN thus would expect very slow improvement of function. Initiated upon admission on bicarbonate and also given kayexelate secondary to hyperkalemia which has resolved. 06/02/17 d/c bicarbonate drip. UA w/ casts. Admission BUN/Cr 80/5.56, prior baseline creatinine unclear but denied CKD. Hydrated, pressors initially, trending function, 06/12/17 BUN/Cr 94/5.12-->06/13/17 BUN/Cr 108/4.18. Monitor UOP, ongoing at this time. Given continued FULL CODE status, uremic status, Nephrology consulted, decision for initiation dialysis with access placed 06/13/17 and session x 1 start, 06/14/17 BUN/Cr 90/2.82-->06/15/17 BUN/Cr 89/ 2.43. (6) Suspected Iatrogenic R sided PTX: Possibly secondary to CPR w/ R sided rib fractures but also R sided SC placed in the field. Films w displaced fractures of the right fifth and sixth ribs. Emergent chest tubed placement performed. Surgery following, management per Surgery, continued to suction given continued 06/14/17 > 150 cc output-->06/15/17 CT output minimal. Given poor prognosis may delay transition off suction. (7) Hypertension, Uncontrolled: 06/12/17 onset notable hypertension, uncontrolled , 06/12/17 AM initiated on nicardipine drip per ICU, improved BP although intermittent increased pressures, maintained on drip. (8) CAD: Will continue home regimen asa, off IV BB secondary to being on IV nicardipine. Holding statin given status. (9) Diabetes mellitus type II w/ Hyperglycemia: Hold oral home regimen, NPO status, scheduled insulin with notable hyperglycemia, 06/14/17 increased levemir given ongoing 300-400, BS starting to improve, may need to increase levemir further, accu checks w/ ISS. (10) Hx CVA Prior: Noted BL LE weakness, unclear extent per , maintain on asa, IV BB d/c, currently on IV nicardipine, not on statin. Neurology consulted , MRI, EEG as noted. Repeat CT head and EEG today if desires otherwise given no status change defer with planned withdrawal of care 06/16/17. (11) GERD: Famotidine. (12) Obesity: If appropriate status, will encourage weight loss and lifestyle changes, nutrition consulted. (13) Tobacco Abuse: If appropriate will encourage cessation. (14) TRAVON: On CPAP q HS outpatient. (15) DVT Prophylaxis: SCDs, heparin. Code Visit Inpatient E&M: 65408 Subs Hosp L3
--- NOTE | 2017-06-15 06:37 | PCM.PN.INT ---
Subjective: The patient was seen and examined at the bedside this morning. Events from the last 24 hours have been reviewed. The patient remains febrile and tachycardic. FiO2 requirement remains stable at 45%. The patient did undergo hemodialysis yesterday. However, he remains neurologically unchanged this morning. I did speak personally with the patient's family at length this morning and explained the patient's prognosis. His indicated that he would not want to undergo tracheostomy and PEG tube placement. She states that additional family members are driving in from [place]. She is now agreeable to palliative withdrawal of care, but would like to wait until Monday until additional family members arrive. She is agreeable to hospice referral. Objective: The patient's most recent lab work, culture data and imaging studies have all been personally reviewed. Sputum culture is currently pending. Urine and blood cultures have been unrevealing to date. Respiratory viral panel was negative. C. difficile and enteric bacteriology were negative. MRI brain revealed mild atrophy and periventricular white matter ischemic changes without evidence for acute infarction. EEG revealed the presence of generalized epileptiform discharges. Lower extremity Doppler studies were negative for the presence of a DVT. Surface echocardiogram revealed normal LV size and thickness with an ejection fraction of 65%. There was evidence of moderate RV dilation with mild to moderate global RV systolic dysfunction and a right ventricular systolic pressure estimated to be 72 mmHg. General: - - Remains intubated and mechanically ventilated. HEENT: Atraumatic, Normocephalic, - - Minimally responsive pupillary reflex Oral: No Gingival or Mucosal Lesions/ Ulcerations, - - Endotracheal and OG tubes remain in place Neck: Supple, No Nodes, Trachea Midline, - - Right subclavian central venous catheter and temporary hemodialysis catheter in place Lungs: No rhonchi, No wheeze, No rales, Diminished Cardiovascular: Normal S1, Normal S2, No murmurs, No rub noted, No Gallop, Tachycardic Abdomen: Bowel Sounds Present, Soft, Non Tender, Obese Extremities: No clubbing, No cyanosis, Edema Skin: - - No significant change from previous. Musculoskeletal: No Muscle Wasting Neurological: - - Neurologically unchanged from previous. Nonresponsive to noxious and verbal stimulation. No purposeful movements. Vital Signs Temp Pulse Resp BP Pulse Ox 100 F H 108 H 35 H 162/58 H 98 06/15/17 05:00 06/15/17 05:00 06/15/17 05:41 06/15/17 05:00 06/15/17 05:00 Oxygen Delivery Method Mechanical Ventilator Weight: 269 lb 13.533 oz Body Mass Index (BMI) 39.2 Intake and Output for Last 24 Hours 06/13/17 06/14/17 06/15/17 23:59 23:59 23:59 Intake Total 6015.6 / 6015.6 3519 / 3519 1425 / 1425 Output Total 4840 / 4840 4720 / 4720 1020 / 1020 Balance 1175.6 / 1175.6 -1201 / -1201 405 / 405 Labs (Last 48 Hours) 06/13/17 06/13/17 06/13/17 07:04 11:04 14:00 WBC RBC Hgb Hct MCV MCH MCHC RDW RDW Differential Plt Count MPV Immature Gran % (Auto) Neut % (Auto) Lymph % (Auto) [place] % (Auto) Eos % (Auto) Baso % (Auto) Absolute Neuts (auto) Absolute Lymphs (auto) Total Counted Specimen Type AMADEO Sample Site OTHER pH 7.42 Bicarbonate Actual 20.4 L POC Total CO2 21 Base Excess -4 L O2 Saturation 94 L O2 % 50 ABG pCO2 31.7 L ABG pO2 69 L Respiration Rate 16 O2 Delivery Device Vent Minute Volume 19.00 Vent Mode VC+ Tidal Volume 550 POC PEEP 5 Blood Gas Notified Whom ICU MD Blood Gas Notified Time 703 Sodium Potassium Chloride Carbon Dioxide Anion Gap BUN Creatinine Estim Creat Clear Calc Est GFR (MDRD) Af Amer Est GFR (MDRD) Non-Af BUN/Creatinine Ratio Glucose Calcium Total Bilirubin AST ALT Alkaline Phosphatase Ammonia Total Protein Albumin Globulin Albumin/Globulin Ratio TSH Phenytoin Free Phenytoin Hep Bs Antigen Negative Hep B Core Total Ab Negative Hep B Core IgM Ab Negative POC Glucose 453 H* 06/13/17 06/13/17 06/13/17 17:18 21:51 23:29 WBC RBC Hgb Hct MCV MCH MCHC RDW RDW Differential Plt Count MPV Immature Gran % (Auto) Neut % (Auto) Lymph % (Auto) [place] % (Auto) Eos % (Auto) Baso % (Auto) Absolute Neuts (auto) Absolute Lymphs (auto) Total Counted Specimen Type Sample Site pH Bicarbonate Actual POC Total CO2 Base Excess O2 Saturation O2 % ABG pCO2 ABG pO2 Respiration Rate O2 Delivery Device Minute Volume Vent Mode Tidal Volume POC PEEP Blood Gas Notified Whom Blood Gas Notified Time Sodium Potassium Chloride Carbon Dioxide Anion Gap BUN Creatinine Estim Creat Clear Calc Est GFR (MDRD) Af Amer Est GFR (MDRD) Non-Af BUN/Creatinine Ratio Glucose Calcium Total Bilirubin AST ALT Alkaline Phosphatase Ammonia Total Protein Albumin Globulin Albumin/Globulin Ratio TSH Phenytoin Free Phenytoin Hep Bs Antigen Hep B Core Total Ab Hep B Core IgM Ab POC Glucose 333 H 406 H 427 H 06/14/17 06/14/17 06/14/17 03:45 03:45 05:51 WBC 11.2 H RBC 3.64 L Hgb 10.4 L Hct 31.6 L MCV 86.8 MCH 28.6 MCHC 32.9 RDW 15.2 H RDW Differential 48.0 H Plt Count 155 MPV 11.0 Immature Gran % (Auto) 0.200 Neut % (Auto) 86.7 H Lymph % (Auto) 8.7 L [place] % (Auto) 4.4 Eos % (Auto) 0.0 Baso % (Auto) 0.0 Absolute Neuts (auto) 9.7 H Absolute Lymphs (auto) 0.97 Total Counted Not Reportable Specimen Type Sample Site pH Bicarbonate Actual POC Total CO2 Base Excess O2 Saturation O2 % ABG pCO2 ABG pO2 Respiration Rate O2 Delivery Device Minute Volume Vent Mode Tidal Volume POC PEEP Blood Gas Notified Whom Blood Gas Notified Time Sodium 149 H Potassium 3.5 Chloride 113 H Carbon Dioxide 24.0 Anion Gap 12 BUN 90 H Creatinine 2.82 H Estim Creat Clear Calc 29.12 Est GFR (MDRD) Af Amer 30 L Est GFR (MDRD) Non-Af 25 L BUN/Creatinine Ratio 31.9 H Glucose 496 H* Calcium 7.6 L Total Bilirubin 0.50 AST 38 H ALT 32 Alkaline Phosphatase 132 H Ammonia Total Protein 6.4 Albumin 2.7 L Globulin 3.7 Albumin/Globulin Ratio 0.7 L TSH Phenytoin Free Phenytoin Hep Bs Antigen Hep B Core Total Ab Hep B Core IgM Ab POC Glucose 468 H* 06/14/17 06/14/17 06/14/17 06:50 06:50 06:50 WBC RBC Hgb Hct MCV MCH MCHC RDW RDW Differential Plt Count MPV Immature Gran % (Auto) Neut % (Auto) Lymph % (Auto) [place] % (Auto) Eos % (Auto) Baso % (Auto) Absolute Neuts (auto) Absolute Lymphs (auto) Total Counted Specimen Type Sample Site pH Bicarbonate Actual POC Total CO2 Base Excess O2 Saturation O2 % ABG pCO2 ABG pO2 Respiration Rate O2 Delivery Device Minute Volume Vent Mode Tidal Volume POC PEEP Blood Gas Notified Whom Blood Gas Notified Time Sodium Potassium Chloride Carbon Dioxide Anion Gap BUN Creatinine Estim Creat Clear Calc Est GFR (MDRD) Af Amer Est GFR (MDRD) Non-Af BUN/Creatinine Ratio Glucose Calcium Total Bilirubin AST ALT Alkaline Phosphatase Ammonia 60.0 H Total Protein Albumin Globulin Albumin/Globulin Ratio TSH 0.20 L Phenytoin 7.8 L Free Phenytoin Hep Bs Antigen Hep B Core Total Ab Hep B Core IgM Ab POC Glucose 06/14/17 06/14/17 06/14/17 06:50 11:45 17:40 WBC RBC Hgb Hct MCV MCH MCHC RDW RDW Differential Plt Count MPV Immature Gran % (Auto) Neut % (Auto) Lymph % (Auto) [place] % (Auto) Eos % (Auto) Baso % (Auto) Absolute Neuts (auto) Absolute Lymphs (auto) Total Counted Specimen Type Sample Site pH Bicarbonate Actual POC Total CO2 Base Excess O2 Saturation O2 % ABG pCO2 ABG pO2 Respiration Rate O2 Delivery Device Minute Volume Vent Mode Tidal Volume POC PEEP Blood Gas Notified Whom Blood Gas Notified Time Sodium Potassium Chloride Carbon Dioxide Anion Gap BUN Creatinine Estim Creat Clear Calc Est GFR (MDRD) Af Amer Est GFR (MDRD) Non-Af BUN/Creatinine Ratio Glucose Calcium Total Bilirubin AST ALT Alkaline Phosphatase Ammonia Total Protein Albumin Globulin Albumin/Globulin Ratio TSH Phenytoin Free Phenytoin Pending Hep Bs Antigen Hep B Core Total Ab Hep B Core IgM Ab POC Glucose 440 H 423 H 06/15/17 06/15/17 06/15/17 01:29 04:20 04:20 WBC 13.2 H RBC 3.45 L Hgb 10.0 L Hct 30.7 L MCV 89.0 MCH 29.0 MCHC 32.6 RDW 14.8 H RDW Differential 46.8 H Plt Count 144 L MPV 12.5 H Immature Gran % (Auto) 0.400 Neut % (Auto) 72.1 H Lymph % (Auto) 19.0 [place] % (Auto) 8.5 Eos % (Auto) 0.0 Baso % (Auto) 0.0 Absolute Neuts (auto) 9.5 H Absolute Lymphs (auto) 2.50 Total Counted Not Reportable Specimen Type Sample Site pH Bicarbonate Actual POC Total CO2 Base Excess O2 Saturation O2 % ABG pCO2 ABG pO2 Respiration Rate O2 Delivery Device Minute Volume Vent Mode Tidal Volume POC PEEP Blood Gas Notified Whom Blood Gas Notified Time Sodium 149 H Potassium 3.5 Chloride 111 H Carbon Dioxide 27.0 Anion Gap 11 BUN 89 H Creatinine 2.43 H Estim Creat Clear Calc 33.80 Est GFR (MDRD) Af Amer 35 L Est GFR (MDRD) Non-Af 29 L BUN/Creatinine Ratio 36.6 H Glucose 418 H Calcium 7.7 L Total Bilirubin 0.40 AST 48 H ALT 37 Alkaline Phosphatase 131 H Ammonia Total Protein 5.9 L Albumin 2.5 L Globulin 3.4 Albumin/Globulin Ratio 0.7 L TSH Phenytoin Free Phenytoin Hep Bs Antigen Hep B Core Total Ab Hep B Core IgM Ab POC Glucose 417 H 06/15/17 05:42 WBC RBC Hgb Hct MCV MCH MCHC RDW RDW Differential Plt Count MPV Immature Gran % (Auto) Neut % (Auto) Lymph % (Auto) [place] % (Auto) Eos % (Auto) Baso % (Auto) Absolute Neuts (auto) Absolute Lymphs (auto) Total Counted Specimen Type Sample Site pH Bicarbonate Actual POC Total CO2 Base Excess O2 Saturation O2 % ABG pCO2 ABG pO2 Respiration Rate O2 Delivery Device Minute Volume Vent Mode Tidal Volume POC PEEP Blood Gas Notified Whom Blood Gas Notified Time Sodium Potassium Chloride Carbon Dioxide Anion Gap BUN Creatinine Estim Creat Clear Calc Est GFR (MDRD) Af Amer Est GFR (MDRD) Non-Af BUN/Creatinine Ratio Glucose Calcium Total Bilirubin AST ALT Alkaline Phosphatase Ammonia Total Protein Albumin Globulin Albumin/Globulin Ratio TSH Phenytoin Free Phenytoin Hep Bs Antigen Hep B Core Total Ab Hep B Core IgM Ab POC Glucose 384 H Microbiology 06/12/17 15:00 Sputum, Induced/Lukens Gram Stain - Final 06/12/17 15:00 Sputum, Induced/Lukens Respiratory Culture - Preliminary Culture exhibits no growth. 06/10/17 23:20 Urine Catheter - Nino Urine Culture - Final Culture exhibits no growth. Clinical Impression(s) from Imaging Studies Chest X-Ray 06/10/17 16:15 IMPRESSION: Mild to moderate cardiomegaly. Interstitial edema. Lines as detailed above. Endotracheal tube is slightly high could be advanced 1 to 2 cm. Question left lower lobe pulmonary nodule versus summation of shadows. Possible nipple shadow. Recommend dedicated single chest x-ray when appropriate. Electronically Signed: Matilda Nguyen MD at 16:51 EST Tel , Service support , Chest X-Ray 06/10/17 18:05 IMPRESSION: There is a small pneumothorax along the periphery of the right lung base. This is likely due to minimally displaced rib fractures in the anterolateral aspects of the right fifth and sixth ribs rather than from central line placement. Follow-up films can be obtained. The tip of the right subclavian line is in the expected location of the mid to distal SVC. There is mild enlargement of the cardiac silhouette with mild edema. There is no obvious pleural effusion. N.B. : The above information has been verbally conveyed by Ana Laura Brown MD to Papo Taylor, Referring Physician, on 06/10/2017 19:21:19 (ET). Electronically Signed: Ana Laura Brown MD at 19:22 EST Tel Direct: [phone], Service support , N.B. : The above information has been verbally conveyed by Ana Laura Brown MD to Papo Taylor, Referring Physician, on 06/10/2017 19:21:19 (ET). Chest X-Ray 06/10/17 20:08 IMPRESSION: There is a stable appearance of the small pneumothorax in the periphery of the right lower chest. Adjacent subcutaneous emphysema has increased. There is mild enlargement of the cardiac silhouette with vascular congestion. There is no evidence of pleural effusion. The previously seen right rib fractures are not well seen on the current study. However fractures are now seen in the anterolateral left sixth rib and possibly lateral left fifth rib. Electronically Signed: Ana Laura Brown MD at 21:23 EST Tel Direct: [phone], Service support , Chest X-Ray 06/10/17 20:56 IMPRESSION: There has been resolution of the right pneumothorax after chest tube placement. There are no acute cardiopulmonary changes. Electronically Signed: Ana Laura Brown MD at 22:13 EST Tel Direct: [phone], Service support , Chest X-Ray 06/11/17 06:25 IMPRESSION: Right-sided chest tube, subcutaneous gas, no definitive visualized pneumothorax. The heart is enlarged. There is a widened appearance of the mediastinum which is likely due to positioning and aortic tortuosity. However, Recommend CT scan of the chest when appropriate to clarify. Lines as detailed above. The endotracheal tube is high 5.7 cm above the nikole and should be advanced 2 to 3 cm. Electronically Signed: Matilda Nguyen MD at 9:15 EST Tel , Service support , Chest X-Ray 06/11/17 12:11 IMPRESSION: Somewhat limited examination due to motion. Slightly prominent markings right lower lung probably exaggerated by motion patient's positioning. Early infiltrate is less likely. Overall no substantial change since previous examination. Electronically Signed: Ifeanyi Fajardo MD at 13:19 EST Tel , Service support , Brain CT 06/11/17 20:33 IMPRESSION: No acute intracranial abnormalities. Electronically Signed: Ana Laura Brown MD at 21:52 EST Tel Direct: [phone], Service support , Chest X-Ray 06/12/17 05:55 IMPRESSION: Improved aeration of both lungs. All the support tubes are unchanged. Electronically Signed: Matheus Vasquez MD at 11:48 EST Tel [phone], Service support , Brain MRI 06/12/17 14:19 IMPRESSION: Mild atrophy and periventricular white matter ischemic changes without evidence for acute infarct. Electronically Signed: Simone Briones MD at 23:19 EST , Service support , Chest X-Ray 06/13/17 05:55 IMPRESSION: Stable examination. All the support tubes are in good position. Electronically Signed: Matheus Vasquez MD at 8:02 EST Tel [phone], Service support , Chest X-Ray 06/13/17 12:36 IMPRESSION: Status post placement of a right-sided internal jugular venous catheter. The tip is in the proximal portion of the superior vena cava. Electronically Signed: Matheus Vasquez MD at 13:19 EST Tel [phone], Service support , Chest X-Ray 06/14/17 05:55 IMPRESSION: Ill-defined airspace opacities are seen in the right and left lung bases are improved since the previous study may represent bilateral pneumonia. Electronically Signed: Sam Art MD at 5:57 EST Tel , Service support , Assessment/Plan Active and Suspected Problems Pneumothorax, right (Acute) Non-STEMI (non-ST elevated myocardial infarction) (Acute) Encephalopathy (Acute) JULIO CESAR (acute kidney injury) (Acute) Community acquired pneumonia (Suspected) Acute renal failure (Acute) Septic shock (Acute) Lactic acidosis (Acute) Cardiopulmonary arrest (Acute) RECOMMENDATIONS: 1. Increase Levemir and continue sliding scale insulin coverage. 2. Continue prednisone 40 mg daily via NG tube 3. Continue to hold all sedating medications 4. Continue antibiotics as ordered 5. Chest tube management per surgery 6. Continue Dilantin 7. Wean nicardipine drip and start lisinopril and Norvasc. As needed labetalol for systolic pressures greater than 160 mmHg. 8. Continue tube feeds 9. Continue subcu heparin and Pepcid for prophylaxis 10. Hospice referral IMPRESSIONS: 1. Status post cardiopulmonary arrest with suspected primary pulmonary event Patient with reported protracted course at home. Patient was noncompliant with therapy. Although the patient is currently on CPAP, he appears to have sustained a devastating neurological insult. Continue to hold all sedating medications as tolerated. Chest tube remains in place and is being managed by surgery. Continue scheduled aerosol treatments. Antibiotics will be continued for now. 2. Traumatic right pneumothorax status post chest tube postop day #5 Right chest tube is stable. Subcutaneous emphysema appears to be stable at this time. We will continue to monitor closely. We will not initiate a heparin drip or Plavix therapy at this time given risk for bleeding complications. Patient does have multiple rib fractures noted on x-ray. Clinical suspicion for rib fracture secondary to CPR. 3. Acute on chronic combined respiratory failure Clinical suspicion for community-acquired pneumonia. Patient reportedly has a history of 2 L nasal cannula at baseline. Continue empiric antibiotics as noted above. Continue prednisone via NG tube. 4. Septic shock secondary to CAP Patient initially on Levophed therapy transiently. Patient has improved at this time. Hemodynamics are stable off of vasopressor support. Lactate has normalized at this time. Continue antibiotics. 5. Encephalopathy Continue to hold all sedating medications at this time. The patient most likely sustained some form of anoxic insult during his cardiopulmonary arrest. He is undergone hemodialysis now with improvement in his metabolic derangements. However, there has been no interval change in the patient's neurological status. EEG did reveal epileptiform discharges. Neurology has been following. Continue [facility] area 6. Non-ST elevation HI Continue current medical management. Cardiology is following accordingly. 7. Acute renal failure Very little previous history is available for review. Patient did present with a creatinine of 5.56 indicating probable progressive renal failure over the past week. Patient does have casts on urinalysis indicating probable ATN. The patient was initially maintained on a bicarbonate drip. Throughout his hospital stay, the patient did develop worsening uremia, which led to the eventual initiation of hemodialysis. 8. Type 2 diabetes mellitus/uncontrolled hyperglycemia Continue tube feeds as ordered. Given ongoing hyperglycemia, Levemir dosing will again be increased. Continue high intensity sliding scale coverage. 9. Coronary artery disease/hypertension/morbid obesity/anxiety/depression/TRAVON/history of noncompliance Complicates care, management, recovery and prognosis. Nicardipine had to be initiated this morning due to persistently elevated blood pressure parameters. We will plan to wean the aforementioned drip and start lisinopril and Norvasc. As needed labetalol can be utilized for systolic blood pressures greater than 160 mmHg. TIME: 45 minutes of critical care time, independent of procedures, was spent addressing the patient's acute cardiopulmonary arrest, traumatic right pneumothorax, acute on chronic combined respiratory failure, septic shock secondary to probable CAP, encephalopathy, NSTEMI, acute renal failure, review of all data and collaboration with the care team. ([id number]) Code Visit 9xxxx: [id number] Critical care first hour
[2017-06-15 07:29] LABS: T4 Free Direct 0.67 ng/dL (0.76-1.46)
[2017-06-15] MEDS: 0.9% NaCl Peripheral Flush Adult/Peds IV ×4 (08:54→20:00)
--- NOTE | 2017-06-15 09:12 | NURSING ---
pt unarousable and not able to follow commands
[2017-06-15 09:28] LABS: Phenytoin (Dilantin) Level 7.2 mL (10.0-20.0)
[2017-06-15 09:31] LABS: AST(SGOT) 57 U/L (15-37); Alanine Aminotransfer ALT/SGPT 38 U/L (16-61); Albumin, Serum 2.4 g/dL (3.2-5.0); Alkaline Phosphatase 138 U/L (45-117); Bilirubin, Direct 0.17 mg/dL (0.00-0.30); Globulin 3.5 g/dL (2.2-4.2); Protein, Total 5.9 g/dL (6.4-8.2)
--- NOTE | 2017-06-15 09:55 | CASEMGMT ---
Addendum entered by Becky Maddox 06/15/17 15:48: Pt's met w/hospice, signed papers. SW remains available for support to and family. KAELYN Rodriguez, SPANISHER Original Note: SW participated in ICU rounds this morning. , daughter Morelia, and Morelia's fiance present. states she wants to wait until Monday to make any decisions, as there is a great grandson coming in Monday night to see pt. Dr. Arnold spoke w/ about speaking w/hospice, in the event they do extubate pt and he stabilizes. is agreeable to do so. SW spoke w/ and family after rounds, states she will be back this afternoon and is agreeable to have hospice come in this afternoon. SW called [facility], spoke w/Kelle, faxed referral, someone can be here to meet w/ at 2pm. has since left, SW left her a message on her cell phone letting her know that someone from [facility] will be here at 2pm. SW remains available for support to family. KAELYN Rodriguez, SPANISHER
[2017-06-15] MEDS: Aspirin 81 MG TAB.CHEW GT (10:33)
[2017-06-15] MEDS: amLODIPine 10 MG Tablet GT (10:34)
[2017-06-15] MEDS: Lisinopril 40 MG Tablet GT (10:34)
[2017-06-15] MEDS: Famotidine 20 MG Tablet GT (10:34)
[2017-06-15] MEDS: Chlorhexidine 15 ML PO ×2 (10:38→22:05)
--- NOTE | 2017-06-15 11:55 | PN.RENAL_ITS ---
Patient Problems: Active and Suspected Problems Pneumothorax, right (Acute) Non-STEMI (non-ST elevated myocardial infarction) (Acute) Encephalopathy (Acute) JULIO CESAR (acute kidney injury) (Acute) Community acquired pneumonia (Suspected) Acute renal failure (Acute) Septic shock (Acute) Lactic acidosis (Acute) Cardiopulmonary arrest (Acute) Subjective: no new events on vent - spontaneously breathing no significant change neurologically - Physical Exam HEENT: Atraumatic, PERRLA, EOMI, Normocephalic Neck: Supple, No JVD, Negative Carotid Bruits Lungs: Clear to auscultation, Normal air movement Cardiovascular: Regular rate, No murmurs Abdomen: Bowel Sounds Present, Soft, Non Tender Extremities: No edema, Capillary Refill Less than 3 Seconds Skin: No rashes, No breakdown Musculoskeletal: No Tenderness to Palpation of Joints or Extremities Vital Signs Temp Pulse Resp BP Pulse Ox 99.9 F H 118 H 30 H 152/64 H 98 06/15/17 08:00 06/15/17 09:23 06/15/17 09:23 06/15/17 08:30 06/15/17 09:23 Oxygen Delivery Method Mechanical Ventilator Weight: 122.4 kg Body Mass Index (BMI) 39.2 Intake and Output for Last 24 Hours 06/13/17 06/14/17 06/15/17 23:59 23:59 23:59 Intake Total 6015.6 / 6015.6 3519 / 3519 2470 / 2470 Output Total 4840 / 4840 4720 / 4720 2019 / 2019 Balance 1175.6 / 1175.6 -1201 / -1201 450 / 450 Microbiology Past 72 Hours 06/12/17 15:00 Gram Stain - Final Sputum, Induced/Lukens Respiratory Culture - Final 06/10/17 23:20 Urine Culture - Final Urine Catheter - Nino Culture exhibits no growth. Laboratory Tests Past 24 Hrs 06/15/17 06/15/17 06/15/17 04:20 04:20 04:20 WBC 13.2 H RBC 3.45 L Hgb 10.0 L Hct 30.7 L MCV 89.0 MCH 29.0 MCHC 32.6 RDW 14.8 H RDW Differential 46.8 H Plt Count 144 L MPV 12.5 H Immature Gran % (Auto) 0.400 Neut % (Auto) 72.1 H Lymph % (Auto) 19.0 [place] % (Auto) 8.5 Eos % (Auto) 0.0 Baso % (Auto) 0.0 Absolute Neuts (auto) 9.5 H Absolute Lymphs (auto) 2.50 Total Counted Not Reportable Sodium 149 H Potassium 3.5 Chloride 111 H Carbon Dioxide 27.0 Anion Gap 11 BUN 89 H Creatinine 2.43 H Estim Creat Clear Calc 33.80 Est GFR (MDRD) Af Amer 35 L Est GFR (MDRD) Non-Af 29 L BUN/Creatinine Ratio 36.6 H Glucose 418 H Calcium 7.7 L Total Bilirubin 0.40 Direct Bilirubin AST 48 H ALT 37 Alkaline Phosphatase 131 H Ammonia Total Protein 5.9 L Albumin 2.5 L Globulin 3.4 Albumin/Globulin Ratio 0.7 L Free T4 0.67 L Phenytoin 06/15/17 06/15/17 06/15/17 08:40 08:40 08:40 WBC RBC Hgb Hct MCV MCH MCHC RDW RDW Differential Plt Count MPV Immature Gran % (Auto) Neut % (Auto) Lymph % (Auto) [place] % (Auto) Eos % (Auto) Baso % (Auto) Absolute Neuts (auto) Absolute Lymphs (auto) Total Counted Sodium Potassium Chloride Carbon Dioxide Anion Gap BUN Creatinine Estim Creat Clear Calc Est GFR (MDRD) Af Amer Est GFR (MDRD) Non-Af BUN/Creatinine Ratio Glucose Calcium Total Bilirubin 0.50 Direct Bilirubin 0.17 AST 57 H ALT 38 Alkaline Phosphatase 138 H Ammonia 42.0 H Total Protein 5.9 L Albumin 2.4 L Globulin 3.5 Albumin/Globulin Ratio Free T4 Phenytoin 7.2 L POC Glucose 06/15/17 06/15/17 06/14/17 05:42 01:29 17:40 POC Glucose 384 H 417 H 423 H 06/14/17 11:45 POC Glucose 440 H Assessment/Plan Active and Suspected Problems Pneumothorax, right (Acute) Non-STEMI (non-ST elevated myocardial infarction) (Acute) Encephalopathy (Acute) JULIO CESAR (acute kidney injury) (Acute) Community acquired pneumonia (Suspected) Acute renal failure (Acute) Septic shock (Acute) Lactic acidosis (Acute) Cardiopulmonary arrest (Acute) JULIO CESAR. With no prior renal disease as per family members. Etiology could be ATN related to prolonged shock during cardiac arrest. non oliguric but severe azotemia. there is a concern that his mental status changes could be related to renal failure in addition to HIE and sepsis. to rule out renal failure related azotemia as the complicating factor, [employer] was initiated However there was no significant change in mental status with 2 dialysis treatments he does have some brain stem functions but minimal cognitive abilities. for now plan is to do full care and goals of care to be determined in 2 days when all family members are present HTN. on nicardipine drip as per ICU Thank you
[2017-06-15 12:55] LABS: Bedside Glucose 419 mg/dL (70-110)
[2017-06-15] MEDS: Acetaminophen 650 MG/20 ML UDC GT (13:37)
[2017-06-15] MEDS: Heparin 10,000 UNITS/10 ML Vial IV (17:16)
[2017-06-15 17:21] LABS: Bedside Glucose 439 mg/dL (70-110)
[2017-06-15] MEDS: Vital AF 1.2 Cal Liquid 1,000 ML 60 ML GT (17:21)
--- NOTE | 2017-06-15 17:39 | DIALYSIS ---
HD x 1 hour complete. Pt tolerated tx poorly. Tx was discontinued early per Dr. Lewis. Ran on 3k bath. UF of 35ml. Used right IJ catheter. Catheter closed with heparin per fill volume. See tx sheet for more details. Report was given to DIMITRIOS Alberts.
--- NOTE | 2017-06-15 18:37 | NURSING ---
Reviewed Briseida Smith RN charting and agree with assessments
[2017-06-15] MEDS: Labetalol 100 MG/20 ML Vial 10 MG IV (20:00)
[2017-06-15] MEDS: 0.9% NaCl IVPB Med Flush (250 mL) 15 ML IV (22:05)
[2017-06-16] VITALS (47 sets, daily range): BP systolic 98–187; BP diastolic 46–76; PULSE 91–114; RESP 18–38; TEMP 37.2–38.3; O2SAT 97–100
[2017-06-16 00:11] LABS: Bedside Glucose 364 mg/dL (70-110)
[2017-06-16] MEDS: Ipratropium/Albuterol Sulfate 3 ML AMPUL.NEB INHALATION ×4 (01:45→18:49)
[2017-06-16] MEDS: 0.9% NaCl Peripheral Flush Adult/Peds IV ×4 (05:01→18:07)
[2017-06-16] MEDS: Phenytoin Na 100 MG/4 ML UDC GT ×3 (05:02→22:10)
[2017-06-16 05:42] LABS: Absolute Lymphocyte Count 3.21 X10^3/ul (0.83-4.51); Absolute Neutrophil Count 9.9 X10^3/uL (2.0-7.7); Basophil# 0.01 X10^3/uL; Basophil% 0.1 % (0-1); Eosinophil# 0.04 X10^3/uL; Eosinophils% 0.3 % (0-5); Hematocrit 29.9 % (40-54); Hemoglobin 9.4 g/dl (13.0-16.5); Lymphocyte # 3.21 X10^3/ul (4.0); Lymphocyte % 22.9 % (19-41); Mean Corp Hgb Conc 31.4 g/gl (32-36); Mean Corpuscular Hgb 28.7 pg (27.0-32.0); Mean Corpuscular Volume 91.2 fL (80-94); Mean Platelet Vol. 12.4 fl (6.2-12.0); Monocyte% 5.7 % (0-10); Neutrophil # 9.93 X10^3/uL (2.7-7.7); Neutrophil % 70.7 % (47-70); Platelet Count 118 K/mm3 (150-450); RBC Distribution Width CV 14.8 % (11.6-14.6); RBC Distribution Width SD 47.2 fl (35.1-43.9); Red Blood Count 3.28 M/mm3 (4.6-6.2)
[2017-06-16] MEDS: CHLORHEXIDINE GLUC 2% CLOTH 1 EACH TOWELETTE TOPICAL (05:47)
[2017-06-16 05:52] LABS: POSITIVE COUNT NO; POSITIVE DIFFERENTIAL NO; POSITIVE MORPHOLOGY NO
--- NOTE | 2017-06-16 05:55 | RAD_ITS ---
STUDY: X-RAY CHEST REASON FOR EXAM: Male, 61 years old. INTUBATED SOB TECHNIQUE: Single AP portable view of the chest. COMPARISON: Jun 15 2017 2:28am FINDINGS: An endotracheal tube is seen its tip is at 6.5 cm superior to the nikole. An enterogastric tube is seen with tip is in the stomach. Right-sided subclavian catheter is present with the tip in the proximal portion of the superior vena cava. Stable appearance of the right chest tube. Right-sided internal jugular venous catheter tip is in the proximal portion of the superior vena cava. The previously described Ill-defined airspace opacities in the right and left lung bases have near completely resolved and There is no demonstrated pleural abnormality. Normal size heart. Normal mediastinum and christelle. Normal visualized pulmonary arteries. Normal visualized aortic arch and descending thoracic aorta. Normal visualized thoracic spine. Normal visualized ribs, clavicles, and shoulders. There is no demonstrated abnormality of the visualized soft tissue structures of the upper abdomen. RAD/Chest 1 View (Portable) IMPRESSION: Support lines in good position. Near-complete resolution of airspace opacities in in the right and left lung bases. Electronically Signed: Sam Art MD at 7:13 EST Tel , Service support ,
[2017-06-16 05:56] LABS: Bedside Glucose 384 mg/dL (70-110)
[2017-06-16 06:10] LABS: ALB/GLOB Ratio 0.7 RATIO (0.9-2.4); AST(SGOT) 74 U/L (15-37); Alanine Aminotransfer ALT/SGPT 57 U/L (16-61); Albumin, Serum 2.3 g/dL (3.2-5.0); Alkaline Phosphatase 137 U/L (45-117); Anion Gap 8 (5-15); BUN 92 mg/dL (7-18); BUN/Creat Ratio 41.1 RATIO (10-20); Calcium,Total 8.1 mg/dL (8.5-10.1); Chloride 112 mmol/L (98-107); Creatinine, Serum 2.24 mg/dL (0.70-1.30); EST Glomerular Filtration Rate 32 mL/min (>60); Est Glom Filt Rate - Afr Amer 39 mL/min (>60); Estimated Creatinine Clearance 36.66 ml/min; Globulin 3.2 g/dL (2.2-4.2); Glucose 411 mg/dL (74-106); Potassium 3.5 mmol/L (3.5-5.1); Protein, Total 5.5 g/dL (6.4-8.2); Sodium Level 149 mmol/L (136-145)
--- NOTE | 2017-06-16 07:05 | PCM.PN.HOSP ---
Patient Problems: Active and Suspected Problems Pneumothorax, right (Acute) Non-STEMI (non-ST elevated myocardial infarction) (Acute) Encephalopathy (Acute) JULIO CESAR (acute kidney injury) (Acute) Community acquired pneumonia (Suspected) Acute renal failure (Acute) Septic shock (Acute) Lactic acidosis (Acute) Cardiopulmonary arrest (Acute) Subjective: Patient overnight without acute events aside recurrent elevated BP with restart of nicardipine drip with had been off earlier in the day. The patient does have appearance of mild agitation with increased VS parameters with any movement, position changes attempts. Patient overnight with cooling blanket, no fevers, clinically remains unchanged. Plans to await family for withdraw of care 06/17/17 with DNR-CC transition. Objective: Physical Examination: General: Does not awaken to stimuli, not alert, not oriented, sedated, intubated, NAD, not responsive. Skin: normal color, turgor, no icterus, cyanosis, abrasions to BL hands healing. HEENT: AT/NC, EOM unable to be tested, pupils responsive but R pupil appears 1 mm size <, intubated, not sedated. Lungs: Improved, diminished, more comfortable currently, normal RR currently, symmetric rise, intubated, not sedated, CT in place. Heart: Regular rate (90s) and regular rhythm; no gallop, rub audible. Abdomen: soft, obese, NTTP, ND, hypoactive BS. Extremities: no cyanosis, clubbing, BL LE foot-ankle edema improved. Neurological: Does not awaken to stimuli, not alert, not oriented, sedated, intubated, NAD; cognitive function NOT baseline intact; pupils equally not markedly reactive to light and accomodation; cranial nerves II-XII unable to be assessed, strength unable to be assessed, does not blink to threat, still unresponsive, not sedated. Psychiatric: affect appears flat, no acute evidence of depressive or anxiety feelings. Vitals/I&O's: Vital Signs Temp Pulse Resp BP Pulse Ox 98.9 F 103 H 28 H 142/56 H 98 06/16/17 06:00 06/16/17 06:00 06/16/17 06:00 06/16/17 06:00 06/16/17 06:00 Oxygen Delivery Method Mechanical Ventilator Weight: 269 lb 13.533 oz Body Mass Index (BMI) 39.2 Intake and Output for Last 24 Hours 06/14/17 06/15/17 06/16/17 23:59 23:59 23:59 Intake Total 3519 / 3519 4824 / 4824 990 / 990 Output Total 4720 / 4720 4625 / 4625 1105 / 1105 Balance -1201 / -1201 199 / 199 -115 / -115 Microbiology Past 72 Hours 06/12/17 15:00 Sputum, Induced/Lukens Gram Stain - Final 06/12/17 15:00 Sputum, Induced/Lukens Respiratory Culture - Final 06/10/17 23:20 Urine Catheter - Nino Urine Culture - Final Culture exhibits no growth. Laboratory Results 06/15/17 04:20: Free T4 0.67 L 06/15/17 08:40: Total Bilirubin 0.50, Direct Bilirubin 0.17, AST 57 H, ALT 38, Alkaline Phosphatase 138 H, Total Protein 5.9 L, Albumin 2.4 L, Globulin 3.5 06/15/17 08:40: Phenytoin 7.2 L 06/15/17 08:40: Ammonia 42.0 H 06/15/17 12:49: POC Glucose 419 H 06/15/17 16:59: POC Glucose 439 H 06/15/17 23:59: POC Glucose 364 H 06/16/17 05:00: POC Glucose 384 H 06/16/17 05:10: WBC 14.0 H, RBC 3.28 L, Hgb 9.4 L, Hct 29.9 L, MCV 91.2, MCH 28.7, MCHC 31.4 L, RDW 14.8 H, RDW Differential 47.2 H, Plt Count 118 L, MPV 12.4 H, Immature Gran % (Auto) 0.300, Neut % (Auto) 70.7 H, Lymph % (Auto) 22.9, [place] % (Auto) 5.7, Eos % (Auto) 0.3, Baso % (Auto) 0.1, Absolute Neuts (auto) 9.9 H, Absolute Lymphs (auto) 3.21, Total Counted Not Reportable 06/16/17 05:10: Sodium 149 H, Potassium 3.5, Chloride 112 H, Carbon Dioxide 29.0, Anion Gap 8, BUN 92 H, Creatinine 2.24 H, Estim Creat Clear Calc 36.66, Est GFR (MDRD) Af Amer 39 L, Est GFR (MDRD) Non-Af 32 L, BUN/Creatinine Ratio 41.1 H, Glucose 411 H, Calcium 8.1 L, Total Bilirubin 0.40, AST 74 H, ALT 57, Alkaline Phosphatase 137 H, Total Protein 5.5 L, Albumin 2.3 L, Globulin 3.2, Albumin/Globulin Ratio 0.7 L Current Medications Acetaminophen (Tylenol Liquid) 650 mg GT Q4H PRN PRN PRN Reason: FEVER Last Admin: 06/15/17 13:37 Dose: 650 mg Albuterol/Ipratropium (Duoneb) 3 ml INHALATION Q6H.RT [facility] Last Admin: 06/16/17 06:47 Dose: 3 ml Amlodipine Besylate (Norvasc) 10 mg GT DAILY [facility] Last Admin: 06/15/17 10:34 Dose: 10 mg Aspirin (Aspirin, Baby) 81 mg GT DAILY@0800 [facility] Last Admin: 06/15/17 10:33 Dose: 81 mg Chlorhexidine Gluconate () 15 ml PO BID [facility] Last Admin: 06/15/17 22:05 Dose: 15 ml Chlorhexidine Gluconate () 1 each TOPICAL DAILY [facility] Last Admin: 06/16/17 05:47 Dose: 1 each Dextrose (D50w Syringe) 0 gm IV X1 PRN; Protocol PRN Reason: Hypoglycemia Famotidine (Pepcid) 20 mg GT DAILY [facility] Last Admin: 06/15/17 10:34 Dose: 20 mg Glucagon () 1 mg IM .X1 PRN PRN Reason: Hypoglycemia Heparin Sodium (Porcine) (Heparin Na) 5,000 unit SC Q8 [facility]ARA Last Admin: 06/16/17 05:02 Dose: 5,000 u Sodium Chloride () 250 mls @ 15 mls/hr IV .[id number] PRN PRN Reason: SALINE FLUSH Last Admin: 06/15/17 22:05 Dose: 15 mls/hr Sodium Chloride () 1,000 mls @ 1 mls/hr IV .Q48H PRN PRN Reason: SALINE FLUSH Last Admin: 06/13/17 05:32 Dose: 1 mls/hr Enteral Nutritional Formula (Vital Af 1.2 Christopher Liquid) 1,000 mls @ 60 mls/hr GT .[id number] [facility] Last Admin: 06/15/17 17:21 Dose: 60 mls/hr Piperacillin Sod/Tazobactam Sod (Zosyn) 3.375 gm in 50 mls @ 12.5 mls/hr IV Q8 [facility] Last Admin: 06/16/17 05:04 Dose: 12.5 mls/hr Nicardipine HCl 25 mg/ (Dextrose) 250 mls @ 50 mls/hr IV Q5H FARA PRN Reason: 5 MG/HR Last Admin: 06/16/17 06:07 Dose: 50 mls/hr Insulin Aspart (Novolog Flexpen ([facility])) 0 units SC Q6 FARA PRN Reason: Protocol Last Admin: 06/16/17 05:02 Dose: 14 u Insulin Detemir (Levemir ([facility])) 50 units SC 0600,1800 [facility] Last Admin: 06/16/17 05:03 Dose: 50 u Labetalol HCl (Trandate) 10 mg IV Q4H PRN PRN PRN Reason: SBP > 160 Last Admin: 06/15/17 20:00 Dose: 10 mg Lisinopril (Zestril) 40 mg GT DAILY [facility] Last Admin: 06/15/17 10:34 Dose: 40 mg Phenytoin Sodium (Dilantin) 100 mg GT Q8 [facility] Last Admin: 06/16/17 05:02 Dose: 100 mg Prednisone (Prednisone) 40 mg GT DAILY@0800 [facility] Last Admin: 06/15/17 10:33 Dose: 40 mg Sodium Chloride () 5 - 30 ml IV UD PRN PRN Reason: SALINE FLUSH Last Admin: 06/16/17 05:48 Dose: 20 ml Sodium Chloride () 10 - 40 ml IV UD PRN PRN Reason: MULTILUMEN/HICMAN CATH FLUSH Assessment/Plan Active and Suspected Problems Pneumothorax, right (Acute) Non-STEMI (non-ST elevated myocardial infarction) (Acute) Encephalopathy (Acute) JULIO CESAR (acute kidney injury) (Acute) Community acquired pneumonia (Suspected) Acute renal failure (Acute) Septic shock (Acute) Lactic acidosis (Acute) Cardiopulmonary arrest (Acute) The patient is a 61 y/o M w/ PMHx: CAD, HTN, HLD, Depression, Hx CVA, Diabetes mellitus type II, Obesity, Chronic COPD, Chronic Hypoxic Respiratory Failure, Tobacco use who presents to the [facility] ED on 06/10/17 with respiratory and cardiac arrest, suspected primarily respiratory as initiating factor. (1) Cardiopulmonary Arrest W/ ? Post-Event Seizure Activity: Suspected initial etiology was pulmonary, s/p CPR as noted, initially placed on pressors, off pressors now, BP improved, cardiac enzymes elevated, EKGs obtained serially, NSTEMI Dx, deferred chemoprophylaxis secondary to possibility of bleeding given notable fx injuries s/p CPR, maintained on IV abx and IV steroids for concurrent possible PNA and COPD exacerbation-->oral prednisone, IV levaquin-->IV rocephin-->IV zosyn. 06/11/17 decreased mental status, unable to withdraw to stimuli now, suspect vegetative status, remained unresponsive even with d/c sedation 06/11/17. 06/11/17 MRI brain without acute evidence of infarct. 06/11/17 EEG which was abnormal with generalized epileptiform discharges which in the setting of recent cardiac arrest portends poor prognosis. DVT BL LE with no evidence DVT. ECHO 06/11/17 with EF 65%, moderately dilated RV, mild TVI, RVSP 72 mmHg, severe pulmonary HTN. Neurology consulted, 06/13/17 initiated initially keppra, but discussed with Neurology and transitioned to Dilantin 100 mg IV q 8 hours given planned HD start per Nephrology. 06/15/[address] head and EEG per discussion with Neurology and ICU staff with planned Hospice evaluation and withdraw of care on 06/17/17. (2) Lactic acidosis/septic shock w/ ongoing Fevers: Secondary to CPA, PNA, IVFs in the ED, pressors initially, LA normalized. Bld, UCx, Sputum Cx obtained. C-diff negative. Continued IV abx therapy rocephin per ICU with transition from initial levaquin, noted IV Vanc transiently-->06/14/17 IV Zosyn per ICU as ongoing elevated T, currently now afebrile (TM 99.1 since 06/17/17 1800) but ongoing usage of cooling blanket. Suspected secondary to neurological etiology; however, cannot rule out additional infectious component, repeat Bld Cx pending per ICU physician direction. 06/10/17 Bld Cx NGTS, stool cultures unremarkable, Sputum Cx initial NG. (3) Acute NSTEMI: In the setting of acute cardiopulmonary arrest, EKG in ED w/ RBBB, CXR w/ fx ribs, displaced and ? R sided PNA, trop trend <0.02-->0.22-->0.30-->0.34. Will maintain on a monitored bed, deferred heparin drip secondary to concern for possible bleeding w/ recent rib fx. Continue medical management w/ asa, holding BB, not on statin. Cardiology consulted, following, no interventions at this time, poor prognosis, planned withdrawal 06/17/17. (4) Acute on Chronic Hypoxic and Hypercarbic Respiratory Failure on Chronic Hypoxic Respiratory Failure secondary to Possible R Sided CAP PNA, Aspiration w/ Acute on Chronic COPD Exacerbation: CXR w/ with iatrogenic displaced R 5th-6th rib fx, CT placement, chronic COPD changes, R sided PNA, intubated, sedated, ATC duonebs, PRN albuterol, IV methylprednisolone-->prednisone, HOB, IS parameters, IV Levaquin-->06/13/17 transitioned to Rocephin given ongoing fevers-->06/14/17 IV Zosyn per ICU. Unremarkable initial sputum cultures, respiratory panel negative. (5) Acute kidney injury: Secondary to hypoperfusion, cardiopulmonary arrest, likely ATN thus would expect very slow improvement of function. Initiated upon admission on bicarbonate and also given kayexelate secondary to hyperkalemia which has resolved. 06/02/17 d/c bicarbonate drip. UA w/ casts. Admission BUN/Cr 80/5.56, prior baseline creatinine unclear but denied CKD. Hydrated, pressors initially, trending function, 06/12/17 BUN/Cr 94/5.12-->06/13/17 BUN/Cr 108/4.18. Monitor UOP, ongoing at this time. Given continued FULL CODE status, uremic status, Nephrology consulted, decision for initiation dialysis with access placed 06/13/17 and session x 1 start, 06/14/17 BUN/Cr 90/2.82-->06/15/17 BUN/Cr 89/2.43-->06/16/17 BUN/Cr 92/2.24. (6) Suspected Iatrogenic R sided PTX: Possibly secondary to CPR w/ R sided rib fractures but also R sided SC placed in the field. Films w displaced fractures of the right fifth and sixth ribs. Emergent chest tubed placement performed. Surgery following, management per Surgery, continued to suction given continued 06/14/17 > 150 cc output-->06/15/17 CT output minimal. Given poor prognosis discussed with surgery and will defer transition off suction given planned withdrawal of care on 06/17/17. (7) Hypertension, Uncontrolled: 06/12/17 onset notable hypertension, uncontrolled, 06/12/17 AM initiated on nicardipine drip per ICU, improved BP, d/c attempt 06/15/17 failed, restarted. (8) CAD: Will continue home regimen asa, off IV BB, attempts to wean off nicardipine unsuccessful, 06/15/17 evening drip restarted. (9) Diabetes mellitus type II w/ Hyperglycemia: Hold oral home regimen, NPO status, scheduled insulin with notable hyperglycemia, 06/14/17 increased levemir given ongoing 300-400, BS starting to improve, accu checks w/ ISS. (10) Hx CVA Prior: Noted BL LE weakness, unclear extent per , maintain on asa, IV BB d/c, currently on IV nicardipine, not on statin. Neurology consulted, MRI, EEG as noted. Deferred 06/15/[address] head and EEG with planned withdrawal of care 06/17/17, hospice consulted. (11) GERD: Famotidine. (12) Obesity: Nutrition consulted, TF, following. (13) Tobacco Abuse: Given status unable to encourage cessation. (14) TRAVON: On CPAP q HS outpatient. (15) DVT Prophylaxis: SCDs, heparin. Code Visit Inpatient E&M: 11406 Subs Hosp L2
--- NOTE | 2017-06-16 07:08 | PCM.PN.INT ---
Subjective: The patient was seen and examined at the bedside this morning. Events from the last 24 hours have been reviewed. The patient is currently afebrile, hemodynamically stable and maintaining appropriate oxygen saturations with an FiO2 requirement of 45%. The patient's nicardipine had to be restarted overnight due to persistently elevated blood pressures. The patient remains neurologically unchanged from previous. There are tentative plans to proceed with palliative withdrawal of care tomorrow. Hospice is to be notified at that time. Objective: The patient's most recent lab work, culture data and imaging studies have all been personally reviewed. Sputum culture is currently pending. Urine and blood cultures have been unrevealing to date. Respiratory viral panel was negative. C. difficile and enteric bacteriology were negative. MRI brain revealed mild atrophy and periventricular white matter ischemic changes without evidence for acute infarction. EEG revealed the presence of generalized epileptiform discharges. Lower extremity Doppler studies were negative for the presence of a DVT. Surface echocardiogram revealed normal LV size and thickness with an ejection fraction of 65%. There was evidence of moderate RV dilation with mild to moderate global RV systolic dysfunction and a right ventricular systolic pressure estimated to be 72 mmHg. General: - - Intubated and mechanically ventilated. HEENT: Atraumatic, Normocephalic, Sluggish Pupils, - - + Gag Oral: No Gingival or Mucosal Lesions/ Ulcerations, - - ETT and OG tubes in place Neck: Supple, No Nodes, Trachea Midline, - - Right subclavian CVC and temporary hemodialysis catheter in place Lungs: No wheeze, No rales, Diminished, Rhonchi, Tachypneic, - - Right-sided indwelling chest tube in place Cardiovascular: Normal S1, Normal S2, No murmurs, No rub noted, No Gallop, Tachycardic Abdomen: Bowel Sounds Present, Soft, Non Tender, Obese Extremities: No clubbing, No cyanosis, Edema Skin: - - No significant change from previous Musculoskeletal: No Muscle Wasting Neurological: - - Unchanged from previous. Vital Signs Temp Pulse Resp BP Pulse Ox 98.9 F 103 H 28 H 142/56 H 98 06/16/17 06:00 06/16/17 06:00 06/16/17 06:00 06/16/17 06:00 06/16/17 06:00 Oxygen Delivery Method Mechanical Ventilator Weight: 269 lb 13.533 oz Body Mass Index (BMI) 39.2 Intake and Output for Last 24 Hours 06/14/17 06/15/17 06/16/17 23:59 23:59 23:59 Intake Total 3519 / 3519 4824 / 4824 990 / 990 Output Total 4720 / 4720 4625 / 4625 1105 / 1105 Balance -1201 / -1201 199 / 199 -115 / -115 Labs (Last 48 Hours) 06/13/17 06/14/17 06/14/17 14:00 06:50 06:50 WBC RBC Hgb Hct MCV MCH MCHC RDW RDW Differential Plt Count MPV Immature Gran % (Auto) Neut % (Auto) Lymph % (Auto) [place] % (Auto) Eos % (Auto) Baso % (Auto) Absolute Neuts (auto) Absolute Lymphs (auto) Total Counted Sodium Potassium Chloride Carbon Dioxide Anion Gap BUN Creatinine Estim Creat Clear Calc Est GFR (MDRD) Af Amer Est GFR (MDRD) Non-Af BUN/Creatinine Ratio Glucose Calcium Total Bilirubin Direct Bilirubin AST ALT Alkaline Phosphatase Ammonia 60.0 H Total Protein Albumin Globulin Albumin/Globulin Ratio TSH 0.20 L Free T4 Phenytoin Hep Bs Antigen Negative Hep B Core Total Ab Negative Hep B Core IgM Ab Negative POC Glucose 06/14/17 06/14/17 06/14/17 06:50 11:45 17:40 WBC RBC Hgb Hct MCV MCH MCHC RDW RDW Differential Plt Count MPV Immature Gran % (Auto) Neut % (Auto) Lymph % (Auto) [place] % (Auto) Eos % (Auto) Baso % (Auto) Absolute Neuts (auto) Absolute Lymphs (auto) Total Counted Sodium Potassium Chloride Carbon Dioxide Anion Gap BUN Creatinine Estim Creat Clear Calc Est GFR (MDRD) Af Amer Est GFR (MDRD) Non-Af BUN/Creatinine Ratio Glucose Calcium Total Bilirubin Direct Bilirubin AST ALT Alkaline Phosphatase Ammonia Total Protein Albumin Globulin Albumin/Globulin Ratio TSH Free T4 Phenytoin 7.8 L Hep Bs Antigen Hep B Core Total Ab Hep B Core IgM Ab POC Glucose 440 H 423 H 06/15/17 06/15/17 06/15/17 01:29 04:20 04:20 WBC 13.2 H RBC 3.45 L Hgb 10.0 L Hct 30.7 L MCV 89.0 MCH 29.0 MCHC 32.6 RDW 14.8 H RDW Differential 46.8 H Plt Count 144 L MPV 12.5 H Immature Gran % (Auto) 0.400 Neut % (Auto) 72.1 H Lymph % (Auto) 19.0 [place] % (Auto) 8.5 Eos % (Auto) 0.0 Baso % (Auto) 0.0 Absolute Neuts (auto) 9.5 H Absolute Lymphs (auto) 2.50 Total Counted Not Reportable Sodium 149 H Potassium 3.5 Chloride 111 H Carbon Dioxide 27.0 Anion Gap 11 BUN 89 H Creatinine 2.43 H Estim Creat Clear Calc 33.80 Est GFR (MDRD) Af Amer 35 L Est GFR (MDRD) Non-Af 29 L BUN/Creatinine Ratio 36.6 H Glucose 418 H Calcium 7.7 L Total Bilirubin 0.40 Direct Bilirubin AST 48 H ALT 37 Alkaline Phosphatase 131 H Ammonia Total Protein 5.9 L Albumin 2.5 L Globulin 3.4 Albumin/Globulin Ratio 0.7 L TSH Free T4 Phenytoin Hep Bs Antigen Hep B Core Total Ab Hep B Core IgM Ab POC Glucose 417 H 06/15/17 06/15/17 06/15/17 04:20 05:42 08:40 WBC RBC Hgb Hct MCV MCH MCHC RDW RDW Differential Plt Count MPV Immature Gran % (Auto) Neut % (Auto) Lymph % (Auto) [place] % (Auto) Eos % (Auto) Baso % (Auto) Absolute Neuts (auto) Absolute Lymphs (auto) Total Counted Sodium Potassium Chloride Carbon Dioxide Anion Gap BUN Creatinine Estim Creat Clear Calc Est GFR (MDRD) Af Amer Est GFR (MDRD) Non-Af BUN/Creatinine Ratio Glucose Calcium Total Bilirubin 0.50 Direct Bilirubin 0.17 AST 57 H ALT 38 Alkaline Phosphatase 138 H Ammonia Total Protein 5.9 L Albumin 2.4 L Globulin 3.5 Albumin/Globulin Ratio TSH Free T4 0.67 L Phenytoin Hep Bs Antigen Hep B Core Total Ab Hep B Core IgM Ab POC Glucose 384 H 06/15/17 06/15/17 06/15/17 08:40 08:40 12:49 WBC RBC Hgb Hct MCV MCH MCHC RDW RDW Differential Plt Count MPV Immature Gran % (Auto) Neut % (Auto) Lymph % (Auto) [place] % (Auto) Eos % (Auto) Baso % (Auto) Absolute Neuts (auto) Absolute Lymphs (auto) Total Counted Sodium Potassium Chloride Carbon Dioxide Anion Gap BUN Creatinine Estim Creat Clear Calc Est GFR (MDRD) Af Amer Est GFR (MDRD) Non-Af BUN/Creatinine Ratio Glucose Calcium Total Bilirubin Direct Bilirubin AST ALT Alkaline Phosphatase Ammonia 42.0 H Total Protein Albumin Globulin Albumin/Globulin Ratio TSH Free T4 Phenytoin 7.2 L Hep Bs Antigen Hep B Core Total Ab Hep B Core IgM Ab POC Glucose 419 H 06/15/17 06/15/17 06/16/17 16:59 23:59 05:00 WBC RBC Hgb Hct MCV MCH MCHC RDW RDW Differential Plt Count MPV Immature Gran % (Auto) Neut % (Auto) Lymph % (Auto) [place] % (Auto) Eos % (Auto) Baso % (Auto) Absolute Neuts (auto) Absolute Lymphs (auto) Total Counted Sodium Potassium Chloride Carbon Dioxide Anion Gap BUN Creatinine Estim Creat Clear Calc Est GFR (MDRD) Af Amer Est GFR (MDRD) Non-Af BUN/Creatinine Ratio Glucose Calcium Total Bilirubin Direct Bilirubin AST ALT Alkaline Phosphatase Ammonia Total Protein Albumin Globulin Albumin/Globulin Ratio TSH Free T4 Phenytoin Hep Bs Antigen Hep B Core Total Ab Hep B Core IgM Ab POC Glucose 439 H 364 H 384 H 06/16/17 06/16/17 05:10 05:10 WBC 14.0 H RBC 3.28 L Hgb 9.4 L Hct 29.9 L MCV 91.2 MCH 28.7 MCHC 31.4 L RDW 14.8 H RDW Differential 47.2 H Plt Count 118 L MPV 12.4 H Immature Gran % (Auto) 0.300 Neut % (Auto) 70.7 H Lymph % (Auto) 22.9 [place] % (Auto) 5.7 Eos % (Auto) 0.3 Baso % (Auto) 0.1 Absolute Neuts (auto) 9.9 H Absolute Lymphs (auto) 3.21 Total Counted Not Reportable Sodium 149 H Potassium 3.5 Chloride 112 H Carbon Dioxide 29.0 Anion Gap 8 BUN 92 H Creatinine 2.24 H Estim Creat Clear Calc 36.66 Est GFR (MDRD) Af Amer 39 L Est GFR (MDRD) Non-Af 32 L BUN/Creatinine Ratio 41.1 H Glucose 411 H Calcium 8.1 L Total Bilirubin 0.40 Direct Bilirubin AST 74 H ALT 57 Alkaline Phosphatase 137 H Ammonia Total Protein 5.5 L Albumin 2.3 L Globulin 3.2 Albumin/Globulin Ratio 0.7 L TSH Free T4 Phenytoin Hep Bs Antigen Hep B Core Total Ab Hep B Core IgM Ab POC Glucose Microbiology 06/12/17 15:00 Sputum, Induced/Lukens Gram Stain - Final 06/12/17 15:00 Sputum, Induced/[place]ukens Respiratory Culture - Final Clinical Impression(s) from Imaging Studies Chest X-Ray 06/10/17 16:15 IMPRESSION: Mild to moderate cardiomegaly. Interstitial edema. Lines as detailed above. Endotracheal tube is slightly high could be advanced 1 to 2 cm. Question left lower lobe pulmonary nodule versus summation of shadows. Possible nipple shadow. Recommend dedicated single chest x-ray when appropriate. Electronically Signed: Matilda Nguyen MD at 16:51 EST Tel , Service support , Chest X-Ray 06/10/17 18:05 IMPRESSION: There is a small pneumothorax along the periphery of the right lung base. This is likely due to minimally displaced rib fractures in the anterolateral aspects of the right fifth and sixth ribs rather than from central line placement. Follow-up films can be obtained. The tip of the right subclavian line is in the expected location of the mid to distal SVC. There is mild enlargement of the cardiac silhouette with mild edema. There is no obvious pleural effusion. N.B. : The above information has been verbally conveyed by Ana Laura Brown MD to Papo Taylor, Referring Physician, on 06/10/2017 19:21:19 (ET). Electronically Signed: Ana Laura Brown MD at 19:22 EST Tel Direct: [phone], Service support , N.B. : The above information has been verbally conveyed by Ana Laura Brown MD to Papo Taylor, Referring Physician, on 06/10/2017 19:21:19 (ET). Chest X-Ray 06/10/17 20:08 IMPRESSION: There is a stable appearance of the small pneumothorax in the periphery of the right lower chest. Adjacent subcutaneous emphysema has increased. There is mild enlargement of the cardiac silhouette with vascular congestion. There is no evidence of pleural effusion. The previously seen right rib fractures are not well seen on the current study. However fractures are now seen in the anterolateral left sixth rib and possibly lateral left fifth rib. Electronically Signed: Ana Laura Brown MD at 21:23 EST Tel Direct: [phone], Service support , Chest X-Ray 06/10/17 20:56 IMPRESSION: There has been resolution of the right pneumothorax after chest tube placement. There are no acute cardiopulmonary changes. Electronically Signed: Ana Laura Brown MD at 22:13 EST Tel Direct: [phone], Service support , Chest X-Ray 06/11/17 06:25 IMPRESSION: Right-sided chest tube, subcutaneous gas, no definitive visualized pneumothorax. The heart is enlarged. There is a widened appearance of the mediastinum which is likely due to positioning and aortic tortuosity. However, Recommend CT scan of the chest when appropriate to clarify. Lines as detailed above. The endotracheal tube is high 5.7 cm above the nikole and should be advanced 2 to 3 cm. Electronically Signed: Matilda Nguyen MD at 9:15 EST Tel , Service support , Chest X-Ray 06/11/17 12:11 IMPRESSION: Somewhat limited examination due to motion. Slightly prominent markings right lower lung probably exaggerated by motion patient's positioning. Early infiltrate is less likely. Overall no substantial change since previous examination. Electronically Signed: Ifeanyi Fajardo MD at 13:19 EST Tel , Service support , Brain CT 06/11/17 20:33 IMPRESSION: No acute intracranial abnormalities. Electronically Signed: Ana Laura Brown MD at 21:52 EST Tel Direct: [phone], Service support , Chest X-Ray 06/12/17 05:55 IMPRESSION: Improved aeration of both lungs. All the support tubes are unchanged. Electronically Signed: Matheus Vasquez MD at 11:48 EST Tel [phone], Service support , Brain MRI 06/12/17 14:19 IMPRESSION: Mild atrophy and periventricular white matter ischemic changes without evidence for acute infarct. Electronically Signed: Simone Briones MD at 23:19 EST , Service support , Chest X-Ray 06/13/17 05:55 IMPRESSION: Stable examination. All the support tubes are in good position. Electronically Signed: Matheus Vasquez MD at 8:02 EST Tel [phone], Service support , Chest X-Ray 06/13/17 12:36 IMPRESSION: Status post placement of a right-sided internal jugular venous catheter. The tip is in the proximal portion of the superior vena cava. Electronically Signed: Matheus Vasquez MD at 13:19 EST Tel [phone], Service support , Chest X-Ray 06/14/17 05:55 IMPRESSION: Ill-defined airspace opacities are seen in the right and left lung bases are improved since the previous study may represent bilateral pneumonia. Electronically Signed: Sam Art MD at 5:57 EST Tel , Service support , Chest X-Ray 06/15/17 05:55 IMPRESSION: Ill-defined airspace opacities are seen in the right and left lung bases are improved since the previous study . Electronically Signed: Sam Art MD at 6:40 EST Tel , Service support , Chest X-Ray 06/16/17 05:55 IMPRESSION: Support lines in good position. Near-complete resolution of airspace opacities in in the right and left lung bases. Electronically Signed: Sam Art MD at 7:13 EST Tel , Service support , Assessment/Plan Active and Suspected Problems Pneumothorax, right (Acute) Non-STEMI (non-ST elevated myocardial infarction) (Acute) Encephalopathy (Acute) JULIO CESAR (acute kidney injury) (Acute) Community acquired pneumonia (Suspected) Acute renal failure (Acute) Septic shock (Acute) Lactic acidosis (Acute) Cardiopulmonary arrest (Acute) RECOMMENDATIONS: 1. Increase Levemir and continue sliding scale insulin coverage. 2. Continue prednisone 40 mg daily via NG tube 3. Continue to hold all sedating medications 4. Continue antibiotics as ordered 5. Chest tube management per surgery 6. Continue Dilantin 7. Wean nicardipine drip as tolerated. We will add Lasix and Coreg to the patient's antihypertensive regimen. 8. Continue tube feeds 9. Continue subcu heparin and Pepcid for prophylaxis IMPRESSIONS: 1. Status post cardiopulmonary arrest with suspected primary pulmonary event Patient with reported protracted course at home. Patient was noncompliant with therapy. Although the patient is currently on CPAP, he appears to have sustained a devastating neurological insult. Continue to hold all sedating medications as tolerated. Chest tube remains in place and is being managed by surgery. Continue scheduled aerosol treatments. Antibiotics will be continued for now. 2. Traumatic right pneumothorax status post chest tube postop day #6 Right chest tube is stable. Subcutaneous emphysema appears to be stable at this time. We will continue to monitor closely. We will not initiate a heparin drip or Plavix therapy at this time given risk for bleeding complications. Patient does have multiple rib fractures noted on x-ray. Clinical suspicion for rib fracture secondary to CPR. 3. Acute on chronic combined respiratory failure Clinical suspicion for community-acquired pneumonia. Patient reportedly has a history of 2 L nasal cannula at baseline. Continue empiric antibiotics as noted above. Continue prednisone via NG tube. 4. Septic shock secondary to CAP Patient initially on Levophed therapy transiently. Patient has improved at this time. Hemodynamics are stable off of vasopressor support. Lactate has normalized at this time. Continue antibiotics. 5. Encephalopathy Continue to hold all sedating medications at this time. The patient most likely sustained some form of anoxic insult during his cardiopulmonary arrest. He is undergone hemodialysis now with improvement in his metabolic derangements. However, there has been no interval change in the patient's neurological status. EEG did reveal epileptiform discharges. Neurology has been following. Continue Keppra area. There are tentative plans for palliative withdrawal of care tomorrow. 6. Non-ST elevation AR Continue current medical management. Cardiology is following accordingly. 7. Acute renal failure Very little previous history is available for review. Patient did present with a creatinine of 5.56 indicating probable progressive renal failure over the past week. Patient does have casts on urinalysis indicating probable ATN. The patient was initially maintained on a bicarbonate drip. Throughout his hospital stay, the patient did develop worsening uremia, which led to the eventual initiation of hemodialysis. 8. Type 2 diabetes mellitus/uncontrolled hyperglycemia Continue tube feeds as ordered. Given ongoing hyperglycemia, Levemir dosing will again be increased. Continue high intensity sliding scale coverage. 9. Coronary artery disease/hypertension/morbid obesity/anxiety/depression/[place]/history of noncompliance Complicates care, management, recovery and prognosis. The patient was started on lisinopril and Norvasc initially. However, nicardipine had to be restarted due to persistently elevated blood pressure parameters. Therefore, we will plan to add Coreg and Lasix to his antihypertensive regimen today. TIME: 35 minutes of critical care time, independent of procedures, was spent addressing the patient's acute cardiopulmonary arrest, traumatic right pneumothorax, acute on chronic combined respiratory failure, septic shock secondary to probable CAP, encephalopathy, NSTEMI, acute renal failure, review of all data and collaboration with the care team. ([id number]) Code Visit 9xxxx: [id number] Critical care first hour
--- NOTE | 2017-06-16 07:10 | PN_ITS ---
Patient Problems: Active and Suspected Problems Pneumothorax, right (Acute) Non-STEMI (non-ST elevated myocardial infarction) (Acute) Encephalopathy (Acute) JULIO CESAR (acute kidney injury) (Acute) Community acquired pneumonia (Suspected) Acute renal failure (Acute) Septic shock (Acute) Lactic acidosis (Acute) Cardiopulmonary arrest (Acute) Subjective: Patient overnight without acute events aside recurrent elevated BP with restart of nicardipine drip with had been off earlier in the day. The patient does have appearance of mild agitation with increased VS parameters with any movement, position changes attempts. Patient overnight with cooling blanket, no fevers, clinically remains unchanged. Plans to await family for withdraw of care 06/17/17 with DNR-CC transition. Objective: Physical Examination: General: Does not awaken to stimuli, not alert, not oriented, sedated, intubated , NAD, not responsive. Skin: normal color, turgor, no icterus, cyanosis, abrasions to BL hands healing. HEENT: AT/NC, EOM unable to be tested, pupils responsive but R pupil appears 1 mm size <, intubated, not sedated. Lungs: Improved, diminished, more comfortable currently, normal RR currently, symmetric rise, intubated, not sedated, CT in place. Heart: Regular rate (90s) and regular rhythm; no gallop, rub audible. Abdomen: soft, obese, NTTP, ND, hypoactive BS. Extremities: no cyanosis, clubbing, BL LE foot-ankle edema improved. Neurological: Does not awaken to stimuli, not alert, not oriented, sedated, intubated, NAD; cognitive function NOT baseline intact; pupils equally not markedly reactive to light and accomodation; cranial nerves II-XII unable to be assessed, strength unable to be assessed, does not blink to threat, still unresponsive, not sedated. Psychiatric: affect appears flat, no acute evidence of depressive or anxiety feelings. Vitals/I&O's: Vital Signs Temp Pulse Resp BP Pulse Ox 98.9 F 103 H 28 H 142/56 H 98 06/16/17 06:00 06/16/17 06:00 06/16/17 06:00 06/16/17 06:00 06/16/17 06:00 Oxygen Delivery Method Mechanical Ventilator Weight: 269 lb 13.533 oz Body Mass Index (BMI) 39.2 Intake and Output for Last 24 Hours 06/14/17 06/15/17 06/16/17 23:59 23:59 23:59 Intake Total 3519 / 3519 4824 / 4824 990 / 990 Output Total 4720 / 4720 4625 / 4625 1105 / 1105 Balance -1201 / -1201 199 / 199 -115 / -115 Microbiology Past 72 Hours 06/12/17 15:00 Sputum, Induced/Lukens Gram Stain - Final 06/12/17 15:00 Sputum, Induced/Lukens Respiratory Culture - Final 06/10/17 23:20 Urine Catheter - Nino Urine Culture - Final Culture exhibits no growth. Laboratory Results 06/15/17 04:20: Free T4 0.67 L 06/15/17 08:40: Total Bilirubin 0.50, Direct Bilirubin 0.17, AST 57 H, ALT 38, Alkaline Phosphatase 138 H, Total Protein 5.9 L, Albumin 2.4 L, Globulin 3.5 06/15/17 08:40: Phenytoin 7.2 L 06/15/17 08:40: Ammonia 42.0 H 06/15/17 12:49: POC Glucose 419 H 06/15/17 16:59: POC Glucose 439 H 06/15/17 23:59: POC Glucose 364 H 06/16/17 05:00: POC Glucose 384 H 06/16/17 05:10: WBC 14.0 H, RBC 3.28 L, Hgb 9.4 L, Hct 29.9 L, MCV 91.2, MCH 28.7, MCHC 31.4 L, RDW 14.8 H, RDW Differential 47.2 H, Plt Count 118 L, MPV 12.4 H, Immature Gran % (Auto) 0.300, Neut % (Auto) 70.7 H, Lymph % (Auto) 22.9 , Daggett % (Auto) 5.7, Eos % (Auto) 0.3, Baso % (Auto) 0.1, Absolute Neuts (auto) 9.9 H, Absolute Lymphs (auto) 3.21, Total Counted Not Reportable 06/16/17 05:10: Sodium 149 H, Potassium 3.5, Chloride 112 H, Carbon Dioxide 29.0 , Anion Gap 8, BUN 92 H, Creatinine 2.24 H, Estim Creat Clear Calc 36.66, Est GFR (MDRD) Af Amer 39 L, Est GFR (MDRD) Non-Af 32 L, BUN/Creatinine Ratio 41.1 H , Glucose 411 H, Calcium 8.1 L, Total Bilirubin 0.40, AST 74 H, ALT 57, Alkaline Phosphatase 137 H, Total Protein 5.5 L, Albumin 2.3 L, Globulin 3.2, Albumin/Globulin Ratio 0.7 L Current Medications Acetaminophen (Tylenol Liquid) 650 mg GT Q4H PRN PRN PRN Reason: FEVER Last Admin: 06/15/17 13:37 Dose: 650 mg Albuterol/Ipratropium (Duoneb) 3 ml INHALATION Q6H.RT [facility] Last Admin: 06/16/17 06:47 Dose: 3 ml Amlodipine Besylate (Norvasc) 10 mg GT DAILY [facility] Last Admin: 06/15/17 10:34 Dose: 10 mg Aspirin (Aspirin, Baby) 81 mg GT DAILY@0800 [facility] Last Admin: 06/15/17 10:33 Dose: 81 mg Chlorhexidine Gluconate () 15 ml PO BID [facility] Last Admin: 06/15/17 22:05 Dose: 15 ml Chlorhexidine Gluconate () 1 each TOPICAL DAILY [facility] Last Admin: 06/16/17 05:47 Dose: 1 each Dextrose (D50w Syringe) 0 gm IV X1 PRN; Protocol PRN Reason: Hypoglycemia Famotidine (Pepcid) 20 mg GT DAILY [facility] Last Admin: 06/15/17 10:34 Dose: 20 mg Glucagon () 1 mg IM .X1 PRN PRN Reason: Hypoglycemia Heparin Sodium (Porcine) (Heparin Na) 5,000 unit SC Q8 [facility] Last Admin: 06/16/17 05:02 Dose: 5,000 u Sodium Chloride () 250 mls @ 15 mls/hr IV .[id number] PRN PRN Reason: SALINE FLUSH Last Admin: 06/15/17 22:05 Dose: 15 mls/hr Sodium Chloride () 1,000 mls @ 1 mls/hr IV .Q48H PRN PRN Reason: SALINE FLUSH Last Admin: 06/13/17 05:32 Dose: 1 mls/hr Enteral Nutritional Formula (Vital Af 1.2 Christopher Liquid) 1,000 mls @ 60 mls/hr GT .[id number] [facility] Last Admin: 06/15/17 17:21 Dose: 60 mls/hr Piperacillin Sod/Tazobactam Sod (Zosyn) 3.375 gm in 50 mls @ 12.5 mls/hr IV Q8 [facility] Last Admin: 06/16/17 05:04 Dose: 12.5 mls/hr Nicardipine HCl 25 mg/ (Dextrose) 250 mls @ 50 mls/hr IV Q5H FARA PRN Reason: 5 MG/HR Last Admin: 06/16/17 06:07 Dose: 50 mls/hr Insulin Aspart (Novolog Flexpen ([facility])) 0 units SC Q6 FARA PRN Reason: Protocol Last Admin: 06/16/17 05:02 Dose: 14 u Insulin Detemir (Levemir ([facility])) 50 units SC 0600,1800 [facility] Last Admin: 06/16/17 05:03 Dose: 50 u Labetalol HCl (Trandate) 10 mg IV Q4H PRN PRN PRN Reason: SBP > 160 Last Admin: 06/15/17 20:00 Dose: 10 mg Lisinopril (Zestril) 40 mg GT DAILY [facility] Last Admin: 06/15/17 10:34 Dose: 40 mg Phenytoin Sodium (Dilantin) 100 mg GT Q8 [facility] Last Admin: 06/16/17 05:02 Dose: 100 mg Prednisone (Prednisone) 40 mg GT DAILY@0800 [facility] Last Admin: 06/15/17 10:33 Dose: 40 mg Sodium Chloride () 5 - 30 ml IV UD PRN PRN Reason: SALINE FLUSH Last Admin: 06/16/17 05:48 Dose: 20 ml Sodium Chloride () 10 - 40 ml IV UD PRN PRN Reason: MULTILUMEN/HICMAN CATH FLUSH Assessment/Plan Active and Suspected Problems Pneumothorax, right (Acute) Non-STEMI (non-ST elevated myocardial infarction) (Acute) Encephalopathy (Acute) JULIO CESAR (acute kidney injury) (Acute) Community acquired pneumonia (Suspected) Acute renal failure (Acute) Septic shock (Acute) Lactic acidosis (Acute) Cardiopulmonary arrest (Acute) The patient is a 61 y/o M w/ PMHx: CAD, HTN, HLD, Depression, Hx CVA, Diabetes mellitus type II, Obesity, Chronic COPD, Chronic Hypoxic Respiratory Failure, Tobacco use who presents to the [facility] ED on 06/10/17 with respiratory and cardiac arrest, suspected primarily respiratory as initiating factor. (1) Cardiopulmonary Arrest W/ ? Post-Event Seizure Activity: Suspected initial etiology was pulmonary, s/p CPR as noted, initially placed on pressors, off pressors now, BP improved, cardiac enzymes elevated, EKGs obtained serially, NSTEMI Dx, deferred chemoprophylaxis secondary to possibility of bleeding given notable fx injuries s/p CPR, maintained on IV abx and IV steroids for concurrent possible PNA and COPD exacerbation-->oral prednisone, IV levaquin--> IV rocephin-->IV zosyn. 06/11/17 decreased mental status, unable to withdraw to stimuli now, suspect vegetative status, remained unresponsive even with d/c sedation 06/11/17. 06/11/17 MRI brain without acute evidence of infarct. 06/11/17 EEG which was abnormal with generalized epileptiform discharges which in the setting of recent cardiac arrest portends poor prognosis. DVT BL LE with no evidence DVT. ECHO 06/11/17 with EF 65%, moderately dilated RV, mild TVI, RVSP 72 mmHg, severe pulmonary HTN. Neurology consulted, 06/13/17 initiated initially keppra, but discussed with Neurology and transitioned to Dilantin 100 mg IV q 8 hours given planned HD start per Nephrology. 06/15/[address] head and EEG per discussion with Neurology and ICU staff with planned Hospice evaluation and withdraw of care on 06/17/17. (2) Lactic acidosis/septic shock w/ ongoing Fevers: Secondary to CPA, PNA, IVFs in the ED, pressors initially, LA normalized. Bld, UCx, Sputum Cx obtained. C- diff negative. Continued IV abx therapy rocephin per ICU with transition from initial levaquin, noted IV Vanc transiently-->06/14/17 IV Zosyn per ICU as ongoing elevated T, currently now afebrile (TM 99.1 since 06/17/17 1800) but ongoing usage of cooling blanket. Suspected secondary to neurological etiology; however, cannot rule out additional infectious component, repeat Bld Cx pending per ICU physician direction. 06/10/17 Bld Cx NGTS, stool cultures unremarkable, Sputum Cx initial NG. (3) Acute NSTEMI: In the setting of acute cardiopulmonary arrest, EKG in ED w/ RBBB, CXR w/ fx ribs, displaced and ? R sided PNA, trop trend <0.02-->0.22--> 0.30-->0.34. Will maintain on a monitored bed, deferred heparin drip secondary to concern for possible bleeding w/ recent rib fx. Continue medical management w / asa, holding BB, not on statin. Cardiology consulted, following, no interventions at this time, poor prognosis, planned withdrawal 06/17/17. (4) Acute on Chronic Hypoxic and Hypercarbic Respiratory Failure on Chronic Hypoxic Respiratory Failure secondary to Possible R Sided CAP PNA, Aspiration w / Acute on Chronic COPD Exacerbation: CXR w/ with iatrogenic displaced R 5th- 6th rib fx, CT placement, chronic COPD changes, R sided PNA, intubated, sedated , ATC duonebs, PRN albuterol, IV methylprednisolone-->prednisone, HOB, IS parameters, IV Levaquin-->06/13/17 transitioned to Rocephin given ongoing fevers- ->06/14/17 IV Zosyn per ICU. Unremarkable initial sputum cultures, respiratory panel negative. (5) Acute kidney injury: Secondary to hypoperfusion, cardiopulmonary arrest, likely ATN thus would expect very slow improvement of function. Initiated upon admission on bicarbonate and also given kayexelate secondary to hyperkalemia which has resolved. 06/02/17 d/c bicarbonate drip. UA w/ casts. Admission BUN/Cr 80/5.56, prior baseline creatinine unclear but denied CKD. Hydrated, pressors initially, trending function, 06/12/17 BUN/Cr 94/5.12-->06/13/17 BUN/Cr 108/4.18. Monitor UOP, ongoing at this time. Given continued FULL CODE status, uremic status, Nephrology consulted, decision for initiation dialysis with access placed 06/13/17 and session x 1 start, 06/14/17 BUN/Cr 90/2.82-->06/15/17 BUN/Cr 89/ 2.43-->06/16/17 BUN/Cr 92/2.24. (6) Suspected Iatrogenic R sided PTX: Possibly secondary to CPR w/ R sided rib fractures but also R sided SC placed in the field. Films w displaced fractures of the right fifth and sixth ribs. Emergent chest tubed placement performed. Surgery following, management per Surgery, continued to suction given continued 06/14/17 > 150 cc output-->06/15/17 CT output minimal. Given poor prognosis discussed with surgery and will defer transition off suction given planned withdrawal of care on 06/17/17. (7) Hypertension, Uncontrolled: 06/12/17 onset notable hypertension, uncontrolled , 06/12/17 AM initiated on nicardipine drip per ICU, improved BP, d/c attempt 06/15 failed, restarted. (8) CAD: Will continue home regimen asa, off IV BB, attempts to wean off nicardipine unsuccessful, 06/15/17 evening drip restarted. (9) Diabetes mellitus type II w/ Hyperglycemia: Hold oral home regimen, NPO status, scheduled insulin with notable hyperglycemia, 06/14/17 increased levemir given ongoing 300-400, BS starting to improve, accu checks w/ ISS. (10) Hx CVA Prior: Noted BL LE weakness, unclear extent per , maintain on asa, IV BB d/c, currently on IV nicardipine, not on statin. Neurology consulted , MRI, EEG as noted. Deferred 06/15/[address] head and EEG with planned withdrawal of care 06/17/17, hospice consulted. (11) GERD: Famotidine. (12) Obesity: Nutrition consulted, TF, following. (13) Tobacco Abuse: Given status unable to encourage cessation. (14) TRAVON: On CPAP q HS outpatient. (15) DVT Prophylaxis: SCDs, heparin. Code Visit Inpatient E&M: 57108 Subs Hosp L2
[2017-06-16] MEDS: Lisinopril 40 MG Tablet GT (08:26)
[2017-06-16] MEDS: Aspirin 81 MG TAB.CHEW GT (08:26)
[2017-06-16] MEDS: Famotidine 20 MG Tablet GT (08:26)
[2017-06-16] MEDS: amLODIPine 10 MG Tablet GT (08:26)
[2017-06-16] MEDS: Chlorhexidine 15 ML PO ×2 (08:38→22:09)
[2017-06-16] MEDS: Furosemide 40 MG Tablet GT (10:19)
[2017-06-16] MEDS: Carvedilol 6.25 MG Tablet GT ×2 (10:19→22:09)
--- NOTE | 2017-06-16 11:15 | PN.RENAL_ITS ---
Patient Problems: Active and Suspected Problems Pneumothorax, right (Acute) Non-STEMI (non-ST elevated myocardial infarction) (Acute) Encephalopathy (Acute) JULIO CESAR (acute kidney injury) (Acute) Community acquired pneumonia (Suspected) Acute renal failure (Acute) Septic shock (Acute) Lactic acidosis (Acute) Cardiopulmonary arrest (Acute) Subjective: no events - Physical Exam HEENT: Atraumatic, Normocephalic Neck: Supple, No JVD, Negative Carotid Bruits Lungs: Clear to auscultation, Normal air movement Cardiovascular: Regular rate, No murmurs Abdomen: Bowel Sounds Present, Soft, Non Tender Extremities: No edema, Capillary Refill Less than 3 Seconds Skin: No rashes, No breakdown Musculoskeletal: No Tenderness to Palpation of Joints or Extremities Vital Signs Temp Pulse Resp BP Pulse Ox 99.8 F H 107 H 33 H 144/56 H 99 06/16/17 07:00 06/16/17 09:25 06/16/17 09:25 06/16/17 07:00 06/16/17 09:25 Oxygen Delivery Method Mechanical Ventilator Weight: 122.4 kg Body Mass Index (BMI) 39.2 Intake and Output for Last 24 Hours 06/14/17 06/15/17 06/16/17 23:59 23:59 23:59 Intake Total 3519 / 3519 4824 / 4824 1155 / 1155 Output Total 4720 / 4720 4625 / 4625 1105 / 1105 Balance -1201 / -1201 199 / 199 50 / 50 Microbiology Past 72 Hours 06/14/17 07:43 Blood Culture - Preliminary Blood Culture (Wb) - Port No growth in 48 hours. 06/14/17 07:40 Blood Culture - Preliminary Blood Culture (Wb) - Left Forearm No growth in 48 hours. 06/12/17 15:00 Gram Stain - Final Sputum, Induced/Lukens Respiratory Culture - Final 06/10/17 23:20 Urine Culture - Final Urine Catheter - Nino Culture exhibits no growth. Laboratory Tests Past 24 Hrs 06/16/17 06/16/17 05:10 05:10 WBC 14.0 H RBC 3.28 L Hgb 9.4 L Hct 29.9 L MCV 91.2 MCH 28.7 MCHC 31.4 L RDW 14.8 H RDW Differential 47.2 H Plt Count 118 L MPV 12.4 H Immature Gran % (Auto) 0.300 Neut % (Auto) 70.7 H Lymph % (Auto) 22.9 Arroyo % (Auto) 5.7 Eos % (Auto) 0.3 Baso % (Auto) 0.1 Absolute Neuts (auto) 9.9 H Absolute Lymphs (auto) 3.21 Total Counted Not Reportable Sodium 149 H Potassium 3.5 Chloride 112 H Carbon Dioxide 29.0 Anion Gap 8 BUN 92 H Creatinine 2.24 H Estim Creat Clear Calc 36.66 Est GFR (MDRD) Af Amer 39 L Est GFR (MDRD) Non-Af 32 L BUN/Creatinine Ratio 41.1 H Glucose 411 H Calcium 8.1 L Total Bilirubin 0.40 AST 74 H ALT 57 Alkaline Phosphatase 137 H Total Protein 5.5 L Albumin 2.3 L Globulin 3.2 Albumin/Globulin Ratio 0.7 L POC Glucose 06/16/17 06/15/17 06/15/17 05:00 23:59 16:59 POC Glucose 384 H 364 H 439 H 06/15/17 12:49 POC Glucose 419 H Assessment/Plan Active and Suspected Problems Pneumothorax, right (Acute) Non-STEMI (non-ST elevated myocardial infarction) (Acute) Encephalopathy (Acute) JULIO CESAR (acute kidney injury) (Acute) Community acquired pneumonia (Suspected) Acute renal failure (Acute) Septic shock (Acute) Lactic acidosis (Acute) Cardiopulmonary arrest (Acute) JULIO CESAR. With no prior renal disease as per family members. Etiology could be ATN related to prolonged shock during cardiac arrest. non oliguric but severe azotemia. there is a concern that his mental status changes could be related to renal failure in addition to HIE and sepsis. to rule out renal failure related azotemia as the complicating factor, QUALITY CONTROL ASSESSOR was initiated However there was no significant change in mental status with 3 dialysis treatments he does have some brain stem functions but minimal cognitive abilities. for now plan is to do full care and goals of care to be determined tomorrow when all family members are present no dialysis planned today ( had extremely poor tolerance yesterday) most likely will be hospice tomorrow HTN. better Thank you
[2017-06-16] MEDS: Vital AF 1.2 Cal Liquid 1,000 ML 60 ML GT (12:06)
--- NOTE | 2017-06-16 12:07 | CASEMGMT ---
SW participated in interdisciplinary rounds this morning, pt's and daughter present. states her family is due in this evening. SW remains available for support to family, family is not here at present. KAELYN Rodriguez, MECHANICAL DESIGN ENGINEER
[2017-06-16 13:32] LABS: Bedside Glucose 361 mg/dL (70-110)
--- NOTE | 2017-06-16 14:01 | CASEMGMT ---
Pt's asked for information on cremation. SW met w/ at the bedside, gave her information regarding cremation in the area. thanked MARGOT for the information. then spoke about the situation not feeling real. Her family is coming in this evening, she states that her daughter, son in law, and pt's great grandson who is 14 will be here about 6pm. states she and pt raised their great grandson for about 5 years. talked about pt not wanting to go to the doctor, not following up when she should have. SW offered support to , acknowledged her feelings are appropriate and expected given the situation, we talked about the grief process, and it not being the same for everyone. thanked MARGOT for the information, SW remains available. KAELYN Rodriguez, SENIOR INSTRUCTIONAL DESIGNER
[2017-06-16 17:36] LABS: Bedside Glucose 363 mg/dL (70-110)
--- NOTE | 2017-06-16 19:07 | NURSING ---
reviewed Briseida ryder RN charting and agree with all charting -- CAM was not able to be performed due to patient RASS of -5 and unable to follow commands
[2017-06-16 23:46] LABS: Bedside Glucose 258 mg/dL (70-110)
[2017-06-17] VITALS (19 sets, daily range): BP systolic 111–192; BP diastolic 45–69; PULSE 94–110; RESP 16–38; TEMP 37.7–39.4; O2SAT 82–100
[2017-06-17] MEDS: Ipratropium/Albuterol Sulfate 3 ML AMPUL.NEB INHALATION ×2 (00:56→06:41)
--- NOTE | 2017-06-17 05:00 | PCM.PN.INT ---
Subjective: The patient was seen and examined at the bedside this morning. Events from the last 24 hours have been reviewed. The patient is currently febrile with a T-max of 103?F. Blood pressures are improved and the patient has been weaned off of the nicardipine drip. FiO2 requirements remain constant at 45%. No overnight events were noted by the nursing staff. The patient remains neurologically unchanged. There are tentative plans for withdrawal of care and initiation of comfort measures this morning. Objective: The patient's most recent lab work, culture data and imaging studies have all been personally reviewed. Sputum culture is currently pending. Urine and blood cultures have been unrevealing to date. Respiratory viral panel was negative. C. difficile and enteric bacteriology were negative. MRI brain revealed mild atrophy and periventricular white matter ischemic changes without evidence for acute infarction. EEG revealed the presence of generalized epileptiform discharges. Lower extremity Doppler studies were negative for the presence of a DVT. Surface echocardiogram revealed normal LV size and thickness with an ejection fraction of 65%. There was evidence of moderate RV dilation with mild to moderate global RV systolic dysfunction and a right ventricular systolic pressure estimated to be 72 mmHg. General: - - Remains intubated and mechanically ventilated. Currently being maintained on assist control mode mechanical ventilation. HEENT: Atraumatic, Normocephalic, - - Rather brisk pupillary reflex. Oral: No Gingival or Mucosal Lesions/ Ulcerations, - - Endotracheal and OG tubes remain in place. Neck: Supple, No Nodes, Trachea Midline, - - Subclavian central venous catheter and temporary hemodialysis lines remain in place. Lungs: No wheeze, No rales, Diminished, Rhonchi Cardiovascular: Normal S1, Normal S2, No murmurs, No rub noted, No Gallop, Tachycardic Abdomen: Bowel Sounds Present, Soft, Non Tender, Obese Extremities: No clubbing, No cyanosis, Edema Skin: - - No significant change from previous. Musculoskeletal: No Muscle Wasting Lymphatic: No Cervical, Supraclavicular, or Inguinal Adenopathy Neurological: - - Neurologically unchanged from previous. Does not respond purposefully to verbal or noxious stimulation. Gag reflex is present. Vital Signs Temp Pulse Resp BP Pulse Ox 100.2 F H 102 H 23 H 155/58 H 100 06/17/17 04:00 06/17/17 04:16 06/17/17 04:00 06/17/17 04:00 06/17/17 04:00 Oxygen Flow Rate 98 Oxygen Delivery Method Mechanical Ventilator Weight: 273 lb 5.971 oz Body Mass Index (BMI) 39.2 Intake and Output for Last 24 Hours 06/15/17 06/16/17 06/17/17 23:59 23:59 23:59 Intake Total 4824 / 4824 3479 / 3479 875.1 / 875.1 Output Total 4625 / 4625 2665 / 2665 775 / 775 Balance 199 / 199 814 / 814 100.1 / 100.1 Labs (Last 48 Hours) 06/14/17 06/15/17 06/15/17 06:50 04:20 04:20 WBC 13.2 H RBC 3.45 L Hgb 10.0 L Hct 30.7 L MCV 89.0 MCH 29.0 MCHC 32.6 RDW 14.8 H RDW Differential 46.8 H Plt Count 144 L MPV 12.5 H Immature Gran % (Auto) 0.400 Neut % (Auto) 72.1 H Lymph % (Auto) 19.0 [place] % (Auto) 8.5 Eos % (Auto) 0.0 Baso % (Auto) 0.0 Absolute Neuts (auto) 9.5 H Absolute Lymphs (auto) 2.50 Total Counted Not Reportable Sodium Potassium Chloride Carbon Dioxide Anion Gap BUN Creatinine Estim Creat Clear Calc Est GFR (MDRD) Af Amer Est GFR (MDRD) Non-Af BUN/Creatinine Ratio Glucose Calcium Total Bilirubin Direct Bilirubin AST ALT Alkaline Phosphatase Ammonia Total Protein Albumin Globulin Albumin/Globulin Ratio Free T4 0.67 L Phenytoin Free Phenytoin 1.2 POC Glucose 06/15/17 06/15/17 06/15/17 05:42 08:40 08:40 WBC RBC Hgb Hct MCV MCH MCHC RDW RDW Differential Plt Count MPV Immature Gran % (Auto) Neut % (Auto) Lymph % (Auto) [place] % (Auto) Eos % (Auto) Baso % (Auto) Absolute Neuts (auto) Absolute Lymphs (auto) Total Counted Sodium Potassium Chloride Carbon Dioxide Anion Gap BUN Creatinine Estim Creat Clear Calc Est GFR (MDRD) Af Amer Est GFR (MDRD) Non-Af BUN/Creatinine Ratio Glucose Calcium Total Bilirubin 0.50 Direct Bilirubin 0.17 AST 57 H ALT 38 Alkaline Phosphatase 138 H Ammonia Total Protein 5.9 L Albumin 2.4 L Globulin 3.5 Albumin/Globulin Ratio Free T4 Phenytoin 7.2 L Free Phenytoin POC Glucose 384 H 06/15/17 06/15/17 06/15/17 08:40 12:49 16:59 WBC RBC Hgb Hct MCV MCH MCHC RDW RDW Differential Plt Count MPV Immature Gran % (Auto) Neut % (Auto) Lymph % (Auto) [place] % (Auto) Eos % (Auto) Baso % (Auto) Absolute Neuts (auto) Absolute Lymphs (auto) Total Counted Sodium Potassium Chloride Carbon Dioxide Anion Gap BUN Creatinine Estim Creat Clear Calc Est GFR (MDRD) Af Amer Est GFR (MDRD) Non-Af BUN/Creatinine Ratio Glucose Calcium Total Bilirubin Direct Bilirubin AST ALT Alkaline Phosphatase Ammonia 42.0 H Total Protein Albumin Globulin Albumin/Globulin Ratio Free T4 Phenytoin Free Phenytoin POC Glucose 419 H 439 H 06/15/17 06/16/17 06/16/17 23:59 05:00 05:10 WBC 14.0 H RBC 3.28 L Hgb 9.4 L Hct 29.9 L MCV 91.2 MCH 28.7 MCHC 31.4 L RDW 14.8 H RDW Differential 47.2 H Plt Count 118 L MPV 12.4 H Immature Gran % (Auto) 0.300 Neut % (Auto) 70.7 H Lymph % (Auto) 22.9 [place] % (Auto) 5.7 Eos % (Auto) 0.3 Baso % (Auto) 0.1 Absolute Neuts (auto) 9.9 H Absolute Lymphs (auto) 3.21 Total Counted Not Reportable Sodium Potassium Chloride Carbon Dioxide Anion Gap BUN Creatinine Estim Creat Clear Calc Est GFR (MDRD) Af Amer Est GFR (MDRD) Non-Af BUN/Creatinine Ratio Glucose Calcium Total Bilirubin Direct Bilirubin AST ALT Alkaline Phosphatase Ammonia Total Protein Albumin Globulin Albumin/Globulin Ratio Free T4 Phenytoin Free Phenytoin POC Glucose 364 H 384 H 06/16/17 06/16/17 06/16/17 05:10 13:23 17:31 WBC RBC Hgb Hct MCV MCH MCHC RDW RDW Differential Plt Count MPV Immature Gran % (Auto) Neut % (Auto) Lymph % (Auto) [place] % (Auto) Eos % (Auto) Baso % (Auto) Absolute Neuts (auto) Absolute Lymphs (auto) Total Counted Sodium 149 H Potassium 3.5 Chloride 112 H Carbon Dioxide 29.0 Anion Gap 8 BUN 92 H Creatinine 2.24 H Estim Creat Clear Calc 36.66 Est GFR (MDRD) Af Amer 39 L Est GFR (MDRD) Non-Af 32 L BUN/Creatinine Ratio 41.1 H Glucose 411 H Calcium 8.1 L Total Bilirubin 0.40 Direct Bilirubin AST 74 H ALT 57 Alkaline Phosphatase 137 H Ammonia Total Protein 5.5 L Albumin 2.3 L Globulin 3.2 Albumin/Globulin Ratio 0.7 L Free T4 Phenytoin Free Phenytoin POC Glucose 361 H 363 H 06/16/17 23:39 WBC RBC Hgb Hct MCV MCH MCHC RDW RDW Differential Plt Count MPV Immature Gran % (Auto) Neut % (Auto) Lymph % (Auto) [place] % (Auto) Eos % (Auto) Baso % (Auto) Absolute Neuts (auto) Absolute Lymphs (auto) Total Counted Sodium Potassium Chloride Carbon Dioxide Anion Gap BUN Creatinine Estim Creat Clear Calc Est GFR (MDRD) Af Amer Est GFR (MDRD) Non-Af BUN/Creatinine Ratio Glucose Calcium Total Bilirubin Direct Bilirubin AST ALT Alkaline Phosphatase Ammonia Total Protein Albumin Globulin Albumin/Globulin Ratio Free T4 Phenytoin Free Phenytoin POC Glucose 258 H Microbiology 06/14/17 07:43 Blood Culture (Wb) - Port Blood Culture - Preliminary No growth in 48 hours. 06/14/17 07:40 Blood Culture (Wb) - Left Forearm Blood Culture - Preliminary No growth in 48 hours. 06/12/17 15:00 Sputum, Induced/Lukens Gram Stain - Final 06/12/17 15:00 Sputum, Induced/Lukens Respiratory Culture - Final Clinical Impression(s) from Imaging Studies Chest X-Ray 06/10/17 16:15 IMPRESSION: Mild to moderate cardiomegaly. Interstitial edema. Lines as detailed above. Endotracheal tube is slightly high could be advanced 1 to 2 cm. Question left lower lobe pulmonary nodule versus summation of shadows. Possible nipple shadow. Recommend dedicated single chest x-ray when appropriate. Electronically Signed: Matilda Nguyen MD at 16:51 EST Tel , Service support , Chest X-Ray 06/10/17 18:05 IMPRESSION: There is a small pneumothorax along the periphery of the right lung base. This is likely due to minimally displaced rib fractures in the anterolateral aspects of the right fifth and sixth ribs rather than from central line placement. Follow-up films can be obtained. The tip of the right subclavian line is in the expected location of the mid to distal SVC. There is mild enlargement of the cardiac silhouette with mild edema. There is no obvious pleural effusion. N.B. : The above information has been verbally conveyed by Ana Laura Brown MD to Papo Taylor, Referring Physician, on 06/10/2017 19:21:19 (ET). Electronically Signed: Ana Laura Brown MD at 19:22 EST Tel Direct: [phone], Service support , N.B. : The above information has been verbally conveyed by Ana Laura Brown MD to Papo Taylor, Referring Physician, on 06/10/2017 19:21:19 (ET). Chest X-Ray 06/10/17 20:08 IMPRESSION: There is a stable appearance of the small pneumothorax in the periphery of the right lower chest. Adjacent subcutaneous emphysema has increased. There is mild enlargement of the cardiac silhouette with vascular congestion. There is no evidence of pleural effusion. The previously seen right rib fractures are not well seen on the current study. However fractures are now seen in the anterolateral left sixth rib and possibly lateral left fifth rib. Electronically Signed: Ana Laura Brown MD at 21:23 EST Tel Direct: [phone], Service support , Chest X-Ray 06/10/17 20:56 IMPRESSION: There has been resolution of the right pneumothorax after chest tube placement. There are no acute cardiopulmonary changes. Electronically Signed: Ana Laura Brown MD at 22:13 EST Tel Direct: [phone], Service support , Chest X-Ray 06/11/17 06:25 IMPRESSION: Right-sided chest tube, subcutaneous gas, no definitive visualized pneumothorax. The heart is enlarged. There is a widened appearance of the mediastinum which is likely due to positioning and aortic tortuosity. However, Recommend CT scan of the chest when appropriate to clarify. Lines as detailed above. The endotracheal tube is high 5.7 cm above the nikole and should be advanced 2 to 3 cm. Electronically Signed: Matilda Nguyen MD at 9:15 EST Tel , Service support , Chest X-Ray 06/11/17 12:11 IMPRESSION: Somewhat limited examination due to motion. Slightly prominent markings right lower lung probably exaggerated by motion patient's positioning. Early infiltrate is less likely. Overall no substantial change since previous examination. Electronically Signed: Ifeanyi Fajardo MD at 13:19 EST Tel , Service support , Brain CT 06/11/17 20:33 IMPRESSION: No acute intracranial abnormalities. Electronically Signed: Ana Laura Brown MD at 21:52 EST Tel Direct: [phone], Service support , Chest X-Ray 06/12/17 05:55 IMPRESSION: Improved aeration of both lungs. All the support tubes are unchanged. Electronically Signed: Matheus Vasquez MD at 11:48 EST Tel [phone], Service support , Brain MRI 06/12/17 14:19 IMPRESSION: Mild atrophy and periventricular white matter ischemic changes without evidence for acute infarct. Electronically Signed: Simone Briones MD at 23:19 EST , Service support , Chest X-Ray 06/13/17 05:55 IMPRESSION: Stable examination. All the support tubes are in good position. Electronically Signed: Matheus Vasquez MD at 8:02 EST Tel [phone], Service support , Chest X-Ray 06/13/17 12:36 IMPRESSION: Status post placement of a right-sided internal jugular venous catheter. The tip is in the proximal portion of the superior vena cava. Electronically Signed: Matheus Vasquez MD at 13:19 EST Tel [phone], Service support , Chest X-Ray 06/14/17 05:55 IMPRESSION: Ill-defined airspace opacities are seen in the right and left lung bases are improved since the previous study may represent bilateral pneumonia. Electronically Signed: Sam Art MD at 5:57 EST Tel , Service support , Chest X-Ray 06/15/17 05:55 IMPRESSION: Ill-defined airspace opacities are seen in the right and left lung bases are improved since the previous study . Electronically Signed: Sam Art MD at 6:40 EST Tel , Service support , Chest X-Ray 06/16/17 05:55 IMPRESSION: Support lines in good position. Near-complete resolution of airspace opacities in in the right and left lung bases. Electronically Signed: Sam Art MD at 7:13 EST Tel , Service support , Assessment/Plan Active and Suspected Problems Pneumothorax, right (Acute) Non-STEMI (non-ST elevated myocardial infarction) (Acute) Encephalopathy (Acute) JULIO CESAR (acute kidney injury) (Acute) Community acquired pneumonia (Suspected) Acute renal failure (Acute) Septic shock (Acute) Lactic acidosis (Acute) Cardiopulmonary arrest (Acute) RECOMMENDATIONS: 1. Continue Levemir and continue sliding scale insulin coverage. 2. Continue prednisone 40 mg daily via NG tube 3. Continue to hold all sedating medications 4. Continue antibiotics as ordered 5. Chest tube management per surgery 6. Continue Dilantin 7. Continue current antihypertensive regimen 8. Continue tube feeds 9. Continue subcu heparin and Pepcid for prophylaxis 10. Tentative plans for palliative withdrawal and initiation of comfort measures this morning, upon family arrival. IMPRESSIONS: 1. Status post cardiopulmonary arrest with suspected primary pulmonary event Patient with reported protracted course at home. Patient was noncompliant with therapy. Although the patient is currently on CPAP, he appears to have sustained a devastating neurological insult. Continue to hold all sedating medications as tolerated. Chest tube remains in place and is being managed by surgery. Continue scheduled aerosol treatments. Antibiotics will be continued for now. 2. Traumatic right pneumothorax status post chest tube postop day #7 Right chest tube is stable. Subcutaneous emphysema appears to be stable at this time. We will continue to monitor closely. We will not initiate a heparin drip or Plavix therapy at this time given risk for bleeding complications. Patient does have multiple rib fractures noted on x-ray. Clinical suspicion for rib fracture secondary to CPR. 3. Acute on chronic combined respiratory failure Clinical suspicion for community-acquired pneumonia. Patient reportedly has a history of 2 L nasal cannula at baseline. Continue empiric antibiotics as noted above. Continue prednisone via NG tube. 4. Septic shock secondary to CAP Patient initially on Levophed therapy transiently. Patient has improved at this time. Hemodynamics are stable off of vasopressor support. Lactate has normalized at this time. Continue antibiotics. 5. Encephalopathy Continue to hold all sedating medications at this time. The patient most likely sustained some form of anoxic insult during his cardiopulmonary arrest. He is undergone hemodialysis now with improvement in his metabolic derangements. However, there has been no interval change in the patient's neurological status. EEG did reveal epileptiform discharges. Neurology has been following. Continue Keppra. There are tentative plans for palliative withdrawal of care today. 6. Non-ST elevation MD Continue current medical management. Cardiology is following accordingly. 7. Acute renal failure Very little previous history is available for review. Patient did present with a creatinine of 5.56 indicating probable progressive renal failure over the past week. Patient does have casts on urinalysis indicating probable ATN. The patient was initially maintained on a bicarbonate drip. Throughout his hospital stay, the patient did develop worsening uremia, which led to the eventual initiation of hemodialysis. 8. Type 2 diabetes mellitus/uncontrolled hyperglycemia Continue tube feeds as ordered. Continue high intensity sliding scale coverage and Levemir. 9. Coronary artery disease/hypertension/morbid obesity/anxiety/depression/[place]/history of noncompliance Complicates care, management, recovery and prognosis. Continue current antihypertensive regimen. This note was generated with [employer] dictation software. It may contain incorrect words, spelling, and punctuation that were not noted in checking the note before signing. Code Visit Inpatient E&M: 99038 Subs Hosp L3
[2017-06-17 05:34] LABS: Absolute Lymphocyte Count 3.28 X10^3/ul (0.83-4.51); Absolute Neutrophil Count 9.3 X10^3/uL (2.0-7.7); Eosinophils% 0.7 % (0-5); Hematocrit 27.2 % (40-54); Hemoglobin 8.4 g/dl (13.0-16.5); Lymphocyte # 3.28 X10^3/ul (4.0); Lymphocyte % 24.5 % (19-41); Mean Corp Hgb Conc 30.9 g/gl (32-36); Mean Corpuscular Hgb 28.8 pg (27.0-32.0); Mean Corpuscular Volume 93.2 fL (80-94); Mean Platelet Vol. 12.4 fl (6.2-12.0); Monocyte# 0.67 X10^3/uL; Neutrophil # 9.31 X10^3/uL (2.7-7.7); Neutrophil % 69.5 % (47-70); Platelet Count 118 K/mm3 (150-450); RBC Distribution Width CV 14.8 % (11.6-14.6); Red Blood Count 2.92 M/mm3 (4.6-6.2); White Blood Count 13.4 K/mm3 (4.4-11.0)
[2017-06-17 05:36] LABS: POSITIVE COUNT NO; POSITIVE DIFFERENTIAL NO; POSITIVE MORPHOLOGY NO
[2017-06-17] MEDS: CHLORHEXIDINE GLUC 2% CLOTH 1 EACH TOWELETTE TOPICAL (05:58)
[2017-06-17] MEDS: Phenytoin Na 100 MG/4 ML UDC GT (06:01)
[2017-06-17 06:12] LABS: ALB/GLOB Ratio 0.7 RATIO (0.9-2.4); AST(SGOT) 86 U/L (15-37); Alanine Aminotransfer ALT/SGPT 77 U/L (16-61); Albumin, Serum 2.2 g/dL (3.2-5.0); Alkaline Phosphatase 143 U/L (45-117); Anion Gap 7 (5-15); BUN 113 mg/dL (7-18); BUN/Creat Ratio 47.7 RATIO (10-20); Calcium,Total 8.3 mg/dL (8.5-10.1); Chloride 116 mmol/L (98-107); Creatinine, Serum 2.37 mg/dL (0.70-1.30); EST Glomerular Filtration Rate 30 mL/min (>60); Est Glom Filt Rate - Afr Amer 36 mL/min (>60); Estimated Creatinine Clearance 34.65 ml/min; Globulin 3.1 g/dL (2.2-4.2); Glucose 265 mg/dL (74-106); Potassium 3.6 mmol/L (3.5-5.1); Protein, Total 5.3 g/dL (6.4-8.2); Sodium Level 153 mmol/L (136-145)
[2017-06-17] MEDS: 0.9% NaCl Peripheral Flush Adult/Peds IV ×6 (06:19→13:39)
--- NOTE | 2017-06-17 07:31 | PCM.PN.HOSP ---
Patient Problems: Active and Suspected Problems Pneumothorax, right (Acute) Non-STEMI (non-ST elevated myocardial infarction) (Acute) Encephalopathy (Acute) JULIO CESAR (acute kidney injury) (Acute) Community acquired pneumonia (Suspected) Acute renal failure (Acute) Septic shock (Acute) Lactic acidosis (Acute) Cardiopulmonary arrest (Acute) Subjective: Patient overnight with unchanged status neurologically, continues now to have fevers, continued intermittent increased RR, hypertensive. Continues to have eye movements similar to prior. Still no withdraw, no response to stimuli, no startle. Family planning for today to withdraw care. Awaiting arrival of all family. Objective: Physical Examination: General: Does not awaken to stimuli, not alert, not oriented, intubated, not responsive. Skin: normal color, turgor, no icterus, cyanosis, abrasions to BL hands healing. HEENT: AT/NC, EOM unable to be tested, no startle, pupils still responsive BL, still mildly increased R 1mm from L. Lungs: BL symmetric rise, intubated, not sedated, CT in place. Heart: Mildly tachycardic with regular rhythm; no gallop, rub audible. Abdomen: soft, obese, NTTP, ND, hypoactive BS. Extremities: no cyanosis, clubbing, BL LE foot-ankle edema. Neurological: Does not awaken to stimuli, not alert, not oriented, intubated, NAD; cognitive function NOT intact; pupils responsive, R?>L, cranial nerves II-XII unable to be assessed, strength unable to be assessed, still unresponsive, not sedated. Psychiatric: affect appears flat, no acute evidence of depressive or anxiety feelings. Vitals/I&O's: Vital Signs Temp Pulse Resp BP Pulse Ox 103 F H 102 H 26 H 151/54 H 99 06/17/17 06:00 06/17/17 06:42 06/17/17 06:42 06/17/17 06:00 06/17/17 06:42 Oxygen Flow Rate 98 Oxygen Delivery Method Mechanical Ventilator Weight: 263 lb 10.766 oz Body Mass Index (BMI) 39.2 Intake and Output for Last 24 Hours 06/15/17 06/16/17 06/17/17 23:59 23:59 23:59 Intake Total 4824 / 4824 3479 / 3479 1602.2 / 1602.2 Output Total 4625 / 4625 2665 / 2665 1400 / 1400 Balance 199 / 199 814 / 814 202.2 / 202.2 Microbiology Past 72 Hours 06/14/17 07:43 Blood Culture (Wb) - Port Blood Culture - Preliminary No growth in 48 hours. 06/14/17 07:40 Blood Culture (Wb) - Left Forearm Blood Culture - Preliminary No growth in 48 hours. 06/12/17 15:00 Sputum, Induced/[place] Gram Stain - Final 06/12/17 15:00 Sputum, Induced/[place] Respiratory Culture - Final Laboratory Results 06/14/17 06:50: Free Phenytoin 1.2 06/16/17 13:23: POC Glucose 361 H 06/16/17 17:31: POC Glucose 363 H 06/16/17 23:39: POC Glucose 258 H 06/17/17 05:15: WBC 13.4 H, RBC 2.92 L, Hgb 8.4 L, Hct 27.2 L, MCV 93.2, MCH 28.8, MCHC 30.9 L, RDW 14.8 H, RDW Differential 48.0 H, Plt Count 118 L, MPV 12.4 H, Immature Gran % (Auto) 0.300, Neut % (Auto) 69.5, Lymph % (Auto) 24.5, [place] % (Auto) 5.0, Eos % (Auto) 0.7, Baso % (Auto) 0.0, Absolute Neuts (auto) 9.3 H, Absolute Lymphs (auto) 3.28, Total Counted Not Reportable 06/17/17 05:15: Sodium 153 H, Potassium 3.6, Chloride 116 H, Carbon Dioxide 30.0, Anion Gap 7, BUN 113 H*, Creatinine 2.37 H, Estim Creat Clear Calc 34.65, Est GFR (MDRD) Af Amer 36 L, Est GFR (MDRD) Non-Af 30 L, BUN/Creatinine Ratio 47.7 H, Glucose 265 H, Calcium 8.3 L, Total Bilirubin 0.40, AST 86 H, ALT 77 H, Alkaline Phosphatase 143 H, Total Protein 5.3 L, Albumin 2.2 L, Globulin 3.1, Albumin/Globulin Ratio 0.7 L Current Medications Acetaminophen (Tylenol Liquid) 650 mg GT Q4H PRN PRN PRN Reason: FEVER Last Admin: 06/15/17 13:37 Dose: 650 mg Albuterol/Ipratropium (Duoneb) 3 ml INHALATION Q6H.RT [facility] Last Admin: 06/17/17 06:41 Dose: 3 ml Amlodipine Besylate (Norvasc) 10 mg GT DAILY [facility] Last Admin: 06/16/17 08:26 Dose: 10 mg Aspirin (Aspirin, Baby) 81 mg GT DAILY@0800 [facility] Last Admin: 06/16/17 08:26 Dose: 81 mg Carvedilol (Coreg) 6.25 mg GT BID [facility] Last Admin: 06/16/17 22:09 Dose: 6.25 mg Chlorhexidine Gluconate () 15 ml PO BID [facility] Last Admin: 06/16/17 22:09 Dose: 15 ml Chlorhexidine Gluconate () 1 each TOPICAL DAILY [facility] Last Admin: 06/17/17 05:58 Dose: 1 each Dextrose (D50w Syringe) 0 gm IV X1 PRN; Protocol PRN Reason: Hypoglycemia Famotidine (Pepcid) 20 mg GT DAILY [facility] Last Admin: 06/16/17 08:26 Dose: 20 mg Furosemide (Lasix) 40 mg GT DAILY [facility] Last Admin: 06/16/17 10:19 Dose: 40 mg Glucagon () 1 mg IM .X1 PRN PRN Reason: Hypoglycemia Heparin Sodium (Porcine) (Heparin Na) 5,000 unit SC Q8 [facility] Last Admin: 06/17/17 06:01 Dose: 5,000 u Sodium Chloride () 250 mls @ 15 mls/hr IV .[id number] PRN PRN Reason: SALINE FLUSH Last Admin: 06/15/17 22:05 Dose: 15 mls/hr Sodium Chloride () 1,000 mls @ 1 mls/hr IV .Q48H PRN PRN Reason: SALINE FLUSH Last Admin: 06/16/17 18:59 Dose: 1 mls/hr Enteral Nutritional Formula (Vital Af 1.2 Christopher Liquid) 1,000 mls @ 60 mls/hr GT .[id number] [facility] Last Admin: 06/16/17 12:06 Dose: 60 mls/hr Piperacillin Sod/Tazobactam Sod (Zosyn) 3.375 gm in 50 mls @ 12.5 mls/hr IV Q8 [facility] Last Admin: 06/17/17 06:11 Dose: 12.5 mls/hr Nicardipine HCl 25 mg/ (Dextrose) 250 mls @ 50 mls/hr IV Q5H [facility]ARA PRN Reason: 5 MG/HR Last Admin: 06/17/17 06:00 Dose: Not Given Insulin Aspart (Novolog Flexpen (Bk)) 0 units SC Q6 [facility] PRN Reason: Protocol Last Admin: 06/17/17 06:16 Dose: 9 u Insulin Detemir (Levemir (Bk)) 70 units SC [facility] Last Admin: 06/17/17 06:12 Dose: 70 u Labetalol HCl (Trandate) 10 mg IV Q4H PRN PRN PRN Reason: SBP > 160 Last Admin: 06/15/17 20:00 Dose: 10 mg Lisinopril (Zestril) 40 mg GT DAILY [facility] Last Admin: 06/16/17 08:26 Dose: 40 mg Phenytoin Sodium (Dilantin) 100 mg GT Q8 [facility] Last Admin: 06/17/17 06:01 Dose: 100 mg Prednisone (Prednisone) 40 mg GT DAILY@0800 [facility] Last Admin: 06/16/17 08:26 Dose: 40 mg Sodium Chloride () 5 - 30 ml IV UD PRN PRN Reason: SALINE FLUSH Last Admin: 06/17/17 06:19 Dose: 20 ml Sodium Chloride () 10 - 40 ml IV UD PRN PRN Reason: MULTILUMEN/HICMAN CATH FLUSH Assessment/Plan Active and Suspected Problems Pneumothorax, right (Acute) Non-STEMI (non-ST elevated myocardial infarction) (Acute) Encephalopathy (Acute) JULIO CESAR (acute kidney injury) (Acute) Community acquired pneumonia (Suspected) Acute renal failure (Acute) Septic shock (Acute) Lactic acidosis (Acute) Cardiopulmonary arrest (Acute) The patient is a 61 y/o M w/ PMHx: CAD, HTN, HLD, Depression, Hx CVA, Diabetes mellitus type II, Obesity, Chronic COPD, Chronic Hypoxic Respiratory Failure, Tobacco use who presents to the [facility] ED on 06/10/17 with respiratory and cardiac arrest, suspected primarily respiratory as initiating factor. (1) Cardiopulmonary Arrest W/ ? Post-Event Seizure Activity: Suspected initial etiology was pulmonary, s/p CPR as noted, initially placed on pressors, off pressors now, BP improved, cardiac enzymes elevated, EKGs obtained serially, NSTEMI Dx, deferred chemoprophylaxis secondary to possibility of bleeding given notable fx injuries s/p CPR, maintained on IV abx and IV steroids for concurrent possible PNA and COPD exacerbation-->oral prednisone, IV levaquin-->IV rocephin-->IV zosyn. 06/11/17 decreased mental status, unable to withdraw to stimuli now, suspect vegetative status, remained unresponsive even with d/c sedation 06/11/17. 06/11/17 MRI brain without acute evidence of infarct. 06/11/17 EEG which was abnormal with generalized epileptiform discharges which in the setting of recent cardiac arrest portends poor prognosis. DVT BL LE with no evidence DVT. ECHO 06/11/17 with EF 65%, moderately dilated RV, mild TVI, RVSP 72 mmHg, severe pulmonary HTN. Neurology consulted, 06/13/17 initiated initially keppra, but discussed with Neurology and transitioned to Dilantin 100 mg IV q 8 hours given planned HD start per Nephrology. 06/15/[address] head and EEG per discussion with Neurology and ICU staff. Plan terminal extubation this AM pending family arrival 06/17/17. If continues to survive past 1-2 hours would plan consultation to Hospice for transition. (2) Lactic acidosis/septic shock w/ ongoing Fevers: Secondary to CPA, PNA, IVFs in the ED, pressors initially, LA normalized. Bld, UCx, Sputum Cx obtained. C-diff negative. Continued IV abx therapy rocephin per ICU with transition from initial levaquin, noted IV Vanc transiently-->06/14/17 IV Zosyn per ICU as ongoing elevated T, intermittent usage cooling blanket. Suspected secondary to neurological etiology; however, cannot rule out additional infectious component, repeat Bld Cx pending per ICU physician direction. 06/10/17 Bld Cx NGTS, stool cultures unremarkable, Sputum Cx NG. (3) Acute NSTEMI: In the setting of acute cardiopulmonary arrest, EKG in ED w/ RBBB, CXR w/ fx ribs, displaced and ? R sided PNA, trop trend <0.02-->0.22-->0.30-->0.34. Will maintain on a monitored bed, deferred heparin drip secondary to concern for possible bleeding w/ recent rib fx. Continue medical management w/ asa, BB, ACEI started following renal function improved, not on statin. Cardiology consulted, following, no interventions at this time, poor prognosis, planned withdraw as noted 06/17/17. (4) Acute on Chronic Hypoxic and Hypercarbic Respiratory Failure on Chronic Hypoxic Respiratory Failure secondary to Possible R Sided CAP PNA, Aspiration w/ Acute on Chronic COPD Exacerbation: CXR w/ with iatrogenic displaced R 5th-6th rib fx, CT placement, chronic COPD changes, R sided PNA, intubated, sedated, ATC duonebs, PRN albuterol, IV methylprednisolone-->prednisone, HOB, IS parameters, IV Levaquin-->06/13/17 transitioned to Rocephin given ongoing fevers-->06/14/17 IV Zosyn per ICU. Unremarkable initial sputum cultures, respiratory panel negative. (5) Acute kidney injury: Secondary to hypoperfusion, cardiopulmonary arrest, likely ATN thus would expect very slow improvement of function. Initiated upon admission on bicarbonate and also given kayexelate secondary to hyperkalemia which has resolved. 06/02/17 d/c bicarbonate drip. UA w/ casts. Admission BUN/Cr 80/5.56, prior baseline creatinine unclear but denied CKD. Hydrated, pressors initially, trending function, 06/12/17 BUN/Cr 94/5.12-->06/13/17 BUN/Cr 108/4.18. Monitor UOP, ongoing at this time. Given continued FULL CODE status, uremic status, Nephrology consulted, decision for initiation dialysis with access placed 06/13/17 and session x 1 start, 06/14/17 BUN/Cr 90/2.82-->06/15/17 BUN/Cr 89/2.43-->06/16/17 BUN/Cr 92/2.24. (6) Suspected Iatrogenic R sided PTX: Possibly secondary to CPR w/ R sided rib fractures but also R sided SC placed in the field. Films w displaced fractures of the right fifth and sixth ribs. Emergent chest tubed placement performed. Surgery following, management per Surgery, continued to suction given continued 06/14/17 > 150 cc output-->06/15/17 CT output minimal. Given poor prognosis discussed with surgery and will defer transition off suction given planned withdrawal of care on 06/17/17. (7) Hypertension, Uncontrolled: 06/12/17 onset notable hypertension, uncontrolled, 06/12/17 AM initiated on nicardipine drip per ICU, improved BP, d/c attempt 06/15/17 failed, restarted. Given renal function improved, initiated and continued on lasix, lisinopril, coreg, norvasc, PRN IV labetalol. (8) CAD: Will continue home regimen asa, BB, ACEI, norvasc, not on statin as noted. Given poor prognosis, planned withdraw defer. (9) Diabetes mellitus type II w/ Hyperglycemia: Hold oral home regimen, scheduled insulin with notable hyperglycemia, 06/14/17 increased levemir given ongoing 300-400, BS remained elevated, further 06/16/17 increase levemir 70 u BID per ICU, accu checks w/ ISS. (10) Hx CVA Prior: Noted BL LE weakness, unclear extent per , maintain on asa, IV BB d/c, currently on IV nicardipine, not on statin. Neurology consulted, MRI, EEG as noted. Deferred 06/15/[address] head and EEG with planned withdrawal of care 06/17/17. (11) GERD: Famotidine. (12) Obesity: Nutrition consulted, TF, following. (13) Tobacco Abuse: Given status unable to encourage cessation. (14) TRAVON: On CPAP q HS outpatient. (15) DVT Prophylaxis: SCDs, heparin.
--- NOTE | 2017-06-17 09:46 | PCM.DC.SUM ---
Discharge Date and Diagnosis - Problem List Patient Problems: Active and Suspected Problems Pneumothorax, right (Acute) Non-STEMI (non-ST elevated myocardial infarction) (Acute) Encephalopathy (Acute) JULIO CESAR (acute kidney injury) (Acute) Community acquired pneumonia (Suspected) Acute renal failure (Acute) Septic shock (Acute) Lactic acidosis (Acute) Cardiopulmonary arrest (Acute) Date of Admission: 06/10/17 Date of Discharge: 06/17/17 - Primary Discharge Diagnosis Active and Suspected Problems (1) Cardiopulmonary Arrest w/ ? Post-Event Seizure Activity with Suspected initial etiology Pulmonary event (2) Lactic acidosis/septic shock secondary to CAP (3) Acute NSTEMI (4) Acute on Chronic Hypoxic and Hypercarbic Respiratory Failure on Chronic Hypoxic Respiratory Failure secondary to R Sided CAP PNA, Aspiration w/ Acute on Chronic COPD Exacerbation (5) Acute kidney injury, Secondary to hypoperfusion, cardiopulmonary arrest, likely ATN with electrolyte disturbances (6) Suspected Iatrogenic R sided PTX, Possibly secondary to CPR w/ R sided rib fractures but also R sided SC placed in the field (7) Encephalopathy, Multifactorial, secondary to 1-6 (8) Hypertension (9) Hyperlipidemia (10) CAD (11) Diabetes mellitus type II w/ Hyperglycemia, Uncontrolled (12) Hx CVA Prior (13) GERD (14) Obesity (15) Tobacco Abuse (16) TRAVON - Secondary Discharge Diagnosis Chronic Problems Coronary artery disease (Chronic) Hyperlipidemia (Chronic) Depression (Chronic) Hypertension (Chronic) Type 2 diabetes mellitus (Chronic) COPD (chronic obstructive pulmonary disease) (Chronic) Chronic respiratory failure (Chronic) Hospital Course and Treatment Cardiology Dr. Lovell ICU/CC/Pulm Dr. Cotton/Dr. Arnold Neurology Dr. Ramsey Nephrology Dr. Lewis Hospice Dr. Cool Operations: None Procedures: 2-D Echocardiogram, Central line placement, CPR performed, EKG, Intubation Summary of Care Provided: The patient is a 61 y/o M w/ PMHx: CAD, HTN, HLD, Depression, Hx CVA, Diabetes mellitus type II, Obesity, Chronic COPD, Chronic Hypoxic Respiratory Failure, Tobacco use who presented to the [facility] ED on 06/10/17 with respiratory and cardiac arrest. Suspected initial etiology was pulmonary, s/p CPR as noted, initially placed on pressors, off pressors now, BP improved, cardiac enzymes elevated, EKGs obtained serially, NSTEMI Dx, deferred chemoprophylaxis secondary to possibility of bleeding given notable fx injuries initially s/p CPR, maintained on IV abx and IV steroids for concurrent possible PNA and COPD exacerbation-->oral prednisone, IV levaquin-->IV rocephin-->IV zosyn. 06/11/17 decreased mental status, unable to withdraw to stimuli now, suspect vegetative status, remained unresponsive even with d/c sedation 06/11/17. 06/11/17 MRI brain without acute evidence of infarct. 06/11/17 EEG which was abnormal with generalized epileptiform discharges which in the setting of recent cardiac arrest portends poor prognosis. DVT BL LE with no evidence DVT. ECHO 06/11/17 with EF 65%, moderately dilated RV, mild TVI, RVSP 72 mmHg, severe pulmonary HTN. Neurology consulted, 06/13/17 initiated initially keppra, but discussed with Neurology and transitioned to Dilantin 100 mg IV q 8 hours given planned HD start per Nephrology. Lactic acidosis/septic shock w/ ongoing Fevers, Secondary to CPA, PNA, IVFs in the ED, pressors initially, LA normalized. Bld, UCx, Sputum Cx obtained. C-diff negative. Continued IV abx therapy rocephin per ICU with transition from initial levaquin, noted IV Vanc transiently-->06/14/17 IV Zosyn per ICU as ongoing elevated T, intermittent usage cooling blanket. Suspected secondary to neurological etiology; however, could rule out additional infectious component, repeat Bld Cx pending per ICU physician direction. 06/10/17 Bld Cx NGTS, stool cultures unremarkable, Sputum Cx NG. During admission, Cardiology consulted, trop trend <0.02-->0.22-->0.30-->0.34 as noted, deferred heparin drip secondary to concern for possible bleeding w/ recent rib fx, eventually placed on medical management w/ asa, BB, ACEI started following renal function improved, not on statin. No interventions per Cardiology secondary to poor prognosis. Acute on Chronic Hypoxic and Hypercarbic Respiratory Failure on Chronic Hypoxic Respiratory Failure secondary to Possible R Sided CAP PNA, Aspiration w/ Acute on Chronic COPD Exacerbation w/ admission CXR w/ with iatrogenic displaced R 5th-6th rib fx, CT placement, chronic COPD changes, R sided PNA, intubated, ATC duonebs, PRN albuterol, IV methylprednisolone-->prednisone, HOB, IS parameters, IV Levaquin-->06/13/17 transitioned to Rocephin given ongoing fevers-->06/14/17 IV Zosyn per ICU. Unremarkable initial sputum cultures, respiratory panel negative. Acute kidney injury, secondary to hypoperfusion, cardiopulmonary arrest, likely ATN thus would expect very slow improvement of function. Initiated upon admission on bicarbonate and also given kayexelate secondary to hyperkalemia which has resolved. 06/02/17 d/c bicarbonate drip. UA w/ casts. Admission BUN/Cr 80/5.56, prior baseline creatinine unclear but denied CKD. Hydrated, pressors initially, trending function, 06/12/17 BUN/Cr 94/5.12-->06/13/17 BUN/Cr 108/4.18. Monitor UOP, ongoing at this time. Given continued FULL CODE status, uremic status, Nephrology consulted, decision for initiation dialysis with access placed 06/13/17 and session start, 06/14/17 BUN/Cr 90/2.82-->06/15/17 BUN/Cr 89/2.43-->06/16/17 BUN/Cr 92/2.24-->06/17/17 BUN/Cr 113/2.37. As noted, Suspected Iatrogenic R sided PTX, possibly secondary to CPR w/ R sided rib fractures but also R sided SC placed in the field w/ emergent chest tubed placement performed with management per Surgery, continued to suction given continued 06/14/17 > 150 cc output-->06/15/17 CT output minimal but remained to suction given poor prognosis and planned withdrawal of care. During admission Hypertension, Uncontrolled, 06/12/17 onset notable hypertension, uncontrolled, 06/12/17 AM initiated on nicardipine drip per ICU, improved BP, d/c attempt 06/15/17 failed, restarted. Given renal function improvement per ICU, initiated 06/16/17 on lisinopril, coreg, norvasc, PRN IV labetalol. 06/15/[address] head and EEG per discussion with Neurology and ICU staff. Discussed CODE status with family again at length following arrival 06/17/17 and with Hospice services patient changed to DNR-CC status, form signed and placed on the chart. Advanced Care Planning Face to Face Time: 20 minutes. Following this, terminal extubation 06/17/17 performed and patient transitioned to hospice service. Home Medications: Medications to take at Discharge Albuterol IH (ProAir) [Proair Hfa (SP)Vent Pts] 1 puff INHALATION Q4H PRN PRN 06/10/17 Aspirin [Aspirin, Baby] 81 mg PO DAILY 06/10/17 Bupropion HCl [Wellbutrin Xl] 300 mg PO DAILY 06/10/17 Citalopram Hydrobromide [Celexa] 20 mg PO DAILY 06/10/17 Eszopiclone [Lunesta] 2 mg PO QHS PRN PRN 06/10/17 Fenofibrate 200 mg PO DAILY 06/10/17 Ferrous Sulfate 325 mg PO DAILY@0800 06/10/17 Furosemide [Lasix] 40 mg PO DAILY 06/10/17 GlipiZIDE [Glucotrol] 10 mg PO BID 06/10/17 Hydrocodone/Acetaminophen [Hydrocodon-Acetaminophn 10-325] 1 each PO Q6H 06/10/17 Ketoconazole [Extina] 50 gm TP DAILY 06/10/17 Lisinopril [Zestril] 40 mg PO DAILY 06/10/17 Magnesium Oxide [Mag-Ox 400] 400 mg PO DAILY 06/10/17 Metformin HCl 1,000 mg PO BID 06/10/17 Morphine Sulfate [Ms Contin] 60 mg PO Q12H 06/10/17 Nitroglycerin [Nitrostat] 0.4 mg SL PRN PRN 06/10/17 Omeprazole [Prilosec] 20 mg PO DAILY 06/10/17 Simvastatin 20 mg PO QHS 06/10/17 Tamsulosin HCl [Flomax] 0.4 mg PO DAILY 06/10/17 Tizanidine HCl 4 mg PO QHS 06/10/17 Triamcinolone 0.1% Cream [Kenalog] 1 applic TOPICAL TID 06/10/17 Primary Care Physician: Marlene Herrera MD [Primary Care Provider] - Disposition: Hospice Medical Facility Minutes spent on discharge:: 35 Patient Condition:: Critical Meaningful Use Info Meaningful Use Diagnoses (Choose all that apply): AMI - AMI Aspirin given w/in 24hrs of arrival?: Yes ASA at discharge?: No Reason ASA not ordered:: Allergy Statins at discharge?: No Reason statins not ordered:: Allergy Mark/ARB at discharge?: No Reason Mark/ARB not ordered:: Allergy Beta Nilda at discharge?: No Reason Beta Nilda not ordered:: Allergy Done w/ Acute GA measure.: Yes Code Visit Inpatient E&M: 12863 Disch Hosp Procedures: 32637 Advncd Care Plan 30 Min
--- NOTE | 2017-06-17 10:00 | DS.PCM_ITS ---
Discharge Date and Diagnosis - Problem List Patient Problems: Active and Suspected Problems Pneumothorax, right (Acute) Non-STEMI (non-ST elevated myocardial infarction) (Acute) Encephalopathy (Acute) JULIO CESAR (acute kidney injury) (Acute) Community acquired pneumonia (Suspected) Acute renal failure (Acute) Septic shock (Acute) Lactic acidosis (Acute) Cardiopulmonary arrest (Acute) Date of Admission: 06/10/17 Date of Discharge: 06/17/17 - Primary Discharge Diagnosis Active and Suspected Problems (1) Cardiopulmonary Arrest w/ ? Post-Event Seizure Activity with Suspected initial etiology Pulmonary event (2) Lactic acidosis/septic shock secondary to CAP (3) Acute NSTEMI (4) Acute on Chronic Hypoxic and Hypercarbic Respiratory Failure on Chronic Hypoxic Respiratory Failure secondary to R Sided CAP PNA, Aspiration w/ Acute on Chronic COPD Exacerbation (5) Acute kidney injury, Secondary to hypoperfusion, cardiopulmonary arrest, likely ATN with electrolyte disturbances (6) Suspected Iatrogenic R sided PTX, Possibly secondary to CPR w/ R sided rib fractures but also R sided SC placed in the field (7) Encephalopathy, Multifactorial, secondary to 1-6 (8) Hypertension (9) Hyperlipidemia (10) CAD (11) Diabetes mellitus type II w/ Hyperglycemia, Uncontrolled (12) Hx CVA Prior (13) GERD (14) Obesity (15) Tobacco Abuse (16) TRAVON - Secondary Discharge Diagnosis Chronic Problems Coronary artery disease (Chronic) Hyperlipidemia (Chronic) Depression (Chronic) Hypertension (Chronic) Type 2 diabetes mellitus (Chronic) COPD (chronic obstructive pulmonary disease) (Chronic) Chronic respiratory failure (Chronic) Hospital Course and Treatment Cardiology Dr. Lovell ICU/CC/Pulm Dr. Cotton/Dr. Arnold Neurology Dr. Ramsey Nephrology Dr. Lewis Hospice Dr. Cool Operations: None Procedures: 2-D Echocardiogram, Central line placement, CPR performed, EKG, Intubation Summary of Care Provided: The patient is a 61 y/o M w/ PMHx: CAD, HTN, HLD, Depression, Hx CVA, Diabetes mellitus type II, Obesity, Chronic COPD, Chronic Hypoxic Respiratory Failure, Tobacco use who presented to the [facility] ED on 06/10/17 with respiratory and cardiac arrest. Suspected initial etiology was pulmonary, s/p CPR as noted, initially placed on pressors, off pressors now, BP improved, cardiac enzymes elevated, EKGs obtained serially, NSTEMI Dx, deferred chemoprophylaxis secondary to possibility of bleeding given notable fx injuries initially s/p CPR, maintained on IV abx and IV steroids for concurrent possible PNA and COPD exacerbation--> oral prednisone, IV levaquin-->IV rocephin-->IV zosyn. 06/11/17 decreased mental status, unable to withdraw to stimuli now, suspect vegetative status, remained unresponsive even with d/c sedation 06/11/17. 06/11/17 MRI brain without acute evidence of infarct. 06/11/17 EEG which was abnormal with generalized epileptiform discharges which in the setting of recent cardiac arrest portends poor prognosis. DVT BL LE with no evidence DVT. ECHO 06/11/17 with EF 65%, moderately dilated RV, mild TVI, RVSP 72 mmHg, severe pulmonary HTN. Neurology consulted, 06/13/17 initiated initially keppra, but discussed with Neurology and transitioned to Dilantin 100 mg IV q 8 hours given planned HD start per Nephrology. Lactic acidosis/septic shock w/ ongoing Fevers, Secondary to CPA, PNA, IVFs in the ED, pressors initially, LA normalized. Bld, UCx, Sputum Cx obtained. C-diff negative. Continued IV abx therapy rocephin per ICU with transition from initial levaquin, noted IV Vanc transiently-->06/14/17 IV Zosyn per ICU as ongoing elevated T, intermittent usage cooling blanket. Suspected secondary to neurological etiology; however, could rule out additional infectious component, repeat Bld Cx pending per ICU physician direction. Bld Cx NGTS, stool cultures unremarkable, Sputum Cx NG. During admission, Cardiology consulted, trop trend <0.02-->0.22-->0.30-->0.34 as noted, deferred heparin drip secondary to concern for possible bleeding w/ recent rib fx, eventually placed on medical management w/ asa, BB, ACEI started following renal function improved, not on statin. No interventions per Cardiology secondary to poor prognosis. Acute on Chronic Hypoxic and Hypercarbic Respiratory Failure on Chronic Hypoxic Respiratory Failure secondary to Possible R Sided CAP PNA, Aspiration w/ Acute on Chronic COPD Exacerbation w/ admission CXR w/ with iatrogenic displaced R 5th-6th rib fx, CT placement, chronic COPD changes, R sided PNA, intubated, ATC duonebs, PRN albuterol, IV methylprednisolone-->prednisone, HOB, IS parameters, IV Levaquin-->06/13/17 transitioned to Rocephin given ongoing fevers-->06/14/17 IV Zosyn per ICU. Unremarkable initial sputum cultures, respiratory panel negative. Acute kidney injury, secondary to hypoperfusion, cardiopulmonary arrest, likely ATN thus would expect very slow improvement of function. Initiated upon admission on bicarbonate and also given kayexelate secondary to hyperkalemia which has resolved. 06/02/17 d/c bicarbonate drip. UA w/ casts. Admission BUN/Cr 80/5.56, prior baseline creatinine unclear but denied CKD. Hydrated, pressors initially, trending function, 06/12/17 BUN/Cr 94/5.12-->06/13/17 BUN/Cr 108/4.18. Monitor UOP , ongoing at this time. Given continued FULL CODE status, uremic status, Nephrology consulted, decision for initiation dialysis with access placed and session start, 06/14/17 BUN/Cr 90/2.82-->06/15/17 BUN/Cr 89/2.43-->06/16/17 BUN/Cr 92/2.24-->06/17/17 BUN/Cr 113/2.37. As noted, Suspected Iatrogenic R sided PTX, possibly secondary to CPR w/ R sided rib fractures but also R sided SC placed in the field w/ emergent chest tubed placement performed with management per Surgery, continued to suction given continued 06/14/17 > 150 cc output--> CT output minimal but remained to suction given poor prognosis and planned withdrawal of care. During admission Hypertension, Uncontrolled, 06/12/17 onset notable hypertension, uncontrolled, 06/12/17 AM initiated on nicardipine drip per ICU, improved BP, d/c attempt 06/15/17 failed, restarted. Given renal function improvement per ICU, initiated 06/16/17 on lisinopril, coreg, norvasc, PRN IV labetalol. 06/15/[address] head and EEG per discussion with Neurology and ICU staff. Discussed CODE status with family again at length following arrival 06/17/17 and with Hospice services patient changed to DNR-CC status, form signed and placed on the chart. Advanced Care Planning Face to Face Time: 20 minutes. Following this, terminal extubation 06/17/17 performed and patient transitioned to hospice service. Home Medications: Medications to take at Discharge Albuterol IH (ProAir) [Proair Hfa (SP)Vent Pts] 1 puff INHALATION Q4H PRN PRN Aspirin [Aspirin, Baby] 81 mg PO DAILY 06/10/17 Bupropion HCl [Wellbutrin Xl] 300 mg PO DAILY 06/10/17 Citalopram Hydrobromide [Celexa] 20 mg PO DAILY 06/10/17 Eszopiclone [Lunesta] 2 mg PO QHS PRN PRN 06/10/17 Fenofibrate 200 mg PO DAILY 06/10/17 Ferrous Sulfate 325 mg PO DAILY@0800 06/10/17 Furosemide [Lasix] 40 mg PO DAILY 06/10/17 GlipiZIDE [Glucotrol] 10 mg PO BID 06/10/17 Hydrocodone/Acetaminophen [Hydrocodon-Acetaminophn 10-325] 1 each PO Q6H Ketoconazole [Extina] 50 gm TP DAILY 06/10/17 Lisinopril [Zestril] 40 mg PO DAILY 06/10/17 Magnesium Oxide [Mag-Ox 400] 400 mg PO DAILY 06/10/17 Metformin HCl 1,000 mg PO BID 06/10/17 Morphine Sulfate [Ms Contin] 60 mg PO Q12H 06/10/17 Nitroglycerin [Nitrostat] 0.4 mg SL PRN PRN 06/10/17 Omeprazole [Prilosec] 20 mg PO DAILY 06/10/17 Simvastatin 20 mg PO QHS 06/10/17 Tamsulosin HCl [Flomax] 0.4 mg PO DAILY 06/10/17 Tizanidine HCl 4 mg PO QHS 06/10/17 Triamcinolone 0.1% Cream [Kenalog] 1 applic TOPICAL TID 06/10/17 Primary Care Physician: Marlene Herrera MD [Primary Care Provider] - Disposition: Hospice Medical Facility Minutes spent on discharge:: 35 Patient Condition:: Critical Meaningful Use Info Meaningful Use Diagnoses (Choose all that apply): AMI - AMI Aspirin given w/in 24hrs of arrival?: Yes ASA at discharge?: No Reason ASA not ordered:: Allergy Statins at discharge?: No Reason statins not ordered:: Allergy Mark/ARB at discharge?: No Reason Mark/ARB not ordered:: Allergy Beta Nilda at discharge?: No Reason Beta Nilda not ordered:: Allergy Done w/ Acute NC measure.: Yes Code Visit Inpatient E&M: 94017 Disch Hosp Procedures: 03115 Advncd Care Plan 30 Min
--- NOTE | 2017-06-17 10:49 | NURSING ---
Family visited and is ready for pt to be extubated. Terminally extubated at 1035. Dr Arnold & Dr Penn aware. Called [facility]. They will be sending someone around [id number] to assess pt unless pt expires before then.
[2017-06-17] MEDS: LORazepam 2 MG/ML Syringe IV ×4 (11:08→14:26)
--- NOTE | 2017-06-17 11:08 | NURSING ---
Ativan 2MG IV given per MD order
[2017-06-17] MEDS: Atropine Sulfate 1% 2 ml Bottle 4 DRP SL (11:28)
--- NOTE | 2017-06-17 11:53 | NURSING ---
Ativan 2mg IV given now per .
--- NOTE | 2017-06-17 13:48 | NURSING ---
Dr Penn in & d/c chest tube.
--- NOTE | 2017-06-17 14:15 | NURSING ---
Temporary Dialysis Catheter discontinued per Hospice request.
--- NOTE | 2017-06-17 14:40 | NURSING ---
Pt transported to hospice care center /legacy health services. Family present when transportation arrived.
== END 2017-06-17 14:40 | disposition hospice, inpatient (51) | DRG 870 ==
LOC: ED 17:20 → ICU 18:46
PROVIDERS: Internal Medicine; Internal Medicine Critical Care Medicine; Internal Medicine Nephrology; Psychiatry & Neurology Neurology; Admitting Provider Hospitalist; Emergency Provider Emergency Medicine; Family Provider Internal Medicine; PCP Internal Medicine; Visit Provider Family Medicine
DX: A41.9 Sepsis, unspecified organism (principal); I21.4 Non-ST elevation (NSTEMI) myocardial infarction; I46.9 Cardiac arrest, cause unspecified; N17.0 Acute kidney failure with tubular necrosis; J18.9 Pneumonia, unspecified organism; J96.21 Acute and chronic respiratory failure with hypoxia; R65.21 Severe sepsis with septic shock; G93.40 Encephalopathy, unspecified; J96.22 Acute and chronic respiratory failure with hypercapnia; J44.0 Chronic obstructive pulmonary disease with (acute) lower respiratory infection; J44.1 Chronic obstructive pulmonary disease with (acute) exacerbation; S27.0XXA Traumatic pneumothorax, initial encounter; E87.2 Acidosis; S22.41XA Multiple fractures of ribs, right side, initial encounter for closed fracture; I25.10 Atherosclerotic heart disease of native coronary artery without angina pectoris; E78.5 Hyperlipidemia, unspecified; F41.9 Anxiety disorder, unspecified; F32.9 Major depressive disorder, single episode, unspecified; F17.210 Nicotine dependence, cigarettes, uncomplicated; G47.33 Obstructive sleep apnea (adult) (pediatric); K21.9 Gastro-esophageal reflux disease without esophagitis; E11.65 Type 2 diabetes mellitus with hyperglycemia; Z86.73 Personal history of transient ischemic attack (TIA), and cerebral infarction without residual deficits; Z79.84 Long term (current) use of oral hypoglycemic drugs; Z99.81 Dependence on supplemental oxygen; E83.51 Hypocalcemia; E83.42 Hypomagnesemia; I45.10 Unspecified right bundle-branch block; I10 Essential (primary) hypertension; Y84.8 Other medical procedures as the cause of abnormal reaction of the patient, or of later complication, without mention of misadventure at the time of the procedure; Z66 Do not resuscitate; Z51.5 Encounter for palliative care
CPT/HCPCS: 31500; 31720; 36600; 51702; 70450; 70551; 71045; 80048; 80053; 80076; 80185; 80186; 81001; 82140; 82803; 82962; 83605; 83735; 84100; 84439; 84443; 84484; 85025; 85610; 85730; 86704; 86705; 87040; 87070; 87086; 87205; 87340; 87493; 87506; 87633; 87640; 90937; 92950; 93005; 93306; 93970; 94002; 94003; 94640; 94660; 94770; 95819; 95831; 97802; 97803; 99285; J7030; J7040; J7050; A4216; C1751; C1752; G0257; J0610; J0696; J3490